=== PATIENT | male | born 1970 | race Caucasian/White ===

== ENCOUNTER 2016-08-07 17:00 | Inpatient (IN) | payer OTHER ==
[2016-08-07 20:03] VITALS: BMI 26.1
[2016-08-07] MEDS ORDERED: HEPARIN SODIUM,PORCINE 5,000 UNIT/ML 1 ML VIAL IV ONE (21:38)
[2016-08-07] MEDS: HYDROcodone/APAP 7.5-325MG 1 EACH TAB PO PRN (22:11)
[2016-08-07] MEDS: HEPARIN SODIUM,PORCINE/D5W PMX 25,000 UNIT in DEXTROSE/WATER 1 500ML.BAG IV SCH (22:33)
[2016-08-07 22:37] LABS: Basophils # (A) 0.1 k/uL (0-0.2); Basophils % (A) 1 %; CH 31.7; CHCM 34.1; Eosinophils # (A) 0.2 k/uL (0-0.7); Eosinophils % (A) 4 %; HCT 43.8 % (39.0-53.0); HDW 2.59; HGB 14.4 gm/dL (13.0-17.5); Luc % (Auto) 2; Lymphocytes # (A) 2.2 k/uL (1.0-4.8); Lymphocytes % (A) 35 %; MCH 30.8 pg (25.0-35.0); MCHC 32.9 g/dL (31.0-37.0); MCV 93.5 fL (80.0-100.0); Mean Platelet Volume 8.2; Monocytes # (A) 0.4 k/uL (0-1.0); Monocytes % (A) 7 %; Neutrophils # (A) 3.3 k/uL (1.3-7.7); Neutrophils % (A) 53 %; RBC 4.68 m/uL (4.30-5.90); RDW 12.4 % (11.5-15.5); WBC 6.2 k/uL (3.8-10.6); WBC (Perox) 6.35
[2016-08-07 22:47] LABS: Anion Gap 9 mmol/L; Blood Urea Nitrogen 14 mg/dL (9-20); Calcium 8.7 mg/dL (8.4-10.2); Carbon Dioxide 28 mmol/L (22-30); Chloride 103 mmol/L (98-107); Glucose 76 mg/dL (74-99); INR 1.1 (<1.1); Non-African American GFR(MDRD) >60 (>60 ml/min/1.73 sqM); Partial Thromboplastin Time 25.9 sec (22.0-30.0); Potassium 4.6 mmol/L (3.5-5.1); Prothrombin Time 11.4 sec (9.0-12.0); Sodium 140 mmol/L (137-145)
[2016-08-07] MEDS: MELATONIN 3 MG TABLET PO SCH (23:25)
[2016-08-08] MEDS: HYDROcodone/APAP 7.5-325MG 1 EACH TAB PO PRN ×6 (02:04→21:32)
[2016-08-08 06:59] LABS: Basophils # (A) 0.1 k/uL (0-0.2); Basophils % (A) 1 %; CH 31.5; CHCM 33.7; Eosinophils # (A) 0.2 k/uL (0-0.7); Eosinophils % (A) 5 %; HCT 42.9 % (39.0-53.0); HDW 2.57; Luc # (Auto) 0.15; Luc % (Auto) 3; Lymphocytes # (A) 2.2 k/uL (1.0-4.8); Lymphocytes % (A) 42 %; MCH 30.8 pg (25.0-35.0); MCHC 32.7 g/dL (31.0-37.0); MCV 94.1 fL (80.0-100.0); Mean Platelet Volume 7.3; Monocytes # (A) 0.3 k/uL (0-1.0); Monocytes % (A) 6 %; Neutrophils # (A) 2.3 k/uL (1.3-7.7); Neutrophils % (A) 44 %; RBC 4.55 m/uL (4.30-5.90); RDW 12.5 % (11.5-15.5); WBC 5.2 k/uL (3.8-10.6)
[2016-08-08] MEDS: HEPARIN SODIUM,PORCINE 5,000 UNIT/ML 1 ML VIAL IV PRN ×2 (08:02→16:50)
--- NOTE | 2016-08-08 08:43 | P.CRDCN ---
<Jessa Bowden E - Last Filed: 08/08/16 08:28> History of Present Illness Consult date: 08/08/16 Requesting physician: Anton Durand Reason for Consult (text): Abnormal troponins Chief complaint: Right flank pain History of present illness: This is a 46-year-old gentleman with history of mechanical mitral valve prosthesis, nicotine dependence, GERD, who underwent a cardiac catheterization in April of last year which revealed normal coronary arteries. He was transferred here from [facility]. Patient presented to the hospital there with complaints of right posterior flank pain. The area is tender on palpation, and worsens with deep breathing and cough. He denies any discomfort in his chest, no shortness of breath, no fevers, occasional chills. Patient denies any heavy lifting or muscle strain recently, no injury to that area recently. Troponin was drawn at [facility] which came back to be abnormal, and for this reason the patient was transferred here and a cardiology consultation was requested. Troponin at [place] 0.045. CBC normal. Potassium 4.6, BUN 14, creatinine 1.1. Troponin's of 0.092 , points 087. EKG shows a normal sinus rhythm with nonspecific ST-T wave changes. Patient was supposed to be taking Coumadin at home because of his history of a metallic mitral valve, he states that for the past few months he has not taken it because he no longer has insurance. An echocardiogram with Doppler study was performed here in April of last year which revealed an ejection fraction of 60-65% with a mechanical mitral valve that was well seated. Severely dilated left atrium. Blood pressure this morning 122/70 with a heart rate in the 70s. Past Medical History Past Medical History: Atrial Fibrillation, Cancer, Chest Pain / Angina, CVA/TIA , GERD/Reflux, Hypertension, Myocardial Infarction ([place]), Syncope Additional Past Medical History / Comment(s): has problem with aortic valve regurgitation, had mitral valve replaced, pt thinks a dr told him in 2005 he may have had a mild mi, cyst in colon removed was cancerous- no radiation or chemo, syncope times two 02/2015 Last Myocardial Infarction Date:: 2005 History of Any Multi-Drug Resistant Organisms: None Reported Past Surgical History: Adenoidectomy, Heart Catheterization, Tonsillectomy Additional Past Surgical History / Comment(s): mitral valve replaced, 4 bowels sx in total cysts removed from colon 2 were cancerous only sx was required Past Anesthesia/Blood Transfusion Reactions: No Reported Reaction Past Psychological History: No Psychological Hx Reported Additional Psychological History / Comment(s): pt lives at home with sig other and 2 children. 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 Smoking Status: Current every day smoker Past Alcohol Use History: Occasional Additional Past Alcohol Use History / Comment(s): pt started smoking at age 9 worked up to 1ppd, quit 2009 then started smoking again 2014 & smokes 1-2 cigs per day Past Drug Use History: None Reported - Past Family History Father History Unknown: Yes Family Medical History: Unable to Obtain Additional Family Medical History / Comment(s): pt was adopted. Mother History Unknown: Yes Family Medical History: Unable to Obtain Additional Family Medical History / Comment(s): pt was adopted Medications and Allergies Home Medications Medication Instructions Recorded Confirmed Type Warfarin Sodium 5 mg PO HS 12/12/15 08/07/16 History Allergies Allergy/AdvReac Type Severity Reaction Status Date / Time Penicillins Allergy Severe Anaphylaxis Verified 08/07/16 20:23 Physical Exam Vitals: Vital Signs Temp Pulse Resp BP BP Pulse Ox 08/08/16 08:00 96.3 F L 70 16 122/71 96 08/08/16 04:00 97.8 F 75 18 121/69 96 08/08/16 00:00 97.8 F 81 18 124/70 98 08/07/16 20:00 97 18 08/07/16 19:32 97.1 F L 97 18 156/85 99 Intake and Output 08/07/16 08/08/16 08/08/16 22:59 06:59 14:59 Intake Total 520 185.276 Output Total 200 Balance -200 520 185.276 Intake: IV 320 Heparin Sodium,Porcine/ 160 D5w Pmx 25,000 unit In Dextrose/Water 1 500ml. bag @ 12 UNITS/KG/HR 20. 36 mls/hr IV .Q24H [facility] Rx #:[id number] NS 160 Intake, IV Titration 185.276 Amount Heparin Sodium,Porcine/ 185.276 D5w Pmx 25,000 unit In Dextrose/Water 1 500ml. bag @ 12 UNITS/KG/HR 20. 36 mls/hr IV .Q24H [facility] Rx #:[id number] Oral 200 Output: Urine 200 Other: Voiding Method Urinal Urinal # Voids 1 Weight 84.839 kg 82.1 kg PHYSICAL EXAMINATION: HEENT: Head is atraumatic, normocephalic. Pupils equal, round. Neck is supple. There is no elevated jugular venous pressure. HEART EXAMINATION: Heart S1-S2 metallic mitral valve click is heard, systolic murmur is heard. CHEST EXAMINATION: Lungs are clear to auscultation and precussion. Positive right posterior flank tenderness on palpation and with deep breathing and cough. ABDOMEN: Soft, nontender. Bowel sounds are heard. No organomegaly noted. EXTREMITIES: 2+ peripheral pulses with no evidence of peripheral edema and no calf tenderness noted. NEUROLOGIC patient is awake, alert and oriented -3. . Results 08/08/16 06:20 08/07/16 22:05 Cardiac Enzymes 08/07/16 08/08/16 Range/Units 22:05 06:20 Troponin I 0.092 H* 0.087 H* (0.000-0.034) ng/mL Coagulation 08/07/16 08/08/16 Range/Units 22:05 06:20 PT 11.4 (9.0-12.0) sec APTT 25.9 35.1 H (22.0-30.0) sec CBC 08/07/16 08/08/16 Range/Units 22:05 06:20 WBC 6.2 5.2 (3.8-10.6) k/uL RBC 4.68 4.55 (4.30-5.90) m/uL Hgb 14.4 14.0 (13.0-17.5) gm/dL Hct 43.8 42.9 (39.0-53.0) % Plt Count 213 206 (150-450) k/uL Comprehensive Metabolic Panel 08/07/16 Range/Units 22:05 Sodium 140 (137-145) mmol/L Potassium 4.6 (3.5-5.1) mmol/L Chloride 103 (98-107) mmol/L Carbon Dioxide 28 (22-30) mmol/L BUN 14 (9-20) mg/dL Creatinine 1.10 (0.66-1.25) mg/dL Glucose 76 (74-99) mg/dL Calcium 8.7 (8.4-10.2) mg/dL Current Medications Generic Name Dose Route Start Last Admin Trade Name Freq PRN Reason Stop Dose Admin Acetaminophen/Hydrocodone Bitart 1 each 08/07/16 21:47 08/08/16 06:05 [place] 7.5-325 PO 1 each Q4HR PRN Administration Pain Heparin Sodium (Porcine) 0 unit 08/07/16 21:38 08/08/16 08:02 Heparin IV 4,000 unit PER PROTOCOL PRN Administration Low PTT Protocol Heparin Sodium/Dextrose 25,000 500 mls @ 20.36 mls/hr 08/07/16 21:45 07:39 unit/ IV Solution IV 15 units/kg/hr .Q24H [facility] 25.45 mls/hr Protocol Titration 12 UNITS/KG/HR Melatonin 3 mg 08/07/16 23:00 08/07/16 23:25 Melatonin PO 3 mg HS [facility] Administration Intake and Output 08/07/16 08/08/16 08/08/16 22:59 06:59 14:59 Intake Total 520 185.276 Output Total 200 Balance -200 520 185.276 Intake: IV 320 Heparin Sodium,Porcine/ 160 D5w Pmx 25,000 unit In Dextrose/Water 1 500ml. bag @ 12 UNITS/KG/HR 20. 36 mls/hr IV .Q24H [facility] Rx #:[id number] NS 160 Intake, IV Titration 185.276 Amount Heparin Sodium,Porcine/ 185.276 D5w Pmx 25,000 unit In Dextrose/Water 1 500ml. bag @ 12 UNITS/KG/HR 20. 36 mls/hr IV .Q24H [facility] Rx #:[id number] Oral 200 Output: Urine 200 Other: Voiding Method Urinal Urinal # Voids 1 Weight 84.839 kg 82.1 kg 08/08/16 06:20 08/07/16 22:05 EKG Interpretations (text) EKG shows normal sinus rhythm with nonspecific ST-T wave changes, evidence of LVH strain pattern Assessment and Plan Plan: Assessment and plan #1 right posterior flank pain, appears musculoskeletal in nature. Patient denies chest pain or difficulty in breathing. #2 abnormal troponins, not consistent with acute coronary syndrome. EKG shows normal sinus rhythm with lateral ST-T wave changes similar to prior EKGs. Upon review of prior records, patient appears to have persistent abnormality in his troponins. #3 history of mechanical mitral valve ceases, patient has not been taking Coumadin for the past few months. Patient has been advised in the past regarding compliance with Coumadin as well. #4 nicotine dependence #5 no documented coronary artery disease, cardiac catheterization was performed in April of last year which revealed normal coronary arteries. #6 GERD Plan We will continue the IV heparin, reinitiate Coumadin. Patient has been instructed strongly regarding the importance of Coumadin compliance. We'll repeat an echocardiogram with Doppler study. DNP note has been reviewed, I agree with a documented findings and plan of care. Patient was seen and examined. <Juan Carlos Nix - Last Filed: 08/08/16 13:57> Physical Exam Vitals: Vital Signs Temp Pulse Resp BP BP Pulse Ox 08/08/16 12:00 96.8 F L 76 16 116/71 96 08/08/16 08:00 96.3 F L 70 16 122/71 96 08/08/16 04:00 97.8 F 75 18 121/69 96 08/08/16 00:00 97.8 F 81 18 124/70 98 08/07/16 20:00 97 18 08/07/16 19:32 97.1 F L 97 18 156/85 99 Intake and Output 08/07/16 08/08/16 08/08/16 22:59 06:59 14:59 Intake Total 520 185.276 Output Total 200 Balance -200 520 185.276 Intake: IV 320 Heparin Sodium,Porcine/ 160 D5w Pmx 25,000 unit In Dextrose/Water 1 500ml. bag @ 12 UNITS/KG/HR 20. 36 mls/hr IV .Q24H [facility] Rx #:[id number] NS 160 Intake, IV Titration 185.276 Amount Heparin Sodium,Porcine/ 185.276 D5w Pmx 25,000 unit In Dextrose/Water 1 500ml. bag @ 12 UNITS/KG/HR 20. 36 mls/hr IV .Q24H [facility] Rx #:[id number] Oral 200 Output: Urine 200 Other: Voiding Method Urinal Urinal Toilet Urinal # Voids 1 Weight 84.839 kg 82.1 kg Results 08/08/16 06:20 08/07/16 22:05 Cardiac Enzymes 08/07/16 08/08/16 Range/Units 22:05 06:20 Troponin I 0.092 H* 0.087 H* (0.000-0.034) ng/mL Coagulation 08/07/16 08/08/16 Range/Units 22:05 06:20 PT 11.4 (9.0-12.0) sec APTT 25.9 35.1 H (22.0-30.0) sec CBC 08/07/16 08/08/16 Range/Units 22:05 06:20 WBC 6.2 5.2 (3.8-10.6) k/uL RBC 4.68 4.55 (4.30-5.90) m/uL Hgb 14.4 14.0 (13.0-17.5) gm/dL Hct 43.8 42.9 (39.0-53.0) % Plt Count 213 206 (150-450) k/uL Comprehensive Metabolic Panel 08/07/16 Range/Units 22:05 Sodium 140 (137-145) mmol/L Potassium 4.6 (3.5-5.1) mmol/L Chloride 103 (98-107) mmol/L Carbon Dioxide 28 (22-30) mmol/L BUN 14 (9-20) mg/dL Creatinine 1.10 (0.66-1.25) mg/dL Glucose 76 (74-99) mg/dL Calcium 8.7 (8.4-10.2) mg/dL Current Medications Generic Name Dose Route Start Last Admin Trade Name Freq PRN Reason Stop Dose Admin Acetaminophen/Hydrocodone Bitart 1 each 08/07/16 21:47 08/08/16 09:58 [place] 7.5-325 PO 1 each Q4HR PRN Administration Pain Heparin Sodium (Porcine) 0 unit 08/07/16 21:38 08/08/16 08:02 Heparin IV 4,000 unit PER PROTOCOL PRN Administration Low PTT Protocol Heparin Sodium/Dextrose 25,000 500 mls @ 20.36 mls/hr 08/07/16 21:45 07:39 unit/ IV Solution IV 15 units/kg/hr .Q24H [facility] 25.45 mls/hr Protocol Titration 12 UNITS/KG/HR Melatonin 3 mg 08/07/16 23:00 08/07/16 23:25 Melatonin PO 3 mg HS [facility] Administration Miscellaneous Information 1 each 08/08/16 11:53 Rx Info: Iv Contrast Was Given MISCELLANE 08/10/16 11:54 DAILY PRN Per Protocol Nicotine 1 patch 08/08/16 12:30 08/08/16 12:52 Habitrol 14mg/24hr Patch TRANSDERM Not Given DAILY [facility] Warfarin Sodium 5 mg 08/08/16 18:00 Coumadin PO DAILY@1800 [facility] Intake and Output 08/07/16 08/08/16 08/08/16 22:59 06:59 14:59 Intake Total 520 185.276 Output Total 200 Balance -200 520 185.276 Intake: IV 320 Heparin Sodium,Porcine/ 160 D5w Pmx 25,000 unit In Dextrose/Water 1 500ml. bag @ 12 UNITS/KG/HR 20. 36 mls/hr IV .Q24H [facility] Rx #:[id number] NS 160 Intake, IV Titration 185.276 Amount Heparin Sodium,Porcine/ 185.276 D5w Pmx 25,000 unit In Dextrose/Water 1 500ml. bag @ 12 UNITS/KG/HR 20. 36 mls/hr IV .Q24H [facility] Rx #:[id number] Oral 200 Output: Urine 200 Other: Voiding Method Urinal Urinal Toilet Urinal # Voids 1 Weight 84.839 kg 82.1 kg 08/08/16 06:20 08/07/16 22:05
--- NOTE | 2016-08-08 10:32 | ECHOF ---
Referral Reason:flank pain MEASUREMENTS -------- HEIGHT: 162.6 cm WEIGHT: 84.4 kg BP: IVSd: 1.6 cm (0.6 - 1.1) LVIDd: 4.2 cm (3.9 - 5.3) LVPWd: 1.7 cm (0.6 - 1.1) IVSs: 2.0 cm LVIDs: 3.3 cm LVPWs: 1.8 cm LA Diam: 5.1 cm (2.7 - 3.8) LAESV Index (A-L): 46.64 ml/m Ao Diam: 3.4 cm (2.0 - 3.7) AV Cusp: 2.1 cm (1.5 - 2.6) LA Diam: 5.7 cm (2.7 - 3.8) MV E Anand: 1.47 m/s MV DecT: 266 ms MV A Anand: 0.78 m/s MV E/A Ratio: 1.88 AR PHT: 332 ms RAP: 5.00 mmHg RVSP: 32.77 mmHg FINDINGS -------- Sinus rhythm. This was a technically adequate study. There is moderate concentric left ventricular hypertrophy. Overall left ventricular systolic function is low-normal with, an EF between 50 - 55 %. Inferior Hypokinesis The right ventricle is normal in size. LA is severely dilated >40 ml/m2 The right atrial size is normal. There is mild aortic valve sclerosis. There is moderate aortic regurgitation. The peak and mean MV gradients are 27.01mmHg 6.79mmHg as measured by doppler. Pt has a Mechanical Mitral Valve. Mild tricuspid regurgitation present. There is no evidence of pulmonary hypertension. The right ventricular systolic pressure, as measured by Doppler, is 32.77mmHg. There is no pulmonic regurgitation present. The aortic root size is normal. There is no pericardial effusion. CONCLUSIONS -------- 1. There is moderate concentric left ventricular hypertrophy. 2. There is no evidence of pulmonary hypertension. 3. The right ventricular systolic pressure, as measured by Doppler, is 32.77mmHg. 4. Overall left ventricular systolic function is low-normal with, an EF between 50 - 55 %. 5. Inferior Hypokinesis 6. LA is severely dilated >40 ml/m2 7. There is mild aortic valve sclerosis. 8. There is moderate aortic regurgitation. 9. The peak and mean MV gradients are 27.01mmHg 6.79mmHg as measured by doppler. 10. Pt has a Mechanical Mitral Valve. 11. Mild tricuspid regurgitation present. FIRE INSPECTOR: Alcira Baird RDCS
[2016-08-08] MEDS ORDERED: RX INFO: IV CONTRAST WAS GIVEN 1 EACH MISC MISCELLANE PRN (11:53)
--- NOTE | 2016-08-08 12:37 | CT ---
EXAMINATION TYPE: CT angio chest DATE OF EXAM: 08/08/2016 12:24 PM COMPARISON: NONE HISTORY: Right-sided chest pain with elevated d-dimer CT DLP: 246.8 mGycm. Automated Exposure Control for Dose Reduction was Utilized. CONTRAST: CTA scan of the thorax is performed with IV Contrast, patient injected with 100 mL of Omnipaque 350, pulmonary embolism protocol. MIP Images are created on CT scanner and reviewed. FINDINGS: LUNGS: The lungs are predominantly clear, there is no concerning parenchymal mass or nodule identifie d. Minimal dependent atelectasis in both lower lobes is present. There is no pleural effusion or pne umothorax seen. The tracheobronchial tree is patent. MEDIASTINUM: There is satisfactory enhancement of the pulmonary artery and its branches, there is no CT evidence for pulmonary embolism. There are no greater than 1 cm hilar or mediastinal lymph nodes. No pericardial effusion is seen. Heart size is upper limits of normal. There is moderate to severe left atrial dilatation with metallic mitral valvular ring identified. There is mild to moderate left ventricular dilatation and wall hypertrophy. Sternal wires are present. OTHER: There is mild compression type fracture at T9 level suspected chronic without linear lucency n oted IMPRESSION: No CT evidence for pulmonary embolism. Prior cardiac surgery at level of mitral valve not ed. No suspicious acute pulmonary process identified.
[2016-08-08] MEDS: NICOTINE 14MG/24HR PATCH TRANSDERM SCH ×2 (12:50→12:52)
--- NOTE | 2016-08-08 13:06 | HP ---
DATE OF ADMISSION: 08/07/2016 PRESENTING COMPLAINT: Right chest pain. HISTORY OF PRESENTING COMPLAINT: This is a 46-year-old patient who currently has no family doctor, transferred here from [place]. Patient has a known history of mechanical mitral valve in 2003. For the last 3 months not taking any Coumadin because of insurance reasons. Patient is a smoker. Patient has had a cardiac cath previously that was negative. Patient has had TIA. Patient used to smoke. The patient for 2 weeks been having right lateral chest wall pain, localized, worse with movement. Also when he takes a deep. Presented at [facility], found to have a troponin leak, hence, patient was transferred down here. Patient having left precordial pain, a slight cough, slightly congested; hence, he was transferred down here, put on IV heparin. REVIEW OF SYSTEMS: CONSTITUTIONAL: No fever. HEENT: None. RESPIRATORY: As above. CARDIOVASCULAR: No precordial pain, no exertional chest pain, left-sided. GASTROINTESTINAL: None. GENITOURINARY: None. MUSCULOSKELETAL: Some right-sided chest wall as above. GENITOURINARY: None. PSYCHIATRY: None. NEUROLOGICAL: None. PAST MEDICAL HISTORY: Atrial fibrillation, TIA, GERD, hypertension, questionable myocardial infarction, mitral valve replacement with mechanical technician valve. PAST SURGICAL HISTORY: Adenoidectomy, cardiac catheterization with mitral valve replacement, four bowel surgery, a cancerous cyst was removed. SOCIAL HISTORY: The patient lives at home with significant other. 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 Patient smoking about 1/2 pack a day. No alcohol. FAMILY HISTORY: Patient is adopted. HOME MEDICATIONS: Coumadin, but not taking for the last 3 months. Allergy to PENICILLIN. On examination, temperature 96.8, pulse 76, respirations 16, blood pressure 106/71, pulse ox 96% on room air. GENERAL APPEARANCE: Average build, sitting in bed, comfortable. EYES: Pupils equal, conjunctivae normal. HEENT: Oral cavity normal. NECK: JVD not raised. Mass not palpable. RESPIRATORY: Evident slightly decreased breath sounds. CARDIOVASCULAR: First and second sounds normal. No edema. ABDOMEN: Soft, nontender. Liver and spleen not palpable. LYMPHATIC: No lymph node palpable in neck or axillae. PSYCHIATRY: Alert and oriented x3. Mood and affect normal. NEUROLOGICAL: Pupils equal. Cranial nerves grossly intact. Power and sensation grossly intact. MUSCULOSKELETAL: Tenderness on the right lateral chest wall, localized, quite tender. INVESTIGATIONS: White count 5.2, hemoglobin 14, troponin 0.092, 0.087. A 2-D echocardiogram; EF 50% to 55%, moderate aortic regurgitation, mechanical technician mitral valve, inferior hypokinesis. ASSESSMENT: 1. Right chest wall pain with reproducible pain ( ) the same. Will rule out a pulmonary embolism that could be an element of viral pleurisy. 2. Mechanical mitral valve. Patient has not been taking his Coumadin. 3. Moderate aortic regurgitation, nonrheumatic. 4. Abnormal 2-D echo showing inferior hypokinesis. 5. Troponin leak with no cardiac symptoms. PLAN: Will order a chest CT to rule out a PE. Cardiology is consulted, IV heparin is in place. Advised against smoking, given a nicotine patch. Will await further input from Cardiology. Care was discussed with the patient.
--- NOTE | 2016-08-08 14:28 | XR ---
EXAMINATION TYPE: XR chest 2V DATE OF EXAM: 08/08/2016 2:21 PM COMPARISON: CTA chest from earlier today HISTORY: Right pleuritic chest pain TECHNIQUE: Frontal and lateral views of the chest are obtained. FINDINGS: Sternal wires and metallic orbital valvular ring are redemonstrated. There is no focal air space opacity, pleural effusion, or pneumothorax seen. The cardiac silhouette size is stable and upp er limits of normal. Old right-sided rib fractures are noted. IMPRESSION: No acute cardiopulmonary process.
[2016-08-08] MEDS: HEPARIN SODIUM,PORCINE/D5W PMX 25,000 UNIT in DEXTROSE/WATER 1 500ML.BAG IV SCH (16:48)
[2016-08-08] MEDS ORDERED: WARFARIN 5 MG TAB PO SCH (18:00)
[2016-08-08] MEDS: MELATONIN 3 MG TABLET PO SCH (21:32)
[2016-08-08 23:13] VITALS: RESP 18
[2016-08-09] MEDS: HYDROcodone/APAP 7.5-325MG 1 EACH TAB PO PRN ×4 (01:24→13:56)
[2016-08-09 06:59] LABS: Basophils # (A) 0.1 k/uL (0-0.2); Basophils % (A) 1 %; CH 31.5; Eosinophils # (A) 0.3 k/uL (0-0.7); Eosinophils % (A) 5 %; HCT 42.6 % (39.0-53.0); HDW 2.65; HGB 14.2 gm/dL (13.0-17.5); Luc # (Auto) 0.14; Luc % (Auto) 2; Lymphocytes # (A) 2.4 k/uL (1.0-4.8); Lymphocytes % (A) 38 %; MCH 31.1 pg (25.0-35.0); MCHC 33.4 g/dL (31.0-37.0); MCV 93.1 fL (80.0-100.0); Mean Platelet Volume 7.9; Monocytes # (A) 0.4 k/uL (0-1.0); Monocytes % (A) 6 %; Neutrophils % (A) 48 %; RBC 4.57 m/uL (4.30-5.90); RDW 12.5 % (11.5-15.5); WBC 6.3 k/uL (3.8-10.6); WBC (Perox) 6.23
[2016-08-09 07:18] LABS: INR 1.1 (<1.1); Partial Thromboplastin Time 64.4 sec (22.0-30.0); Prothrombin Time 11.2 sec (9.0-12.0)
[2016-08-09] MEDS: NICOTINE 14MG/24HR PATCH TRANSDERM SCH (08:41)
[2016-08-09 08:49] VITALS: TEMP 98
[2016-08-09] MEDS: HEPARIN SODIUM,PORCINE/D5W PMX 25,000 UNIT in DEXTROSE/WATER 1 500ML.BAG IV SCH (09:35)
[2016-08-09 14:47] VITALS: BP 138/76; PULSE 77
[2016-08-09] MEDS ORDERED: ENOXAPARIN 120 MG/0.8 ML SYRINGE SQ STA (15:24)
--- NOTE | 2016-08-15 11:47 | DS ---
DATE OF ADMISSION: 08/07/2016 DATE OF DISCHARGE: 08/09/2016 FINAL DIAGNOSES: 1. Right chest wall pain reproducible, probably musculoskeletal. 2. Mechanical mitral valve. 3. Moderate aortic regurgitation, nonrheumatic. CONSULTATION: Dr. Juan Carlos Nix from Cardiology. HOSPITAL COURSE: This patient presented with right chest wall pain, reproducible, significant local tenderness felt to be musculoskeletal. Patient has been taking his Coumadin, patient is put on IV heparin and given a dose of Lovenox 120 mg ( ) and also given Xarelto. A 2-D echocardiogram was done by Dr. Nix who cleared the patient to be discharged. PE was ruled out. Patient was counseled against smoking. On examination, lungs are clear. CARDIOVASCULAR: Mechanical heart sound. DISCHARGE MEDICATIONS: 1. Tylenol No. 3 one tablet q.6 p.r.n. 2. Melatonin 3 mg q.h.s. 3. Nicotine patch 14. 4. Xarelto 20 mg daily. Follow up with Dr. Max in 3 days; follow up with Dr. Nix in one week.
== END 2016-08-09 16:19 | disposition home or self-care (01) | DRG 313 ==
LOC: 6SEL 19:15
PROVIDERS: ADMIT Hospitalist; ATTEND Hospitalist
DX: R07.89 Other chest pain (principal); I25.2 Old myocardial infarction; I10 Essential (primary) hypertension; F17.210 Nicotine dependence, cigarettes, uncomplicated; I35.1 Nonrheumatic aortic (valve) insufficiency; I48.91 Unspecified atrial fibrillation; K21.9 Gastro-esophageal reflux disease without esophagitis; Z88.0 Allergy status to penicillin; Z95.2 Presence of prosthetic heart valve; Z85.038 Personal history of other malignant neoplasm of large intestine
CPT/HCPCS: 71020; 71275; 80048; 84484; 85025; 85610; 85730; 93306

== ENCOUNTER 2016-08-22 21:06 | Inpatient (IN) | payer OTHER ==
[2016-08-22] MEDS ORDERED: SODIUM CHLORIDE 0.9% 1,000 ML IV STA (21:43)
[2016-08-22] MEDS ORDERED: KETOROLAC 30 MG/ML 1 ML VIAL IVP STA ×2 (21:43→23:36)
--- NOTE | 2016-08-22 21:52 | ED ---
Back Pain HPI - General Chief Complaint: Back Pain/Injury Stated Complaint: Flank Pain Time Seen by Provider: 08/22/16 21:36 Source: patient, family, RN notes reviewed, old records reviewed Limitations: no limitations - History of Present Illness Initial Comments: This is a 46-year-old male with a history of multiple medical issues including mechanical mitral valve history of A. fib in the past CVA GERD hypertension syncope who was recently worked up this hospital for cardiac disease and apparently have no evidence of coronary artery problems he was supposed to be on blood thinners but is not who presents with complaints of right flank pain going from the right upper lateral chest down to the low back. He started developing a rash today which he had not had previously he states is very painful and tender. He also states he has a hematuria today. No chills or sweats positive fever. Also additionally states he quit smoking a couple days ago. He has a cough is nonproductive. He voices no other complaints he has had this chest pain previously. MD Complaint: back pain - Related Data Previous Rx's Medication Instructions Recorded Rivaroxaban [Xarelto] 20 mg PO DAILY #30 tab 08/09/16 Allergies Allergy/AdvReac Type Severity Reaction Status Date / Time Penicillins Allergy Severe Anaphylaxis Verified 08/22/16 22:22 Review of Systems ROS Statement: Those systems with pertinent positive or pertinent negative responses have been documented in the HPI. ROS Other: All systems not noted in ROS Statement are negative. Past Medical History Past Medical History: Atrial Fibrillation, Cancer, Chest Pain / Angina, CVA/TIA , GERD/Reflux, Hypertension, Myocardial Infarction ([place]), Syncope Additional Past Medical History / Comment(s): has problem with aortic valve regurgitation, had mitral valve replaced, pt thinks a told him in 2005 he may have had a mild mi, cyst in colon removed was cancerous- no radiation or chemo, syncope times two 02/2015 Last Myocardial Infarction Date:: 2005 History of Any Multi-Drug Resistant Organisms: None Reported Past Surgical History: Adenoidectomy, Heart Catheterization, Tonsillectomy Additional Past Surgical History / Comment(s): mitral valve replaced, 4 bowels sx in total cysts removed from colon 2 were cancerous only sx was required Past Anesthesia/Blood Transfusion Reactions: No Reported Reaction Past Psychological History: No Psychological Hx Reported Additional Psychological History / Comment(s): pt lives at home with sig other and 2 children. 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 Smoking Status: Current every day smoker Past Alcohol Use History: Occasional Additional Past Alcohol Use History / Comment(s): pt started smoking at age 9 worked up to 1ppd, quit 2009 then started smoking again 2014 & smokes 1-2 cigs per day Past Drug Use History: None Reported - Past Family History Father History Unknown: Yes Family Medical History: Unable to Obtain Additional Family Medical History / Comment(s): pt was adopted. Mother History Unknown: Yes Family Medical History: Unable to Obtain Additional Family Medical History / Comment(s): pt was adopted General Exam - General Exam Comments Initial Comments: This is a well-developed well-nourished awake alert oriented times 3 male Limitations: no limitations General appearance: alert, in no apparent distress Head exam: Present: atraumatic, normocephalic, normal inspection Eye exam: Present: normal appearance, PERRL, EOMI. Absent: scleral icterus, conjunctival injection, periorbital swelling ENT exam: Present: normal exam, mucous membranes moist Neck exam: Present: normal inspection. Absent: tenderness, meningismus, lymphadenopathy Respiratory exam: Present: normal lung sounds bilaterally. Absent: respiratory distress, wheezes, rales, rhonchi, stridor Cardiovascular Exam: Present: normal rhythm, tachycardia, systolic murmur. Absent: diastolic murmur, rubs, gallop, clicks GI/Abdominal exam: Present: soft, normal bowel sounds. Absent: distended, tenderness, guarding, rebound, rigid Extremities exam: Present: normal inspection, full ROM, normal capillary refill. Absent: tenderness, pedal edema, joint swelling, calf tenderness Back exam: Present: normal inspection (Right lower flank area extending from the midline back to the right flank increased erythema and increased temperature tenderness palpation appears be somewhat urticarial in nature note evidence at this time of any pustules.), tenderness Neurological exam: Present: alert, oriented X3, CN II-XII intact Psychiatric exam: Present: normal affect, normal mood Skin exam: Present: warm, dry, intact, normal color. Absent: rash Course Vital Signs 08/22/16 08/22/16 08/22/16 21:31 22:09 23:35 Temperature 99.1 F 98.2 F 97.0 F L Pulse Rate 104 H 100 93 Respiratory 20 22 20 Rate Blood Pressure 130/90 160/67 132/61 O2 Sat by Pulse 98 96 97 Oximetry 08/22/16 08/23/16 23:43 01:38 Temperature Pulse Rate 95 80 Respiratory 16 Rate Blood Pressure 127/77 120/78 O2 Sat by Pulse 98 96 Oximetry Medical Decision Making - Medical Decision Making Patient was reevaluated several occasions he still has significant pain he will be admitted for treatment of pain fevers or colitis him also concern for herpes zoster with the rash. - Lab Data Result diagrams: 08/22/16 21:49 08/22/16 21:49 Lab Results 08/22/16 08/22/16 08/22/16 Range/Units 21:49 21:49 21:49 WBC 4.9 (3.8-10.6) k/uL RBC 5.14 (4.30-5.90) m/uL Hgb 15.7 (13.0-17.5) gm/dL Hct 47.0 (39.0-53.0) % MCV 91.4 (80.0-100.0) fL MCH 30.6 (25.0-35.0) pg MCHC 33.5 (31.0-37.0) g/dL RDW 12.6 (11.5-15.5) % Plt Count 222 (150-450) k/uL Neutrophils % 70 % Lymphocytes % 19 % Monocytes % 7 % Eosinophils % 0 % Basophils % 1 % Neutrophils # 3.4 (1.3-7.7) k/uL Lymphocytes # 0.9 L (1.0-4.8) k/uL Monocytes # 0.3 (0-1.0) k/uL Eosinophils # 0.0 (0-0.7) k/uL Basophils # 0.0 (0-0.2) k/uL Sodium 135 L (137-145) mmol/L Potassium 4.4 (3.5-5.1) mmol/L Chloride 98 (98-107) mmol/L Carbon Dioxide 28 (22-30) mmol/L Anion Gap 9 mmol/L BUN 11 (9-20) mg/dL Creatinine 1.24 (0.66-1.25) mg/dL Est GFR (MDRD) Af Amer >60 (>60 ml/min/1.73 sqM) Est GFR (MDRD) Non-Af >60 (>60 ml/min/1.73 sqM) Glucose 130 H (74-99) mg/dL Calcium 8.7 (8.4-10.2) mg/dL Magnesium 1.9 (1.6-2.3) mg/dL Total Bilirubin 1.1 (0.2-1.3) mg/dL AST 44 (17-59) U/L ALT 26 (21-72) U/L Alkaline Phosphatase 51 (38-126) U/L Total Creatine Kinase 285 H (55-170) U/L CK-MB (CK-2) 0.7 (0.0-2.4) ng/mL CK-MB (CK-2) Rel Index 0.2 C-Reactive Protein 20.0 H (<10.0) mg/L Total Protein 7.7 (6.3-8.2) g/dL Albumin 4.3 (3.5-5.0) g/dL Amylase 48 (30-110) U/L Lipase 127 (23-300) U/L Urine Color Urine Appearance (Clear) Urine pH (5.0-8.0) Ur Specific [place] (1.001-1.035) Urine Protein (Negative) Urine Glucose (UA) (Negative) Urine Ketones (Negative) Urine Blood (Negative) Urine Nitrate (Negative) Urine Bilirubin (Negative) Urine Urobilinogen (<2.0) mg/dL Ur Leukocyte Esterase (Negative) Urine RBC (0-5) /hpf Urine WBC (0-5) /hpf Ur Squamous Epith Cells (0-4) /hpf Urine Mucus (None) /hpf 08/22/16 Range/Units 23:48 WBC (3.8-10.6) k/uL RBC (4.30-5.90) m/uL Hgb (13.0-17.5) gm/dL Hct (39.0-53.0) % MCV (80.0-100.0) fL MCH (25.0-35.0) pg MCHC (31.0-37.0) g/dL RDW (11.5-15.5) % Plt Count (150-450) k/uL Neutrophils % % Lymphocytes % % Monocytes % % Eosinophils % % Basophils % % Neutrophils # (1.3-7.7) k/uL Lymphocytes # (1.0-4.8) k/uL Monocytes # (0-1.0) k/uL Eosinophils # (0-0.7) k/uL Basophils # (0-0.2) k/uL Sodium (137-145) mmol/L Potassium (3.5-5.1) mmol/L Chloride (98-107) mmol/L Carbon Dioxide (22-30) mmol/L Anion Gap mmol/L BUN (9-20) mg/dL Creatinine (0.66-1.25) mg/dL Est GFR (MDRD) Af Amer (>60 ml/min/1.73 sqM) Est GFR (MDRD) Non-Af (>60 ml/min/1.73 sqM) Glucose (74-99) mg/dL Calcium (8.4-10.2) mg/dL Magnesium (1.6-2.3) mg/dL Total Bilirubin (0.2-1.3) mg/dL AST (17-59) U/L ALT (21-72) U/L Alkaline Phosphatase (38-126) U/L Total Creatine Kinase (55-170) U/L CK-MB (CK-2) (0.0-2.4) ng/mL CK-MB (CK-2) Rel Index C-Reactive Protein (<10.0) mg/L Total Protein (6.3-8.2) g/dL Albumin (3.5-5.0) g/dL Amylase (30-110) U/L Lipase (23-300) U/L Urine Color Yellow Urine Appearance Clear (Clear) Urine pH 6.0 (5.0-8.0) Ur Specific [place] 1.015 (1.001-1.035) Urine Protein Trace H (Negative) Urine Glucose (UA) Negative (Negative) Urine Ketones Negative (Negative) Urine Blood Small H (Negative) Urine Nitrate Negative (Negative) Urine Bilirubin Negative (Negative) Urine Urobilinogen <2.0 (<2.0) mg/dL Ur Leukocyte Esterase Negative (Negative) Urine RBC 4 (0-5) /hpf Urine WBC 1 (0-5) /hpf Ur Squamous Epith Cells <1 (0-4) /hpf Urine Mucus Occasional H (None) /hpf - EKG Data -: EKG Interpreted by Fl EKG shows normal: sinus rhythm (Sinus rhythm a rate of 103. Interval 164 QRS duration 102 QT/QTC of 344/450 left exodeviation LVH PVCs are present unifocal.) - Radiology Data Radiology results: report reviewed (Imaging studies were reviewed and report reviewed there is evidence of colitis.), image reviewed Disposition Clinical Impression: Colitis, Abdominal pain, Herpes zoster Disposition: ADMITTED IP TO THIS HOSP Condition: Stable
[2016-08-22 22:26] LABS: Amylase 48 U/L (30-110); Anion Gap 9 mmol/L; Calcium 8.7 mg/dL (8.4-10.2); Carbon Dioxide 28 mmol/L (22-30); Chloride 98 mmol/L (98-107); Glucose 130 mg/dL (74-99); Non-African American GFR(MDRD) >60 (>60 ml/min/1.73 sqM); Sodium 135 mmol/L (137-145); Total Bilirubin 1.1 mg/dL (0.2-1.3)
[2016-08-22 22:30] LABS: Basophils % (A) 1 %; CHCM 35.1; Eosinophils % (A) 0 %; HGB 15.7 gm/dL (13.0-17.5); Luc # (Auto) 0.14; Luc % (Auto) 3; Lymphocytes # (A) 0.9 k/uL (1.0-4.8); Lymphocytes % (A) 19 %; MCH 30.6 pg (25.0-35.0); MCHC 33.5 g/dL (31.0-37.0); MCV 91.4 fL (80.0-100.0); Mean Platelet Volume 7.7; Monocytes # (A) 0.3 k/uL (0-1.0); Monocytes % (A) 7 %; Neutrophils # (A) 3.4 k/uL (1.3-7.7); Neutrophils % (A) 70 %; RBC 5.14 m/uL (4.30-5.90); RDW 12.6 % (11.5-15.5); WBC 4.9 k/uL (3.8-10.6); WBC (Perox) 4.84
--- NOTE | 2016-08-22 22:37 | XR ---
EXAMINATION TYPE: XR chest 2V DATE OF EXAM: 08/22/2016 10:21 PM COMPARISON: 08/08/2016 HISTORY: Right-sided flank and rib pain x2 weeks history of cancer, [place] and atrial fibrillation heart surgery angina hypertension. TECHNIQUE: Frontal and lateral views of the chest are obtained. FINDINGS: There is no focal air space opacity, pleural effusion, or pneumothorax seen. The cardiac silhouette size is within normal limits. Sternotomy changes are present. Prosthetic cardiac valve is noted. Multiple old healed right posterior rib fractures are noted. [id number] gaseous distention of bowel loops in the abdomen are noted. IMPRESSION: 1. No active lung infiltrates. 2. Chronic lung changes. 3. No significant interval change.
[2016-08-22 22:39] LABS: Blood Urea Nitrogen 11 mg/dL (9-20); Potassium 4.4 mmol/L (3.5-5.1); Total Protein 7.7 g/dL (6.3-8.2)
[2016-08-22 22:40] LABS: ALT 26 U/L (21-72); AST 44 U/L (17-59); Alkaline Phosphatase 51 U/L (38-126); Creatine Kinase MB 0.7 ng/mL (0.0-2.4); Magnesium 1.9 mg/dL (1.6-2.3)
[2016-08-22] MEDS ORDERED: HYDROmorphone 1 MG/ML 1 ML SYRINGE IVP STA (23:36)
[2016-08-23 00:02] LABS: Appearance,Urine Clear (Clear); Bilirubin,Urine Negative (Negative); Glucose,Urine (UA) Negative (Negative); Ketones,Urine Negative (Negative); Leukocyte Esterase,Urine Negative (Negative); Mucus,Urine Occasional /hpf; Nitrite,Urine Negative (Negative); Particle Count 3585; Protein,Urine Trace (Negative); RBC,Urine 4 /hpf (0-5); Specific Gravity,Urine 1.015 (1.001-1.035); Squamous Epithelial Cell,Urine <1 /hpf (0-4); UA Billing (MACRO vs. MICRO) MICRO; Urobilinogen,Urine <2.0 mg/dL (<2.0); WBC,Urine 1 /hpf (0-5)
[2016-08-23] MEDS ORDERED: ORPHENADRINE 30 MG/ML 2 ML VIAL IVP STA (00:18)
[2016-08-23] MEDS ORDERED: HYDROmorphone 1 MG/ML 1 ML SYRINGE IVP STA (00:18)
[2016-08-23] MEDS ORDERED: methylPREDNISolone SOD SUCCI 125 MG/2 ML VIAL IV STA (00:19)
--- NOTE | 2016-08-23 01:33 | CT ---
EXAMINATION TYPE: CT abdomen pelvis wo con DATE OF EXAM: 08/23/2016 1:09 AM COMPARISON: NONE HISTORY: right flank pain and rash CT DLP: 355.80 mGycm Automated exposure control for dose reduction was used. TECHNIQUE: Helical acquisition of images was performed from the lung bases through the pelvis. FINDINGS: LUNG BASES: Mild atelectatic changes are noted in both lung bases. LIVER/GB: No significant abnormality is appreciated. PANCREAS: No significant abnormality is seen. SPLEEN: No significant abnormality is seen. ADRENALS: No significant abnormality is seen. KIDNEYS: No significant abnormality is seen. RETROPERITONEAL ADENOPATHY: None visualized REPRODUCTIVE ORGANS: No significant abnormality is seen URINARY BLADDER: No significant abnormality is seen. PELVIC ADENOPATHY: None visualized. OSSEOUS STRUCTURES: No significant abnormality is seen. BOWEL: Visualized appendix appears unremarkable. Moderate gas and fecal distention of colonic bowel loops is noted with possible mild ileus or colitis changes. No significant bowel obstruction is noted . Stomach and small bowel loops appear grossly unremarkable. OTHER: Small fat-containing inguinal hernias are noted bilaterally. IMPRESSION: 1. POSSIBLE COLITIS CHANGES. 2. NO SIGNIFICANT ABNORMAL FLUID COLLECTIONS ARE NOTED IN THE ABDOMEN AND PELVIS. 3. NO OBSTRUCTING OPAQUE STONES OR HYDRONEPHROSIS BILATERALLY.
[2016-08-23] MEDS ORDERED: NALOXONE 0.4 MG/ML 1 ML VIAL IV PRN (02:35)
[2016-08-23] MEDS ORDERED: DICYCLOMINE 20 MG TAB PO STA (02:39)
[2016-08-23] MEDS: HYDROmorphone 1 MG/ML 1 ML SYRINGE IV PRN ×7 (03:34→22:27)
[2016-08-23 04:26] VITALS: BMI 25.9
[2016-08-23] MEDS: valACYclovir 500 MG TAB PO SCH ×2 (08:02→20:41)
--- NOTE | 2016-08-23 11:42 | P.CONS ---
History of Present Illness - Reason for Consult Consult date: 08/23/16 colitis Requesting physician: Ceci Peoples - History of Present Illness 46-year-old gentleman with a history of mechanical mitral valve, nicotine dependence, GERD, CVA TIA, GERD, A. fib, hypertension, and syncope. Recently hospitalized and discharged on 08/14/2016 with right chest wall reproducible pain suspected musculoskeletal. PE ruled out. Presents with right flank pain that has been ongoing for the last 2 weeks. He noticed a red rash that developed yesterday without open wounds vesicles. No history of shingles. He doesn't think he's had chickenpox as a child. Denies fever, chills, diarrhea, consultation, hematemesis, hematochezia, or melena. Noncontrast CT abdomen and pelvis reported possible colitis changes. No obstructing kidney stones or hydronephrosis was seen. White count 4.9. Hemoglobin 15.7. C-reactive protein 20. He has a large 8-10 cm circumferential area of redness to the right flank that is tender to touch describes it sharp in nature without burning or numbness tingling. Review of Systems Constitutional: Denies fever, chills, sweats, weight gain, or loss. HEENT: Negative for migraines, blurred vision or loss, earaches, drainage, tinnitus, oral mucosal lesions, dysphagia, or odynophagia. Cardiac: Mechanical mitral valve, hypertension. Respiratory: 15 cigarette dependency. Negative for shortness of breath, hemoptysis, cough, or sputum production. Gastrointestinal: See HPI for pertinent findings. Genitourinary: Negative for hematuria, urgency, frequency, polyuria, dysuria, or penile discharge. Musculoskeletal: Negative for muscle aches, swelling, arthritis, and arthralgias. Neurologic: CVA/TIA. Endocrine: Negative for thyroid problems. Skin: Negative for rash or itching. Psychiatric: Negative history for depression and anxiety All systems: negative (See HPI) Past Medical History Past Medical History: Atrial Fibrillation, Cancer, Chest Pain / Angina, CVA/TIA , GERD/Reflux, Hypertension, Myocardial Infarction ([place]), Syncope Additional Past Medical History / Comment(s): has problem with aortic valve regurgitation, had mitral valve replaced, pt thinks a dr told him in 2005 he may have had a mild mi, cyst in colon removed was cancerous- no radiation or chemo, syncope times two 02/2015 Last Myocardial Infarction Date:: 2005 History of Any Multi-Drug Resistant Organisms: None Reported Past Surgical History: Adenoidectomy, Heart Catheterization, Tonsillectomy Additional Past Surgical History / Comment(s): mitral valve replaced, 4 bowels sx in total cysts removed from colon 2 were cancerous only sx was required Past Anesthesia/Blood Transfusion Reactions: No Reported Reaction Past Psychological History: No Psychological Hx Reported Additional Psychological History / Comment(s): pt lives at home with sig other and 2 children. 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 Smoking Status: Current every day smoker Past Alcohol Use History: Occasional Additional Past Alcohol Use History / Comment(s): pt started smoking at age 9 worked up to 1ppd, quit 2009 then started smoking again 2014 & smokes 1-2 cigs per day Past Drug Use History: None Reported - Past Family History Father History Unknown: Yes Family Medical History: Unable to Obtain Additional Family Medical History / Comment(s): pt was adopted. Mother History Unknown: Yes Family Medical History: Unable to Obtain Additional Family Medical History / Comment(s): pt was adopted Medications and Allergies Allergies Allergy/AdvReac Type Severity Reaction Status Date / Time Penicillins Allergy Severe Anaphylaxis Verified 08/22/16 22:22 Physical Exam Vitals: Vital Signs Temp Pulse Pulse Resp BP BP Pulse Ox 08/23/16 07:23 96.0 F L 82 17 131/74 96 08/23/16 04:11 97.1 F L 92 16 131/77 97 08/23/16 03:26 81 16 120/68 96 Intake and Output 08/22/16 08/23/16 08/23/16 22:59 06:59 14:59 Intake Total 150 800 Balance 150 800 Intake: IV 150 Sodium Chloride 0.9% 1, 150 000 ml @ 75 mls/hr IV . [id number] STA Rx#:[id number] Oral 800 Other: Voiding Method Toilet Weight 84.368 kg General appearance: The patient is alert, oriented, in no acute distress. HET: Head is normocephalic and atraumatic. Pupils are equal and reactive. Oropharynx is clear without lesions. Neck: Supple without lymphadenopathy. Trachea midline. Heart: S1 S2. Regular rate and rhythm. Lungs: No crackles or wheezes are heard. Abdomen: Soft, nontender, nondistended with bowel sounds. No peritoneal signs. No palpable organomegaly or masses. Extremities: Large right flank circumferential area of erythema without vesicles skin disruption induration or fluctuance. Tender to touch with warmth. Radial and pedal pulses are 2/4 bilaterally. Neurological: No focal deficits. Strength and sensation are grossly intact. Results CBC & Chem 7: 08/22/16 21:49 08/22/16 21:49 CT scan - abdomen: report reviewed (Reviewed by Dr. Carias) Assessment and Plan (1) Right flank pain Narrative/Plan: 46-year-old gentleman presents with 2 week history of right flank pain with development of large area of circumferential erythema cellulitis without skin disruption or vesicles possible herpes zoster. No evidence of colitis at this time. CT abdomen and pelvis nonspecific and does not correlate with patient's presenting symptomology. Status: Acute Plan: 1. Diet as tolerated. 2. We'll defer to medicine for herpes zoster work up/evaluation possible antiviral treatment. No further workup at this time. Thank you for this kind referral and the opportunity to participate in the care of your patient. This consultation was discussed with Dr. Carias. The impression and plan of care have been directed as dictated.
[2016-08-23 12:38] LABS: Appearance,Urine Clear (Clear); Bilirubin,Urine Negative (Negative); Glucose,Urine (UA) Trace (Negative); Ketones,Urine Negative (Negative); Leukocyte Esterase,Urine Negative (Negative); Nitrite,Urine Negative (Negative); PH, Urine 5.5 (5.0-8.0); Protein,Urine Negative (Negative); Specific Gravity,Urine 1.003 (1.001-1.035); UA Billing (MACRO vs. MICRO) CHEM; Urobilinogen,Urine <2.0 mg/dL (<2.0)
[2016-08-23] MEDS ORDERED: ALPRAZolam 0.25 MG TAB PO PRN (14:22)
--- NOTE | 2016-08-23 14:58 | HP ---
DATE OF ADMISSION: 08/23/2016 CHIEF COMPLAINT: Abdominal pain, diarrhea. HISTORY OF PRESENT ILLNESS: This 46-year-old gentleman with a past medical history of atrial fibrillation, history of cerebrovascular accident, transient ischemic attack, GERD, hypertension, history of myocardial infarction, history of mitral replacement, history of adenoidectomy also had recent cardiac catheterization apparently which showed no significant coronary artery disease. The patient is also extremely noncompliant with medications previously. Currently apparently the patient has taken Xarelto. The patient is not followed up by any primary care physician in the outpatient setting. Currently the patient is complaining of abdominal pain, which is radiating from the right groin to the front of the abdomen. The patient also had some diarrhea. The patient came to [facility] and admitted to the hospital for further evaluation and treatment and abdominal pelvis CT scan showed possible colitis changes. Otherwise, there is no history of any fever, rigors or chills. No history of headache, loss of consciousness or seizures. PAST MEDICAL HISTORY: History of atrial fibrillation. History of mitral valve replacement, history of gastroesophageal reflux disease, hypertension, history of myocardial infarction, history of adenoidectomy, cardiac catheterization. Medications prior to admission include home medications are: Xarelto 20 mg daily. ALLERGIES: PENICILLIN. FAMILY HISTORY: The patient is adopted and unable to obtain. SOCIAL HISTORY: History of smoking on a p.o. daily basis. History of occasional alcohol intake. REVIEW OF SYSTEMS: ENT: No diminished vision. No diminished hearing. CARDIOVASCULAR: No angina or palpitations. RESPIRATORY: As mentioned earlier. GI: No nausea. : No dysuria. Nervous system: No numbness, weakness. ALLERGY/IMMUNOLOGY: No asthma or hayfever. MUSCULOSKELETAL: As mentioned earlier. HEMATOLOGY/ONCOLOGY: No history of anemia. ENDOCRINE: No history of diabetes, hypothyroidism. CONSTITUTIONAL: As mentioned earlier. Dermatology: Negative. Rheumatology: Negative. PSYCHIATRY: As mentioned earlier. PHYSICAL EXAMINATION: Alert and oriented times three. Pulse 97, blood pressure 130/77. Respiratory rate 17, temperature 97.4, pulse ox 94% on room air. HEENT: Conjunctivae normal. Oral mucosa moist. NECK: No jugular venous distention. No carotid bruit. No lymph node enlargement. CARDIOVASCULAR: S1, S2 normal, S3 prosthetic. No murmurs. No thrills. Breath sounds diminished at the bases. A few scattered rhonchi. No crackles. ABDOMEN: Soft. Mild diffuse tenderness and some noted on the right side otherwise no guarding. Bowel sounds present. Flanks are ( ). Legs: No edema, no swelling. Nervous system. Higher functions as mentioned earlier. Moves all 4 limbs. No focal motor or sensory deficits. LYMPHATICS: No lymph nodes palpable in the neck, axillae or groin. SKIN: No ulcer, rash or bleeding. LABS: CBC within normal limits. Sodium 135, glucose 113, total creatinine kinase is 285. C-reactive protein is 20. UA noted. Drug screen is negative. ASSESSMENT: 1. Abdominal pain and diarrhea, possibly acute colitis for evaluation. 2. History of mitral valve replacement and aortic regurgitation. 3. History of atrial fibrillation. 4. On Xarelto. 5. History of noncompliance. 6. History of cerebrovascular accident, transient ischemic attack. 7. History of chest pain, angina. 8. History of gastroesophageal reflux disease. 9. Hypertension. 10. History of myocardial infarction. 11. History of syncope. 12. FULL CODE. RECOMMENDATIONS AND DISCUSSION: In this 46-year-old gentleman who presented multiple complex medical issues we will monitor the patient closely. Continue the current medications. Continue symptomatic treatment. We will resume the home medications. As far as colitis is concerned, I would empiric antibiotics. I would also recommend gastroenterology consultation. Guarded prognosis because of multiple complex medical issues. Further recommendations to follow. Also recommend the patient to follow up with primary physician in the outpatient setting as well as cardiology. The patient understands and agrees. REBECCA
[2016-08-23] MEDS: KETOROLAC 30 MG/ML 1 ML VIAL IVP PRN ×2 (15:25→22:27)
[2016-08-23] MEDS: PANTOPRAZOLE 40 MG TABLET PO SCH (15:25)
[2016-08-23] MEDS ORDERED: LEVOFLOXACIN 500MG-D5W PMX 500 MG in DEXTROSE/WATER 1 100ML.BAG IVPB SCH (16:00)
[2016-08-23] MEDS ORDERED: BUDESONIDE 1 MG/2 ML NEBU INHALATION SCH (20:00)
[2016-08-23] MEDS: HYDROcodone/APAP 5-325MG 1 EACH TAB PO PRN (20:41)
[2016-08-24] MEDS: HYDROmorphone 1 MG/ML 1 ML SYRINGE IV PRN ×3 (01:07→07:05)
[2016-08-24] MEDS: KETOROLAC 30 MG/ML 1 ML VIAL IVP PRN ×2 (04:11→11:00)
[2016-08-24] MEDS: HYDROcodone/APAP 5-325MG 1 EACH TAB PO PRN ×2 (06:01→10:58)
[2016-08-24 07:26] LABS: Basophils % (A) 0 %; CH 31.6; CHCM 34.4; Eosinophils # (A) 0.1 k/uL (0-0.7); Eosinophils % (A) 1 %; HGB 12.9 gm/dL (13.0-17.5); Luc # (Auto) 0.18; Luc % (Auto) 3; Lymphocytes # (A) 1.5 k/uL (1.0-4.8); Lymphocytes % (A) 26 %; MCH 30.6 pg (25.0-35.0); MCHC 33.1 g/dL (31.0-37.0); MCV 92.5 fL (80.0-100.0); Mean Platelet Volume 7.5; Monocytes # (A) 0.4 k/uL (0-1.0); Monocytes % (A) 7 %; Neutrophils # (A) 3.6 k/uL (1.3-7.7); Neutrophils % (A) 63 %; RBC 4.22 m/uL (4.30-5.90); RDW 12.7 % (11.5-15.5); WBC 5.8 k/uL (3.8-10.6); WBC (Perox) 5.97
[2016-08-24] MEDS: valACYclovir 500 MG TAB PO SCH (07:53)
[2016-08-24 07:54] LABS: Anion Gap 8 mmol/L; Blood Urea Nitrogen 17 mg/dL (9-20); Calcium 8.3 mg/dL (8.4-10.2); Carbon Dioxide 24 mmol/L (22-30); Chloride 105 mmol/L (98-107); Glucose 86 mg/dL (74-99); Non-African American GFR(MDRD) >60 (>60 ml/min/1.73 sqM); Potassium 4.7 mmol/L (3.5-5.1); Sodium 137 mmol/L (137-145)
[2016-08-24] MEDS: PANTOPRAZOLE 40 MG TABLET PO SCH (07:54)
[2016-08-24] MEDS ORDERED: RIVAROXABAN 10 MG TAB PO SCH (09:00)
[2016-08-24 10:45] VITALS: BP 141/86; PULSE 85; RESP 14; TEMP 96.9
--- NOTE | 2016-08-25 08:34 | DS ---
DATE OF ADMISSION: 08/23/2016 DATE OF DISCHARGE: 08/24/2016 FINAL DIAGNOSES: 1. Abdominal pain and diarrhea possible acute colitis improved. 2. History of mitral valve replacement and aortic regurgitation. 3. Bruise on the right lower back. 4. History of atrial fibrillation. 5. On Xarelto. 6. History of noncompliance. 7. History of cerebrovascular accident, transient ischemic attack. 8. History of chest pain, angina. 9. History of gastroesophageal reflux disease. 10. Hypertension. 11. History of myocardial infarction. 12. History of syncope. 13. FULL CODE. DISCHARGE DISPOSITION: The patient will be discharged in stable condition with guarded prognosis. HISTORY OF PRESENT ILLNESS: This 46-year-old gentleman with a past medical history of multiple medical problems was admitted with abdominal pain and diarrhea, improved significantly. Patient also had a bruise on the right lower part of the abdomen. The hemoglobin is 12.9 at this time. Gastroenterology saw the patient and was recommended outpatient follow-up. The patient being discharged in stable condition with guarded prognosis. On exam, vital signs stable. CARDIOVASCULAR: S1, S2 muffled. s2 is prosthetic. ABDOMEN: Soft, nontender. No mass palpable. No guarding or rigidity. CENTRAL NERVOUS SYSTEM: No focal deficits. Minimal bruits present. DISCHARGE ADVICE AND MEDICATIONS: 1. Diet is cardiac. 2. Activity limited until follow-up. 3. Follow-up with Dr. Clifford in 2 to 3 days. 4. Medications will be: Ciprofloxacin 500 mg p.o. b.i.d. for 5 days. 5. Xarelto 20 mg p.o. daily. Once again, the patient is being discharged in stable condition with guarded prognosis. [facility]
== END 2016-08-24 11:35 | disposition home or self-care (01) | DRG 392 ==
LOC: EC 21:06 → 3SUR 08-23 02:36
PROVIDERS: ADMIT Internal Medicine; ATTEND Internal Medicine
DX: K52.9 Noninfective gastroenteritis and colitis, unspecified (principal); I48.91 Unspecified atrial fibrillation; I10 Essential (primary) hypertension; F17.210 Nicotine dependence, cigarettes, uncomplicated; Z95.2 Presence of prosthetic heart valve; I25.2 Old myocardial infarction; K21.9 Gastro-esophageal reflux disease without esophagitis; R31.9 Hematuria, unspecified; Z86.73 Personal history of transient ischemic attack (TIA), and cerebral infarction without residual deficits; Z91.14 Patient's other noncompliance with medication regimen; Z79.01 Long term (current) use of anticoagulants
CPT/HCPCS: 36415; 71020; 74176; 80048; 80053; 80306; 81001; 81003; 82150; 82550; 82553; 83690; 83735; 85025; 86140; 87040; 93005; 96361; 96374; 96375; 96376; 99285

== ENCOUNTER 2016-08-27 22:16 | Inpatient (IN) | payer OTHER ==
[2016-08-27] MEDS ORDERED: MORPHINE SULFATE 4 MG/ML SYRINGE IV STA (22:21)
[2016-08-27] MEDS ORDERED: ASPIRIN 81 MG CHEW PO STA (22:21)
[2016-08-27] MEDS ORDERED: NITROGLYCERIN OINT 1 INCH/GM PACKET TOPICAL STA (22:21)
--- NOTE | 2016-08-27 22:25 | ED ---
General Adult HPI - General Chief complaint: Chest Pain Stated complaint: Chest pain Time Seen by Provider: 08/27/16 22:21 Source: patient, EMS, RN notes reviewed Mode of arrival: EMS Limitations: no limitations - History of Present Illness Initial comments: Patient is a pleasant 46-year-old male presenting to the emergency Department with chest discomfort. Onset was around 30 or 40 minutes ago while jogging. Patient has pressure in his chest with radiation to the left shoulder and arm. Patient was diaphoretic earlier. Patient was nauseated however this resolved with medication. Patient does have some associated dyspnea. No improvement with nitroglycerin by EMS. Patient did get some improvement with morphine however discomfort is somewhat still severe. No leg pain or swelling. Patient did have similar symptoms previously associated with heart attack. Patient also has history of repaired mitral valve. Patient also has known aortic valve problems however has refused to have that repaired. - Related Data Home Medications Medication Instructions Recorded Confirmed No Known Home Medications [No 08/27/16 08/27/16 Known Home Medications] Allergies Allergy/AdvReac Type Severity Reaction Status Date / Time Penicillins Allergy Severe Anaphylaxis Verified 08/27/16 22:33 Review of Systems ROS Statement: Those systems with pertinent positive or pertinent negative responses have been documented in the HPI. ROS Other: All systems not noted in ROS Statement are negative. Constitutional: Denies: fever Eyes: Denies: eye pain ENT: Denies: ear pain Respiratory: Reports: dyspnea Cardiovascular: Reports: chest pain Endocrine: Denies: fatigue Gastrointestinal: Reports: nausea Genitourinary: Denies: dysuria Musculoskeletal: Denies: back pain Skin: Denies: rash Neurological: Denies: weakness Past Medical History Past Medical History: Atrial Fibrillation, Cancer, Chest Pain / Angina, CVA/TIA , GERD/Reflux, Hypertension, Myocardial Infarction ([place]), Syncope Additional Past Medical History / Comment(s): has problem with aortic valve regurgitation, had mitral valve replaced, pt thinks a told him in 2005 he may have had a mild mi, cyst in colon removed was cancerous- no radiation or chemo, syncope times two 02/2015 Last Myocardial Infarction Date:: 2005 History of Any Multi-Drug Resistant Organisms: None Reported Past Surgical History: Adenoidectomy, Heart Catheterization, Tonsillectomy Additional Past Surgical History / Comment(s): mitral valve replaced, 4 bowels sx in total cysts removed from colon 2 were cancerous only sx was required Past Anesthesia/Blood Transfusion Reactions: No Reported Reaction Past Psychological History: No Psychological Hx Reported Additional Psychological History / Comment(s): pt lives at home with sig other and 2 children. 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 Smoking Status: Current every day smoker Past Alcohol Use History: Occasional Additional Past Alcohol Use History / Comment(s): pt started smoking at age 9 worked up to 1ppd, quit 2009 then started smoking again 2014 & smokes 1-2 cigs per day Past Drug Use History: None Reported - Past Family History Father History Unknown: Yes Family Medical History: Unable to Obtain Additional Family Medical History / Comment(s): pt was adopted. Mother History Unknown: Yes Family Medical History: Unable to Obtain Additional Family Medical History / Comment(s): pt was adopted General Exam Limitations: no limitations General appearance: alert, in distress (Appears uncomfortable) Head exam: Present: atraumatic Eye exam: Present: normal appearance, PERRL ENT exam: Present: normal oropharynx Neck exam: Present: normal inspection Respiratory exam: Present: normal lung sounds bilaterally. Absent: chest wall tenderness Cardiovascular Exam: Present: regular rate, normal rhythm Expanded Peripheral pulses: 2+: Radial (R), Radial (L), Posterior Tibialis (R), Posterior Tibialis (L) GI/Abdominal exam: Present: soft. Absent: tenderness Extremities exam: Present: normal inspection. Absent: pedal edema, calf tenderness Neurological exam: Present: alert Psychiatric exam: Present: normal affect, normal mood Skin exam: Absent: rash Course Vital Signs 08/27/16 08/27/16 08/27/16 22:20 22:39 23:10 Temperature 98.0 F Pulse Rate 105 H 109 H 114 H Respiratory 22 22 28 H Rate Blood Pressure 157/83 148/84 174/89 O2 Sat by Pulse 96 97 97 Oximetry 08/27/16 08/27/16 23:24 23:43 Temperature 97.2 F L Pulse Rate 116 H 95 Respiratory 28 H 24 Rate Blood Pressure 124/87 122/72 O2 Sat by Pulse 96 97 Oximetry EKG Findings - EKG Comments: EKG Findings:: Sinus tachycardia at 105. NV 166. QRS 98. QT 350. QTC 462. Left axis. LVH with repolarization changes. Septal Q waves. Previous EKG dated August 222016 with similar findings. Medical Decision Making - Medical Decision Making Patient reevaluated and improved. Patient updated on results and plan. Dr. howard has been paged for admission for hospital call. Patient states he stopped is also because he did not feel of was appropriate with mechanical valve. IV heparin will be started. Admission orders written. Cardiac consult placed. - Lab Data Result diagrams: 08/27/16 22:25 08/27/16 22:25 Lab Results 08/27/16 08/27/16 08/27/16 Range/Units 22:25 22:25 22:25 WBC 6.2 (3.8-10.6) k/uL RBC 4.79 (4.30-5.90) m/uL Hgb 15.0 (13.0-17.5) gm/dL Hct 42.6 (39.0-53.0) % MCV 88.8 (80.0-100.0) fL MCH 31.4 (25.0-35.0) pg MCHC 35.3 (31.0-37.0) g/dL RDW 12.3 (11.5-15.5) % Plt Count 285 (150-450) k/uL Neutrophils % 50 % Lymphocytes % 39 % Monocytes % 5 % Eosinophils % 3 % Basophils % 1 % Neutrophils # 3.1 (1.3-7.7) k/uL Lymphocytes # 2.4 (1.0-4.8) k/uL Monocytes # 0.3 (0-1.0) k/uL Eosinophils # 0.2 (0-0.7) k/uL Basophils # 0.0 (0-0.2) k/uL PT (9.0-12.0) sec INR (<1.1) APTT (22.0-30.0) sec D-Dimer (<0.60) mg/L FEU Sodium 139 (137-145) mmol/L Potassium 4.5 (3.5-5.1) mmol/L Chloride 104 (98-107) mmol/L Carbon Dioxide 20 L (22-30) mmol/L Anion Gap 15 mmol/L BUN 12 (9-20) mg/dL Creatinine 0.98 (0.66-1.25) mg/dL Est GFR (MDRD) Af Amer >60 (>60 ml/min/1.73 sqM) Est GFR (MDRD) Non-Af >60 (>60 ml/min/1.73 sqM) Glucose 93 (74-99) mg/dL Calcium 8.4 (8.4-10.2) mg/dL Magnesium 1.8 (1.6-2.3) mg/dL Total Bilirubin 0.7 (0.2-1.3) mg/dL AST 31 (17-59) U/L ALT 30 (21-72) U/L Alkaline Phosphatase 50 (38-126) U/L Total Creatine Kinase 257 H (55-170) U/L CK-MB (CK-2) 1.7 (0.0-2.4) ng/mL CK-MB (CK-2) Rel Index 0.7 Troponin I 0.048 H* (0.000-0.034) ng/mL Total Protein 7.1 (6.3-8.2) g/dL Albumin 4.0 (3.5-5.0) g/dL 08/27/16 Range/Units 22:25 WBC (3.8-10.6) k/uL RBC (4.30-5.90) m/uL Hgb (13.0-17.5) gm/dL Hct (39.0-53.0) % MCV (80.0-100.0) fL MCH (25.0-35.0) pg MCHC (31.0-37.0) g/dL RDW (11.5-15.5) % Plt Count (150-450) k/uL Neutrophils % % Lymphocytes % % Monocytes % % Eosinophils % % Basophils % % Neutrophils # (1.3-7.7) k/uL Lymphocytes # (1.0-4.8) k/uL Monocytes # (0-1.0) k/uL Eosinophils # (0-0.7) k/uL Basophils # (0-0.2) k/uL PT 10.8 (9.0-12.0) sec INR 1.1 (<1.1) APTT 24.1 (22.0-30.0) sec D-Dimer 0.76 H (<0.60) mg/L FEU Sodium (137-145) mmol/L Potassium (3.5-5.1) mmol/L Chloride (98-107) mmol/L Carbon Dioxide (22-30) mmol/L Anion Gap mmol/L BUN (9-20) mg/dL Creatinine (0.66-1.25) mg/dL Est GFR (MDRD) Af Amer (>60 ml/min/1.73 sqM) Est GFR (MDRD) Non-Af (>60 ml/min/1.73 sqM) Glucose (74-99) mg/dL Calcium (8.4-10.2) mg/dL Magnesium (1.6-2.3) mg/dL Total Bilirubin (0.2-1.3) mg/dL AST (17-59) U/L ALT (21-72) U/L Alkaline Phosphatase (38-126) U/L Total Creatine Kinase (55-170) U/L CK-MB (CK-2) (0.0-2.4) ng/mL CK-MB (CK-2) Rel Index Troponin I (0.000-0.034) ng/mL Total Protein (6.3-8.2) g/dL Albumin (3.5-5.0) g/dL - Radiology Data Radiology results: report reviewed (CT angios of the chest shows no evidence of pulmonary embolism. No aortic aneurysm. Possible right heart failure.), image reviewed (Chest x-ray shows no acute process.) Critical Care Time Critical Care Time: Yes Total Critical Care Time: 34 Disposition Clinical Impression: Acute coronary syndrome Disposition: ADMITTED IP TO THIS [facility] Condition: Serious
[2016-08-27 22:35] LABS: Basophils % (A) 1 %; CH 32.2; CHCM 36.4; Eosinophils # (A) 0.2 k/uL (0-0.7); Eosinophils % (A) 3 %; HCT 42.6 % (39.0-53.0); Luc # (Auto) 0.17; Luc % (Auto) 3; Lymphocytes # (A) 2.4 k/uL (1.0-4.8); Lymphocytes % (A) 39 %; MCH 31.4 pg (25.0-35.0); MCHC 35.3 g/dL (31.0-37.0); MCV 88.8 fL (80.0-100.0); Monocytes # (A) 0.3 k/uL (0-1.0); Monocytes % (A) 5 %; Neutrophils # (A) 3.1 k/uL (1.3-7.7); Neutrophils % (A) 50 %; RBC 4.79 m/uL (4.30-5.90); RDW 12.3 % (11.5-15.5); WBC 6.2 k/uL (3.8-10.6); WBC (Perox) 6.15
[2016-08-27] MEDS ORDERED: RX INFO: IV CONTRAST WAS GIVEN 1 EACH MISC MISCELLANE PRN (22:35)
[2016-08-27 22:46] LABS: ALT 30 U/L (21-72); AST 31 U/L (17-59); Alkaline Phosphatase 50 U/L (38-126); Anion Gap 15 mmol/L; Blood Urea Nitrogen 12 mg/dL (9-20); Calcium 8.4 mg/dL (8.4-10.2); Carbon Dioxide 20 mmol/L (22-30); Chloride 104 mmol/L (98-107); Glucose 93 mg/dL (74-99); Magnesium 1.8 mg/dL (1.6-2.3); Non-African American GFR(MDRD) >60 (>60 ml/min/1.73 sqM); Potassium 4.5 mmol/L (3.5-5.1); Sodium 139 mmol/L (137-145); Total Bilirubin 0.7 mg/dL (0.2-1.3); Total Protein 7.1 g/dL (6.3-8.2)
[2016-08-27 22:48] LABS: INR 1.1 (<1.1); Partial Thromboplastin Time 24.1 sec (22.0-30.0); Prothrombin Time 10.8 sec (9.0-12.0)
--- NOTE | 2016-08-27 22:52 | XR ---
EXAMINATION TYPE: XR chest 1V portable DATE OF EXAM: 08/27/2016 10:44 PM COMPARISON: 08/22/2016 HISTORY: Chest pain TECHNIQUE: Single frontal view of the chest is obtained. FINDINGS: There is no heart failure nor confluent pneumonic infiltrate. There are sternal wires. The re are old multiple right-sided rib fractures. There is no pleural effusion. There are chest leads. IMPRESSION: No active cardiopulmonary disease. No change.
[2016-08-27] MEDS ORDERED: NITROGLYCERIN SL TABS 0.4 MG TAB SUBLINGUAL STA (23:08)
[2016-08-27 23:10] LABS: Creatine Kinase MB 1.7 ng/mL (0.0-2.4)
[2016-08-27 23:15] LABS: Troponin I 0.048 ng/mL (0.000-0.034)
--- NOTE | 2016-08-27 23:24 | CT ---
EXAMINATION TYPE: CT angio chest DATE OF EXAM: 08/27/2016 11:08 PM COMPARISON: 08/08/2016 HISTORY: Left sided chest pain and arm numbness. CT DLP: 265.60 mGycm Automated exposure control for dose reduction was used. CONTRAST: CTA scan of the thorax is performed with IV Contrast, patient injected with 80 mL of Omnipaque 350, p ulmonary embolism protocol. . FINDINGS: The lungs are clear of consolidation. There is no evidence of a pulmonary mass. There is no pleural e ffusion. There is no pleural effusion. Heart size is fairly normal. There is no pericardial effusion. There is a mitral valve prosthesis. I see no filling defect in the pulmonary arteries. There are no hilar masses. There is no evidence of aortic aneurysm. There is no mediastinal adenopathy. I see no b laci destructive process. There is some contrast reflux into the inferior vena cava. IMPRESSION: NO EVIDENCE OF PULMONARY EMBOLISM. THERE IS REFLUX OF CONTRAST INTO THE INFERIOR VENA CAVA AND THE HE PATIC VEINS THAT COULD RELATE TO RIGHT HEART FAILURE. CLINICAL CORRELATION IS RECOMMENDED. THIS IS A CHANGE COMPARED TO THE LAST EXAM OF 08/08/2016. THE LEFT ATRIUM APPEARS SMALLER HOWEVER THAN ON THE LAS T CT SCAN OF 08/08/2016. THE RIGHT HEART IS NOT ENLARGED.
[2016-08-27] MEDS ORDERED: HYDROmorphone 1 MG/ML 1 ML SYRINGE IVP STA (23:26)
[2016-08-28] MEDS ORDERED: HEPARIN SODIUM,PORCINE 5,000 UNIT/ML 1 ML VIAL IV ONE (00:14)
[2016-08-28] MEDS ORDERED: HEPARIN SODIUM,PORCINE 5,000 UNIT/ML 1 ML VIAL IV PRN (00:14)
[2016-08-28] MEDS ORDERED: HEPARIN SODIUM,PORCINE/D5W PMX 25,000 UNIT in DEXTROSE/WATER 1 500ML.BAG IV SCH (00:15)
[2016-08-28 01:03] LABS: Glucose,Whole Blood 91 mg/dL (75-99)
[2016-08-28 01:25] VITALS: BMI 24.5
[2016-08-28] MEDS: NITROGLYCERIN SL TABS 0.4 MG TAB SUBLINGUAL PRN ×4 (01:27→04:23)
[2016-08-28] MEDS: HYDROmorphone 1 MG/ML 1 ML SYRINGE IVP PRN ×4 (01:51→11:09)
[2016-08-28 04:25] LABS: Mean Platelet Volume 7.3
[2016-08-28 05:01] LABS: Creatine Kinase MB 1.8 ng/mL (0.0-2.4)
[2016-08-28 05:02] LABS: Troponin I 0.051 ng/mL (0.000-0.034)
[2016-08-28] MEDS ORDERED: NITROGLYCERIN OINT 1 INCH/GM PACKET TOPICAL SCH (06:00)
[2016-08-28 06:50] LABS: CH 31.7; HCT 37.6 % (39.0-53.0); HDW 2.91; HGB 13.1 gm/dL (13.0-17.5); MCH 31.9 pg (25.0-35.0); MCV 91.2 fL (80.0-100.0); Mean Platelet Volume 7.7; RBC 4.12 m/uL (4.30-5.90); RDW 12.5 % (11.5-15.5); WBC 5.3 k/uL (3.8-10.6)
[2016-08-28 07:22] LABS: Anion Gap 7 mmol/L; Blood Urea Nitrogen 13 mg/dL (9-20); Carbon Dioxide 28 mmol/L (22-30); Chloride 103 mmol/L (98-107); Glucose 87 mg/dL (74-99); Non-African American GFR(MDRD) >60 (>60 ml/min/1.73 sqM); Potassium 4.4 mmol/L (3.5-5.1); Sodium 138 mmol/L (137-145)
[2016-08-28 11:50] LABS: Creatine Kinase MB 2.4 ng/mL (0.0-2.4)
[2016-08-28 11:55] LABS: Troponin I 0.047 ng/mL (0.000-0.034)
[2016-08-28 12:04] VITALS: RESP 17
--- NOTE | 2016-08-28 12:59 | CONS ---
DATE OF CONSULTATION: Mr. Cortez is a 46-year-old male, noncompliant, who presented with symptoms of chest discomfort. Patient has a history of mitral valve replacement with a prosthetic valve, history of cardiac catheterization done in April 2016 that showed no evidence of obstructive coronary artery disease. He is a chronic tobacco user, according to him stopped recently. Yesterday he was running when he started to have some dyspnea and chest discomfort, came into the emergency room and subsequently admitted. Patient has a chronic mild elevation of troponin throughout his prior admission. He has not been taking any anticoagulant, has been on Coumadin in the past and noncompliant, and I am not quite sure how he was started on Xarelto but even that he was not taking on presentation. He has some dyspnea on exertion. He denies any dizziness or palpitation. No syncope. No PND, orthopnea, or peripheral edema. An echocardiogram performed in April revealed preserved left ventricular size and systolic function with normal functioning of his mitral valve prosthesis with mild aortic and tricuspid regurgitation. His coronary risk factors are remarkable for the history of smoking. He has no prior history of documented diabetes or hyperlipidemia. SOCIAL HISTORY: Occasional alcohol intake. Smoked up to 10 days ago. REVIEW OF SYSTEMS: RESPIRATORY SYSTEM: He has dyspnea on exertion. He has no recent fever. GI SYSTEM: No recent GI bleeding. No peptic ulcer disease. SYSTEM: No dysuria or hematuria. NERVOUS SYSTEM: History of TIA according to him. PHYSICAL EXAMINATION: He is a 46-year-old male, alert, oriented, in no apparent distress. Blood pressure 147/70 with the heart rate in the 80s. HEAD: Normocephalic. EYES: Sclerae anicteric. NECK: Good upstroke. No bruit. LUNGS: Clear to auscultation. HEART: Regular rate and rhythm. S1, S2 with prosthetic mitral valve and a systolic murmur. No diastolic murmur. No rub. ABDOMEN: Soft, nontender, positive bowel sounds. No organomegaly. EXTREMITIES: No edema. Intact distal pulses. Lab data revealed a troponin of 0.048 and 0.051 which is the same range he had before. BUN and creatinine 13 and 1.02. INR 1.1. Hemoglobin is 13.1. EKG revealed a sinus mechanism, rate of 105, left axis deviation, left ventricular hypertrophy with nonspecific ST-T wave changes, that were noted in the past. Chest x-ray shows active infiltrate. Chest CT showed no evidence of pulmonary embolism. There was a reflux of contrast in the inferior vena cava and the hepatic vein. IMPRESSION: 1. Chest discomfort, atypical for ischemic heart disease noncardiac. 2. Chronic elevation of troponin. 3. Status post mitral valve replacement. 4. Noncompliance. 5. Chronic tobacco use. RECOMMENDATIONS: I discussed with the patient and his family the importance of taking the Coumadin and the risk of thrombosis of the valve. ( ) Will start him on Coumadin. I will stop the aspirin and nitrates. Increase his level of activity and will obtain echocardiogram. Depending on his progress, further recommendation will be made. Thank you for this consult. We will follow with you.
[2016-08-28] MEDS ORDERED: ENOXAPARIN 120 MG/0.8 ML SYRINGE SQ STA (15:34)
[2016-08-28 16:16] VITALS: BP 122/66; PULSE 90; TEMP 98.2
[2016-08-28] MEDS ORDERED: WARFARIN 5 MG TAB PO ONE (18:00)
--- NOTE | 2016-08-28 19:55 | HP ---
DATE OF ADMISSION: 08/28/2016 PRESENTING COMPLAINT: Chest pain. HISTORY OF PRESENTING COMPLAINT: This is 46-year-old patient with multiple admissions to the hospital, has not really established himself with a family doctor. The patient has history of mechanical mitral valve in 2003 and went off and on, but not taking Coumadin. Patient had a cardiac catheterization a few months ago that was negative. Patient also has history of TIA. He continues to smoke. The patient on one of the admissions was given Xarelto that he takes but he stopped taking because he had some bruising and then did not go back taking his Coumadin. Patient presents with presented with some chest pain. Some shortness of breath, some right-sided chest pain. Seems to be more when he moves his body and wanted Dilaudid for the same. Does not seem to be related to exertion. REVIEW OF SYSTEMS: CONSTITUTIONAL: None. HEENT: None. RESPIRATORY: As above. CARDIOVASCULAR: Noncardiac sounding pain. GASTROINTESTINAL: None. GENITOURINARY: None. MUSCULOSKELETAL: Right sided chest wall pain. GENITOURINARY: None. PSYCHIATRY: None. NEUROLOGICAL: None. Past medical history of atrial fibrillation TIA, GERD, hypertension, mitral valve replacement with mechanical valve. PAST SURGICAL HISTORY: 1. Adenoidectomy. 2. Cardiac catheterization with mitral replacement. 3. Bowel surgery. 4. Cancerous cyst was removed. SOCIAL HISTORY: The patient has a significant other. 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 Still smokes 1/2 pack. No alcohol. FAMILY HISTORY: Patient is adopted. HOME MEDICATIONS: Not taking anything right now. ALLERGIES: PENICILLIN. On examination, temperature 98, pulse 82, respirations 18, blood pressure 1477, pulse ox 97% on room air. GENERAL APPEARANCE: Sitting on edge of bed, comfortable. EYES: Pupils equal. Conjunctivae normal. HEENT: Oral cavity normal. NECK: JVD not raised. Mass not palpable. RESPIRATORY: Effort normal. LUNGS: Slightly decreased breath sounds. CARDIOVASCULAR: First and second sounds normal. No edema. ABDOMEN: Soft, nontender. Liver and spleen not palpable. LYMPHATIC: No lymph nodes palpable in the neck and axillae. PSYCHIATRY: Alert and oriented x3. Mood and affect normal. NEUROLOGICAL: Pupils equal. Cranial nerves grossly intact. Power and sensation grossly intact. MUSCULOSKELETAL: Some reproducible chest pain on the right side. INVESTIGATIONS: White count 6.2, hemoglobin 15, potassium 4.5. BUN and creatinine are normal. Troponin 0.048, 0.051. EKG shows rate of sinus rhythm. Some LVH changes. Chest CTA, does not show any pulmonary embolism. Patient's 2-D echo from 08/08/2016 shows a EF of 50% to 55%. No evidence of pulmonary hypertension. Moderate concentric left ventricular hypertrophy, mechanical mitral valve. ASSESSMENT: 1. Chest pain and some troponin leak in a patient with a cardiac catheterization recently negative, does have a mechanical mitral valve. Will get a cardiology opinion, does not sound to be cardiac. 2. Hypertensive heart disease with moderate concentric left ventricular hypertrophy. 3. Mechanical mitral valve. 4. Moderate aortic regurgitation 5. Chronic nicotine dependence. Patient is a smoker. PLAN: The patient put on IV heparin and cardiology was consulted. Coumadin will be started. Patient told to refrain from smoking.
[2016-08-29] MEDS ORDERED: ASPIRIN 325 MG TAB PO SCH (09:00)
--- NOTE | 2016-08-29 21:31 | DS ---
DATE OF ADMISSION: 08/28/2016 DATE OF DISCHARGE: 08/28/2016 FINAL DIAGNOSIS(ES): 1. Chest pain, probably musculoskeletal. 2. Hypertensive heart disease with moderate concentric left ventricular hypertrophy. 3. Mechanical mitral valve. 4. Moderate aortic regurgitation. 5. Chronic nicotine dependence. Patient is a smoker. HOSPITAL COURSE: The patient presented with chest pain. PE was ruled out. Patient has not been compliant with his medication for a long time. On examination some reproducible chest pain. Seen by Dr. Hernandez from cardiology. Okay to discharge the patient. ( ) and told to take his anticoagulations. Patient given loading dose of Lovenox, now covering for 24 hours and also will be sent home with Lovenox and Coumadin. DISCHARGE MEDICATIONS: 1. Lovenox 120 mg subcu daily for 5 days. 2. Coreg 5 mg p.o. at bedtime. The patient will be establishing his family doctor he said when he gets home today. Patient to follow with his seedling puller in one week. Labs INR on 09/03/2016.
== END 2016-08-28 16:48 | disposition home or self-care (01) | DRG 313 ==
LOC: EC 22:16 → 6ICU 08-28 00:13
PROVIDERS: ADMIT Hospitalist; ATTEND Hospitalist
DX: R07.89 Other chest pain (principal); I25.2 Old myocardial infarction; I08.2 Rheumatic disorders of both aortic and tricuspid valves; I11.9 Hypertensive heart disease without heart failure; F17.210 Nicotine dependence, cigarettes, uncomplicated; I48.91 Unspecified atrial fibrillation; K21.9 Gastro-esophageal reflux disease without esophagitis; Z95.2 Presence of prosthetic heart valve; Z91.14 Patient's other noncompliance with medication regimen; Z88.0 Allergy status to penicillin; Z85.038 Personal history of other malignant neoplasm of large intestine
CPT/HCPCS: 36415; 71010; 71275; 80048; 80053; 82550; 82553; 83735; 84484; 85025; 85027; 85049; 85379; 85610; 85730; 93005; 96365; 96375; 96376; 99291

== ENCOUNTER 2016-09-12 21:33 | Inpatient (IN) | payer OTHER ==
[2016-09-12] MEDS ORDERED: NITROGLYCERIN OINT 1 INCH/GM PACKET TOPICAL STA (21:39)
[2016-09-12 21:58] LABS: Basophils % (A) 0 %; CHCM 34.9; Eosinophils # (A) 0.2 k/uL (0-0.7); Eosinophils % (A) 3 %; HCT 39.9 % (39.0-53.0); HDW 2.76; HGB 13.8 gm/dL (13.0-17.5); Luc # (Auto) 0.18; Luc % (Auto) 4; Lymphocytes # (A) 2.2 k/uL (1.0-4.8); Lymphocytes % (A) 46 %; MCH 31.8 pg (25.0-35.0); MCHC 34.5 g/dL (31.0-37.0); MCV 92.1 fL (80.0-100.0); Mean Platelet Volume 7.5; Monocytes # (A) 0.2 k/uL (0-1.0); Monocytes % (A) 5 %; Neutrophils # (A) 2.1 k/uL (1.3-7.7); Neutrophils % (A) 42 %; RBC 4.33 m/uL (4.30-5.90); RDW 13.1 % (11.5-15.5); WBC 4.9 k/uL (3.8-10.6); WBC (Perox) 4.98
[2016-09-12 22:06] LABS: ALT 24 U/L (21-72); AST 29 U/L (17-59); Alkaline Phosphatase 44 U/L (38-126); Amylase 69 U/L (30-110); Anion Gap 11 mmol/L; Blood Urea Nitrogen 8 mg/dL (9-20); Calcium 7.8 mg/dL (8.4-10.2); Carbon Dioxide 22 mmol/L (22-30); Chloride 108 mmol/L (98-107); Glucose 127 mg/dL (74-99); Magnesium 1.8 mg/dL (1.6-2.3); Non-African American GFR(MDRD) >60 (>60 ml/min/1.73 sqM); Potassium 3.6 mmol/L (3.5-5.1); Sodium 141 mmol/L (137-145); Total Bilirubin 0.6 mg/dL (0.2-1.3); Total Protein 6.6 g/dL (6.3-8.2)
[2016-09-12 22:07] LABS: INR 1.1 (<1.1); Partial Thromboplastin Time 26.1 sec (22.0-30.0); Prothrombin Time 11.1 sec (9.0-12.0)
[2016-09-12] MEDS ORDERED: MORPHINE SULFATE 4 MG/ML SYRINGE IVP STA (22:14)
--- NOTE | 2016-09-12 22:19 | XR ---
EXAMINATION TYPE: XR chest 2V DATE OF EXAM: 09/12/2016 10:06 PM COMPARISON: 08/27/2016 HISTORY: Chest pain TECHNIQUE: Frontal and lateral views of the chest are obtained. FINDINGS: Heart and mediastinum are normal. Lungs are clear. Diaphragm is normal. Bony thorax is int act. There are sternal wires. There are chest leads. IMPRESSION: No active cardiopulmonary disease. No change.
--- NOTE | 2016-09-12 22:23 | ED ---
Chest Pain HPI - General Chief Complaint: Chest Pain Stated Complaint: CHEST PAIN Time Seen by Provider: 09/12/16 21:33 Source: patient, EMS, RN notes reviewed, old records reviewed Mode of arrival: EMS Limitations: no limitations - History of Present Illness Initial Comments: This is a 46-year-old male history of heart disease and valvular heart disease who just discharged last couple weeks. He presents with complaints of shortness of breath and chest pain started this evening. He states that sharp and burning in nature midsternal does attend go across his chest. Perhaps feel somewhat like what his previous cardiac event Jean-Baptiste. He is brought in by EMS. He was given appropriate medication with some minimal relief. He denies any cough or phlegm production. MD Complaint: chest pain, other - Related Data Previous Rx's Medication Instructions Recorded Warfarin [Coumadin] 5 mg PO HS #30 tab 08/28/16 Allergies Allergy/AdvReac Type Severity Reaction Status Date / Time Penicillins Allergy Severe Anaphylaxis Verified 09/12/16 22:15 Review of Systems ROS Statement: Those systems with pertinent positive or pertinent negative responses have been documented in the HPI. ROS Other: All systems not noted in ROS Statement are negative. EKG Findings - EKG Results: EKG: interpreted by ERMD (Sinus tachycardia rate 109 appear interval 170 QRS duration 100 QT/QTC of 358/482 left exodeviation LVH poor R-wave progression I see no acute changes when compared to the previous EKGs in the last admission.) Past Medical History Past Medical History: Atrial Fibrillation, Cancer, Chest Pain / Angina, CVA/TIA , GERD/Reflux, Hypertension, Myocardial Infarction ([place]), Syncope Additional Past Medical History / Comment(s): has problem with aortic valve regurgitation, had mitral valve replaced, pt thinks a dr told him in 2005 he may have had a mild mi, cyst in colon removed was cancerous- no radiation or chemo, syncope times two 02/2015 Last Myocardial Infarction Date:: 2005 History of Any Multi-Drug Resistant Organisms: None Reported Past Surgical History: Adenoidectomy, Heart Catheterization, Tonsillectomy Additional Past Surgical History / Comment(s): mitral valve replaced, 4 bowels sx in total cysts removed from colon 2 were cancerous only sx was required, heart cath 2015 Past Anesthesia/Blood Transfusion Reactions: No Reported Reaction Past Psychological History: No Psychological Hx Reported Additional Psychological History / Comment(s): pt lives at home with sig other and 2 children. 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 Smoking Status: Former smoker Past Alcohol Use History: Occasional Additional Past Alcohol Use History / Comment(s): pt started smoking at age 9 worked up to 1ppd, quit 2009 then started smoking again 2014 & smokes 1-2 cigs per day quit agian one and half weeks ago Past Drug Use History: None Reported - Past Family History Father History Unknown: Yes Family Medical History: Unable to Obtain Additional Family Medical History / Comment(s): pt was adopted. Mother History Unknown: Yes Family Medical History: Unable to Obtain Additional Family Medical History / Comment(s): pt was adopted General Exam - General Exam Comments Initial Comments: This is a well-developed well-nourished awake alert oriented x 3 male Limitations: no limitations General appearance: alert, in no apparent distress Head exam: Present: atraumatic, normocephalic, normal inspection Eye exam: Present: normal appearance, PERRL, EOMI. Absent: scleral icterus, conjunctival injection, periorbital swelling ENT exam: Present: normal exam, mucous membranes moist Neck exam: Present: normal inspection. Absent: tenderness, meningismus, lymphadenopathy Respiratory exam: Present: normal lung sounds bilaterally. Absent: respiratory distress, wheezes, rales, rhonchi, stridor Cardiovascular Exam: Present: regular rate, normal rhythm, normal heart sounds. Absent: systolic murmur, diastolic murmur, rubs, gallop, clicks GI/Abdominal exam: Present: soft, normal bowel sounds. Absent: distended, tenderness, guarding, rebound, rigid Extremities exam: Present: normal inspection, full ROM, normal capillary refill. Absent: tenderness, pedal edema, joint swelling, calf tenderness Back exam: Present: normal inspection Neurological exam: Present: alert, oriented X3, CN II-XII intact Psychiatric exam: Present: normal affect, normal mood Skin exam: Present: warm, dry, intact, normal color. Absent: rash Course Vital Signs 09/12/16 21:35 Temperature 98.3 F Pulse Rate 100 Respiratory 22 Rate Blood Pressure 154/80 O2 Sat by Pulse 97 Oximetry - Reevaluation(s) Reevaluation #1: 09/12/16 23:31 Patient still is having intermittent episodes of chest pain. He still relates as being somewhat sharp. Chest Pain MDM - MDM X-rays are nonspecific at did discuss findings with patient he will be admitted he does have elevation of troponin. I did discuss case with Dr. Peoples the patient will be admitted with cardiology consultation. The patient is subtherapeutic on his Coumadin he will be placed on heparin. Critical Care Time Critical Care Time: Yes Critical Care Time: 32 minutes of critical care time which includes initial monitoring of the EMS run as well as discussed with paramedics discussed with the patient with history physical lab and x-rays reevaluation the patient response to therapy review of old charting discuss with the admitting physician. Admission orders and documentation the above. Disposition Clinical Impression: Non-ST elevation myocardial infarction (NSTEMI), Unstable angina, Elevated troponin Disposition: ADMITTED IP TO THIS HOSP Condition: Stable
[2016-09-12 22:37] LABS: Creatine Kinase MB 4.2 ng/mL (0.0-2.4); Troponin I 0.723 ng/mL (0.000-0.034)
[2016-09-12] MEDS ORDERED: HEPARIN SODIUM,PORCINE 5,000 UNIT/ML 1 ML VIAL IV ONE (23:35)
[2016-09-12] MEDS ORDERED: HEPARIN SODIUM,PORCINE/D5W PMX 25,000 UNIT in DEXTROSE/WATER 1 500ML.BAG IV SCH (23:45)
[2016-09-12] MEDS: SODIUM CHLORIDE 0.9% 1,000 ML IV SCH (23:57)
[2016-09-12] MEDS: HYDROmorphone 1 MG/ML 1 ML SYRINGE IVP PRN (23:57)
[2016-09-13] MEDS: TEMAZEPAM 15 MG CAP PO SCH (02:05)
[2016-09-13] MEDS: HYDROmorphone 1 MG/ML 1 ML SYRINGE IVP PRN ×2 (03:44→09:30)
[2016-09-13 04:54] LABS: Troponin I 0.644 ng/mL (0.000-0.034)
[2016-09-13] MEDS: NITROGLYCERIN SL TABS 0.4 MG TAB SUBLINGUAL PRN ×3 (06:11→06:21)
[2016-09-13] MEDS: NITROGLYCERIN OINT 1 INCH/GM PACKET TOPICAL SCH ×2 (06:18→12:11)
[2016-09-13] MEDS ORDERED: HYDROmorphone 1 MG/ML 1 ML SYRINGE IVP STA (06:36)
[2016-09-13 06:47] LABS: Basophils % (A) 1 %; CH 31.6; CHCM 33.7; Eosinophils # (A) 0.2 k/uL (0-0.7); Eosinophils % (A) 4 %; HCT 40.5 % (39.0-53.0); HDW 2.74; HGB 13.4 gm/dL (13.0-17.5); Luc # (Auto) 0.17; Luc % (Auto) 3; Lymphocytes # (A) 2.5 k/uL (1.0-4.8); Lymphocytes % (A) 42 %; MCH 31.1 pg (25.0-35.0); MCHC 33.1 g/dL (31.0-37.0); MCV 94.1 fL (80.0-100.0); Mean Platelet Volume 7.1; Monocytes # (A) 0.3 k/uL (0-1.0); Monocytes % (A) 5 %; Neutrophils # (A) 2.7 k/uL (1.3-7.7); Neutrophils % (A) 45 %; RDW 13.3 % (11.5-15.5); WBC 5.9 k/uL (3.8-10.6); WBC (Perox) 6.25
[2016-09-13 06:48] LABS: Cholesterol 194 mg/dL (<200); HDL Cholesterol 67 mg/dL (40-60); Triglycerides 119 mg/dL (<150)
[2016-09-13 07:36] LABS: Anion Gap 8 mmol/L; Blood Urea Nitrogen 10 mg/dL (9-20); Carbon Dioxide 25 mmol/L (22-30); Chloride 110 mmol/L (98-107); Glucose 86 mg/dL (74-99); Magnesium 1.9 mg/dL (1.6-2.3); Non-African American GFR(MDRD) >60 (>60 ml/min/1.73 sqM); Phosphorous 4.3 mg/dL (2.5-4.5); Potassium 4.3 mmol/L (3.5-5.1); Sodium 143 mmol/L (137-145)
[2016-09-13] MEDS ORDERED: HEPARIN SODIUM,PORCINE 5,000 UNIT/ML 1 ML VIAL IV PRN (08:17)
--- NOTE | 2016-09-13 08:33 | P.CRDCN ---
History of Present Illness Consult date: 09/13/16 Requesting physician: Ceci Peoples Consult reason: chest pain Chief complaint: Chest pain History of present illness: This is a 46-year-old gentleman with history of mechanical mitral valve prosthesis, nicotine dependence, who was admitted multiple admissions to the hospital with symptoms of chest discomfort, most recently he was seen here at [facility] by Dr. Hernandez in August at which time he presented with symptoms of pleuritic type chest pain. Patient has chronic troponin elevation. He again presents to the hospital on this occasion with symptoms of chest discomfort. He describes the pain as sharp burning sensation in the center of his chest, associated with shortness of breath, pain worsens or with deep breathing to the point where he can't take a deep breath. EKG on admission showed a sinus tachycardia with occasional PVCs. ST-T wave changes noted in the lateral leads. Upon review of prior EKGs, patient has had similar lateral wall changes. Laboratory data, CBC normal, potassium 4.3, BUN 10, creatinine 0.9. Magnesium level I.8, troponins 0.72, 0.64. Patient's troponin in August on this admission here were 0.04 and 0.05. Chest x-ray does not reveal any active cardiopulmonary disease. Blood pressure on admission 154/80 with a heart rate in the 100, 97% on room air. Afebrile. At the time of my examination this morning, he continues to complain of sharp midsternal chest pain, significantly worse with deep breathing. On review of his telemetry strips, patient was noted to have a run of nonsustained ventricular tachycardia. Past Medical History Past Medical History: Atrial Fibrillation, Cancer, Chest Pain / Angina, CVA/TIA , GERD/Reflux, Hypertension, Myocardial Infarction ([place]), Syncope Additional Past Medical History / Comment(s): has problem with aortic valve regurgitation, had mitral valve replaced, pt thinks a dr told him in 2005 he may have had a mild mi, cyst in colon removed was cancerous- no radiation or chemo, syncope Last Myocardial Infarction Date:: 2016 History of Any Multi-Drug Resistant Organisms: None Reported Past Surgical History: Adenoidectomy, Heart Catheterization, Tonsillectomy Additional Past Surgical History / Comment(s): mitral valve replaced, 4 bowels sx in total cysts removed from colon 2 were cancerous only sx was required, heart cath 2015, no stents Past Anesthesia/Blood Transfusion Reactions: No Reported Reaction Past Psychological History: No Psychological Hx Reported Additional Psychological History / Comment(s): pt lives at home with sig other and 2 children. 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 Smoking Status: Current every day smoker Past Alcohol Use History: Occasional Additional Past Alcohol Use History / Comment(s): pt started smoking at age 9 worked up to 1ppd, quit 2009 then started smoking again 2014 & smokes 1-2 cigs per day Past Drug Use History: None Reported - Past Family History Father History Unknown: Yes Family Medical History: Unable to Obtain Additional Family Medical History / Comment(s): pt was adopted. Mother History Unknown: Yes Family Medical History: Unable to Obtain Additional Family Medical History / Comment(s): pt was adopted Medications and Allergies Allergies Allergy/AdvReac Type Severity Reaction Status Date / Time Penicillins Allergy Severe Anaphylaxis Verified 09/12/16 22:15 Physical Exam Vitals: Vital Signs Temp Pulse Pulse Resp BP BP Pulse Ox 09/13/16 06:21 82 16 124/77 96 09/13/16 06:16 85 16 120/67 96 09/13/16 06:10 86 16 121/76 96 09/13/16 03:23 97.9 F 91 16 114/69 96 09/13/16 00:33 97.9 F 111 H 18 126/76 94 L 09/13/16 00:08 92 16 138/64 98 09/12/16 23:41 97 16 107/56 96 Intake and Output 09/12/16 09/13/16 09/13/16 22:59 06:59 14:59 Intake Total 140 Balance 140 Intake: IV 140 Sodium Chloride 0.9% 1, 140 000 ml @ 20 mls/hr IV . Q24H [facility] Rx#:[id number] Other: Voiding Method Toilet # Voids 1 Weight 83 kg PHYSICAL EXAMINATION: HEENT: Head is atraumatic, normocephalic. Pupils equal, round. Neck is supple. There is no elevated jugular venous pressure. HEART EXAMINATION: Heart S1-S2 metallic valve click is heard. CHEST EXAMINATION: Lungs are clear with decreased air exchange , positive chest wall tenderness is noted on palpation and with deep breathing. ABDOMEN: Soft, nontender. Bowel sounds are heard. No organomegaly noted. EXTREMITIES: 2+ peripheral pulses with no evidence of peripheral edema and no calf tenderness noted. NEUROLOGIC patient is awake, alert and oriented -3. . Results 09/13/16 06:05 09/13/16 06:05 Cardiac Enzymes 09/13/16 Range/Units 03:49 CK-MB (CK-2) 4.0 H* (0.0-2.4) ng/mL Troponin I 0.644 H* (0.000-0.034) ng/mL Coagulation 09/13/16 Range/Units 06:05 APTT 37.2 H (22.0-30.0) sec Lipids 09/13/16 Range/Units 06:05 Triglycerides 119 (<150) mg/dL Cholesterol 194 (<200) mg/dL HDL Cholesterol 67 H (40-60) mg/dL CBC 09/13/16 Range/Units 06:05 WBC 5.9 (3.8-10.6) k/uL RBC 4.30 (4.30-5.90) m/uL Hgb 13.4 (13.0-17.5) gm/dL Hct 40.5 (39.0-53.0) % Plt Count 233 (150-450) k/uL Comprehensive Metabolic Panel 09/13/16 Range/Units 06:05 Sodium 143 (137-145) mmol/L Potassium 4.3 (3.5-5.1) mmol/L Chloride 110 H (98-107) mmol/L Carbon Dioxide 25 (22-30) mmol/L BUN 10 (9-20) mg/dL Creatinine 0.97 (0.66-1.25) mg/dL Glucose 86 (74-99) mg/dL Calcium 8.0 L (8.4-10.2) mg/dL Current Medications Generic Name Dose Route Start Last Admin Trade Name Freq PRN Reason Stop Dose Admin Aspirin 325 mg 09/13/16 09:00 Aspirin PO DAILY XAVIER Hydromorphone HCl 1 mg 09/12/16 23:37 09/13/16 03:44 Dilaudid IVP 1 mg Q3HR PRN Administration Pain Heparin Sodium/Dextrose 25,000 500 mls @ 20.24 mls/hr 09/12/16 23:45 23:57 unit/ IV Solution IV 12 units/kg/hr .Q24H XAVIER 20.24 mls/hr Protocol Administration 12 UNITS/KG/HR Sodium Chloride 1,000 mls @ 20 mls/hr 09/12/16 23:45 09/12/16 23:57 Saline 0.9% IV 20 mls/hr .Q24H XAVIER Administration Nitroglycerin 1 inch 09/13/16 06:00 09/13/16 06:18 Nitro-Bid Oint TOPICAL 1 inch Q6HR XAVIER Administration Nitroglycerin 0.4 mg 09/12/16 23:35 09/13/16 06:21 Nitrostat SUBLINGUAL 0.4 mg Q5M PRN Administration Chest Pain Temazepam 15 mg 09/13/16 02:00 09/13/16 02:05 Restoril PO 15 mg HS XAVIER Administration Warfarin Sodium 5 mg 09/13/16 18:00 Coumadin PO DAILY@1800 XAVIER Intake and Output 09/12/16 09/13/16 09/13/16 22:59 06:59 14:59 Intake Total 140 Balance 140 Intake: IV 140 Sodium Chloride 0.9% 1, 140 000 ml @ 20 mls/hr IV . Q24H [facility] Rx#:[id number] Other: Voiding Method Toilet # Voids 1 Weight 83 kg 09/13/16 06:05 09/13/16 06:05 EKG Interpretations (text) EKG shows a sinus tachycardia with occasional PVCs and lateral wall ST-T wave changes. Assessment and Plan Plan: Assessment and Plan #1 chest pain, atypical in nature, very pleuritic type pain. EKG shows sinus tachycardia with occasional PVCs and lateral ST-T wave changes, similar changes noted in prior EKGs. Troponins 0.72, 0.64. Run of nonsustained ventricular tachycardia noted on the monitor. #2 history of metallic mitral valve prosthesis, patient is supposed to be taking Coumadin at home, history of noncompliance with Coumadin several times in the past. His INR on this admission only 1.1. #3 nicotine dependence Plan We will continue the IV heparin and administer Coumadin to maintain a therapeutic INR because of the mitral valve prosthesis. Potassium on admission was 3.6, replaced, 4.3 this morning. Magnesium level I.9. We will also obtain copy of the patient's most recent cardiac catheterization. did have a CTA of the chest performed in August as well which was negative for pulmonary embolism. Further recommendations to follow. DNP note has been reviewed, I agree with a documented findings and plan of care. Patient was seen and examined.
[2016-09-13] MEDS: ASPIRIN 325 MG TAB PO SCH (08:49)
--- NOTE | 2016-09-13 10:33 | XR ---
EXAMINATION TYPE: XR ribs bilateral DATE OF EXAM: 09/13/2016 10:28 AM COMPARISON: NONE HISTORY: 09/24/2016 TECHNIQUE: 2 view bilateral RIBS FINDINGS: No acute fractures are evident. Multiple old right rib fractures are present. No pneumothor ax is evident. Visualized lung coronel are clear. IMPRESSION: 1. Old right rib fractures. No acute osseous abnormality or pneumothorax is evident.
[2016-09-13] MEDS: ENOXAPARIN 80 MG/0.8 ML SYRINGE SQ SCH ×2 (10:45→21:20)
[2016-09-13 11:36] LABS: Creatine Kinase MB 4.2 ng/mL (0.0-2.4); Troponin I 0.629 ng/mL (0.000-0.034)
[2016-09-13] MEDS: KETOROLAC 30 MG/ML 1 ML VIAL IVP SCH ×3 (12:10→23:03)
[2016-09-13] MEDS: HYDROcodone/APAP 7.5-325MG 1 EACH TAB PO PRN ×2 (15:13→21:21)
--- NOTE | 2016-09-13 16:13 | NM ---
EXAMINATION TYPE: NM bone/joint limited DATE OF EXAM: 09/13/2016 3:43 PM COMPARISON: 09/13/2016 rib study HISTORY: Chest pain TECHNIQUE: After the intravenous administration of 27 mCi Tc 99m MDP. Images acquired 3 hours post injection. Multiple views of the thorax are submitted. At what appears to be the posterior lateral right rib near the tip of the scapula level is a focal ar ea of increased radiotracer accumulation. Posttraumatic changes most likely within the differential. Additional insertion old fracture site uptake is present along the posterior right ribs. There may be a nonunion of the ninth posterior medial rib fracture. This potentially could correlate with the uptake findings. IMPRESSION: 1. 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
[2016-09-13] MEDS ORDERED: WARFARIN 5 MG TAB PO SCH (18:00)
[2016-09-13] MEDS ORDERED: WARFARIN 10 MG TAB PO ONE (18:00)
--- NOTE | 2016-09-13 21:13 | HP ---
DATE OF ADMISSION: 09/12/2016 CHIEF COMPLAINT: Chest pain. HISTORY OF PRESENT ILLNESS: This is another admission apparently for this 46-year-old white male. He has mechanical mitral valve. Takes Coumadin. He is on nothing else. Apparently he is in and out of the hospital quite frequently with chest pain. He came in with chest pain, which he describes it as pressure in the left chest radiating into the left arm and tingling in left hand, shortness of breath and diaphoresis. He was told in the emergency room that his troponins were elevated and he had a non-ST segment elevation [place]. He denies any nausea, vomiting, syncope, orthopnea, palpitations, etc. REVIEW OF SYSTEMS: He has had no neurologic problems, change in vision or hearing, hemoptysis, abdominal pain, vomiting, diarrhea, melena, renal disease, lipid disorders. Diabetes. Past medical history, family history, and personal and social histories reveal that HE IS ALLERGIC TO PENICILLIN. The only surgery that he has had is mitral valve. He takes Coumadin. He smokes 1 or 2 cigarettes a day. PHYSICAL EXAMINATION: Blood pressure is 146/92 with a pulse of 85 and regular, respirations 35. He is afebrile. GENERAL: Appeared to well-developed, well-nourished in no acute distress. SKIN: Skin color is normal. Skin is warm and dry. He had multiple tattoos covering his entire body. HEENT: Head, ears, eyes, mouth, and throat were normal. NECK: Neck veins not distended. Thyroid was not enlarged. CHEST: Clear. CARDIAC: Sinus rhythm with audible mechanical heart valve sounds. ABDOMEN: Soft, nontender and there is no visceromegaly or masses. EXTREMITIES: Normal. NEUROLOGICAL: Intact. IMPRESSION: 1. Chest pain. 2. Status post mitral valve replacement. PLAN: 1. Bed rest. 2. IV fluids. 3. Serial EKGs and enzymes. 4. Cardiology consult.
[2016-09-14] MEDS: TEMAZEPAM 15 MG CAP PO SCH (00:56)
[2016-09-14] MEDS: SODIUM CHLORIDE 0.9% 1,000 ML IV SCH (00:56)
[2016-09-14] MEDS: HYDROcodone/APAP 7.5-325MG 1 EACH TAB PO PRN ×6 (03:20→23:58)
[2016-09-14] MEDS: KETOROLAC 30 MG/ML 1 ML VIAL IVP SCH (05:27)
[2016-09-14] MEDS: ASPIRIN 325 MG TAB PO SCH (08:34)
[2016-09-14] MEDS: ENOXAPARIN 80 MG/0.8 ML SYRINGE SQ SCH ×2 (08:34→23:13)
[2016-09-14 09:20] LABS: INR 1.3 (<1.1); Prothrombin Time 12.4 sec (9.0-12.0)
[2016-09-14 11:04] LABS: Anion Gap 6 mmol/L; Blood Urea Nitrogen 8 mg/dL (9-20); Calcium 8.3 mg/dL (8.4-10.2); Carbon Dioxide 29 mmol/L (22-30); Chloride 103 mmol/L (98-107); Glucose 116 mg/dL (74-99); Magnesium 1.8 mg/dL (1.6-2.3); Non-African American GFR(MDRD) >60 (>60 ml/min/1.73 sqM); Potassium 4.9 mmol/L (3.5-5.1); Sodium 138 mmol/L (137-145)
[2016-09-14] MEDS: traMADol 50 MG TAB PO PRN ×3 (11:31→18:59)
--- NOTE | 2016-09-14 14:04 | PN ---
CHIEF COMPLAINT: Chest pain. HISTORY OF PRESENT ILLNESS: This gentleman is doing well and his studies have been unremarkable. Cardiology feels that he can go home. PHYSICAL EXAM: Chest is clear. Cardiac exam is normal. ABDOMEN: Soft, nontender. IMPRESSION: 1. Chest pain. 2. Coronary artery disease. PLAN: Possibly home today if cleared by Cardiology and this will be arranged by the nurse practitioner.
[2016-09-14 16:29] VITALS: RESP 18
[2016-09-14] MEDS ORDERED: WARFARIN 10 MG TAB PO ONE (18:00)
--- NOTE | 2016-09-14 19:06 | PN ---
This patient was admitted with chest pain. Clinically patient's chest pains are atypical and cardiac enzymes are normal. Patient is status post mitral valve replacement with mechanical mitral valve. His INR is 1.30. The patient had a few runs of nonsustained ventricular tachycardia. In view of that, the patient was transferred over here. Patient is asymptomatic. We will start the patient on a small dose of Lopressor. His left ventricular systolic function is overall normal.
[2016-09-14] MEDS: METOPROLOL TARTRATE 25 MG TAB PO SCH (20:11)
[2016-09-15] MEDS: SODIUM CHLORIDE 0.9% 1,000 ML IV SCH (04:21)
[2016-09-15] MEDS: TEMAZEPAM 15 MG CAP PO SCH (04:21)
[2016-09-15] MEDS: HYDROcodone/APAP 7.5-325MG 1 EACH TAB PO PRN ×3 (04:23→12:28)
[2016-09-15 07:26] LABS: INR 2.2 (<1.1); Prothrombin Time 21.4 sec (9.0-12.0)
[2016-09-15] MEDS: ENOXAPARIN 80 MG/0.8 ML SYRINGE SQ SCH (08:52)
[2016-09-15] MEDS: ASPIRIN 325 MG TAB PO SCH (08:53)
[2016-09-15] MEDS: METOPROLOL TARTRATE 25 MG TAB PO SCH (08:53)
[2016-09-15] MEDS: traMADol 50 MG TAB PO PRN (11:24)
[2016-09-15 15:23] VITALS: BP 132/77; PULSE 70; TEMP 98.2
--- NOTE | 2016-09-15 16:59 | DS ---
DATE OF ADMISSION: 09/12/2016 DATE OF DISCHARGE: 09/15/2016 CHIEF COMPLAINT: Chest pain. HISTORY OF PRESENT ILLNESS AND PHYSICAL EXAMINATION: Details of this man's history and physical can be found in the initial work-up. LABORATORY STUDIES: While he was in the hospital, he had laboratory studies, the details of which can be found in the laboratory section of his chart. COURSE IN THE HOSPITAL: After admission, he was placed on bed rest and started on IV fluids. His troponin was elevated. He also had a run of V. tach. Seen by cardiology and they followed him and felt that it was safe for him to go home on the . He will be discharged on his usual medication and diet and activity and he will follow up with us or with his own private physician. FINAL DIAGNOSES: 1. Non-ST segment elevation myocardial infarction. 2. Coronary artery disease. 3. Ventricular tachycardia. OPERATIONS: None. CONSULTATIONS: Cardiology. He is improved.
[2016-09-15] MEDS ORDERED: WARFARIN 7.5 MG TAB PO SCH (18:00)
== END 2016-09-15 16:18 | disposition home or self-care (01) | DRG 281 ==
LOC: EC 21:33 → 6SEL 23:35 → 4MS4W 09-13 23:51 → 6SEL 09-14 14:00
PROVIDERS: ADMIT Family Medicine; ATTEND Family Medicine
DX: I21.4 Non-ST elevation (NSTEMI) myocardial infarction (principal); I47.2 Ventricular tachycardia; Z95.2 Presence of prosthetic heart valve; I49.3 Ventricular premature depolarization; I10 Essential (primary) hypertension; I48.91 Unspecified atrial fibrillation; I25.2 Old myocardial infarction; I25.10 Atherosclerotic heart disease of native coronary artery without angina pectoris; I35.1 Nonrheumatic aortic (valve) insufficiency; K21.9 Gastro-esophageal reflux disease without esophagitis; F17.210 Nicotine dependence, cigarettes, uncomplicated; Z86.73 Personal history of transient ischemic attack (TIA), and cerebral infarction without residual deficits; Z79.01 Long term (current) use of anticoagulants; Z88.0 Allergy status to penicillin; Z87.19 Personal history of other diseases of the digestive system; Z85.038 Personal history of other malignant neoplasm of large intestine; Z91.14 Patient's other noncompliance with medication regimen
CPT/HCPCS: 36415; 71020; 71110; 78300; 80048; 80053; 80061; 82150; 82550; 82553; 83690; 83735; 83880; 84100; 84484; 85025; 85610; 85730; 93005; 96374; 96375; 99291

== ENCOUNTER 2016-09-24 12:25 | Emergency (ER) | payer OTHER ==
[2016-09-24 13:02] VITALS: BP 151/85; PULSE 99; RESP 18; TEMP 96.1
[2016-09-24] MEDS ORDERED: HYDROcodone/APAP 5-325MG 1 EACH TAB PO STA (13:49)
--- NOTE | 2016-09-24 13:53 | ED ---
Burn/Smoke HPI - General Chief complaint: Burn/Smoke Inhalation Stated complaint: burn Time Seen by Provider: 09/24/16 13:08 Source: patient, RN notes reviewed Mode of arrival: ambulatory Limitations: no limitations - History of Present Illness Initial comments: Patient is a 46-year-old male presents to the emergency room for evaluation of left hand burn. Patient states he was cleaning his grill and steam shot up and hit the back of his right hand. Patient states having 10 out of 10 pain. Patient states ice slightly relieves symptoms. Patient states he noticed blisters forming over two of his fingers. Patient denies history diabetes. Patient states he is up-to-date on his tetanus vaccine. Patient denies numbness or tingling in his fingers. Patient states his hand feels tight. - Related Data Home Medications Medication Instructions Recorded Confirmed Warfarin Sodium [Coumadin] 7.5 mg PO DAILY 09/15/16 09/15/16 Previous Rx's Medication Instructions Recorded Metoprolol Tartrate [Lopressor] 25 mg PO BID #1 tablet 09/15/16 HYDROcodone/APAP 5-325MG [[place] 1 tab PO Q6HR PRN #12 tab 09/24/16 5-325] Ibuprofen [Motrin] 800 mg PO Q6HR PRN #20 tab 09/24/16 Allergies Allergy/AdvReac Type Severity Reaction Status Date / Time Penicillins Allergy Severe Anaphylaxis Verified 09/12/16 22:15 Review of Systems ROS Statement: Those systems with pertinent positive or pertinent negative responses have been documented in the HPI. ROS Other: All systems not noted in ROS Statement are negative. Past Medical History Past Medical History: Atrial Fibrillation, Cancer, Chest Pain / Angina, CVA/TIA , GERD/Reflux, Hypertension, Myocardial Infarction ([place]), Syncope Additional Past Medical History / Comment(s): has problem with aortic valve regurgitation, had mitral valve replaced, pt thinks a dr told him in 2005 he may have had a mild mi, cyst in colon removed was cancerous- no radiation or chemo, syncope Last Myocardial Infarction Date:: 2016 History of Any Multi-Drug Resistant Organisms: None Reported Past Surgical History: Adenoidectomy, Heart Catheterization, Tonsillectomy Additional Past Surgical History / Comment(s): mitral valve replaced, 4 bowels sx in total cysts removed from colon 2 were cancerous only sx was required, heart cath 2015, no stents Past Anesthesia/Blood Transfusion Reactions: No Reported Reaction Past Psychological History: No Psychological Hx Reported Additional Psychological History / Comment(s): pt lives at home with sig other and 2 children. 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 Smoking Status: Current every day smoker Past Alcohol Use History: Occasional Additional Past Alcohol Use History / Comment(s): pt started smoking at age 9 worked up to 1ppd, quit 2009 then started smoking again 2014 & smokes 1-2 cigs per day Past Drug Use History: None Reported - Past Family History Father History Unknown: Yes Family Medical History: Unable to Obtain Additional Family Medical History / Comment(s): pt was adopted. Mother History Unknown: Yes Family Medical History: Unable to Obtain Additional Family Medical History / Comment(s): pt was adopted General Exam - General Exam Comments Initial Comments: Sitting on exam bed, no acute distress. Limitations: no limitations General appearance: alert, in no apparent distress Head exam: Present: atraumatic, normocephalic, normal inspection Eye exam: Present: normal appearance ENT exam: Present: normal exam Neck exam: Present: normal inspection Respiratory exam: Absent: respiratory distress Left Hand Wrist exam: Present: erythema (Erythema over the dorsal portion of hand and all fingers. Blistering of the proximal phalanx of the third and fourth digits. The levy are not circumferential.) Neuro motor exam: Present: wrist extension intact, thumb opposition intact, thumb IP flexion intact, thumb adduction intact, fingers 2-5 abduction intact Vascular: Present: normal capillary refill (Capillary refill less than 2 seconds ), radial pulse (2+), ulnar pulse (2+) Back exam: Present: normal inspection Neurological exam: Present: alert, oriented X3, CN II-XII intact, normal gait Psychiatric exam: Present: normal affect, normal mood Skin exam: Present: warm, dry Course Vital Signs 09/24/16 13:00 Temperature 96.1 F L Pulse Rate 99 Respiratory 18 Rate Blood Pressure 151/85 O2 Sat by Pulse 100 Oximetry Medical Decision Making - Medical Decision Making Patient is a 46-year-old male presents to the emergency room for evaluation of left hand burn. Patient has first-degree burn over most of the dorsal portion of his hand and partial thickness burn on his dorsal third and fourth digits of the proximal phalanx. Levy are not circumferential. Patient has full range of motion of his hand. Patient given pain medications and Silvadene cream. Advised patient to follow-up with his primary care provider in 24-48 hours for reevaluation. Advised patient to return for any worsening symptoms. Patient states he understands everything that was discussed with him. Case discussed with Dr. Perez. Disposition Clinical Impression: First degree burn of back of hand, Second degree burn of fingers Disposition: HOME SELF-CARE Condition: Good Instructions: Second Degree Burn (ED) Additional Instructions: Keep area clean and dry. Apply Silvadene cream twice a day. Please follow-up with primary care provider in 24-48 hours for reevaluation. Take ibuprofen as in for pain. Take [place] as needed for severe pain. If any new symptom arises or symptoms worsen, return to ER as soon as possible. Prescriptions: HYDROcodone/APAP 5-325MG [[place] 5-325] 1 tab PO Q6HR PRN #12 tab PRN Reason: Pain Ibuprofen [Motrin] 800 mg PO Q6HR PRN #20 tab PRN Reason: Pain Referrals: Devante Buck MD [Primary Care Provider] - 1-2 days Time of Disposition: 14:01
== END 2016-09-24 14:11 | disposition home or self-care (01) ==
LOC: EC 12:25
DX: T23.232A Burn of second degree of multiple left fingers (nail), not including thumb, initial encounter (principal); T23.162A Burn of first degree of back of left hand, initial encounter; T31.0 Burns involving less than 10% of body surface; I48.91 Unspecified atrial fibrillation; I25.2 Old myocardial infarction; I10 Essential (primary) hypertension; F17.200 Nicotine dependence, unspecified, uncomplicated; Z79.01 Long term (current) use of anticoagulants; Z88.0 Allergy status to penicillin; Z95.818 Presence of other cardiac implants and grafts; X13.1XXA Other contact with steam and other hot vapors, initial encounter
CPT/HCPCS: 99283

== ENCOUNTER 2016-11-20 22:05 | Observation (INO) | payer OTHER ==
[2016-11-20] MEDS ORDERED: ASPIRIN 81 MG CHEW PO STA (22:25)
[2016-11-20] MEDS ORDERED: NITROGLYCERIN SL TABS 0.4 MG TAB SUBLINGUAL STA (22:25)
[2016-11-20] MEDS ORDERED: HYDROmorphone 1 MG/ML 1 ML SYRINGE IVP STA ×2 (22:48→23:51)
--- NOTE | 2016-11-20 22:48 | ED ---
Chest Pain HPI - General Chief Complaint: Chest Pain Stated Complaint: CHest Pain Time Seen by Provider: 11/20/16 22:25 Source: patient Mode of arrival: ambulatory Limitations: no limitations - History of Present Illness Initial Comments: This patient is a 46-year-old man with history of previous mitral valve replacement who presents to be evaluated for chest pain. He states that it started tonight. The patient states she had been sitting at home and received phone call telling him that his mother had . He states that he got upset and went into his garage where he was punching a heavy bag. He states that after doing that for a period of time he developed a sharp pain all across his upper chest that he states brought him to his knees. He states that he felt like his heart was racing and counted it with a rate of approximately 128 bpm. He states that he was feeling short of breath and sweating. He decided he needed to be seen here. MD Complaint: chest pain -: hour(s) Onset: during exertion Pain Location: left chest, right chest Pain Radiation: none Severity: severe Quality: sharp Consistency: constant Improves With: nothing Worsens With: nothing Anginal Symptoms: diaphoresis, dyspnea Treatments Prior to Arrival: none - Related Data Home Medications Medication Instructions Recorded Confirmed Acetaminophen-Codeine 300-30mg 1 tab PO Q6H PRN 11/20/16 11/20/16 [Tylenol #3] HYDROcodone/APAP 7.5-325MG [[place] 1 tab PO Q6H PRN 11/20/16 11/20/16 7.5-325] Warfarin [Coumadin] 5 mg PO DAILY 11/20/16 11/20/16 Allergies Allergy/AdvReac Type Severity Reaction Status Date / Time Penicillins Allergy Severe Anaphylaxis Verified 11/20/16 22:25 Review of Systems ROS Statement: Those systems with pertinent positive or pertinent negative responses have been documented in the HPI. ROS Other: All systems not noted in ROS Statement are negative. Constitutional: Denies: fever, weakness Respiratory: Reports: as per HPI, dyspnea. Denies: cough, wheezes, hemoptysis Cardiovascular: Reports: as per HPI, chest pain, palpitations. Denies: orthopnea, edema, syncope Gastrointestinal: Denies: abdominal pain, nausea, vomiting, melena, hematochezia Genitourinary: Denies: dysuria, hematuria Musculoskeletal: Denies: back pain Skin: Denies: rash Neurological: Denies: headache, weakness, numbness EKG Findings - EKG Comments: EKG Findings:: Possible old septal infarct. The EKG is similar to the comparison from September 12, 2016 - EKG Results: EKG: interpreted by DOED, sinus rhythm EKG shows: tachycardia (Rate 102 BPM) - Blocks, [place], Hypertrophy, ST Abn: QRS axis and voltage: left axis deviation (-30 to -90) Chamber hypertrophy or enlargement: left ventricular hypertrophy or enlargement (LVE) Repolarization changes or abnormalities: early repolarization due to LVH Past Medical History Past Medical History: Atrial Fibrillation, Cancer, Chest Pain / Angina, CVA/TIA , GERD/Reflux, Hypertension, Myocardial Infarction ([place]), Syncope Additional Past Medical History / Comment(s): has problem with aortic valve regurgitation, had mitral valve replaced, pt thinks a dr told him in 2005 he may have had a mild mi, cyst in colon removed was cancerous- no radiation or chemo, syncope Last Myocardial Infarction Date:: 2016 History of Any Multi-Drug Resistant Organisms: None Reported Past Surgical History: Adenoidectomy, Heart Catheterization, Tonsillectomy Additional Past Surgical History / Comment(s): mitral valve replaced, 4 bowels sx in total cysts removed from colon 2 were cancerous only sx was required, heart cath 2015, no stents Past Anesthesia/Blood Transfusion Reactions: No Reported Reaction Past Psychological History: No Psychological Hx Reported Additional Psychological History / Comment(s): pt lives at home with sig other and 2 children. 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 Smoking Status: Current every day smoker Past Alcohol Use History: Occasional Additional Past Alcohol Use History / Comment(s): pt started smoking at age 9 worked up to 1ppd, quit 2009 then started smoking again 2014 & smokes 1-2 cigs per day Past Drug Use History: None Reported - Past Family History Father History Unknown: Yes Family Medical History: Unable to Obtain Additional Family Medical History / Comment(s): pt was adopted. Mother History Unknown: Yes Family Medical History: Unable to Obtain Additional Family Medical History / Comment(s): pt was adopted General Exam Limitations: no limitations General appearance: alert, in no apparent distress Head exam: Present: atraumatic, normocephalic Eye exam: Present: normal appearance. Absent: scleral icterus, conjunctival injection Neck exam: Present: normal inspection, full ROM Respiratory exam: Present: normal lung sounds bilaterally, chest wall tenderness. Absent: respiratory distress, wheezes, rales, rhonchi, stridor, accessory muscle use, decreased breath sounds Cardiovascular Exam: Present: regular rate, normal rhythm, systolic murmur ( Grade 1/6 systolic ejection murmur left sternal border.). Absent: diastolic murmur, rubs, gallop GI/Abdominal exam: Present: soft. Absent: distended, tenderness, guarding, rebound, mass Extremities exam: Present: normal inspection, normal capillary refill. Absent: pedal edema, calf tenderness Back exam: Absent: CVA tenderness (R), CVA tenderness (L) Neurological exam: Present: alert Skin exam: Present: warm, dry, intact, normal color. Absent: rash Course Vital Signs 11/20/16 11/20/16 11/20/16 22:10 23:10 23:14 Temperature 98 F Pulse Rate 108 H 118 H Respiratory 18 16 Rate Blood Pressure 102/74 145/85 136/79 O2 Sat by Pulse 97 95 Oximetry 11/20/16 11/21/16 23:18 00:09 Temperature Pulse Rate 124 H 100 Respiratory 16 18 Rate Blood Pressure 134/68 134/71 O2 Sat by Pulse 94 L 96 Oximetry Chest Pain [facility] Mr Cortez states that he is a new patient of Dr. Wright, therefore will be admitted under Dr. Durand. Disposition Clinical Impression: Chest pain Disposition: ADMITTED IP TO THIS [facility] Condition: Fair Referrals: None,Stated [Primary Care Provider] - 1-2 days
[2016-11-20 23:00] LABS: Basophils # (A) 0.1 k/uL (0-0.2); Basophils % (A) 1 %; CH 31.9; CHCM 34.6; Eosinophils # (A) 0.2 k/uL (0-0.7); Eosinophils % (A) 3 %; HCT 45.2 % (39.0-53.0); HDW 2.46; HGB 15.6 gm/dL (13.0-17.5); Luc # (Auto) 0.13; Luc % (Auto) 2; Lymphocytes # (A) 2.9 k/uL (1.0-4.8); Lymphocytes % (A) 43 %; MCH 32.1 pg (25.0-35.0); MCHC 34.6 g/dL (31.0-37.0); MCV 92.7 fL (80.0-100.0); Mean Platelet Volume 7.2; Monocytes # (A) 0.3 k/uL (0-1.0); Monocytes % (A) 5 %; Neutrophils # (A) 3.2 k/uL (1.3-7.7); Neutrophils % (A) 47 %; RBC 4.88 m/uL (4.30-5.90); RDW 12.8 % (11.5-15.5); WBC 6.8 k/uL (3.8-10.6); WBC (Perox) 6.34
[2016-11-20 23:09] LABS: ALT 26 U/L (21-72); AST 33 U/L (17-59); Alkaline Phosphatase 50 U/L (38-126); Amylase 74 U/L (30-110); Anion Gap 12 mmol/L; Blood Urea Nitrogen 11 mg/dL (9-20); Calcium 8.6 mg/dL (8.4-10.2); Carbon Dioxide 21 mmol/L (22-30); Chloride 106 mmol/L (98-107); Glucose 113 mg/dL (74-99); Non-African American GFR(MDRD) >60 (>60 ml/min/1.73 sqM); Potassium 4.1 mmol/L (3.5-5.1); Sodium 139 mmol/L (137-145); Total Bilirubin 0.5 mg/dL (0.2-1.3)
[2016-11-20 23:25] LABS: Prothrombin Time 10.5 sec (9.0-12.0)
--- NOTE | 2016-11-20 23:43 | XR ---
EXAM: XR Chest, 1 View CLINICAL HISTORY: Reason: chest pain TECHNIQUE: Frontal view of the chest. COMPARISON: No relevant prior studies available. FINDINGS: Lungs: Unremarkable. No consolidation. Pleural space: Unremarkable. No pneumothorax. Heart: Unremarkable. No cardiomegaly. Mediastinum: Stable postoperative mediastinum. Bones/joints: Posterior rib fractures. Tubes, lines and devices: Telemetry leads overlie the patient. IMPRESSION: No acute cardiopulmonary process.
[2016-11-20 23:49] LABS: Creatine Kinase MB 2.9 ng/mL (0.0-2.4)
[2016-11-20 23:50] LABS: Troponin I 0.06 ng/mL (0.000-0.034)
[2016-11-20] MEDS ORDERED: ENOXAPARIN 80 MG/0.8 ML SYRINGE SQ STA (23:52)
[2016-11-20] MEDS ORDERED: NITROGLYCERIN OINT 1 INCH/GM PACKET TOPICAL STA (23:59)
[2016-11-21] MEDS ORDERED: NITROGLYCERIN SL TABS 0.4 MG TAB SUBLINGUAL PRN (00:43)
[2016-11-21] MEDS ORDERED: SODIUM CHLORIDE 0.9% 1,000 ML IV SCH (00:45)
[2016-11-21] MEDS ORDERED: ENOXAPARIN 80 MG/0.8 ML SYRINGE SQ SCH ×2 (01:00→09:00)
[2016-11-21 02:55] VITALS: BMI 26.2
[2016-11-21] MEDS: HYDROmorphone 1 MG/ML 1 ML SYRINGE IVP PRN ×3 (02:55→11:01)
[2016-11-21] MEDS: HYDROcodone/APAP 7.5-325MG 1 EACH TAB PO PRN ×2 (03:34→09:42)
[2016-11-21 06:43] LABS: Creatine Kinase MB 3.4 ng/mL (0.0-2.4); Troponin I 0.067 ng/mL (0.000-0.034)
[2016-11-21 11:14] VITALS: RESP 16
[2016-11-21 12:33] LABS: Creatine Kinase MB 4.2 ng/mL (0.0-2.4)
[2016-11-21 12:34] LABS: Troponin I 0.052 ng/mL (0.000-0.034)
[2016-11-21 15:41] VITALS: BP 125/78; PULSE 84; TEMP 96.9
[2016-11-21] MEDS ORDERED: WARFARIN 5 MG TAB PO SCH (18:00)
--- NOTE | 2016-11-22 05:37 | DS ---
DATE OF ADMISSION: 11/21/2016 DATE OF DISCHARGE: 11/21/2016 HISTORY AND PHYSICAL AND DISCHARGE SUMMARY Date left AGAINST MEDICAL ADVICE: 11/21/2016 FINAL DIAGNOSIS: Chest pain; could be musculoskeletal. HOSPITAL COURSE: This patient was admitted and left AGAINST MEDICAL ADVICE before I could see the patient. For more history refer to the ER notes and examination. Patient apparently heard the news of his mother dying, became upset, went to the garage, starting punching a bag there for some time. Then developed some sharp chest pain and came in for the same. Patient has a small troponin leak, of 0.060. Cardiology was consulted, but patient decided to leave AGAINST MEDICAL ADVICE. For more details look in the ER notes. Again this patient not seen by me.
[2016-11-22] MEDS ORDERED: ASPIRIN 325 MG TAB PO SCH (09:00)
== END 2016-11-21 16:07 | disposition left against medical advice (07) ==
LOC: EC 22:05 → INTOOBSV 11-21 00:43 → 6SEL 11-21 00:43
PROVIDERS: ADMIT Hospitalist; ATTEND Hospitalist
DX: R07.89 Other chest pain (principal); R06.02 Shortness of breath; I25.2 Old myocardial infarction; I10 Essential (primary) hypertension; I48.91 Unspecified atrial fibrillation; K21.9 Gastro-esophageal reflux disease without esophagitis; I35.1 Nonrheumatic aortic (valve) insufficiency; F17.200 Nicotine dependence, unspecified, uncomplicated; Z95.2 Presence of prosthetic heart valve; Z86.73 Personal history of transient ischemic attack (TIA), and cerebral infarction without residual deficits; Z79.01 Long term (current) use of anticoagulants
CPT/HCPCS: 96374 ×2; 96372 ×2; 96376 ×2; 99285 ×2; 36415; 93005 ×2; 85379; 80053; 82150; 82550 ×2; 82553 ×2; 83690; 83735; 84484 ×2; 85025; 85610; 85730; 71010; G0378; J1650; J1170 ×2

== ENCOUNTER 2017-02-14 02:28 | Observation (INO) | payer OTHER ==
[2017-02-14] MEDS ORDERED: MORPHINE SULFATE 4 MG/ML SYRINGE IV STA (02:44)
[2017-02-14] MEDS ORDERED: SODIUM CHLORIDE 0.9% 500 ML IV STA (02:44)
[2017-02-14] MEDS ORDERED: LORazepam 2 MG/ML SYRINGE IV STA (02:44)
[2017-02-14] MEDS ORDERED: SODIUM CHLORIDE 0.9% 1,000 ML IV STA (02:44)
--- NOTE | 2017-02-14 02:45 | ED ---
General Adult HPI - General Chief complaint: Chest Pain Stated complaint: chest pain Time Seen by Provider: 02/14/17 02:35 Source: patient, RN notes reviewed, old records reviewed Mode of arrival: ambulatory Limitations: no limitations - History of Present Illness Initial comments: This is a 47-year-old male to the ER for evaluation of chest pain. Patient states his anterior chest pain shortness of breath. Patient's significant medical history for symptoms of her mitral valve prolapse, also discontinued smoking at this time. Patient does admit to having multiple cardiac evaluations. Patient states this chest pain is similar to that. He also shortness of breath. No fevers cough or congestion. No travel history. Patient is on blood thinners - Related Data Home Medications Medication Instructions Recorded Confirmed Acetaminophen-Codeine 300-30mg 1 tab PO Q6H PRN 11/20/16 02/14/17 [Tylenol #3] Warfarin [Coumadin] 5 mg PO DAILY 11/20/16 02/14/17 Allergies Allergy/AdvReac Type Severity Reaction Status Date / Time Penicillins Allergy Severe Anaphylaxis Verified 02/14/17 02:32 Review of Systems ROS Statement: Those systems with pertinent positive or pertinent negative responses have been documented in the HPI. ROS Other: All systems not noted in ROS Statement are negative. Past Medical History Past Medical History: Atrial Fibrillation, Cancer, Chest Pain / Angina, CVA/TIA , GERD/Reflux, Hypertension, Myocardial Infarction ([place]), Syncope Additional Past Medical History / Comment(s): has problem with aortic valve regurgitation, had mitral valve replaced, pt thinks a dr told him in 2005 he may have had a mild mi, cyst in colon removed was cancerous- no radiation or chemo, syncope Last Myocardial Infarction Date:: 2016 History of Any Multi-Drug Resistant Organisms: None Reported Past Surgical History: Adenoidectomy, Heart Catheterization, Tonsillectomy Additional Past Surgical History / Comment(s): mitral valve replaced, 4 bowels sx in total cysts removed from colon 2 were cancerous only sx was required, heart cath 2016, no stents Past Anesthesia/Blood Transfusion Reactions: No Reported Reaction Past Psychological History: No Psychological Hx Reported Smoking Status: Current every day smoker Past Alcohol Use History: Occasional Past Drug Use History: None Reported - Past Family History Father History Unknown: Yes Family Medical History: Unable to Obtain Additional Family Medical History / Comment(s): pt was adopted. Mother History Unknown: Yes Family Medical History: Unable to Obtain Additional Family Medical History / Comment(s): pt was adopted General Exam Limitations: no limitations General appearance: alert, in no apparent distress Head exam: Present: atraumatic, normocephalic, normal inspection Eye exam: Present: normal appearance, PERRL, EOMI. Absent: scleral icterus, conjunctival injection, periorbital swelling ENT exam: Present: normal exam, mucous membranes moist Neck exam: Present: normal inspection. Absent: tenderness, meningismus, lymphadenopathy Respiratory exam: Present: normal lung sounds bilaterally. Absent: respiratory distress, wheezes, rales, rhonchi, stridor Cardiovascular Exam: Present: regular rate, normal rhythm, normal heart sounds. Absent: systolic murmur, diastolic murmur, rubs, gallop, clicks GI/Abdominal exam: Present: soft, normal bowel sounds. Absent: distended, tenderness, guarding, rebound, rigid Extremities exam: Present: normal inspection, full ROM, normal capillary refill. Absent: tenderness, pedal edema, joint swelling, calf tenderness Back exam: Present: normal inspection Neurological exam: Present: alert, oriented X3, CN II-XII intact Psychiatric exam: Present: normal affect, normal mood Skin exam: Present: warm, dry, intact, normal color. Absent: rash Course Vital Signs 02/14/17 02:28 Temperature 98.4 F Pulse Rate 99 Respiratory 18 Rate Blood Pressure 168/74 O2 Sat by Pulse 99 Oximetry - Reevaluation(s) Reevaluation #1: 02/14/17 02:48 Medical records, heart catheterization obtained Reevaluation #2: 02/14/17 04:06 Patient is asking for pain medication EKG Findings - EKG Comments: EKG Findings:: EKG shows normal sinus rhythm with multiple PVCs radial 100, PA 174, QRS 112, QTC 42 Medical Decision Making - Medical Decision Making 47 multiyear for evaluation of chest pain. Patient is with recurrent chest pain at this time. History of heart surgery mitral valve replacement, patient will be admitted for cardiac observation - Lab Data Result diagrams: 02/14/17 03:00 02/14/17 03:00 Lab Results 02/14/17 02/14/17 02/14/17 Range/Units 03:00 03:00 03:00 WBC 7.2 (3.8-10.6) k/uL RBC 5.08 (4.30-5.90) m/uL Hgb 16.1 (13.0-17.5) gm/dL Hct 47.1 (39.0-53.0) % MCV 92.7 (80.0-100.0) fL MCH 31.7 (25.0-35.0) pg MCHC 34.2 (31.0-37.0) g/dL RDW 12.6 (11.5-15.5) % Plt Count 229 (150-450) k/uL Neutrophils % 43 % Lymphocytes % 45 % Monocytes % 5 % Eosinophils % 4 % Basophils % 1 % Neutrophils # 3.1 (1.3-7.7) k/uL Lymphocytes # 3.3 (1.0-4.8) k/uL Monocytes # 0.3 (0-1.0) k/uL Eosinophils # 0.3 (0-0.7) k/uL Basophils # 0.1 (0-0.2) k/uL PT (9.0-12.0) sec INR (<1.2) APTT (22.0-30.0) sec Sodium 139 (137-145) mmol/L Potassium 4.4 (3.5-5.1) mmol/L Chloride 106 (98-107) mmol/L Carbon Dioxide 21 L (22-30) mmol/L Anion Gap 12 mmol/L BUN 7 L (9-20) mg/dL Creatinine 0.80 (0.66-1.25) mg/dL Est GFR (MDRD) Af Amer >60 (>60 ml/min/1.73 sqM) Est GFR (MDRD) Non-Af >60 (>60 ml/min/1.73 sqM) Glucose 80 (74-99) mg/dL Calcium 9.0 (8.4-10.2) mg/dL Magnesium 1.9 (1.6-2.3) mg/dL Total Bilirubin 0.6 (0.2-1.3) mg/dL AST 66 H (17-59) U/L ALT 63 (21-72) U/L Alkaline Phosphatase 47 (38-126) U/L Total Creatine Kinase 273 H (55-170) U/L CK-MB (CK-2) 3.7 H* (0.0-2.4) ng/mL CK-MB (CK-2) Rel Index 1.4 Troponin I 0.055 H* (0.000-0.034) ng/mL NT-Pro-B Natriuret Pep pg/mL Total Protein 6.9 (6.3-8.2) g/dL Albumin 4.2 (3.5-5.0) g/dL Lipase 132 (23-300) U/L 02/14/17 02/14/17 Range/Units 03:00 03:00 WBC (3.8-10.6) k/uL RBC (4.30-5.90) m/uL Hgb (13.0-17.5) gm/dL Hct (39.0-53.0) % MCV (80.0-100.0) fL MCH (25.0-35.0) pg MCHC (31.0-37.0) g/dL RDW (11.5-15.5) % Plt Count (150-450) k/uL Neutrophils % % Lymphocytes % % Monocytes % % Eosinophils % % Basophils % % Neutrophils # (1.3-7.7) k/uL Lymphocytes # (1.0-4.8) k/uL Monocytes # (0-1.0) k/uL Eosinophils # (0-0.7) k/uL Basophils # (0-0.2) k/uL PT 10.6 (9.0-12.0) sec INR 1.1 (<1.2) APTT 24.8 (22.0-30.0) sec Sodium (137-145) mmol/L Potassium (3.5-5.1) mmol/L Chloride (98-107) mmol/L Carbon Dioxide (22-30) mmol/L Anion Gap mmol/L BUN (9-20) mg/dL Creatinine (0.66-1.25) mg/dL Est GFR (MDRD) Af Amer (>60 ml/min/1.73 sqM) Est GFR (MDRD) Non-Af (>60 ml/min/1.73 sqM) Glucose (74-99) mg/dL Calcium (8.4-10.2) mg/dL Magnesium (1.6-2.3) mg/dL Total Bilirubin (0.2-1.3) mg/dL AST (17-59) U/L ALT (21-72) U/L Alkaline Phosphatase (38-126) U/L Total Creatine Kinase (55-170) U/L CK-MB (CK-2) (0.0-2.4) ng/mL CK-MB (CK-2) Rel Index Troponin I (0.000-0.034) ng/mL NT-Pro-B Natriuret Pep 926 pg/mL Total Protein (6.3-8.2) g/dL Albumin (3.5-5.0) g/dL Lipase (23-300) U/L - Radiology Data Radiology results: report reviewed (Chest x-ray is negative for acute disease), image reviewed Critical Care Time Critical Care Time: Yes Total Critical Care Time: 31 Disposition Clinical Impression: Unstable angina, Non-ST elevation myocardial infarction (NSTEMI) Disposition: ADMITTED IP TO THIS [facility] Condition: Fair Referrals: None,Stated [Primary Care Provider] - 1-2 days
[2017-02-14] MEDS ORDERED: ONDANSETRON 4 MG/2 ML VIAL IVP STA (03:00)
[2017-02-14 03:12] LABS: Basophils # (A) 0.1 k/uL (0-0.2); Basophils % (A) 1 %; CH 32.4; CHCM 35.1; Eosinophils # (A) 0.3 k/uL (0-0.7); Eosinophils % (A) 4 %; HCT 47.1 % (39.0-53.0); HDW 2.47; HGB 16.1 gm/dL (13.0-17.5); Luc % (Auto) 3; Lymphocytes # (A) 3.3 k/uL (1.0-4.8); Lymphocytes % (A) 45 %; MCH 31.7 pg (25.0-35.0); MCHC 34.2 g/dL (31.0-37.0); MCV 92.7 fL (80.0-100.0); Mean Platelet Volume 7.3; Monocytes # (A) 0.3 k/uL (0-1.0); Monocytes % (A) 5 %; Neutrophils # (A) 3.1 k/uL (1.3-7.7); Neutrophils % (A) 43 %; RBC 5.08 m/uL (4.30-5.90); RDW 12.6 % (11.5-15.5); WBC 7.2 k/uL (3.8-10.6); WBC (Perox) 7.29
[2017-02-14 03:16] LABS: ALT 63 U/L (21-72); AST 66 U/L (17-59); Alkaline Phosphatase 47 U/L (38-126); Anion Gap 12 mmol/L; Blood Urea Nitrogen 7 mg/dL (9-20); Carbon Dioxide 21 mmol/L (22-30); Chloride 106 mmol/L (98-107); Glucose 80 mg/dL (74-99); Magnesium 1.9 mg/dL (1.6-2.3); Non-African American GFR(MDRD) >60 (>60 ml/min/1.73 sqM); Potassium 4.4 mmol/L (3.5-5.1); Sodium 139 mmol/L (137-145); Total Bilirubin 0.6 mg/dL (0.2-1.3); Total Protein 6.9 g/dL (6.3-8.2)
[2017-02-14 03:20] LABS: INR 1.1 (<1.2); Partial Thromboplastin Time 24.8 sec (22.0-30.0); Prothrombin Time 10.6 sec (9.0-12.0)
[2017-02-14 03:42] LABS: Creatine Kinase MB 3.7 ng/mL (0.0-2.4)
[2017-02-14 03:43] LABS: Troponin I 0.055 ng/mL (0.000-0.034)
--- NOTE | 2017-02-14 04:03 | XR ---
EXAM: XR Chest, 2 Views CLINICAL HISTORY: Reason: Chest Pain TECHNIQUE: Frontal and lateral views of the chest. COMPARISON: 09/12/16 and 11/20/16. FINDINGS: Lungs: Unremarkable. No consolidation. Pleural space: Unremarkable. No pneumothorax. Heart: Evidence of previous valve surgery. Mediastinum: Unremarkable. Bones/joints: Sternotomy wires. Old right rib fractures. Chronic wedging deformity seen in the mid thoracic spine. IMPRESSION: No acute findings.
[2017-02-14] MEDS ORDERED: ASPIRIN 81 MG CHEW PO STA (04:05)
[2017-02-14] MEDS ORDERED: NITROGLYCERIN SL TABS 0.4 MG TAB SUBLINGUAL PRN (04:05)
[2017-02-14] MEDS ORDERED: HYDROmorphone 1 MG/ML 1 ML SYRINGE IVP STA ×2 (05:02→08:00)
[2017-02-14 06:14] VITALS: BMI 26.4
[2017-02-14] MEDS ORDERED: HEPARIN SODIUM,PORCINE 5,000 UNIT/ML 1 ML VIAL IV ONE (08:17)
[2017-02-14] MEDS ORDERED: HEPARIN SODIUM,PORCINE 5,000 UNIT/ML 1 ML VIAL IV PRN (08:17)
--- NOTE | 2017-02-14 08:19 | P.CRDCN ---
History of Present Illness Consult date: 02/14/17 Requesting physician: Ceci Peoples Consult reason: chest pain Chief complaint: Chest pain and shortness of breath History of present illness: This is a 47-year-old gentleman with history of mitral valve replacement, nicotine dependence, paroxysmal atrial fibrillation, prior TIA, hypertension, prior colon cancer, who presents to the hospital with symptoms of chest pressure with associated shortness of breath. He states that for the past 3 or 4 days he's been increasingly more short of breath, he states he has to stop several times while cutting the grass because he developed chest pressure and become short of breath. Patient also states it's hard to take a deep breath, and when he does the pain worsened significantly. Patient does continue to smoke, he has not followed with a combatant swimmer in quite some time. Chest x-ray on admission did not reveal any acute findings. Initial EKG shows a normal sinus rhythm with PVCs and lateral ST-T wave changes. CBC normal. Sodium 139, potassium 4.4, BUN 7, creatinine 0.8. Troponin 0.055. BNP level 926. Upon review of patient's prior records, back to December 2014, his troponin is consistently in this abnormal range. Reviewing prior EKGs, patient does have intermittent T-wave inversion in the lateral leads, similar to his EKG now. At the time of my examination this morning, patient continues to complain of chest pressure, upon examining him he has significant pain in the chest with taking deep breathing. Past Medical History Past Medical History: Atrial Fibrillation, Cancer, Chest Pain / Angina, CVA/TIA , GERD/Reflux, Hypertension, Myocardial Infarction ([place]), Syncope Additional Past Medical History / Comment(s): has problem with aortic valve regurgitation, had mitral valve replaced, pt thinks a told him in 2005 he may have had a mild mi, cyst in colon removed was cancerous- no radiation or chemo, syncope Last Myocardial Infarction Date:: 2016 History of Any Multi-Drug Resistant Organisms: None Reported Past Surgical History: Adenoidectomy, Heart Catheterization, Tonsillectomy Additional Past Surgical History / Comment(s): mitral valve replaced, 4 bowels sx in total cysts removed from colon 2 were cancerous only sx was required, heart cath 2016, no stents Past Anesthesia/Blood Transfusion Reactions: No Reported Reaction Past Psychological History: No Psychological Hx Reported Additional Psychological History / Comment(s): pt lives at home with sig other and 2 children. 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 Smoking Status: Current every day smoker Past Alcohol Use History: Occasional Additional Past Alcohol Use History / Comment(s): pt started smoking at age 9 worked up to 1ppd, quit 2009 then started smoking again 2014 & smokes 1-2 cigs per day Past Drug Use History: None Reported - Past Family History Father History Unknown: Yes Family Medical History: Unable to Obtain Additional Family Medical History / Comment(s): pt was adopted. Mother History Unknown: Yes Family Medical History: Unable to Obtain Additional Family Medical History / Comment(s): pt was adopted Medications and Allergies Home Medications Medication Instructions Recorded Confirmed Type Acetaminophen-Codeine 300-30mg 1 tab PO Q6H PRN 11/20/16 02/14/17 History [Tylenol #3] Warfarin [Coumadin] 5 mg PO DAILY 11/20/16 02/14/17 History HYDROcodone/APAP 7.5-325MG [[place] 1 tab PO DAILY PRN 02/14/17 02/14/17 History 7.5-325] Allergies Allergy/AdvReac Type Severity Reaction Status Date / Time Penicillins Allergy Severe Anaphylaxis Verified 02/14/17 07:26 Physical Exam Vitals: Vital Signs Temp Pulse Pulse Resp BP BP Pulse Ox 02/14/17 07:48 97.8 F 81 18 128/79 97 02/14/17 07:45 92 16 02/14/17 04:33 97.9 F 68 16 119/70 99 02/14/17 04:31 97.8 F 92 18 141/84 98 02/14/17 04:19 70 16 118/70 99 02/14/17 02:28 98.4 F 99 18 168/74 99 Intake and Output 02/13/17 02/14/17 02/14/17 22:59 06:59 14:59 Output Total 300 Balance -300 Output: Urine 300 Other: Voiding Method Toilet # Voids 1 Weight 86.2 kg PHYSICAL EXAMINATION: HEENT: Head is atraumatic, normocephalic. Pupils equal, round. Neck is supple. There is no elevated jugular venous pressure. HEART EXAMINATION: R S1 and S2 metallic valve click is heard. CHEST EXAMINATION: Lungs reveal decreased air exchange throughout, positive chest wall tenderness with deep breathing. ABDOMEN: Soft, nontender. Bowel sounds are heard. No organomegaly noted. EXTREMITIES: 1+ peripheral pulses with trace evidence of peripheral edema and no calf tenderness noted. NEUROLOGIC patient is awake, alert and oriented -3. . Results 02/14/17 03:00 02/14/17 03:00 Cardiac Enzymes 02/14/17 02/14/17 Range/Units 03:00 03:00 AST 66 H (17-59) U/L CK-MB (CK-2) 3.7 H* (0.0-2.4) ng/mL Troponin I 0.055 H* (0.000-0.034) ng/mL Coagulation 02/14/17 Range/Units 03:00 PT 10.6 (9.0-12.0) sec APTT 24.8 (22.0-30.0) sec CBC 02/14/17 Range/Units 03:00 WBC 7.2 (3.8-10.6) k/uL RBC 5.08 (4.30-5.90) m/uL Hgb 16.1 (13.0-17.5) gm/dL Hct 47.1 (39.0-53.0) % Plt Count 229 (150-450) k/uL Comprehensive Metabolic Panel 02/14/17 Range/Units 03:00 Sodium 139 (137-145) mmol/L Potassium 4.4 (3.5-5.1) mmol/L Chloride 106 (98-107) mmol/L Carbon Dioxide 21 L (22-30) mmol/L BUN 7 L (9-20) mg/dL Creatinine 0.80 (0.66-1.25) mg/dL Glucose 80 (74-99) mg/dL Calcium 9.0 (8.4-10.2) mg/dL AST 66 H (17-59) U/L ALT 63 (21-72) U/L Alkaline Phosphatase 47 (38-126) U/L Total Protein 6.9 (6.3-8.2) g/dL Albumin 4.2 (3.5-5.0) g/dL Current Medications Generic Name Dose Route Start Last Admin Trade Name Freq PRN Reason Stop Dose Admin Aspirin 325 mg 02/15/17 09:00 Aspirin PO DAILY XAVIER Hydromorphone HCl 0.5 mg 02/14/17 08:00 Dilaudid IVP 02/14/17 08:01 ONCE STA Sodium Chloride 1,000 mls @ 100 mls/hr 02/14/17 02:44 02/14/17 03:05 Saline 0.9% IV 02/14/17 12:43 100 mls/hr .Q10H STA Administration Morphine Sulfate 4 mg 02/14/17 04:07 Morphine Sulfate (Inj) IVP Q4HR PRN Pain Nitroglycerin 0.4 mg 02/14/17 04:05 Nitrostat SUBLINGUAL Q5M PRN Chest Pain Intake and Output 02/13/17 02/14/17 02/14/17 22:59 06:59 14:59 Output Total 300 Balance -300 Output: Urine 300 Other: Voiding Method Toilet # Voids 1 Weight 86.2 kg 02/14/17 03:00 02/14/17 03:00 EKG Interpretations (text) EKG shows normal sinus rhythm with lateral T-wave inversion and occasional PVCs Assessment and Plan Plan: Assessment and plan #1 chest pain with atypical features for acute coronary syndrome. Very pleuritic in nature. Troponin 0.055. EKG shows normal sinus rhythm with lateral ST-T wave changes. Patient has been noted to have abnormal troponins consistently since admissions back to 2014. He has also been noted to have intermittent lateral wall changes on his EKG. #2 history of mitral valve replacement #3 hypertension #4 nicotine dependence #5 prior TIA #6 paroxysmal atrial fibrillation #7 history of colon cancer #8 subtherapeutic INR, 1.1. 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 Plan We will obtain an echocardiogram with Doppler study. We will also obtain to further troponins. We will start the patient on IV heparin. We will also start the patient on low-dose beta bea. Obtain fasting lipid profile. Further recommendations to follow. DNP note has been reviewed, I agree with a documented findings and plan of care. Patient was seen and examined.
[2017-02-14 09:50] LABS: Basophils # (A) 0.1 k/uL (0-0.2); Basophils % (A) 1 %; CH 32.6; CHCM 34.3; Eosinophils # (A) 0.2 k/uL (0-0.7); Eosinophils % (A) 4 %; HCT 46.5 % (39.0-53.0); HDW 2.48; HGB 15.3 gm/dL (13.0-17.5); Luc % (Auto) 2; Lymphocytes # (A) 2.2 k/uL (1.0-4.8); Lymphocytes % (A) 40 %; MCH 31.4 pg (25.0-35.0); MCHC 32.9 g/dL (31.0-37.0); MCV 95.4 fL (80.0-100.0); Mean Platelet Volume 7.9; Monocytes # (A) 0.3 k/uL (0-1.0); Monocytes % (A) 6 %; Neutrophils # (A) 2.7 k/uL (1.3-7.7); Neutrophils % (A) 47 %; RBC 4.87 m/uL (4.30-5.90); RDW 13.5 % (11.5-15.5); WBC 5.6 k/uL (3.8-10.6); WBC (Perox) 5.77
[2017-02-14] MEDS: HEPARIN SODIUM,PORCINE/D5W PMX 25,000 UNIT in DEXTROSE/WATER 1 500ML.BAG IV SCH (09:56)
[2017-02-14] MEDS: ASPIRIN 81 MG CHEW PO SCH (09:58)
[2017-02-14] MEDS: METOPROLOL TARTRATE 25 MG TAB PO SCH ×2 (09:58→18:43)
[2017-02-14 10:07] LABS: INR 1.1 (<1.2); Partial Thromboplastin Time 25.6 sec (22.0-30.0); Prothrombin Time 11.2 sec (9.0-12.0)
[2017-02-14 10:47] LABS: Creatine Kinase MB 3.5 ng/mL (0.0-2.4)
[2017-02-14 10:48] LABS: Troponin I 0.048 ng/mL (0.000-0.034)
--- NOTE | 2017-02-14 11:18 | ECHOF ---
Referral Reason:assess lvf MEASUREMENTS -------- HEIGHT: 157.5 cm WEIGHT: 86.2 kg BP: 130/40 IVSd: 1.9 cm (0.6 - 1.1) LVIDd: 4.1 cm (3.9 - 5.3) LVPWd: 1.5 cm (0.6 - 1.1) IVSs: 2.2 cm LVIDs: 3.3 cm LVPWs: 1.4 cm LAESV Index (A-L): 52.34 ml/m Ao Diam: 3.1 cm (2.0 - 3.7) AV Cusp: 2.0 cm (1.5 - 2.6) MV EXCURSION: 12.530 mm (> 18.000) MV EF SLOPE: 27 mm/s (70 - 150) EPSS: 0.6 cm MV E Anand: 1.68 m/s MV DecT: 229 ms MV A Anand: 0.78 m/s MV E/A Ratio: 2.17 AR PHT: 332 ms RAP: 5.00 mmHg RVSP: 35.40 mmHg FINDINGS -------- Sinus rhythm. This was a technically adequate study. There is severe concentric left ventricular hypertrophy. Overall left ventricular systolic function is low-normal with, an EF between 50 - 55 %. Septal wall motion is delayed and consistent with prior cardiac surgery. The right ventricle is normal in size. LA is severely dilated >40 ml/m2 The right atrial size is normal. There is moderate aortic regurgitation. The peak and mean MV gradients are 10.01mmHg 2.56mmHg as measured by doppler. Pt had Mechanical Prosthetic valve done 2003. Mild tricuspid regurgitation present. There is mild pulmonary hypertension. The right ventricular systolic pressure, as measured by Doppler, is 35.40mmHg. There is no pulmonic regurgitation present. The aortic root size is normal. There is no pericardial effusion. CONCLUSIONS -------- 1. There is severe concentric left ventricular hypertrophy. 2. The right ventricular systolic pressure, as measured by Doppler, is 35.40mmHg. 3. There is no pulmonic regurgitation present. 4. There is no pericardial effusion. 5. Overall left ventricular systolic function is low-normal with, an EF between 50 - 55 %. 6. Septal wall motion is delayed and consistent with prior cardiac surgery. 7. LA is severely dilated >40 ml/m2 8. There is moderate aortic regurgitation. 9. The peak and mean MV gradients are 10.01mmHg 2.56mmHg as measured by doppler. 10. Pt had Mechanical Prosthetic valve done 2003. 11. Mild tricuspid regurgitation present. 12. There is mild pulmonary hypertension. PROCUREMENT INSPECTOR: Alcira Baird RDCS
[2017-02-14] MEDS ORDERED: ONDANSETRON 4 MG/2 ML VIAL IVP PRN (11:57)
[2017-02-14] MEDS: MORPHINE SULFATE 4 MG/ML SYRINGE IVP PRN ×3 (12:06→20:42)
[2017-02-14] MEDS: KETOROLAC 30 MG/ML 1 ML VIAL IVP PRN ×2 (15:04→22:02)
[2017-02-14 16:47] LABS: Troponin I 0.045 ng/mL (0.000-0.034)
--- NOTE | 2017-02-14 16:59 | P.HPIM ---
History of Present Illness 47-year-old gentleman came in with complaints of chest pain he still says patient has 9.5 x 10 chest pain, although it appears quite comfortable at this point of time. Patient chest pain is pleuritic in nature nature increases with deep breathing. Patient denied any shortness of breath associated with that patient denied any diaphoresis nausea patient chest pain is constant has been going on since yesterday patient. Patient has mechanical mitral valve INR is 1.1 patient stopped taking his Coumadin about 4 days ago as he is on Ativan out of medication. Patient is on bridging IV heparin at this point of time and patient's d-dimer is negative patient troponins are not significantly elevated highest troponin is 0.055. Patient was evaluated by cardiology. On underwent echocardiogram which did not show any significant abnormality. Patient has some questionable T-wave inversions intermittent in nature. Patient chest pain is not associated with food denied any cough runny nose. Review of Systems REVIEW OF SYSTEMS: CONSTITUTIONAL: No fever, no malaise, no fatigue. HEENT: No recent visual problems or hearing problems. Denied any sore throat. CARDIOVASCULAR: No orthopnea, PND, no palpitations, no syncope. PULMONARY: No shortness of breath, no cough, no hemoptysis. GASTROINTESTINAL: No diarrhea, no nausea, no vomiting, no abdominal pain. Normoactive bowel sounds. NEUROLOGICAL: No headaches, no weakness, no numbness. HEMATOLOGICAL: Denies any bleeding or petechiae. GENITOURINARY: Denies any burning micturition, frequency, or urgency. MUSCULOSKELETAL/RHEUMATOLOGICAL: Denies any joint pain, swelling, or any muscle pain. ENDOCRINE: Denies any polyuria or polydipsia. The rest of the 14-point review of systems is negative. Past Medical History Past Medical History: Atrial Fibrillation, Cancer, Chest Pain / Angina, CVA/TIA , GERD/Reflux, Hypertension, Myocardial Infarction ([place]), Syncope Additional Past Medical History / Comment(s): has problem with aortic valve regurgitation, had mitral valve replaced, pt thinks a told him in 2005 he may have had a mild mi, cyst in colon removed was cancerous- no radiation or chemo, syncope Last Myocardial Infarction Date:: 2016 History of Any Multi-Drug Resistant Organisms: None Reported Past Surgical History: Adenoidectomy, Heart Catheterization, Tonsillectomy Additional Past Surgical History / Comment(s): mitral valve replaced, 4 bowels sx in total cysts removed from colon 2 were cancerous only sx was required, heart cath 2016, no stents Past Anesthesia/Blood Transfusion Reactions: No Reported Reaction Past Psychological History: No Psychological Hx Reported Additional Psychological History / Comment(s): pt lives at home with sig other and 2 children. 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 Smoking Status: Current every day smoker Past Alcohol Use History: Occasional Additional Past Alcohol Use History / Comment(s): pt started smoking at age 9 worked up to 1ppd, quit 2009 then started smoking again 2014 & smokes 1-2 cigs per day Past Drug Use History: None Reported - Past Family History Father History Unknown: Yes Family Medical History: Unable to Obtain Additional Family Medical History / Comment(s): pt was adopted. Mother History Unknown: Yes Family Medical History: Unable to Obtain Additional Family Medical History / Comment(s): pt was adopted Medications and Allergies Home Medications Medication Instructions Recorded Confirmed Type Acetaminophen-Codeine 300-30mg 1 tab PO Q6H PRN 11/20/16 02/14/17 History [Tylenol #3] Warfarin [Coumadin] 5 mg PO DAILY 11/20/16 02/14/17 History HYDROcodone/APAP 7.5-325MG [[place] 1 tab PO DAILY PRN 02/14/17 02/14/17 History 7.5-325] Allergies Allergy/AdvReac Type Severity Reaction Status Date / Time Penicillins Allergy Severe Anaphylaxis Verified 02/14/17 07:26 Physical Exam Vitals: Vital Signs Temp Pulse Pulse Resp BP BP Pulse Ox 02/14/17 15:39 97.0 F L 69 16 122/67 99 02/14/17 15:38 75 16 02/14/17 11:48 97.6 F 75 16 109/63 97 02/14/17 11:46 81 18 02/14/17 07:48 97.8 F 81 18 128/79 97 02/14/17 07:45 92 16 02/14/17 04:33 97.9 F 68 16 119/70 99 02/14/17 04:31 97.8 F 92 18 141/84 98 02/14/17 04:19 70 16 118/70 99 02/14/17 02:28 98.4 F 99 18 168/74 99 Intake and Output 02/14/17 02/14/17 02/14/17 06:59 14:59 22:59 Intake Total 360 132.267 Output Total 900 425 Balance -540 -292.733 Intake: Intake, IV Titration 132.267 Amount Heparin Sodium,Porcine/ 132.267 D5w Pmx 25,000 unit In Dextrose/Water 1 500ml. bag @ 11.6 UNITS/KG/HR 19 .99 mls/hr IV .Q24H [facility] Rx#:[id number] Oral 360 Output: Urine 900 425 Other: Voiding Method Toilet Toilet # Voids 2 1 Weight 86.2 kg 86.2 kg Patient Weight 02/15/17 06:59 Weight 86.2 kg PHYSICAL EXAMINATION: GENERAL: The patient is alert and oriented x3, not in any acute distress. Well developed, well nourished. HEENT: Pupils are round and equally reacting to light. EOMI. No scleral icterus. No conjunctival pallor. Normocephalic, atraumatic. No pharyngeal erythema. No thyromegaly. CARDIOVASCULAR: S1 and S2 present. No murmurs, rubs, or gallops. PULMONARY: Chest is clear to auscultation, no wheezing or crackles. ABDOMEN: Soft, nontender, nondistended, normoactive bowel sounds. No palpable organomegaly. MUSCULOSKELETAL: No joint swelling or deformity. EXTREMITIES: No cyanosis, clubbing, or pedal edema. NEUROLOGICAL: Gross neurological examination did not reveal any focal deficits. SKIN: No rashes. Results CBC & Chem 7: 02/14/17 09:36 02/14/17 03:00 Labs: Abnormal Lab Results - Last 24 Hours (Table) 02/14/17 02/14/17 02/14/17 Range/Units 03:00 03:00 09:36 APTT (22.0-30.0) sec Carbon Dioxide 21 L (22-30) mmol/L BUN 7 L (9-20) mg/dL AST 66 H (17-59) U/L Total Creatine Kinase 273 H 225 H (55-170) U/L CK-MB (CK-2) 3.7 H* 3.5 H* (0.0-2.4) ng/mL Troponin I 0.055 H* 0.048 H* (0.000-0.034) ng/mL 02/14/17 02/14/17 Range/Units 16:01 16:01 APTT 39.2 H (22.0-30.0) sec Carbon Dioxide (22-30) mmol/L BUN (9-20) mg/dL AST (17-59) U/L Total Creatine Kinase 178 H (55-170) U/L CK-MB (CK-2) 3.0 H* (0.0-2.4) ng/mL Troponin I 0.045 H* (0.000-0.034) ng/mL Thrombosis Risk Factor Assmnt - Choose All That Apply Any of the Below Risk Factors Present?: Yes Each Factor Represents 1 point: Acute [place], Age 41-60 years Other Risk Factors: Yes Each Risk Factor Represents 2 Points: Malignancy Other congenital or acquired thrombophilia - If yes, enter type in comment: No Thrombosis Risk Factor Assessment Total Risk Factor Score: 4 Thrombosis Risk Factor Assessment Level: Moderate Risk Assessment and Plan Plan: #1 chest pain: Pleuritic in nature: Rule out acute coronary syndromes. And unstable angina. Patient may have pleurisy. D-dimer is negative. Patient may have narcotic seeking behavior as well. #2 mechanical mitral valve: Subcu therapy cannot, patient is on bridging heparin patient probably can be discharged tomorrow with bridging Lovenox and Coumadin extensive counseling regarding compliance with his medications was provided. #3 hypertension #4 continued tobacco use: Counseling was provided. #5 proximal atrial fibrillation. Presently rate controlled.
[2017-02-15] MEDS: MORPHINE SULFATE 4 MG/ML SYRINGE IVP PRN ×3 (05:51→14:21)
[2017-02-15 05:53] LABS: Basophils % (A) 1 %; CH 32.5; CHCM 33.6; Eosinophils # (A) 0.2 k/uL (0-0.7); Eosinophils % (A) 4 %; HCT 43.4 % (39.0-53.0); HDW 2.51; HGB 14.4 gm/dL (13.0-17.5); Luc # (Auto) 0.09; Luc % (Auto) 2; Lymphocytes # (A) 2.2 k/uL (1.0-4.8); Lymphocytes % (A) 36 %; MCH 32.2 pg (25.0-35.0); MCHC 33.2 g/dL (31.0-37.0); MCV 97.1 fL (80.0-100.0); Mean Platelet Volume 8.4; Monocytes # (A) 0.3 k/uL (0-1.0); Monocytes % (A) 5 %; Neutrophils # (A) 3.2 k/uL (1.3-7.7); Neutrophils % (A) 53 %; RBC 4.47 m/uL (4.30-5.90); RDW 13.6 % (11.5-15.5); WBC (Perox) 6.24
[2017-02-15 06:18] LABS: Cholesterol 139 mg/dL (<200); HDL Cholesterol 57 mg/dL (40-60)
[2017-02-15] MEDS: KETOROLAC 30 MG/ML 1 ML VIAL IVP PRN (08:20)
[2017-02-15] MEDS: METOPROLOL TARTRATE 25 MG TAB PO SCH (08:21)
[2017-02-15] MEDS: ASPIRIN 81 MG CHEW PO SCH (08:21)
[2017-02-15] MEDS: HEPARIN SODIUM,PORCINE/D5W PMX 25,000 UNIT in DEXTROSE/WATER 1 500ML.BAG IV SCH (08:31)
[2017-02-15 08:41] LABS: Magnesium 1.8 mg/dL (1.6-2.3); Potassium 4.4 mmol/L (3.5-5.1)
[2017-02-15 08:50] VITALS: RESP 16
[2017-02-15] MEDS ORDERED: ASPIRIN 325 MG TAB PO SCH (09:00)
--- NOTE | 2017-02-15 10:45 | P.PN ---
Subjective Principal diagnosis: Shortness of breath This is a pleasant 47-year-old gentleman with a past medical history significant for mitral valve replacement with mechanical valve as well as paroxysmal H of fibrillation who presented to the hospital with shortness of breath. The cardiac enzymes came in to be slightly abnormal but the patient has always elevated troponin. He underwent an echocardiogram which showed normal LV function with normally functioning mechanical mitral valve prosthesis. I recommended proceeding with a stress test to rule out any severe underlying coronary artery disease but the patient would like to have it done as an outpatient Objective - Vital Signs Vital signs: Vital Signs Temp 97.3 F L 02/15/17 08:00 Pulse 85 02/15/17 08:00 Resp 16 02/15/17 08:00 BP 120/63 02/15/17 08:00 Pulse Ox 99 02/15/17 08:00 Intake & Output 02/14/17 02/15/17 02/15/17 18:59 06:59 18:59 Intake Total 972.267 429.546 740 Output Total 1325 450 Balance -352.733 429.546 290 Weight 86.2 kg 82.2 kg Intake: Intake, IV Titration 132.267 179.546 500 Amount Heparin Sodium,Porcine/ 132.267 179.546 D5w Pmx 25,000 unit In Dextrose/Water 1 500ml. bag @ 11.6 UNITS/KG/HR 19 .99 mls/hr IV .Q24H [facility] Rx#:[id number] Sodium Chloride 0.9% 1, 500 000 ml @ 100 mls/hr IV . Q10H [facility] Rx#:[id number] Oral 840 250 240 Output: Urine 1325 450 Other: Voiding Method Toilet Toilet Toilet # Voids 1 1 - Constitutional General appearance: Present: no acute distress - Respiratory Respiratory: bilateral: CTA - Cardiovascular Rhythm: regular - Labs CBC & Chem 7: 02/15/17 05:26 02/15/17 05:26 Labs: Abnormal Lab Results - Last 24 Hours (Table) 02/14/17 02/14/17 02/14/17 Range/Units 09:36 16:01 16:01 APTT 39.2 H (22.0-30.0) sec Total Creatine Kinase 225 H 178 H (55-170) U/L CK-MB (CK-2) 3.5 H* 3.0 H* (0.0-2.4) ng/mL Troponin I 0.048 H* 0.045 H* (0.000-0.034) ng/mL 02/14/17 02/15/17 Range/Units 22:47 05:26 APTT 45.3 H 63.3 H (22.0-30.0) sec Total Creatine Kinase (55-170) U/L CK-MB (CK-2) (0.0-2.4) ng/mL Troponin I (0.000-0.034) ng/mL Assessment and Plan Plan: This is a pleasant 47-year-old gentleman who presented with shortness of breath. He is to have a stress test to rule out any severe underlying CAD.
[2017-02-15 16:10] VITALS: BP 136/76; PULSE 81; TEMP 98
--- NOTE | 2017-02-15 17:20 | P.DS ---
Providers Date of admission: 02/14/17 04:05 Attending physician: Ceci Peoples Consults: 02/14/17 04:05 Consult Physician Urgent Consulting Provider: Laila Garcia Consult Reason/Comments: cp Do you want consulting provider notified?: Yes Primary care physician: Stated None Hospital Course: 47-year-old man admitted for chest pain pleuritic in nature. Patient pain improved patient will be discharged today. PHYSICAL EXAMINATION: GENERAL: The patient is alert and oriented x3, not in any acute distress. Well developed, well nourished. HEENT: Pupils are round and equally reacting to light. EOMI. No scleral icterus. No conjunctival pallor. Normocephalic, atraumatic. No pharyngeal erythema. No thyromegaly. CARDIOVASCULAR: S1 and S2 present. No murmurs, rubs, or gallops. PULMONARY: Chest is clear to auscultation, no wheezing or crackles. ABDOMEN: Soft, nontender, nondistended, normoactive bowel sounds. No palpable organomegaly. MUSCULOSKELETAL: No joint swelling or deformity. EXTREMITIES: No cyanosis, clubbing, or pedal edema. NEUROLOGICAL: Gross neurological examination did not reveal any focal deficits. SKIN: No rashes. #1 chest pain: Pleuritic in nature: Rule out acute coronary syndromes. And unstable angina. Patient may have pleurisy. D-dimer is negative. Patient may have narcotic seeking behavior as well. #2 mechanical mitral valve: Is supple therapy can INR patient will be discharged with Lovenox bridging and Coumadin 5 mg repeat INR in about 3 days. #3 hypertension #4 continued tobacco use: Counseling was provided. #5 proximal atrial fibrillation. Presently rate controlled. Patient Condition at Discharge: Fair Plan - Discharge Summary New Discharge Prescriptions: New Enoxaparin [Lovenox] 80 mg SQ Q12H #10 syringe Metoprolol Tartrate [Lopressor] 25 mg PO BID #60 tab Nitroglycerin Sl Tabs [Nitrostat] 0.4 mg SUBLINGUAL Q5M PRN #30 tab PRN Reason: Chest Pain Continue Acetaminophen-Codeine 300-30mg [Tylenol w/codeine #3] 1 tab PO Q6H PRN PRN Reason: Pain HYDROcodone/APAP 7.5-325MG [[place] 7.5-325] 1 tab PO DAILY PRN PRN Reason: Pain Warfarin [Coumadin] 5 mg PO DAILY #30 Discharge Medication List Acetaminophen-Codeine 300-30mg [Tylenol w/codeine #3] 1 tab PO Q6H PRN 11/20/16 [History] HYDROcodone/APAP 7.5-325MG [[place] 7.5-325] 1 tab PO DAILY PRN 02/14/17 [History] Enoxaparin [Lovenox] 80 mg SQ Q12H #10 syringe 02/15/17 [Rx] Metoprolol Tartrate [Lopressor] 25 mg PO BID #60 tab 02/15/17 [Rx] Nitroglycerin Sl Tabs [Nitrostat] 0.4 mg SUBLINGUAL Q5M PRN #30 tab 02/15/17 [Rx ] Warfarin [Coumadin] 5 mg PO DAILY #30 02/15/17 [Rx] Follow up Appointment(s)/Referral(s): Sandeep Conway MD [STAFF PHYSICIAN] - 1 Week None,Stated [Primary Care Provider] - 1-2 days Ambulatory/Diagnostic Orders: Prothrombin Time INR [LAB.AMB] Time Frame: 3 Days, Location: Determined By Patient Patient Instructions/Handouts: Chest Pain (DC), Cardiac Rehabilitation (DC), Cardiac Stress Test (DC) Activity/Diet/Wound Care/Special Instructions: PLEASE CALL DR. CARTER OFFICE TO OBTAIN AN APPOINTMENT FOR FOLLOW UP WELL A STRESS TEST. Discharge Disposition: HOME SELF-CARE
== END 2017-02-15 17:13 | disposition home or self-care (01) ==
LOC: EC 02:28 → INTOOBSV 04:05 → 6SEL 04:05
PROVIDERS: ADMIT Hospitalist; ATTEND Hospitalist
DX: R07.89 Other chest pain (principal); R07.81 Pleurodynia; R06.02 Shortness of breath; Z95.2 Presence of prosthetic heart valve; I10 Essential (primary) hypertension; F17.210 Nicotine dependence, cigarettes, uncomplicated; I48.0 Paroxysmal atrial fibrillation; I25.2 Old myocardial infarction; Z79.01 Long term (current) use of anticoagulants; Z88.0 Allergy status to penicillin; Z86.73 Personal history of transient ischemic attack (TIA), and cerebral infarction without residual deficits; Z85.038 Personal history of other malignant neoplasm of large intestine
CPT/HCPCS: 99291; 96375 ×5; 96361 ×3; 96376 ×2; 96365; 96366 ×2; 36415; 93005; 93306; 85379; 83880; 80051; 80061; 80053; 82550; 82553; 83690; 83735 ×2; 84484; 85025 ×2; 85610; 85730 ×2; 71020; G0378 ×2; J2060; J2270 ×2; J1644 ×2; J2405; J1885 ×2; J1170

== ENCOUNTER 2017-07-22 22:04 | Observation (INO) | payer OTHER ==
--- NOTE | 2017-07-22 22:09 | ED ---
General Adult HPI - General Stated complaint: CHEST PAIN Time Seen by Provider: 07/22/17 22:06 Source: RN notes reviewed, old records reviewed - History of Present Illness Initial comments: This is a 47-year-old male to the ER for evaluation of chest pain. Patient is accepted evaluation of chest pain transfer patient. Patient comes in here with history of heart disease severe chest pain. Patient improved and that his and nitro. No fevers no cough or congestion. Patient denies travel history. Patient does admit to recent hospital admission for chest pain states he took a stress test which was normal. - Related Data Previous Rx's Medication Instructions Recorded Aspirin 324 mg PO ONCE PRN #30 chew 07/23/17 Atorvastatin [Lipitor] 80 mg PO DAILY #30 tab 07/23/17 Metoprolol Tartrate [Lopressor] 25 mg PO BID #0 07/23/17 Metoprolol Tartrate [Lopressor] 25 mg PO BID #30 tab 07/23/17 Nitroglycerin Sl Tabs [Nitrostat] 0.4 mg SUBLINGUAL Q5M PRN #30 tab 07/23/17 Warfarin [Coumadin] 5 mg PO DAILY #30 tab 07/23/17 Allergies Allergy/AdvReac Type Severity Reaction Status Date / Time Penicillins Allergy Severe Anaphylaxis Verified 07/22/17 22:09 Review of Systems ROS Statement: Those systems with pertinent positive or pertinent negative responses have been documented in the HPI. ROS Other: All systems not noted in ROS Statement are negative. Past Medical History Past Medical History: Atrial Fibrillation, Cancer, Chest Pain / Angina, CVA/TIA , GERD/Reflux, Hypertension, Myocardial Infarction ([place]), Syncope Additional Past Medical History / Comment(s): has problem with aortic valve regurgitation, had mitral valve replaced, pt thinks a dr told him in 2005 he may have had a mild mi, cyst in colon removed was cancerous- no radiation or chemo, syncope Last Myocardial Infarction Date:: 2016 History of Any Multi-Drug Resistant Organisms: None Reported Past Surgical History: Adenoidectomy, Heart Catheterization, Tonsillectomy Additional Past Surgical History / Comment(s): mitral valve replaced, 4 bowels sx in total cysts removed from colon 2 were cancerous only sx was required, heart cath 2015, no stents Past Anesthesia/Blood Transfusion Reactions: No Reported Reaction Past Psychological History: No Psychological Hx Reported Additional Psychological History / Comment(s): pt lives at home with sig other and 2 children. 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 Smoking Status: Current every day smoker Past Alcohol Use History: Occasional Additional Past Alcohol Use History / Comment(s): pt started smoking at age 9 worked up to 1ppd, quit 2009 then started smoking again 2014 & smokes 1-2 cigs per day Past Drug Use History: None Reported - Past Family History Father History Unknown: Yes Family Medical History: Unable to Obtain Additional Family Medical History / Comment(s): pt was adopted. Mother History Unknown: Yes Family Medical History: Unable to Obtain Additional Family Medical History / Comment(s): pt was adopted General Exam General appearance: alert, in no apparent distress Head exam: Present: atraumatic, normocephalic, normal inspection Eye exam: Present: normal appearance, PERRL, EOMI. Absent: scleral icterus, conjunctival injection, periorbital swelling ENT exam: Present: normal exam, mucous membranes moist Neck exam: Present: normal inspection. Absent: tenderness, meningismus, lymphadenopathy Respiratory exam: Present: normal lung sounds bilaterally. Absent: respiratory distress, wheezes, rales, rhonchi, stridor Cardiovascular Exam: Present: regular rate, normal rhythm, normal heart sounds. Absent: systolic murmur, diastolic murmur, rubs, gallop, clicks GI/Abdominal exam: Present: soft, normal bowel sounds. Absent: distended, tenderness, guarding, rebound, rigid Extremities exam: Present: normal inspection, full ROM, normal capillary refill. Absent: tenderness, pedal edema, joint swelling, calf tenderness Back exam: Present: normal inspection Neurological exam: Present: alert, oriented X3, CN II-XII intact Psychiatric exam: Present: normal affect, normal mood Skin exam: Present: warm, dry, intact, normal color. Absent: rash Course Vital Signs 07/22/17 22:05 Temperature 96.8 F L Pulse Rate 105 H Respiratory 18 Rate Blood Pressure 141/89 O2 Sat by Pulse 98 Oximetry - Reevaluation(s) Reevaluation #1: 07/22/17 23:34 Transferring paperwork is reviewed EKG Findings - EKG Comments: EKG Findings:: EKG shows normal sinus rhythm rate of 78, 154, QRS 100, QTc 467 Medical Decision Making - Medical Decision Making 47 male the ER 7 transfer regarding the chest pain elevated troponin. Patient will be admitted for cardiology evaluation and observation - Lab Data Result diagrams: 07/23/17 03:30 Disposition Clinical Impression: Non-ST elevation myocardial infarction (NSTEMI), Chest pain Disposition: ADMITTED IP TO THIS HOSP Condition: Stable
[2017-07-22] MEDS ORDERED: HEPARIN SODIUM,PORCINE 5,000 UNIT/ML 1 ML VIAL IV ONE (22:14)
[2017-07-22] MEDS ORDERED: ASPIRIN 81 MG PO STA (22:14)
[2017-07-22] MEDS ORDERED: HEPARIN SODIUM,PORCINE 5,000 UNIT/ML 1 ML VIAL IV PRN (22:14)
[2017-07-22] MEDS ORDERED: HEPARIN SOD,PORK IN 0.45% NACL 25,000 UNIT in 0.45% NACL 1 500ML.BAG IV SCH (22:15)
[2017-07-22 22:30] VITALS: RESP 18
[2017-07-22 23:28] VITALS: BMI 25.5
[2017-07-22] MEDS: NITROGLYCERIN SL TABS 0.4 MG TAB SUBLINGUAL PRN ×3 (23:45→23:55)
[2017-07-23 00:50] LABS: Creatine Kinase MB 2.9 ng/mL (0.0-2.4); Troponin I 0.048 ng/mL (0.000-0.034)
[2017-07-23] MEDS: HYDROmorphone 0.5 MG/0.5 ML SYRINGE IVP PRN ×2 (01:40→08:41)
[2017-07-23 04:37] LABS: Mean Platelet Volume 8.1; Platelet Count 232 k/uL (150-450)
[2017-07-23 05:25] LABS: Cholesterol 188 mg/dL (<200); HDL Cholesterol 57 mg/dL (40-60); LDL Cholesterol,Calculated 98 mg/dL (0-99); Triglycerides 165 mg/dL (<150)
[2017-07-23 05:37] LABS: Creatine Kinase MB 2.8 ng/mL (0.0-2.4)
[2017-07-23 05:38] LABS: Troponin I 0.046 ng/mL (0.000-0.034)
[2017-07-23 08:14] LABS: Partial Thromboplastin Time 50.5 sec (22.0-30.0)
[2017-07-23 08:46] VITALS: TEMP 96.4
[2017-07-23] MEDS ORDERED: METOPROLOL TARTRATE 25 MG TAB PO SCH (09:00)
[2017-07-23] MEDS ORDERED: ATORVASTATIN 80 MG TAB PO SCH (09:00)
[2017-07-23] MEDS ORDERED: ASPIRIN 325 MG TAB PO SCH (09:00)
--- NOTE | 2017-07-23 10:10 | P.CRDCN ---
History of Present Illness Consult date: 07/23/17 Requesting physician: Ceci Peoples Consult reason: chest pain Chief complaint: Chest pain History of present illness: This is a 47-year-old gentleman who has had multiple admissions to the hospital with chest discomfort, most recently he was here in June underwent a Lexiscan stress test which was negative for any reversible ischemia. Patient did undergo a cardiac catheterization 2015 which did not reveal any significant obstructive coronary artery disease. He does have a history of a mitral valve replacement, nicotine dependence, paroxysmal atrial fibrillation, prior TIA, hypertension, prior colon cancer. He is currently incarcerated, presented to the hospital with symptoms of chest discomfort which she describes as moderate to severe in nature. He states that the pain worsens significantly when he takes a deep breath, and never dissipates completely. At the time of my examination this morning he continues to have pain,, sharp in nature, worsens with deep breathing. Patient was transferred here from [facility] for further evaluation. EKG on arrival here showed a normal sinus rhythm with T-wave inversion in leads 1 and aVL. Subsequent EKG shows a normal sinus rhythm with T-wave inversion in 1 and aVL as well as V4 5 and 6. These changes have been noted on prior EKGs as well. Laboratory data was reviewed, initial troponin [place] was 0.56 magnesium 2.1 sodium 135, potassium 4.2, BUN 14, creatinine 1.0. Platelet count 7.3, hemoglobin 15.1, platelet count 265. Troponins here 0.048, 0.046. INR 2.0. Blood pressure 126/ 70 with a heart rate in the 70s Past Medical History Past Medical History: Atrial Fibrillation, Cancer, Chest Pain / Angina, CVA/TIA , GERD/Reflux, Hypertension, Myocardial Infarction ([place]), Syncope Additional Past Medical History / Comment(s): has problem with aortic valve regurgitation, had mitral valve replaced, pt thinks a dr told him in 2005 he may have had a mild mi, cyst in colon removed was cancerous- no radiation or chemo, syncope Last Myocardial Infarction Date:: 2016 History of Any Multi-Drug Resistant Organisms: None Reported Past Surgical History: Adenoidectomy, Heart Catheterization, Tonsillectomy Additional Past Surgical History / Comment(s): mitral valve replaced, 4 bowels sx in total cysts removed from colon 2 were cancerous only sx was required, heart cath 2015, no stents Past Anesthesia/Blood Transfusion Reactions: No Reported Reaction Past Psychological History: No Psychological Hx Reported Additional Psychological History / Comment(s): pt lives at home with sig other and 2 children. 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 Smoking Status: Current every day smoker Past Alcohol Use History: Occasional Additional Past Alcohol Use History / Comment(s): pt started smoking at age 9 worked up to 1ppd, quit 2009 then started smoking again 2014 & smokes 1-2 cigs per day Past Drug Use History: None Reported - Past Family History Father History Unknown: Yes Family Medical History: Unable to Obtain Additional Family Medical History / Comment(s): pt was adopted. Mother History Unknown: Yes Family Medical History: Unable to Obtain Additional Family Medical History / Comment(s): pt was adopted Medications and Allergies Home Medications Medication Instructions Recorded Confirmed Type Warfarin [Coumadin] 5 mg PO DAILY #30 02/15/17 07/22/17 Rx Aspirin 324 mg PO ONCE PRN 07/22/17 07/22/17 History Metoprolol Tartrate [Lopressor] 25 mg PO DAILY 07/22/17 07/22/17 History Nitroglycerin Sl Tabs [Nitrostat] 0.4 mg SUBLINGUAL Q5M PRN 07/22/17 07/22/17 History Allergies Allergy/AdvReac Type Severity Reaction Status Date / Time Penicillins Allergy Severe Anaphylaxis Verified 07/22/17 22:09 Physical Exam Vitals: Vital Signs Temp Pulse Pulse Resp BP BP BP 07/23/17 08:00 96.4 F L 76 126/70 07/23/17 04:00 97.8 F 71 18 115/72 07/23/17 00:00 18 07/22/17 23:59 77 125/71 07/22/17 23:54 77 126/73 07/22/17 23:47 79 128/79 07/22/17 23:15 97.2 F L 76 18 136/87 07/22/17 22:05 96.8 F L 105 H 18 141/89 Pulse Ox 07/23/17 08:00 97 07/23/17 04:00 98 07/23/17 00:00 07/22/17 23:59 07/22/17 23:54 07/22/17 23:47 01/15/18 23:15 97 07/22/17 22:05 98 Intake and Output 07/22/17 07/23/17 07/23/17 22:59 06:59 14:59 Intake Total 61.088 Balance 61.088 Intake: Intake, IV Titration 61.088 Amount Heparin Sod,Pork in 0.45% 61.088 NaCl 25,000 unit In 0.45 % NaCl 1 500ml.bag @ 12 UNITS/KG/HR 19.92 mls/hr IV .Q24H [facility] Rx#: [id number] Other: # Voids 1 Weight 83.007 kg 82.1 kg PHYSICAL EXAMINATION: HEENT: Head is atraumatic, normocephalic. Pupils equal, round. Neck is supple. There is no elevated jugular venous pressure. HEART EXAMINATION: Heart S1-S2 mitral valve click is heard CHEST EXAMINATION: Lungs are clear to auscultation and precussion. No chest wall tenderness is noted on palpation or with deep breathing. ABDOMEN: Soft, nontender. Bowel sounds are heard. No organomegaly noted. EXTREMITIES: 2+ peripheral pulses with no evidence of peripheral edema and no calf tenderness noted. Patient does have tattoos covering most of his body. NEUROLOGIC patient is awake, alert and oriented -3. . Results 07/23/17 03:30 Cardiac Enzymes 07/22/17 07/23/17 Range/Units 23:59 03:30 CK-MB (CK-2) 2.9 H* 2.8 H* (0.0-2.4) ng/mL Troponin I 0.048 H* 0.046 H* (0.000-0.034) ng/mL Coagulation 07/22/17 07/23/17 Range/Units 23:59 07:45 PT 18.0 H (9.0-12.0) sec APTT 46.5 H 50.5 H (22.0-30.0) sec Lipids 07/23/17 Range/Units 03:30 Triglycerides 165 H (<150) mg/dL Cholesterol 188 (<200) mg/dL HDL Cholesterol 57 (40-60) mg/dL CBC 07/23/17 Range/Units 03:30 Plt Count 232 (150-450) k/uL Current Medications Generic Name Dose Route Start Last Admin Trade Name Freq PRN Reason Stop Dose Admin Aspirin 325 mg 07/23/17 09:00 07/23/17 08:41 Aspirin PO 325 mg DAILY [facility] Administration Atorvastatin Calcium 80 mg 07/23/17 09:00 07/23/17 08:41 Lipitor PO 80 mg DAILY XAV[facility] Administration Heparin Sodium (Porcine) 0 unit 07/22/17 22:14 Heparin IV Q6HR PRN Low PTT Protocol Hydromorphone HCl 0.5 mg 07/23/17 01:18 07/23/17 08:41 Dilaudid IVP 0.5 mg Q4HR PRN Administration Pain Heparin Sodium/Sodium Chloride 500 mls @ 19.92 mls/hr 07/22/17 22:15 01:43 25,000 unit/ Sodium Chloride IV 14 units/kg/hr .Q24H [facility] 23.24 mls/hr Protocol Titration 12 UNITS/KG/HR Metoprolol Tartrate 25 mg 07/23/17 09:00 07/23/17 08:41 Lopressor PO 25 mg BID XAVIER Administration Nitroglycerin 0.4 mg 07/22/17 22:14 07/22/17 23:55 Nitrostat SUBLINGUAL 0.4 mg Q5M PRN Administration Chest Pain Intake and Output 07/22/17 07/23/17 07/23/17 22:59 06:59 14:59 Intake Total 61.088 Balance 61.088 Intake: Intake, IV Titration 61.088 Amount Heparin Sod,Pork in 0.45% 61.088 NaCl 25,000 unit In 0.45 % NaCl 1 500ml.bag @ 12 UNITS/KG/HR 19.92 mls/hr IV .Q24H [facility] Rx#: [id number] Other: # Voids 1 Weight 83.007 kg 82.1 kg 07/23/17 03:30 EKG Interpretations (text) EKG shows a normal sinus rhythm T-wave inversion in the lateral leads Assessment and Plan Plan: Assessment and plan #1 chest pain, atypical in nature, pleuritic. Troponins 0.05, 0.04, 0.04. EKG shows normal sinus rhythm with lateral T-wave inversion. Most recent [place] scan performed in June was negative for any reversible ischemia. Patient did have a heart catheterization performed in 2015 which did not reveal any obstructive coronary artery disease. #2 history of mitral valve replacement. INR 2.0. #3 hypertension #4 nicotine dependence # 5 paroxysmal atrial fibrillation #6 prior TIA Plan Patient had an echocardiogram with Doppler study performed in June which revealed an ejection fraction of 50-55%. Mild mitral regurg was noted, moderate aortic regurg. Not repeat an echo on this admission. We will obtain a copy of the cardiac catheterization that the patient had been previously. Discontinue IV heparin. She states pain is very atypical in nature. From cardiology's perspective he may be able to be discharged back to the [facility] once cleared by primary. DNP note has been reviewed, I agree with a documented findings and plan of care. Patient was seen and examined.
--- NOTE | 2017-07-23 10:52 | P.HPIM ---
History of Present Illness This is a 47-year-old gentleman who has had multiple admissions to the hospital with chest discomfort, most recently he was here in June underwent a Lexiscan stress test which was negative for any reversible ischemia. Patient did undergo a cardiac catheterization 2015 which did not reveal any significant obstructive coronary artery disease. He does have a history of a mitral valve replacement, nicotine dependence, paroxysmal atrial fibrillation, prior TIA, hypertension, prior colon cancer. He is currently incarcerated, presented to the hospital with symptoms of chest discomfort which she describes as moderate to severe in nature. He states that the pain worsens significantly when he takes a deep breath, and never dissipates completely. At the time of my examination this morning he continues to have pain,, sharp in nature, worsens with deep breathing. Patient was transferred here from [facility] for further evaluation. EKG on arrival here showed a normal sinus rhythm with T-wave inversion in leads 1 and aVL. Subsequent EKG shows a normal sinus rhythm with T-wave inversion in 1 and aVL as well as V4 5 and 6. These changes have been noted on prior EKGs as well. Patient's pain is constant 5 x 10 in severity pleuritic in nature denied any cough will obtain a d -dimer if that's positive will obtain M CAT scan of the chest to rule out pulmonary embolism with that's negative patient will be discharged back to the present. My suspicion is extremely low that patient has PE as he is therapeutic on INR with Coumadin. Review of Systems REVIEW OF SYSTEMS: CONSTITUTIONAL: No fever, no malaise, no fatigue. HEENT: No recent visual problems or hearing problems. Denied any sore throat. CARDIOVASCULAR: No orthopnea, PND, no palpitations, no syncope. PULMONARY: No shortness of breath, no cough, no hemoptysis. GASTROINTESTINAL: No diarrhea, no nausea, no vomiting, no abdominal pain. Normoactive bowel sounds. NEUROLOGICAL: No headaches, no weakness, no numbness. HEMATOLOGICAL: Denies any bleeding or petechiae. GENITOURINARY: Denies any burning micturition, frequency, or urgency. MUSCULOSKELETAL/RHEUMATOLOGICAL: Denies any joint pain, swelling, or any muscle pain. ENDOCRINE: Denies any polyuria or polydipsia. The rest of the 14-point review of systems is negative. Past Medical History Past Medical History: Atrial Fibrillation, Cancer, Chest Pain / Angina, CVA/TIA , GERD/Reflux, Hypertension, Myocardial Infarction ([place]), Syncope Additional Past Medical History / Comment(s): has problem with aortic valve regurgitation, had mitral valve replaced, pt thinks a dr told him in 2005 he may have had a mild mi, cyst in colon removed was cancerous- no radiation or chemo, syncope Last Myocardial Infarction Date:: 2016 History of Any Multi-Drug Resistant Organisms: None Reported Past Surgical History: Adenoidectomy, Heart Catheterization, Tonsillectomy Additional Past Surgical History / Comment(s): mitral valve replaced, 4 bowels sx in total cysts removed from colon 2 were cancerous only sx was required, heart cath 2015, no stents Past Anesthesia/Blood Transfusion Reactions: No Reported Reaction Past Psychological History: No Psychological Hx Reported Additional Psychological History / Comment(s): pt lives at home with sig other and 2 children. 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 Smoking Status: Current every day smoker Past Alcohol Use History: Occasional Additional Past Alcohol Use History / Comment(s): pt started smoking at age 9 worked up to 1ppd, quit 2009 then started smoking again 2014 & smokes 1-2 cigs per day Past Drug Use History: None Reported - Past Family History Father History Unknown: Yes Family Medical History: Unable to Obtain Additional Family Medical History / Comment(s): pt was adopted. Mother History Unknown: Yes Family Medical History: Unable to Obtain Additional Family Medical History / Comment(s): pt was adopted Medications and Allergies Home Medications Medication Instructions Recorded Confirmed Type Aspirin 324 mg PO ONCE PRN #30 chew 07/23/17 Rx Atorvastatin [Lipitor] 80 mg PO DAILY #30 tab 07/23/17 Rx Metoprolol Tartrate [Lopressor] 25 mg PO BID #0 07/23/17 07/22/17 Rx Metoprolol Tartrate [Lopressor] 25 mg PO BID #30 tab 07/23/17 Rx Nitroglycerin Sl Tabs [Nitrostat] 0.4 mg SUBLINGUAL Q5M PRN #30 tab 07/23/17 Rx Warfarin [Coumadin] 5 mg PO DAILY #30 tab 07/23/17 Rx Allergies Allergy/AdvReac Type Severity Reaction Status Date / Time Penicillins Allergy Severe Anaphylaxis Verified 07/22/17 22:09 Physical Exam Vitals: Vital Signs Temp Pulse Pulse Resp BP BP BP 07/23/17 08:00 96.4 F L 76 126/70 07/23/17 04:00 97.8 F 71 18 115/72 07/23/17 00:00 18 07/22/17 23:59 77 125/71 07/22/17 23:54 77 126/73 07/22/17 23:47 79 128/79 07/22/17 23:15 97.2 F L 76 18 136/87 07/22/17 22:05 96.8 F L 105 H 18 141/89 Pulse Ox 07/23/17 08:00 97 07/23/17 04:00 98 07/23/17 00:00 07/22/17 23:59 07/22/17 23:54 07/22/17 23:47 07/22/17 23:15 97 07/22/17 22:05 98 Intake and Output 07/22/17 07/23/17 07/23/17 22:59 06:59 14:59 Intake Total 61.088 Balance 61.088 Intake: Intake, IV Titration 61.088 Amount Heparin Sod,Pork in 0.45% 61.088 NaCl 25,000 unit In 0.45 % NaCl 1 500ml.bag @ 12 UNITS/KG/HR 19.92 mls/hr IV .Q24H [facility] Rx#: [id number] Other: # Voids 1 Weight 83.007 kg 82.1 kg PHYSICAL EXAMINATION: GENERAL: The patient is alert and oriented x3, not in any acute distress. Well developed, well nourished. HEENT: Pupils are round and equally reacting to light. EOMI. No scleral icterus. No conjunctival pallor. Normocephalic, atraumatic. No pharyngeal erythema. No thyromegaly. CARDIOVASCULAR: S1 and S2 present. No murmurs, rubs, or gallops. PULMONARY: Chest is clear to auscultation, no wheezing or crackles. ABDOMEN: Soft, nontender, nondistended, normoactive bowel sounds. No palpable organomegaly. MUSCULOSKELETAL: No joint swelling or deformity. EXTREMITIES: No cyanosis, clubbing, or pedal edema. NEUROLOGICAL: Gross neurological examination did not reveal any focal deficits. SKIN: No rashes. Results CBC & Chem 7: 07/23/17 03:30 Labs: Abnormal Lab Results - Last 24 Hours (Table) 07/22/17 07/22/17 07/23/17 Range/Units 23:59 23:59 03:30 PT (9.0-12.0) sec INR (<1.2) APTT 46.5 H (22.0-30.0) sec Total Creatine Kinase 233 H 204 H (55-170) U/L CK-MB (CK-2) 2.9 H* 2.8 H* (0.0-2.4) ng/mL Troponin I 0.048 H* 0.046 H* (0.000-0.034) ng/mL Triglycerides (<150) mg/dL 07/23/17 07/23/17 Range/Units 03:30 07:45 PT 18.0 H (9.0-12.0) sec INR 2.0 H (<1.2) APTT 50.5 H (22.0-30.0) sec Total Creatine Kinase (55-170) U/L CK-MB (CK-2) (0.0-2.4) ng/mL Troponin I (0.000-0.034) ng/mL Triglycerides 165 H (<150) mg/dL Thrombosis Risk Factor Assmnt - Choose All That Apply Any of the Below Risk Factors Present?: Yes Each Factor Represents 1 point: Acute [place], Age 41-60 years, Obesity (BMI >25) Thrombosis Risk Factor Assessment Total Risk Factor Score: 3 Thrombosis Risk Factor Assessment Level: Moderate Risk Assessment and Plan Plan: Chest pain atypical in nature patient has a recent stress test that was negative patient was evaluated by cardiology cleared by cardiology patient is only minimal elevation of troponins are not high enough to say non-ST elevation microinfarction. -We'll rule out pulmonary embolism with a d-dimer if that's positive we'll obtain a CAT scan to rule out PE -History of atrial fibrillation, paroxysmal A. fib valvular A. fib patient has mitral valve that was replaced the patient is on Coumadin therapy, INR patient heart rate is bit elevated metoprolol was reduced switched to 25 twice a day -Mitral valve replacement -Nicotine dependence -Previous history of TIA
--- NOTE | 2017-07-23 10:53 | P.DS ---
Providers Date of admission: 07/22/17 22:15 Attending physician: Ceci Peoples Consults: 07/22/17 22:14 Consult Physician Urgent Consulting Provider: Sandeep Conway Consult Reason/Comments: cp Do you want consulting provider notified?: Yes Primary care physician: Stated None Hospital Course: Please refer to my HPI Patient Condition at Discharge: Serious Plan - Discharge Summary Discharge Rx Participant: No New Discharge Prescriptions: New Atorvastatin [Lipitor] 80 mg PO DAILY #30 tab Metoprolol Tartrate [Lopressor] 25 mg PO BID #30 tab Continue Aspirin 324 mg PO ONCE PRN #30 chew PRN Reason: Pain Nitroglycerin Sl Tabs [Nitrostat] 0.4 mg SUBLINGUAL Q5M PRN #30 tab PRN Reason: Chest Pain Warfarin [Coumadin] 5 mg PO DAILY #30 tab Changed Metoprolol Tartrate [Lopressor] 25 mg PO BID #0 Discharge Medication List Aspirin 324 mg PO ONCE PRN #30 chew 07/23/17 [Rx] Atorvastatin [Lipitor] 80 mg PO DAILY #30 tab 07/23/17 [Rx] Metoprolol Tartrate [Lopressor] 25 mg PO BID #0 07/23/17 [Rx] Metoprolol Tartrate [Lopressor] 25 mg PO BID #30 tab 07/23/17 [Rx] Nitroglycerin Sl Tabs [Nitrostat] 0.4 mg SUBLINGUAL Q5M PRN #30 tab 07/23/17 [Rx ] Warfarin [Coumadin] 5 mg PO DAILY #30 tab 07/23/17 [Rx] Follow up Appointment(s)/Referral(s): None,Stated [Primary Care Provider] - 3 Days Discharge Disposition: HOME SELF-CARE
[2017-07-23 13:05] VITALS: BP 109/68; PULSE 78
[2017-07-23] MEDS ORDERED: WARFARIN 5 MG TAB PO SCH (18:00)
== END 2017-07-23 14:26 ==
LOC: EC 22:04 → 6SEL 22:15
PROVIDERS: ADMIT Hospitalist; ATTEND Hospitalist
DX: R07.89 Other chest pain (principal); R07.81 Pleurodynia; R74.8 Abnormal levels of other serum enzymes; Z95.2 Presence of prosthetic heart valve; I10 Essential (primary) hypertension; F17.210 Nicotine dependence, cigarettes, uncomplicated; I48.0 Paroxysmal atrial fibrillation; Z86.73 Personal history of transient ischemic attack (TIA), and cerebral infarction without residual deficits; K21.9 Gastro-esophageal reflux disease without esophagitis; I35.1 Nonrheumatic aortic (valve) insufficiency; Z88.0 Allergy status to penicillin; I25.2 Old myocardial infarction; Z85.038 Personal history of other malignant neoplasm of large intestine; Z79.01 Long term (current) use of anticoagulants; Z79.82 Long term (current) use of aspirin; Z79.899 Other long term (current) drug therapy; E66.9 Obesity, unspecified; Z68.25 Body mass index [BMI] 25.0-25.9, adult
CPT/HCPCS: 99285; 96365 ×2; 96366 ×4; 96376; 96375; 85379; 80061; 82550 ×2; 82553 ×2; 84484 ×2; 85049; 85610; 85730 ×2; G0378 ×2; J1644; J1170; 93005

== ENCOUNTER 2018-01-30 21:52 | Emergency (ER) | payer OTHER ==
[2018-01-30 22:01] VITALS: RESP 18
[2018-01-30] MEDS ORDERED: HYDROcodone/APAP 5-325MG 1 EACH TAB PO STA (23:17)
--- NOTE | 2018-01-30 23:19 | ED ---
Lower Extremity Injury HPI - General Chief Complaint: Extremity Injury, Lower Stated Complaint: ANKLE INJURY Time Seen by Provider: 01/30/18 22:18 Source: patient Mode of arrival: EMS Limitations: physical limitation - History of Present Illness Initial Comments: 48-year-old male patient presents the emergency department today for evaluation of right ankle injury. Patient states earlier today he was walking in the yard when he twisted his ankle. Patient states that he was cleaning out his truck when he went to step down he caught his toes on the running board which again twisted the ankle. Patient states he did fall with the second injury. Denies hitting his head or losing consciousness. He did hear a "snap" in the foot. Patient states he is having pain radiating down from his ankle all the way to his toes. He denies any numbness or tingling to the foot. He denies any other injuries. Denies any previous injury to the ankle or foot. Patient did receive 6 g of morphine in the EMS and his pain is now under control. Patient denies any headache, neck pain, back pain, chest pain, shortness of breath, dizziness, weakness, abdominal pain, nausea, vomiting, or difficulties with bowel movements or urination. - Related Data Home Medications Medication Instructions Recorded Confirmed Warfarin [Coumadin] 5 mg PO DAILY@1800 01/30/18 01/30/18 Previous Rx's Medication Instructions Recorded Nitroglycerin Sl Tabs [Nitrostat] 0.4 mg SUBLINGUAL Q5M PRN #30 tab 07/23/17 Allergies Allergy/AdvReac Type Severity Reaction Status Date / Time Penicillins Allergy Severe Anaphylaxis Verified 01/30/18 22:01 Review of Systems ROS Statement: Those systems with pertinent positive or pertinent negative responses have been documented in the HPI. ROS Other: All systems not noted in ROS Statement are negative. Past Medical History Past Medical History: Atrial Fibrillation, Cancer, Chest Pain / Angina, CVA/TIA , GERD/Reflux, Hypertension, Myocardial Infarction ([place]), Syncope Additional Past Medical History / Comment(s): has problem with aortic valve regurgitation, had mitral valve replaced, pt thinks a dr told him in 2005 he may have had a mild mi, cyst in colon removed was cancerous- no radiation or chemo, syncope Last Myocardial Infarction Date:: 2016 History of Any Multi-Drug Resistant Organisms: None Reported Past Surgical History: Adenoidectomy, Heart Catheterization, Tonsillectomy Additional Past Surgical History / Comment(s): mitral valve replaced, 4 bowels sx in total cysts removed from colon 2 were cancerous only sx was required, heart cath 2016, no stents Past Anesthesia/Blood Transfusion Reactions: No Reported Reaction Past Psychological History: No Psychological Hx Reported Smoking Status: Current every day smoker Past Alcohol Use History: Occasional Past Drug Use History: None Reported - Past Family History Father History Unknown: Yes Family Medical History: Unable to Obtain Additional Family Medical History / Comment(s): pt was adopted. Mother History Unknown: Yes Family Medical History: Unable to Obtain Additional Family Medical History / Comment(s): pt was adopted General Exam Limitations: physical limitation General appearance: alert, in no apparent distress, other (Social well-developed , well-nourished adult male patient in no acute distress. Vital signs upon presentation are temperature 98.1F, pulse 89, respirations 18, blood pressure 131/70, pulse ox 96% on room air.) Head exam: Present: atraumatic, normocephalic, normal inspection Eye exam: Present: normal appearance, PERRL, EOMI. Absent: scleral icterus, conjunctival injection, periorbital swelling ENT exam: Present: normal exam, normal oropharynx, mucous membranes moist Respiratory exam: Present: normal lung sounds bilaterally. Absent: respiratory distress, wheezes, rales, rhonchi, stridor Cardiovascular Exam: Present: regular rate, normal rhythm, normal heart sounds. Absent: systolic murmur, diastolic murmur, rubs, gallop, clicks GI/Abdominal exam: Present: soft, normal bowel sounds. Absent: distended, tenderness, guarding, rebound, rigid Extremities exam: Present: full ROM, tenderness (Tenderness over the entirety of the right ankle and foot.), normal capillary refill, other (There is some mild soft tissue swelling noted around the right lateral malleolus. Skin is otherwise pink, warm, and dry. Cap refills less than 3 seconds. Pedal and posttibial pulses are 2+ and equal bilaterally. There is no tenderness at the proximal fibula or tibia.). Absent: normal inspection, pedal edema, joint swelling, calf tenderness Neurological exam: Present: alert, oriented X3, CN II-XII intact Psychiatric exam: Present: normal affect, normal mood Skin exam: Present: warm, dry, intact, normal color. Absent: rash Course Vital Signs 01/30/18 01/31/18 21:54 00:35 Temperature 98.1 F 98.0 F Pulse Rate 89 82 Respiratory 18 18 Rate Blood Pressure 131/70 109/59 O2 Sat by Pulse 96 98 Oximetry Medical Decision Making - Medical Decision Making 48-year-old male patient presents to emergency department today for evaluation of right ankle pain. Patient twisted it twice today. Physical examination does reveal some mild soft tissue swelling surrounding the right lateral malleolus. Neurovascular status is intact. X-ray of the foot and ankle are negative for any acute fractures or dislocations area I did discuss findings and results with the patient. Did discuss he is most likely suffering from a sprain of the ankle and foot. He will be placed in an Vlad wrap. He is instructed take home pain medications for pain control. He is instructed to rest, ice, and elevate the extremity. He is instructed to follow-up with orthopedics if his symptoms do not improve. He is instructed to have repeat x- rays performed in 7-10 days if he is still having pain. Return parameters discussed in detail. He verbalizes understanding and agrees with this plan. - Radiology Data Radiology results: report reviewed, image reviewed 3 views of the right foot are obtained. This no fracture nor dislocation. Metatarsals are intact. There are small Achilles calcaneal spur. Impression by Dr. Moralez shows mild calcaneal spurring. No fracture. 3 views of the right ankle are obtained. There is soft tissue swelling over the lateral malleolus. Ankle mortise is anatomic. There is mild Achilles calcaneal spur. Impression by Dr. Moralez shows soft tissue swelling. No fracture seen. Disposition Clinical Impression: Right ankle sprain, Foot sprain Disposition: HOME SELF-CARE Condition: Good Instructions: Ankle Sprain (ED), Foot Sprain (ED) Additional Instructions: Rest, ice, elevate the right foot. Take home medications for pain control. Follow-up with your primary care physician for recheck in 1-2 days. Have repeat x-rays performed in 7-10 days if your pain symptoms persist. Return here immediately for any new, worsening, or concerning symptoms. Is patient prescribed a controlled substance at d/c from ED?: No Referrals: None,Stated [Primary Care Provider] - 1-2 days Time of Disposition: 00:38
[2018-01-31] MEDS ORDERED: HYDROcodone/APAP 5-325MG 1 EACH TAB PO STA (00:29)
--- NOTE | 2018-01-31 00:31 | XR ---
EXAMINATION TYPE: XR ankle complete RT DATE OF EXAM: 01/31/2018 COMPARISON: NONE HISTORY: Ankle pain TECHNIQUE: 3 views FINDINGS: There is soft tissue swelling over the lateral malleolus. Ankle mortise is anatomic. There is mild Achilles calcaneal spur. IMPRESSION: There is soft tissue swelling. No fracture seen.
--- NOTE | 2018-01-31 00:31 | XR ---
EXAMINATION TYPE: XR foot complete RT DATE OF EXAM: 01/31/2018 COMPARISON: NONE HISTORY: Foot pain TECHNIQUE: 3 views FINDINGS: I see no fracture nor dislocation. Metatarsals are intact. There are small Achilles calcane al spur. IMPRESSION: Mild calcaneal spurring. No fracture.
[2018-01-31 00:36] VITALS: BP 109/59; PULSE 82; TEMP 98
== END 2018-01-31 00:47 | disposition home or self-care (01) ==
LOC: EC 21:52
DX: S93.401A Sprain of unspecified ligament of right ankle, initial encounter (principal); S93.601A Unspecified sprain of right foot, initial encounter; I48.91 Unspecified atrial fibrillation; I25.2 Old myocardial infarction; Z86.73 Personal history of transient ischemic attack (TIA), and cerebral infarction without residual deficits; F17.200 Nicotine dependence, unspecified, uncomplicated; Z88.0 Allergy status to penicillin; Z79.01 Long term (current) use of anticoagulants; Z95.818 Presence of other cardiac implants and grafts; X50.1XXA Overexertion from prolonged static or awkward postures, initial encounter
CPT/HCPCS: 99283

== ENCOUNTER 2019-03-16 03:22 | Observation (INO) | payer OTHER ==
[2019-03-16 03:45] LABS: Basophils # (A) 0.1 k/uL (0-0.2); Basophils % (A) 1 %; Eosinophils # (A) 0.2 k/uL (0-0.7); Eosinophils % (A) 3 %; HCT 41.9 % (39.0-53.0); HGB 13.8 gm/dL (13.0-17.5); Lymphocytes # (A) 2.3 k/uL (1.0-4.8); Lymphocytes % (A) 34 %; MCH 29.3 pg (25.0-35.0); MCV 88.8 fL (80.0-100.0); Mean Platelet Volume 7.2; Monocytes # (A) 0.3 k/uL (0-1.0); Monocytes % (A) 4 %; Neutrophils # (A) 3.8 k/uL (1.3-7.7); Neutrophils % (A) 56 %; Platelet Count 250 k/uL (150-450); RBC 4.71 m/uL (4.30-5.90); RDW 12.8 % (11.5-15.5); WBC 6.8 k/uL (3.8-10.6)
[2019-03-16] MEDS ORDERED: HYDROmorphone 1 MG/ML 1 ML SYRINGE IVP STA ×2 (03:47→05:34)
[2019-03-16] MEDS ORDERED: ONDANSETRON 4 MG/2 ML VIAL IVP STA (03:47)
[2019-03-16 04:01] LABS: Partial Thromboplastin Time 26.3 sec (22.0-30.0); Prothrombin Time 11.1 sec (9.0-12.0)
[2019-03-16 04:20] LABS: ALT 15 U/L (21-72); AST 36 U/L (17-59); African American GFR (CKD) >90 (>60 ml/min/1.73 sqM); Albumin 4.2 g/dL (3.5-5.0); Alkaline Phosphatase 45 U/L (38-126); Anion Gap 9 mmol/L; Blood Urea Nitrogen 12 mg/dL (9-20); Calcium 8.2 mg/dL (8.4-10.2); Carbon Dioxide 22 mmol/L (22-30); Chloride 108 mmol/L (98-107); Glucose 92 mg/dL (74-99); Magnesium 2.1 mg/dL (1.6-2.3); Potassium 4.4 mmol/L (3.5-5.1); Sodium 139 mmol/L (137-145); Total Bilirubin 0.4 mg/dL (0.2-1.3); Total Protein 7.1 g/dL (6.3-8.2)
--- NOTE | 2019-03-16 04:23 | XR ---
EXAM: XR Chest, 2 Views CLINICAL HISTORY: ITS.REASON XR Reason: Chest Pain TECHNIQUE: Frontal and lateral views of the chest. COMPARISON: 02/14/17 FINDINGS: Lungs: No consolidation or mass. Pleural space: No effusion. Heart: No cardiomegaly. Prior heart surgery. Mediastinum: Unremarkable. Bones/joints: No acute findings. Median sternotomy wires are intact. IMPRESSION: No acute cardiopulmonary process.
--- NOTE | 2019-03-16 04:59 | ED ---
Chest Pain HPI - General Chief Complaint: Chest Pain Stated Complaint: Chest Pain Time Seen by Provider: 03/16/19 03:26 Source: patient Mode of arrival: EMS Limitations: no limitations - History of Present Illness Initial Comments: Patient is a 49-year-old gentleman with an extensive past medical history most significant for coronary artery disease with multiple stents in the past, a mitral valve, chronic chest pain. Patient presents the emergency department today for evaluation of chest pain. Patient reports that his car broke down and he walked approximately 11 miles during the night. Patient states that while walking he developed chest pain which prompted them contact EMS for transport to the hospital. She reports pain is sudden, comes on as a stabbing through his chest, lasts for 30-60 seconds and then improves. Patient reports this pain feels like heart pain. He denies any associated diaphoresis or shortness of breath. He had no syncopal episode - Related Data Home Medications Medication Instructions Recorded Confirmed Warfarin [Coumadin] 5 mg PO DIRECTED 01/30/18 03/16/19 Previous Rx's Medication Instructions Recorded Nitroglycerin Sl Tabs [Nitrostat] 0.4 mg SUBLINGUAL Q5M PRN #30 tab 07/23/17 Allergies Allergy/AdvReac Type Severity Reaction Status Date / Time Penicillins Allergy Severe Anaphylaxis Verified 03/16/19 07:09 Review of Systems ROS Statement: Those systems with pertinent positive or pertinent negative responses have been documented in the HPI. ROS Other: All systems not noted in ROS Statement are negative. EKG Findings - EKG Comments: EKG Findings:: EKG was obtained due to complaint of chest pain, EKG was obtained at 3:29 AM, rate is 86 rhythm is sinus there is a leftward axis, normal intervals, W[place] 180, QTC 445. No acute ST elevations, there are T wave inversions laterally. No evidence of acute infarction. Past Medical History Past Medical History: Atrial Fibrillation, Cancer, Chest Pain / Angina, CVA/TIA, GERD/Reflux, Hypertension, Myocardial Infarction ([place]), Syncope Additional Past Medical History / Comment(s): has problem with aortic valve regurgitation, had mitral valve replaced, pt thinks a dr told him in 2005 he may have had a mild mi, cyst in colon removed was cancerous- no radiation or chemo, syncope Last Myocardial Infarction Date:: 2016 History of Any Multi-Drug Resistant Organisms: None Reported Past Surgical History: Adenoidectomy, Heart Catheterization, Tonsillectomy Additional Past Surgical History / Comment(s): mitral valve replaced, 4 bowels sx in total cysts removed from colon 2 were cancerous only sx was required, heart cath 2015, no stents Past Anesthesia/Blood Transfusion Reactions: No Reported Reaction Past Psychological History: No Psychological Hx Reported Smoking Status: Current every day smoker Past Alcohol Use History: Occasional Past Drug Use History: None Reported - Past Family History Father History Unknown: Yes Family Medical History: Unable to Obtain Additional Family Medical History / Comment(s): pt was adopted. Mother History Unknown: Yes Family Medical History: Unable to Obtain Additional Family Medical History / Comment(s): pt was adopted General Exam - General Exam Comments Initial Comments: Physical Exam GENERAL: Patient is well-developed and well-nourished. Patient is nontoxic and well- hydrated and is in no distress. HENT: Normocephalic, Atraumatic. EYES: PERRL, EOMI PULMONARY: Unlabored respirations. No audible rales rhonchi or wheezing was noted. CARDIOVASCULAR: There is a regular rate and rhythm click of the chemical mitral valve Warm and well perfused extremities, pulses are present and equal bilaterally ABDOMEN: Soft and nontender with normal bowel sounds. No pulsatile mass SKIN: Skin is clear with no lesions or rashes and otherwise unremarkable. : Deferred NEUROLOGIC: Patient is alert and oriented x3. Moving all extremities spontaneously MUSCULOSKELETAL: Normal extremities with adequate strength and full range of motion. No lower extremity swelling or edema. No calf tenderness. PSYCHIATRIC: Normal psychiatric evaluation. Limitations: no limitations Course Vital Signs 03/16/19 03/16/19 03/16/19 03:25 06:29 07:46 Temperature 98.3 F Pulse Rate 90 80 84 Respiratory 20 20 16 Rate Blood Pressure 131/79 108/69 108/69 O2 Sat by Pulse 94 L 98 95 Oximetry Chest Pain MDM - MDM Patient was seen and evaluated upon arrival to the emergency department Patient received nitroglycerin from EMS with some improvement in his chest pain Upon initial arrival patient is chest pain-free however during examination began complaining of worsening pain, patient states that morphine causes him to vomit even when he is given antibiotics and he would prefer Dilaudid for his pain. KG is nonischemic Chest x-ray is unremarkable Despite being on Coumadin patient's INR is subtherapeutic therefore heparin will be ordered Nitro paste ordered for chest pain or and Dilaudid ordered for chest pain Given the patient's extensive past medical history an apparent medication noncompliance he will be admitted to the hospital for high risk cardiac chest pain evaluation. Critical Care Time Critical Care Time: Yes Total Critical Care Time: 15 Disposition Clinical Impression: Chest pain Disposition: ADMITTED IP TO THIS [facility] Condition: Stable Is patient prescribed a controlled substance at d/c from ED?: No
[2019-03-16] MEDS ORDERED: NITROGLYCERIN OINT 1 INCH/GM PACKET TOPICAL SCH (06:00)
[2019-03-16] MEDS ORDERED: HEPARIN SODIUM,PORCINE 5,000 UNIT/ML 1 ML VIAL IV ONE (07:52)
[2019-03-16] MEDS ORDERED: HEPARIN SODIUM,PORCINE 5,000 UNIT/ML 1 ML VIAL IV PRN (07:52)
[2019-03-16] MEDS ORDERED: HEPARIN SOD,PORK IN 0.45% NACL 25,000 UNIT in 0.45% NACL 1 250ML.BAG IV SCH (08:00)
--- NOTE | 2019-03-16 08:55 | P.CRDCN ---
History of Present Illness Consult date: 03/16/19 Requesting physician: Ceci Peoples Consult reason: chest pain Chief complaint: Chest pain History of present illness: This is a 49-year-old gentleman with history of nicotine dependence, prior mitral valve replacement, paroxysmal atrial fibrillation, prior TIA, hypertension, history of colon cancer in the past, patient states that his vehicle broke down and he walked 11 miles, subsequently developed chest pain, which he described as a sharp chest pain with associated pressure and tightness. Pain worsens when he took a deep breath. He states that he stopped again a coffee, started walking again and the pain became so bad, patient decided to call EMS and come to the emergency room. 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 Patient also states that he's been having a black stool and bright red blood in his stool for about a year. His white blood cell count is normal, hemoglobin 13.8, platelet count 250. Sodium 139, potassium 4.4, BUN 12 and creatinine 0.8 magnesium 2.1. Tropo zohra 0.049, BNP level 1160. Chest x-ray did not reveal any acute cardiopulmonary process. EKG shows normal sinus rhythm with left axis deviation, ST-T wave changes noted in the lateral leads, similar to prior EKGs. At the time of my examination this morning, patient continues to complain of chest pain only when taking a deep breath. Past Medical History Past Medical History: Atrial Fibrillation, Cancer, Chest Pain / Angina, CVA/TIA, GERD/Reflux, Hypertension, Myocardial Infarction ([place]), Syncope Additional Past Medical History / Comment(s): has problem with aortic valve regurgitation, had mitral valve replaced, pt thinks a dr told him in 2005 he may have had a mild mi, cyst in colon removed was cancerous- no radiation or chemo, syncope Last Myocardial Infarction Date:: 2016 History of Any Multi-Drug Resistant Organisms: None Reported Past Surgical History: Adenoidectomy, Heart Catheterization, Tonsillectomy Additional Past Surgical History / Comment(s): mitral valve replaced, 4 bowels sx in total cysts removed from colon 2 were cancerous only sx was required, heart cath 2015, no stents Past Anesthesia/Blood Transfusion Reactions: No Reported Reaction Past Psychological History: No Psychological Hx Reported Smoking Status: Current every day smoker Past Alcohol Use History: Occasional Past Drug Use History: None Reported - Past Family History Father History Unknown: Yes Family Medical History: Unable to Obtain Additional Family Medical History / Comment(s): pt was adopted. Mother History Unknown: Yes Family Medical History: Unable to Obtain Additional Family Medical History / Comment(s): pt was adopted Medications and Allergies Home Medications Medication Instructions Recorded Confirmed Type Nitroglycerin Sl Tabs [Nitrostat] 0.4 mg SUBLINGUAL Q5M PRN #30 tab 07/23/17 03/16/19 Rx Warfarin [Coumadin] 5 mg PO DIRECTED 01/30/18 03/16/19 History Allergies Allergy/AdvReac Type Severity Reaction Status Date / Time Penicillins Allergy Severe Anaphylaxis Verified 03/16/19 07:09 Physical Exam Vitals: Vital Signs Temp Pulse Resp BP Pulse Ox 03/16/19 08:24 98 F 03/16/19 07:46 84 16 108/69 95 03/16/19 06:29 80 20 108/69 98 03/16/19 03:25 98.3 F 90 20 131/79 94 L Intake and Output 03/15/19 03/16/19 03/16/19 22:59 06:59 14:59 Other: Weight 83.915 kg PHYSICAL EXAMINATION: GENERAL: 49-year-old gentleman in no acute distress at the time of my examination HEENT: Head is atraumatic, normocephalic. Pupils equal, round. Sclera anicteric. Conjunctiva are clear. Mucous membranes of the mouth are moist. Neck is supple. There is no elevated jugular venous pressure. No carotid bruit is heard. HEART EXAMINATION: Heart S1 and S2 1 systolic murmur is heard CHEST EXAMINATION: Lungs fine scattered wheezing throughout . Positive chest wall tenderness is noted on palpation and with deep breathing. ABDOMEN: Soft, nontender. Bowel sounds are heard. No organomegaly noted. EXTREMITIES: 2+ peripheral pulses with trace evidence of peripheral edema and no calf tenderness noted. NEUROLOGIC patient is awake, alert and oriented X3. . Results 03/16/19 03:32 03/16/19 03:32 Cardiac Enzymes 03/16/19 03/16/19 Range/Units 03:32 03:32 AST 36 (17-59) U/L Troponin I 0.049 H* (0.000-0.034) ng/mL Coagulation 03/16/19 Range/Units 03:32 PT 11.1 (9.0-12.0) sec APTT 26.3 (22.0-30.0) sec CBC 03/16/19 Range/Units 03:32 WBC 6.8 (3.8-10.6) k/uL RBC 4.71 (4.30-5.90) m/uL Hgb 13.8 (13.0-17.5) gm/dL Hct 41.9 (39.0-53.0) % Plt Count 250 (150-450) k/uL Comprehensive Metabolic Panel 03/16/19 Range/Units 03:32 Sodium 139 (137-145) mmol/L Potassium 4.4 (3.5-5.1) mmol/L Chloride 108 H (98-107) mmol/L Carbon Dioxide 22 (22-30) mmol/L BUN 12 (9-20) mg/dL Creatinine 0.85 (0.66-1.25) mg/dL Glucose 92 (74-99) mg/dL Calcium 8.2 L (8.4-10.2) mg/dL AST 36 (17-59) U/L ALT 15 L (21-72) U/L Alkaline Phosphatase 45 (38-126) U/L Total Protein 7.1 (6.3-8.2) g/dL Albumin 4.2 (3.5-5.0) g/dL Current Medications Generic Name Dose Route Start Last Admin Trade Name Freq PRN Reason Stop Dose Admin Aspirin 325 mg 03/17/19 09:00 Aspirin PO DAILY [facility] Heparin Sodium (Porcine) 0 unit 03/16/19 07:52 Heparin IV PER PROTOCOL PRN Low PTT Protocol Heparin Sodium/Sodium Chloride 250 mls @ 10.003 mls/hr 03/16/19 08:00 03/16/19 08:04 25,000 unit/ Sodium Chloride IV 11.92 units/kg/hr .Q24H XAVIER 10.003 mls/hr Administration Protocol 11.92 UNITS/KG/HR Nitroglycerin 1 inch 03/16/19 06:00 03/16/19 05:45 Nitro-Bid Oint TOPICAL 1 inch Q6HR XAVIER Administration Intake and Output 03/15/19 03/16/1919 22:59 06:59 14:59 Other: Weight 83.915 kg 03/16/19 03:32 03/16/19 03:32 EKG Interpretations (text) EKG shows normal sinus rhythm with ST-T wave changes noted in the lateral leads, similar to prior EKGs. Assessment and Plan Plan: Assessment and plan #1 atypical chest discomfort, pleuritic in nature, EKG shows normal sinus rhythm with lateral ST-T wave changes similar to prior EKGs. Initial troponin 0.04. Cardiac catheterization in 2016 did not reveal any obstructive coronary artery disease, Marisol scan in 2017 negative for any reversible ischemia. #2 history of mitral valve replacement #3 nicotine dependence #4 COPD #5 history of colon cancer #6 history of prior TIA #7 paroxysmal atrial fibrillation #8 noncompliance #9 mild abnormality BNP which could suggest some mild congestive heart failure. Plan We will obtain an echocardiogram with Doppler study as well as subsequent troponin. Decrease aspirin 81 mg daily and discontinue Nitropaste. Patient will need to be resumed on Coumadin. Further recommendations to follow. DNP note has been reviewed, I agree with a documented findings and plan of care. Patient was seen and examined.
[2019-03-16 09:14] LABS: Basophils # (A) 0.1 k/uL (0-0.2); Basophils % (A) 1 %; Eosinophils # (A) 0.2 k/uL (0-0.7); Eosinophils % (A) 3 %; HGB 14.4 gm/dL (13.0-17.5); Lymphocytes # (A) 2.6 k/uL (1.0-4.8); Lymphocytes % (A) 38 %; MCH 30.4 pg (25.0-35.0); MCHC 33.5 g/dL (31.0-37.0); MCV 90.8 fL (80.0-100.0); Mean Platelet Volume 7.6; Monocytes # (A) 0.4 k/uL (0-1.0); Monocytes % (A) 5 %; Neutrophils # (A) 3.5 k/uL (1.3-7.7); Neutrophils % (A) 52 %; Platelet Count 251 k/uL (150-450); RBC 4.73 m/uL (4.30-5.90); RDW 14.4 % (11.5-15.5); WBC 6.9 k/uL (3.8-10.6)
[2019-03-16] MEDS: HYDROcodone/APAP 5-325MG 1 EACH TAB PO PRN ×2 (09:25→19:57)
[2019-03-16] MEDS ORDERED: DOBUTamine DRIP for NUC MED 500 MG in DEXTROSE/WATER 1 250ML.BAG IV ONE (09:33)
[2019-03-16 09:34] LABS: INR 1.1 (<1.2); Prothrombin Time 11.5 sec (9.0-12.0)
[2019-03-16 09:41] LABS: Partial Thromboplastin Time 143.7 sec (22.0-30.0)
--- NOTE | 2019-03-16 12:37 | ECHOS ---
STRESS ECHOCARDIOGRAM INDICATIONS: Chest pain. MEDICATIONS: Nitro,Coumadin. BASELINE HEART RATE: 73 BASELINE BLOOD PRESSURE: 129/75 MAXIMUM HEART RATE: 184 MAXIMUM BLOOD PRESSURE: 129/75 85% MPHR: 146 100% MPHR: 172 MAXIMUM STAGE REACHED: 4 TOTAL EXERCISE TIME: 11:00 CLINICAL INFORMATION: STRESS DATA: Heart rate is 73, pressure is 129/75 mmHg. Baseline EKG showed sinus mechanism. Dobutamine infusion at a dose of 10 mcg/kg per minute was initiated and increased to 40 mcg/kg per minute. Max heart rate was 184, which is about 86% of maximum predicted heart rate. Maximum blood pressure was 129/75 mmHg. Clinically, the patient had no symptoms of chest pain or chest discomfort. The EKG showed about 0.[address]-segment changes, did not meet the criteria for ischemia. ECHOCARDIOGRAM IMAGES: On echocardiogram images from parasternal long axis view, parasternal short axis view, apical 4 chamber and apical 2 chamber view were obtained at the baseline images, at low dose dobutamine infusion, at peak heart rate, as well as on recovery. The echocardiogram images showed good augmentation in the left ventricular systolic function. CONCLUSION: 1. Mild EKG changes in response to dobutamine. 2. Normal echocardiogram in response to dobutamine. MMODL / IJN: [id number] /
[2019-03-16 12:55] LABS: D-Dimer 0.31 mg/L FEU (<0.60); Partial Thromboplastin Time 26.6 sec (22.0-30.0)
--- NOTE | 2019-03-16 14:38 | P.HPIM ---
History of Present Illness 49-year-old the female with history of mitral valve replacement with a mechanical mitral valve proximal atrial fibrillation history on Coumadin stopped taking his Coumadin because he doesn't see physicians anymore doesn't have any physician anymore came in with complaints of chest pain retrosternal increases with deep breathing pressure-like sensation d-dimer was negative patient underwent stress test which was negative for any reversible ischemia. Patient also complains of bright red per rectum every single day for about any or although his hemoglobin is on 14-15 here. There is no other objective evidence of her GI bleed. Patient was started on Coumadin by cardiology patient. Patient troponins minimally elevated to 0.049. Patient is presently rate controlled and rhythm control sinus rhythm with some Left axis deviation. Patient also complaining of right lower quadrant abdominal pain has been going on for about a month moderate amount of severity sharp in nature and nonradiating. I'll obtain a CAT scan of the abdomen. Patient was monitored one more night here possibly of discharge tomorrow on Coumadin with b ridging ROXIMITY. Patient is presently on IV heparin and Coumadin. Review of Systems REVIEW OF SYSTEMS: CONSTITUTIONAL: No fever, no malaise, no fatigue. HEENT: No recent visual problems or hearing problems. Denied any sore throat. CARDIOVASCULAR: No orthopnea, PND, no palpitations, no syncope. PULMONARY: No shortness of breath, no cough, no hemoptysis. GASTROINTESTINAL: No diarrhea, no nausea, no vomiting, no abdominal pain. NEUROLOGICAL: No headaches, no weakness, no numbness. HEMATOLOGICAL: Denies any bleeding or petechiae. GENITOURINARY: Denies any burning micturition, frequency, or urgency. MUSCULOSKELETAL/RHEUMATOLOGICAL: Denies any joint pain, swelling, or any muscle pain. ENDOCRINE: Denies any polyuria or polydipsia. The rest of the 14-point review of systems is negative. 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 Last Myocardial Infarction Date:: 2016 History of Any Multi-Drug Resistant Organisms: None Reported Past Surgical History: Adenoidectomy, Heart Catheterization, Tonsillectomy Additional Past Surgical History / Comment(s): 2016 cardiac cath, mitral valve replaced, colonoscopies with cancerous polypectomies Past Anesthesia/Blood Transfusion Reactions: No Reported Reaction Smoking Status: Current every day smoker - Past Family History Father History Unknown: Yes Family Medical History: Unable to Obtain Additional Family Medical History / Comment(s): pt was adopted. Mother History Unknown: Yes Family Medical History: Unable to Obtain Additional Family Medical History / Comment(s): pt was adopted Medications and Allergies Home Medications Medication Instructions Recorded Confirmed Type Nitroglycerin Sl Tabs [Nitrostat] 0.4 mg SUBLINGUAL Q5M PRN #30 tab 07/23/17 03/16/19 Rx Warfarin [Coumadin] 5 mg PO DIRECTED 01/30/18 03/16/19 History Allergies Allergy/AdvReac Type Severity Reaction Status Date / Time Penicillins Allergy Severe Anaphylaxis Verified 03/16/19 07:09 Physical Exam Vitals: Vital Signs Temp Pulse Pulse Resp BP Pulse Ox 03/16/19 08:24 98 F 03/16/19 08:00 78 03/16/19 07:46 84 16 108/69 95 03/16/19 06:29 80 20 108/69 98 03/16/19 03:25 98.3 F 90 20 131/79 94 L Intake and Output 03/15/19 03/16/19 03/16/19 22:59 06:59 14:59 Intake Total 622 Balance 622 Intake: Oral 622 Other: Voiding Method Toilet Weight 83.915 kg PHYSICAL EXAMINATION: GENERAL: The patient is alert and oriented x3, not in any acute distress. Well developed, well nourished. HEENT: Pupils are round and equally reacting to light. EOMI. No scleral icterus. No conjunctival pallor. Normocephalic, atraumatic. No pharyngeal erythema. No thyromegaly. CARDIOVASCULAR: S1 and S2 present. No murmurs, rubs, or gallops. PULMONARY: Chest is clear to auscultation, no wheezing or crackles. ABDOMEN: Soft, nontender, nondistended, normoactive bowel sounds. No palpable organomegaly. MUSCULOSKELETAL: No joint swelling or deformity. EXTREMITIES: No cyanosis, clubbing, or pedal edema. NEUROLOGICAL: Gross neurological examination did not reveal any focal deficits. SKIN: No rashes. Results CBC & Chem 7: 03/16/19 08:36 03/16/19 03:32 Labs: Abnormal Lab Results - Last 24 Hours (Table) 03/16/19 03/16/19 03/16/19 Range/Units 03:32 03:32 08:36 APTT (22.0-30.0) sec Chloride 108 H (98-107) mmol/L Calcium 8.2 L (8.4-10.2) mg/dL ALT 15 L (21-72) U/L Troponin I 0.049 H* 0.046 H* (0.000-0.034) ng/mL 03/16/19 Range/Units 08:36 APTT 143.7 H* (22.0-30.0) sec Chloride (98-107) mmol/L Calcium (8.4-10.2) mg/dL ALT (21-72) U/L Troponin I (0.000-0.034) ng/mL Thrombosis Risk Factor Assmnt - Choose All That Apply Any of the Below Risk Factors Present?: Yes Each Factor Represents 1 point: Age 41-60 years, Obesity (BMI >25) Other Risk Factors: Yes Each Risk Factor Represents 2 Points: Malignancy Other congenital or acquired thrombophilia - If yes, enter type in comment: No Thrombosis Risk Factor Assessment Total Risk Factor Score: 4 Thrombosis Risk Factor Assessment Level: Moderate Risk Assessment and Plan Plan: -Chest pain rule out acute concurrent syndromes, rule out pulmonary embolism, leg stress test is negative. -History of mitral valve replacement supposed to be on Coumadin patient is presently on bridging heparin patient was started back on Coumadin. Extensive counseling regarding this was provided patient related to follow up with PCP as an outpatient -Proximal A. fib presently sinus rhythm -COPD without any acute exacerbation -Complaints of GI bleed which is not subjectively evident with stable hemoglobin. -Abdominal pain: Further management as mentioned above and uncontrolled history
[2019-03-16] MEDS: IOPAMIDOL-300 CONTRAST 30 ML VIAL (ORAL USE) PO PRN ×2 (15:03→16:06)
--- NOTE | 2019-03-16 23:13 | CT ---
EXAMINATION TYPE: CT abdomen pelvis w con DATE OF EXAM: 03/16/2019 COMPARISON: CT abdomen and pelvis August 23, 2016 HISTORY: Right lower quadrant pain. CT DLP: 866.2 mGycm, Automated Exposure Control for Dose Reduction was Utilized. CONTRAST: CT scan of the abdomen and pelvis is performed with oral and with IV Contrast, patient injected with 100 mL of Isovue 300. FINDINGS: LUNG BASES: No significant abnormality is appreciated. LIVER/GB: No significant abnormality is appreciated. PANCREAS: No significant abnormality is seen. SPLEEN: No significant abnormality is seen. ADRENALS: No significant abnormality is seen. KIDNEYS: No significant abnormality is seen. BOWEL: Oral contrast does not reach colonic level making evaluation distal bowel suboptimal. No suspi cious small or large bowel dilatation. Normal appearing appendix is seen ascending from base of cecum coronal image 60 for reference. No inflammatory change at base of cecum noted. PROSTATE/SEMINAL VESICLES: No gross abnormality seen. LYMPH NODES: No greater than 1cm abdominal or pelvic lymph nodes are appreciated. OSSEOUS STRUCTURES: Mild Facet arthropathy lower lumbar levels. OTHER: Small fat-containing right inguinal hernia redemonstrated. IMPRESSION: No CT evidence for acute appendicitis. No significant acute finding is seen to account fo r patient's clinical symptoms of right lower quadrant pain.
[2019-03-17] MEDS: HYDROcodone/APAP 5-325MG 1 EACH TAB PO PRN ×2 (02:37→08:11)
[2019-03-17 04:04] VITALS: RESP 16
[2019-03-17 06:18] LABS: Basophils # (A) 0.1 k/uL (0-0.2); Basophils % (A) 1 %; Eosinophils # (A) 0.2 k/uL (0-0.7); Eosinophils % (A) 3 %; HCT 44.6 % (39.0-53.0); HGB 14.2 gm/dL (13.0-17.5); Lymphocytes # (A) 2.3 k/uL (1.0-4.8); Lymphocytes % (A) 38 %; MCH 29.2 pg (25.0-35.0); MCHC 31.8 g/dL (31.0-37.0); Mean Platelet Volume 7.5; Monocytes # (A) 0.4 k/uL (0-1.0); Monocytes % (A) 6 %; Neutrophils % (A) 50 %; Platelet Count 203 k/uL (150-450); RBC 4.85 m/uL (4.30-5.90); RDW 13.1 % (11.5-15.5); WBC 6.1 k/uL (3.8-10.6)
[2019-03-17 06:43] LABS: Cholesterol 158 mg/dL (<200); HDL Cholesterol 48 mg/dL (40-60); LDL Cholesterol,Calculated 88 mg/dL (0-99); Triglycerides 111 mg/dL (<150)
[2019-03-17] MEDS ORDERED: ASPIRIN 325 MG TAB PO SCH (09:00)
[2019-03-17] MEDS ORDERED: ASPIRIN 81 MG PO SCH (09:00)
[2019-03-17] MEDS ORDERED: ENOXAPARIN 80 MG/0.8 ML SYRINGE SQ STA (11:48)
[2019-03-17 12:39] VITALS: BP 135/78; PULSE 81; TEMP 98.7
--- NOTE | 2019-03-17 16:06 | P.DS ---
Providers Date of admission: 03/16/19 05:32 Expected date of discharge: 03/17/19 Attending physician: Ceci Peoples Consults: 03/16/19 05:32 Consult Physician Urgent Consulting Provider: [facility] Consult Reason/Comments: chest pain, elevated trop Do you want consulting provider notified?: Yes, Notify in am Primary care physician: Stated None Hospital Course: Final diagnosis Chest pain rule out acute concurrent syndromes, rule out pulmonary embolism, stress test is negative History of mitral valve replacement mechanical valve Paroxysmal atrial fibrillation COPD without any acute exacerbation Complains of GI bleed which is not subjectively evident with stable hemoglobin Abdominal pain Discharge disposition Being discharged in a stable condition with guarded prognosis to home. Patient was given multiple resources to follow-up with primary care provider and encouraged to keep scheduled appointments and continue monitoring his Coumadin. Total time taken is 35 minutes. History of present illness This is a 49-year-old male with a history of mitral valve replacement with mechanical mitral valve and paroxysmal atrial fibrillation history that was recently admitted for chest pain of the retrosternal region that increases with deep breathing and was being closely monitored. Patient was on Coumadin and he had stopped taking it due to poor primary care provider follow-up in multiple missed appointments. Patient underwent a stress test during hospitalization which was negative. Cardiology is following. Patient also states that he has been having some bright red blood per rectum and patient is hemodynamically stable with no other objective evidence of the GI bleed. Patient is being restarted on Coumadin with a bridge using Lovenox 80 mg twice daily for a week. Patient is to have his PT/INR rechecked in 3 days, 5 days, and 7 days to monitor for Coumadin therapy with an INR of 2-3. Case management was following and given the patient resources for primary care providers. Discussed with the patient at length about keeping follow-up appointments in continuing this medication. Patient denies any chest pain, palpitations, or shortness of breath at this time. Patient states he is having some mild abdominal discomfort that he has been having for quite some time. Computed tomography scan of the abdomen was negative.Patient has been afebrile. Patient denies any nausea or vomiting and has been tolerating diet. Patient's condition is stable with much improvement and stable for discharge today. Guarded prognosis On exam vital signs are stable. Blood pressure is 135/78, pulse is 81, respirations are 16, temp is 98.7 oral, oxygen saturation is 96% on room air. Cardio S1 and S2 are present. Respiratory system shows clear upon auscultation with no wheezing or crackles noted. Abdomen is soft with mild tenderness of the lower right quadrant is chronic in nature. Nervous system shows no focal deficits and gait is steady. Please refer to medication reconciliation sheet for a list of medications. Patient Condition at Discharge: Stable Plan - Discharge Summary Discharge Rx Participant: No New Discharge Prescriptions: New Aspirin 81 mg PO DAILY 30 Days #30 chew Enoxaparin [Lovenox] 80 mg SQ Q12H 7 Days #14 syringe Continue Nitroglycerin Sl Tabs [Nitrostat] 0.4 mg SUBLINGUAL Q5M PRN #30 tab PRN Reason: Chest Pain Warfarin [Coumadin] 5 mg PO DIRECTED 30 Days #30 tab Discharge Medication List Nitroglycerin Sl Tabs [Nitrostat] 0.4 mg SUBLINGUAL Q5M PRN #30 tab 07/23/17 [Rx] Aspirin 81 mg PO DAILY 30 Days #30 chew 03/17/19 [Rx] Enoxaparin [Lovenox] 80 mg SQ Q12H 7 Days #14 syringe 03/17/19 [Rx] Warfarin [Coumadin] 5 mg PO DIRECTED 30 Days #30 tab 03/17/19 [Rx] Follow up Appointment(s)/Referral(s): None,Stated [Primary Care Provider] - 1-2 days (Please find and schedule an appointment with a primary care doctor) Yaya Carias MD [STAFF PHYSICIAN] - 03/31/19 3:30 pm (Saturday) Ambulatory/Diagnostic Orders: Prothrombin Time INR [LAB.AMB] Time Frame: 3 Days, Location: None Selected Prothrombin Time INR [LAB.AMB] Time Frame: 5 Days, Location: None Selected Prothrombin Time INR [LAB.AMB] Time Frame: 7 Days, Location: None Selected Patient Instructions/Handouts: Heart Healthy Diet (DC), Safe Use of Anticoagulants (DC) Activity/Diet/Wound Care/Special Instructions: Activity Limited until follow-up Continue current diet We repeat labs of PT/INR in 3 days, 5 days, and 7 days until therapeutic Continue with Lovenox twice daily for 7 days until Coumadin levels are therapeutic Follow-up with a new PCP this week Discharge Disposition: HOME SELF-CARE
[2019-03-17] MEDS ORDERED: WARFARIN 5 MG TAB PO SCH (18:00)
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
== END 2019-03-17 12:47 | disposition home or self-care (01) ==
LOC: EC 03:22 → 3SCARD 05:32
PROVIDERS: ADMIT Hospitalist; ATTEND Hospitalist
DX: R07.89 Other chest pain (principal); I25.10 Atherosclerotic heart disease of native coronary artery without angina pectoris; I48.0 Paroxysmal atrial fibrillation; I35.1 Nonrheumatic aortic (valve) insufficiency; I10 Essential (primary) hypertension; F17.200 Nicotine dependence, unspecified, uncomplicated; R10.31 Right lower quadrant pain; K21.9 Gastro-esophageal reflux disease without esophagitis; J44.9 Chronic obstructive pulmonary disease, unspecified; Z91.19 Patient's noncompliance with other medical treatment and regimen; R77.8 Other specified abnormalities of plasma proteins; R79.89 Other specified abnormal findings of blood chemistry; K62.5 Hemorrhage of anus and rectum; E66.9 Obesity, unspecified; Z68.24 Body mass index [BMI] 24.0-24.9, adult; Z95.5 Presence of coronary angioplasty implant and graft; Z79.01 Long term (current) use of anticoagulants; Z88.0 Allergy status to penicillin; Z86.73 Personal history of transient ischemic attack (TIA), and cerebral infarction without residual deficits; I25.2 Old myocardial infarction; Z95.2 Presence of prosthetic heart valve; Z85.038 Personal history of other malignant neoplasm of large intestine; Z86.010 Personal history of colon polyps; Z86.79 Personal history of other diseases of the circulatory system
CPT/HCPCS: 96366; 96372; 96376; 96365; 96375; 99285; 36415; 94760; 93306; 93351; 85379; 83880; 80061; 80053; 83735; 84484; 85025 ×2; 85610; 85730; 71046; 74177; G0378 ×2; J1250; J1644 ×2; J2405; J1650; J1170; Q9967

== ENCOUNTER 2020-11-27 02:40 | Observation (INO) | payer OTHER ==
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
[2020-11-27] MEDS ORDERED: NITROGLYCERIN SL TABS 0.4 MG TAB SUBLINGUAL PRN ×2 (03:29→13:38)
[2020-11-27] MEDS: MORPHINE SULFATE 4 MG/ML SYRINGE IV PRN ×5 (04:02→20:56)
[2020-11-27] MEDS: METOPROLOL TARTRATE 25 MG TAB PO SCH ×2 (13:19→20:56)
--- NOTE | 2020-11-27 14:19 | XR ---
Result: History: Pain pain and swelling status post fall. Comparison: None available. Technique: 4 views of the right wrist. Findings: No acute fracture or dislocation is seen. The visualized osseous structures are in anatomic alignmen t. The joint spaces are preserved. Impression: No acute fracture or dislocation.
[2020-11-27 15:11] LABS: Prothrombin Time 52.4 sec (9.0-12.0)
[2020-11-27 15:32] LABS: INR 5.4 (<1.2)
[2020-11-27 18:00] VITALS: TEMP 97.8
[2020-11-27] MEDS ORDERED: WARFARIN 0.5 MG TAB PO ONE (18:00)
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
[2020-11-27] MEDS: NICOTINE 7MG/24HR PATCH TRANSDERM SCH (20:35)
[2020-11-28] MEDS: MORPHINE SULFATE 4 MG/ML SYRINGE IV PRN ×2 (00:44→07:44)
[2020-11-28 03:26] LABS: African American GFR (CKD) >90 (>60 ml/min/1.73 sqM); Anion Gap 3 mmol/L; Blood Urea Nitrogen 16 mg/dL (9-20); Calcium 8.1 mg/dL (8.4-10.2); Carbon Dioxide 28 mmol/L (22-30); Chloride 105 mmol/L (98-107); Glucose 89 mg/dL (74-99); Magnesium 1.9 mg/dL (1.6-2.3); Non-African American GFR(CKD) >90 (>60 ml/min/1.73 sqM); Potassium 4.2 mmol/L (3.5-5.1); Sodium 136 mmol/L (137-145)
[2020-11-28 03:56] LABS: INR 4.8 (<1.2); Prothrombin Time 46.5 sec (9.0-12.0)
[2020-11-28] MEDS: NICOTINE 7MG/24HR PATCH TRANSDERM SCH (07:35)
[2020-11-28] MEDS: METOPROLOL TARTRATE 25 MG TAB PO SCH (07:44)
[2020-11-28] MEDS ORDERED: ASPIRIN 81 MG PO SCH (09:00)
[2020-11-28] MEDS ORDERED: WARFARIN 5 MG TAB PO SCH (09:00)
[2020-11-28] MEDS ORDERED: ASPIRIN 325 MG TAB PO SCH (09:00)
[2020-11-28 09:12] LABS: Chol/HDL Ratio 3.77; LDL Cholesterol,Calculated 107.2 mg/dL (0.0-131.0); VLDL Calculation 25.8 mg/dL (5.00-40.00)
[2020-11-28 11:28] VITALS: BP 116/65; PULSE 68; RESP 16
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
--- NOTE | 2020-11-28 16:46 | ECHOF ---
Referral Reason:positive troponin MEASUREMENTS -------- HEIGHT: 182.9 cm WEIGHT: 85.7 kg BP: 122/71 IVSd: 1.5 cm (0.6 - 1.1) LVIDd: 5.1 cm (3.9 - 5.3) LVPWd: 1.2 cm (0.6 - 1.1) EDV(Teich): 123 ml IVSs: 2.0 cm LVIDs: 3.5 cm LVPWs: 1.8 cm %IVS Thck: 28 % ESV(Teich): 50 ml EF(Teich): 59 % %FS: 32 % SV(Teich): 73 ml LALs A4C: 6.0 cm LAAs A4C: 27.5 cm LAESV A-L A4C: 107 ml LAESV MOD A4C: 103 ml LALs A2C: 7.6 cm LAAs A2C: 41.4 cm LAESV A-L A2C: 190 ml LAESV MOD A2C: 185 ml LAESV(A-L): 161 ml LAESV Index (A-L): 77.20 ml/m Ao Diam: 3.1 cm (2.0 - 3.7) AV Cusp: 2.1 cm (1.5 - 2.6) MV E Anand: 1.85 m/s MV DecT: 280 ms MV Dec Moore: 6.6 m/s MV A Anand: 0.35 m/s MV E/A Ratio: 5.28 MV PHT: 81 ms MV Vmax: 1.92 m/s MV Vmean: 1.15 m/s MV maxP.68 mmHg MV meanP.74 mmHg MV VTI: 55.6 cm AV Vmax: 1.81 m/s AV maxP.06 mmHg AV Vmax: 1.75 m/s AV Vmean: 1.13 m/s AV maxP.24 mmHg AV meanP.96 mmHg AV Env.Ti: 263 ms AV VTI: 29.7 cm AR Vmax: 4.14 m/s AR maxP.75 mmHg AR PHT: 353 ms AR Dec Time: 1218 ms AR Dec Moore: 3.5 m/s AR Vmax: 1.83 m/s AR maxP.34 mmHg TR Vmax: 3.23 m/s TR maxP.79 mmHg RAP: 5.00 mmHg RVSP: 46.79 mmHg FINDINGS -------- BBB This was a technically good study. Overall left ventricular systolic function is mildly impaired with, an EF between 45 - 50 %. Asymme tric hypertrophy 1.5cm. Anterseptal Hypokinesis Inferior Hypokinesis The right ventricle is normal in size. LA is severely dilated >40 ml/m2 The right atrial size is normal. There is moderate aortic regurgitation. Peak/mean gradient across the Aortic Valve is 12.24mmHg / 5 .96mmHg. Mechanical MVR is well seated. The peak and mean MV gradients are 14.68mmHg 5.74mmHg as measured by doppler. There is moderate pulmonary hypertension. The right ventricular systolic pressure, as measured by D oppler, is 46.79mmHg. Trace/mild (physiologic) pulmonic regurgitation. The aortic root size is normal. There is no pericardial effusion. CONCLUSIONS -------- 1. Overall left ventricular systolic function is mildly impaired with, an EF between 45 - 50 %. 2. Asymmetric hypertrophy 1.5cm. 3. Anterseptal Hypokinesis 4. Inferior Hypokinesis 5. The right ventricle is normal in size. 6. LA is severely dilated >40 ml/m2 7. The right atrial size is normal. 8. There is moderate aortic regurgitation. 9. Peak/mean gradient across the Aortic Valve is 12.24mmHg / 5.96mmHg. 10. The peak and mean MV gradients are 14.68mmHg 5.74mmHg as measured by doppler. 11. Mechanical MVR is well seated. 12. There is moderate pulmonary hypertension. 13. The right ventricular systolic pressure, as measured by Doppler, is 46.79mmHg. 14. Trace/mild (physiologic) pulmonic regurgitation. 15. The aortic root size is normal. 16. There is no pericardial effusion. SHIP WASHER: Alcira Baird RDCS
[2020-11-28] MEDS ORDERED: WARFARIN 0.5 MG TAB PO ONE (18:00)
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
== END 2020-11-28 14:55 | disposition left against medical advice (07) ==
LOC: EC 02:40 → 3SCARD 03:29
PROVIDERS: ADMIT Hospitalist; ATTEND Hospitalist
DX: R07.89 Other chest pain (principal); R79.89 Other specified abnormal findings of blood chemistry; I48.0 Paroxysmal atrial fibrillation; I10 Essential (primary) hypertension; I44.7 Left bundle-branch block, unspecified; I27.20 Pulmonary hypertension, unspecified; I08.0 Rheumatic disorders of both mitral and aortic valves; Z95.2 Presence of prosthetic heart valve; I25.2 Old myocardial infarction; K21.9 Gastro-esophageal reflux disease without esophagitis; F17.210 Nicotine dependence, cigarettes, uncomplicated; R79.1 Abnormal coagulation profile; T45.515A Adverse effect of anticoagulants, initial encounter; F10.10 Alcohol abuse, uncomplicated; Y90.8 Blood alcohol level of 240 mg/100 ml or more; R68.84 Jaw pain; Y04.8XXA Assault by other bodily force, initial encounter; Z53.29 Procedure and treatment not carried out because of patient's decision for other reasons; Z20.822 Contact with and (suspected) exposure to COVID-19; Z79.82 Long term (current) use of aspirin; Z79.01 Long term (current) use of anticoagulants; Z88.0 Allergy status to penicillin; Z86.73 Personal history of transient ischemic attack (TIA), and cerebral infarction without residual deficits; Z79.899 Other long term (current) drug therapy; Z86.010 Personal history of colon polyps; Z98.890 Other specified postprocedural states
CPT/HCPCS: 96376 ×3; 93005 ×2; 96374; 99285; 93306; 80061; 80048; 83735; 84484; 85610 ×2; 87635; 73110; G0378 ×2; J2270 ×2

== ENCOUNTER 2021-01-14 03:19 | Observation (INO) | payer OTHER ==
[2021-01-14] MEDS ORDERED: NITROGLYCERIN SL TABS 0.4 MG TAB SUBLINGUAL PRN (03:49)
[2021-01-14] MEDS ORDERED: MORPHINE SULFATE 4 MG/ML SYRINGE IVP STA (03:49)
--- NOTE | 2021-01-14 03:51 | ED ---
Recheck HPI - General Chief Complaint: Chest Pain Stated Complaint: Chest pain Time Seen by Provider: 01/14/21 03:20 Source: patient, EMS, RN notes reviewed, old records reviewed Mode of arrival: EMS Limitations: no limitations - History of Present Illness Initial Comments: This is a 50-year-old male well-known to this facility with history of CAD strok e patient accepted in transfer for chest pain chest pain with elevated troponin. Patient states on arrival to ER that he was in the ER and admitted as a patient recently but states that he had to leave secondary to family emergency. MD Complaint: abnormal lab -: hour(s) Returns Today for: persistent/worsening pain related to initial visit Symptoms Since Prior Visit: worsening pain Context: called for abnormal lab result Associated Symptoms: chest pain, shortness of breath Treatments Prior to Arrival: other medications - Related Data Home Medications Medication Instructions Recorded Confirmed Metoprolol Tartrate [Lopressor] 25 mg PO BID 11/27/20 01/14/21 Warfarin [Coumadin] 5 mg PO DAILY 11/27/20 01/14/21 Previous Rx's Medication Instructions Recorded Nitroglycerin Sl Tabs [Nitrostat] 0.4 mg SUBLINGUAL Q5M PRN #30 tab 07/23/17 Allergies Allergy/AdvReac Type Severity Reaction Status Date / Time Penicillins Allergy Severe Anaphylaxis Verified 01/14/21 12:07 Review of Systems ROS Statement: Those systems with pertinent positive or pertinent negative responses have been documented in the HPI. ROS Other: All systems not noted in ROS Statement are negative. 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 Last Myocardial Infarction Date:: 2016 History of Any Multi-Drug Resistant Organisms: None Reported Past Surgical History: Adenoidectomy, Heart Catheterization, Tonsillectomy Additional Past Surgical History / Comment(s): 2016 cardiac cath, mitral valve replaced, colonoscopies with cancerous polypectomies Past Anesthesia/Blood Transfusion Reactions: No Reported Reaction Past Psychological History: No Psychological Hx Reported Smoking Status: Current every day smoker Past Alcohol Use History: Occasional Past Drug Use History: None Reported - Past Family History Father History Unknown: Yes Family Medical History: Unable to Obtain Additional Family Medical History / Comment(s): pt was adopted. Mother History Unknown: Yes Family Medical History: Unable to Obtain Additional Family Medical History / Comment(s): pt was adopted General Exam Limitations: no limitations General appearance: alert, in no apparent distress Head exam: Present: atraumatic, normocephalic, normal inspection Eye exam: Present: normal appearance, PERRL, EOMI. Absent: scleral icterus, conjunctival injection, periorbital swelling ENT exam: Present: normal exam, mucous membranes moist Neck exam: Present: normal inspection. Absent: tenderness, meningismus, lymphadenopathy Respiratory exam: Present: normal lung sounds bilaterally. Absent: respiratory distress, wheezes, rales, rhonchi, stridor Cardiovascular Exam: Present: regular rate, normal rhythm, normal heart sounds. Absent: systolic murmur, diastolic murmur, rubs, gallop, clicks GI/Abdominal exam: Present: soft, normal bowel sounds. Absent: distended, tenderness, guarding, rebound, rigid Extremities exam: Present: normal inspection, full ROM, normal capillary refill. Absent: tenderness, pedal edema, joint swelling, calf tenderness Back exam: Present: normal inspection Neurological exam: Present: alert, oriented X3, CN II-XII intact Psychiatric exam: Present: normal affect, normal mood Skin exam: Present: warm, dry, intact, normal color. Absent: rash Course Vital Signs 01/14/21 01/14/21 03:23 04:49 Temperature 97.8 F Pulse Rate 78 74 Respiratory 17 16 Rate Blood Pressure 129/88 112/68 O2 Sat by Pulse 100 99 Oximetry - Reevaluation(s) Reevaluation #1: medical record is reviewed Patient symptoms are improved here in the ER Patient is in no acute distress In for results and questions have been answered Medical Decision Making - Medical Decision Making 50 male with history of elevated troponin be admitted for cardiac observation - Lab Data Result diagrams: 01/15/21 06:56 01/14/21 10:34 Disposition Clinical Impression: Chest pain, Elevated troponin Disposition: ADMITTED IP TO THIS HOSP Condition: Fair Is patient prescribed a controlled substance at d/c from ED?: No
[2021-01-14] MEDS: SODIUM CHLORIDE 0.9% 1,000 ML IV SCH ×2 (05:37→18:21)
[2021-01-14] MEDS: MORPHINE SULFATE 4 MG/ML SYRINGE IV PRN ×3 (08:16→19:51)
--- NOTE | 2021-01-14 09:20 | P.CRDCN ---
History of Present Illness Consult date: 01/14/21 History of present illness: HISTORY OF PRESENT ILLNESS: This is a 50-year-old male with a past medical history significant for valvular heart disease with history of mechanical mitral valve replacement, paroxysmal atrial fibrillation, hypertension, and hyperlipidemia. Patient follows with a steward/stewardess club car in [place]. We have been asked to see the patient in consultation for chest pain. Patient examined at the bedside. Patient was hospitalized in November 2020 for chest pain. Patient was found to have abnormal troponins at that time. Patient states the steward/stewardess club car who evaluated him at that time recommended a stress test. However his daughter was in a car accident and was killed and the patient left the hospital AMA. Patient states he was at work yesterday, working on a car, when he began to have heart palpitations. He states it lasted for a few seconds. He then began having chest pressure. He states the pain lasted for approximately 30 minutes. He had up going home and took sublingual nitro. He states the next thing he knows he woke up on the floor. Patient denies feeling dizzy or lightheaded prior to this. Patient states after he came to, he did not have any further chest pain or palpitations. The patient does report feeling short of breath this morning. He states he is beginning to have chest discomfort again this morning. He describes it as a heavy pressure in the middle of his chest. He states the pain radiates into his right shoulder and also his left arm. Patient denies pain with chest wall palpation. Patient does report increased pain with deep inspiration. EKG reveals sinus mechanism with left bundle branch, no signs of acute ischemia Laboratory data: Troponins completed at outside facility revealed 0.071. 0.072. Repeat troponin performed here 0.052. Current home cardiac medications include warfarin 5 mg daily and metoprolol tartrate 25 mg twice a day Most recent echocardiogram obtained in November 2020 revealed ejection fraction 45- 50%, anteroseptal hypokinesis, inferior hypokinesis, moderate aortic regurgitation, mechanical mitral valve noted, moderate pulmonary hypertension Cardiac catheterization history: April 2016 revealing normal coronary arteries Patient underwent dobutamine stress test in March 2019 which was negative for reversible ischemia REVIEW OF SYSTEMS: At the time of my exam: CONSTITUTIONAL: Denies fever or chills. HEENT: Denies blurred vision, vision changes, or eye pain. Denies hemoptysis CARDIOVASCULAR: Denies chest pain. Denies orthopnea. Denies PND. Denies palpitations RESPIRATORY: Denies shortness of breath. GASTROINTESTINAL: Denies abdominal pain. Denies nausea or vomiting. HEMATOLOGIC: Denies bleeding disorders. GENITOURINARY: Denies any blood in urine. SKIN: Denies pruitis. Denies rash. PHYSICAL EXAM: VITAL SIGNS: Reviewed. GENERAL: Well-developed in no acute distress. HEENT: Head is normocephalic. Pupils are equal, round. Sclerae anicteric. Mucous membranes of the mouth are moist. Neck supple. No JVD or thyromegaly LUNGS: Respirations even and unlabored. Lungs essentially clear to auscultation bilaterally. HEART: Regular rate and rhythm. S1 and S2 heard. ABDOMEN: Soft. Nondistended. Nontender. EXTREMITIES: Normal range of motion. No clubbing or cyanosis. Peripheral pulses intact. No lower extremity edema NEUROLOGIC: Awake and alert. Oriented x 3. ASSESSMENT: Chest pain Chronically abnormal troponins History of mechanical mitral valve replacement Paroxysmal atrial fibrillation on anticoagulation with Coumadin Nicotine dependence PLAN: Obtain limited echo to assess LV function and any wall motion abnormalities Resume home cardiac medications Continue anticoagulation with Coumadin Repeat EKG Patient believes he had a stress test performed 8 or 9 months ago in [place]. Will attempt to obtain records Further recommendations pending patient's course Nurse practitioner note has been reviewed by physician. Signing provider agrees with the documented findings, assessment, and plan of care. Past Medical History Past Medical History: Atrial Fibrillation, Cancer, Chest Pain / Angina, CVA/TIA, GERD/Reflux, Hypertension, Myocardial Infarction ([place]), Syncope Additional Past Medical History / Comment(s): Pt thinks he may have had a TN in 2006, paroxysmal Afib, moderate to severe tear in aortic valve, mitral valve replace, possible pleurisy in past, cancerous colon polyps removed, pt states he has had intermittent R side abdominal/flank pain over the past year. Last Myocardial Infarction Date:: 2016 History of Any Multi-Drug Resistant Organisms: None Reported Past Surgical History: Adenoidectomy, Heart Catheterization, Tonsillectomy Additional Past Surgical History / Comment(s): 2016 cardiac cath, mitral valve replaced, colonoscopies with cancerous polypectomies Past Anesthesia/Blood Transfusion Reactions: No Reported Reaction Past Psychological History: No Psychological Hx Reported Additional Psychological History / Comment(s): Pt lives at home with spouse. 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 He does not drive, spouse drives. Smoking Status: Current every day smoker Past Alcohol Use History: Occasional Additional Past Alcohol Use History / Comment(s): pt started smoking at age 9 worked up to 1ppd, quit 2009 then started smoking again 2014 & smokes 1-2 cigs per day Past Drug Use History: None Reported - Past Family History Father History Unknown: Yes Family Medical History: Unable to Obtain Additional Family Medical History / Comment(s): pt was adopted. Mother History Unknown: Yes Family Medical History: Unable to Obtain Additional Family Medical History / Comment(s): pt was adopted Medications and Allergies Home Medications Medication Instructions Recorded Confirmed Type Nitroglycerin Sl Tabs [Nitrostat] 0.4 mg SUBLINGUAL Q5M PRN #30 tab 07/23/17 11/27/20 Rx Metoprolol Tartrate [Lopressor] 25 mg PO BID 11/27/20 11/27/20 History Warfarin [Coumadin] 5 mg PO DAILY 11/27/20 11/27/20 History Allergies Allergy/AdvReac Type Severity Reaction Status Date / Time Penicillins Allergy Severe Anaphylaxis Verified 11/27/20 08:40 Physical Exam Vitals: Vital Signs Temp Pulse Pulse Resp BP BP Pulse Ox 01/14/21 05:10 97.7 F 83 19 154/90 98 01/14/21 04:49 74 16 112/68 99 01/14/21 03:23 97.8 F 78 17 129/88 100 Intake and Output 01/13/21 01/14/21 01/14/21 22:59 06:59 14:59 Intake Total 240 Balance 240 Intake: Oral 240 Other: # Voids 1 Weight 81.6 kg Results Cardiac Enzymes 01/14/21 Range/Units 05:02 Troponin I 0.052 H* (0.000-0.034) ng/mL Current Medications Generic Name Dose Route Start Last Admin Trade Name Freq PRN Reason Stop Dose Admin Aspirin 325 mg 01/15/21 09:00 Aspirin 325 Mg Tab PO DAILY XAVIER Sodium Chloride 1,000 mls @ 100 mls/hr 01/14/21 04:00 01/14/21 05:37 Saline 0.9% IV Not Given .Q10H XAVIER Morphine Sulfate 4 mg 01/14/21 03:49 01/14/21 08:16 Morphine Sulfate 4 Mg/Ml Syringe IV 4 mg Q4HR PRN Administration Chest Pain Nitroglycerin 0.4 mg 01/14/21 03:49 Nitroglycerin Sl Tabs 0.4 Mg Tab SUBLINGUAL Q5M PRN Chest Pain Intake and Output 01/13/21 01/14/21 01/14/21 22:59 06:59 14:59 Intake Total 240 Balance 240 Intake: Oral 240 Other: # Voids 1 Weight 81.6 kg
[2021-01-14 11:14] LABS: Basophils # (A) 0.1 k/uL (0-0.2); Basophils % (A) 1 %; Eosinophils # (A) 0.2 k/uL (0-0.7); Eosinophils % (A) 3 %; HCT 46.5 % (39.0-53.0); HGB 15.8 gm/dL (13.0-17.5); Lymphocytes % (A) 35 %; MCH 31.4 pg (25.0-35.0); MCV 92.4 fL (80.0-100.0); Mean Platelet Volume 7.5; Monocytes # (A) 0.4 k/uL (0-1.0); Monocytes % (A) 7 %; Neutrophils # (A) 2.9 k/uL (1.3-7.7); Neutrophils % (A) 52 %; Platelet Count 230 k/uL (150-450); RBC 5.03 m/uL (4.30-5.90); RDW 12.2 % (11.5-15.5); WBC 5.6 k/uL (3.8-10.6)
[2021-01-14 11:30] LABS: African American GFR (CKD) >90 (>60 ml/min/1.73 sqM); Anion Gap 1 mmol/L; Blood Urea Nitrogen 13 mg/dL (9-20); Calcium 8.5 mg/dL (8.4-10.2); Carbon Dioxide 28 mmol/L (22-30); Chloride 108 mmol/L (98-107); Glucose 78 mg/dL (74-99); Magnesium 2.2 mg/dL (1.6-2.3); Non-African American GFR(CKD) >90 (>60 ml/min/1.73 sqM); Potassium 4.2 mmol/L (3.5-5.1); Sodium 137 mmol/L (137-145)
[2021-01-14 11:35] LABS: INR 1.9 (<1.2); Prothrombin Time 18.8 sec (9.0-12.0)
--- NOTE | 2021-01-14 13:09 | ECHOF ---
Referral Reason:chest pain, assess for wall motion abnormalities MEASUREMENTS -------- HEIGHT: 177.8 cm WEIGHT: 81.2 kg BP: IVSd: 1.6 cm (0.6 - 1.1) LVIDd: 5.1 cm (3.9 - 5.3) LVPWd: 1.3 cm (0.6 - 1.1) IVSs: 1.8 cm LVIDs: 3.4 cm LVPWs: 1.6 cm RAP: 5.00 mmHg RVSP: 39.07 mmHg FINDINGS -------- Sinus rhythm. This was a technically adequate study. [facility] 11/28/20: Limited Study for LV Function. The left ventricular size is normal. There is severe concentric left ventricular hypertrophy. Ove rall left ventricular systolic function is low-normal with, an EF between 50 - 55 %. There is [id number] aortic regurgitation. The peak and mean MV gradients are 17.64mmHg 5.32mmHg as measured by doppler Mechanical mitral valve in place - normal function Mild tricuspid regurgitation present. There is mild pulmonary hypertension. The right ventricular systolic pressure, as measured by Doppler, is 39.07mmHg. There is no pulmonic regurgitation present. There is no pericardial effusion. CONCLUSIONS -------- 1. [facility] 11/28/20: Limited Study for LV Function. 2. The left ventricular size is normal. 3. There is severe concentric left ventricular hypertrophy. 4. Overall left ventricular systolic function is low-normal with, an EF between 50 - 55 %. 5. There is pwnnurqg-ti-btiyoz aortic regurgitation. 6. The peak and mean MV gradients are 17.64mmHg 5.32mmHg as measured by doppler. 7. Mild tricuspid regurgitation present. 8. There is mild pulmonary hypertension. 9. The right ventricular systolic pressure, as measured by Doppler, is 39.07mmHg. 10. There is no pulmonic regurgitation present. 11. There is no pericardial effusion. [employer] BODY REPAIRER: Alcira Baird RDCS
[2021-01-14] MEDS: METOPROLOL TARTRATE 25 MG TAB PO SCH ×2 (13:17→19:50)
[2021-01-14] MEDS ORDERED: ASPIRIN 81 MG PO STA (13:29)
--- NOTE | 2021-01-14 16:24 | XR ---
EXAMINATION TYPE: XR chest 2V DATE OF EXAM: 01/14/2021 COMPARISON: CT 11/26/2020. HISTORY: Shortness of breath. TECHNIQUE: Frontal and lateral views of the chest are obtained. FINDINGS: There is no focal air space opacity, pleural effusion, or pneumothorax seen. The cardiac silhouette size is mildly enlarged. Prior cardiothoracic postsurgical changes noted. The osseous st ructures are intact. IMPRESSION: No acute cardiopulmonary process.
[2021-01-14] MEDS ORDERED: HEPARIN SODIUM 1,000 UN/ML (10ML VL) IV PRN (17:16)
[2021-01-14] MEDS ORDERED: WARFARIN 5 MG TAB PO SCH (18:00)
[2021-01-14 18:17] LABS: Basophils # (A) 0.1 k/uL (0-0.2); Basophils % (A) 1 %; Eosinophils # (A) 0.2 k/uL (0-0.7); Eosinophils % (A) 2 %; HCT 49.8 % (39.0-53.0); HGB 15.8 gm/dL (13.0-17.5); Lymphocytes # (A) 1.9 k/uL (1.0-4.8); Lymphocytes % (A) 28 %; MCH 30.7 pg (25.0-35.0); MCHC 31.7 g/dL (31.0-37.0); MCV 96.7 fL (80.0-100.0); Mean Platelet Volume 7.9; Monocytes # (A) 0.4 k/uL (0-1.0); Monocytes % (A) 6 %; Neutrophils # (A) 4.2 k/uL (1.3-7.7); Neutrophils % (A) 61 %; Platelet Count 230 k/uL (150-450); RBC 5.15 m/uL (4.30-5.90); RDW 12.9 % (11.5-15.5); WBC 6.9 k/uL (3.8-10.6)
[2021-01-14] MEDS: HEPARIN SOD,PORK IN 0.45% NACL 25,000 UNIT in 0.45% NACL 1 250ML.BAG IV SCH (18:20)
[2021-01-14 18:22] LABS: INR 1.7 (<1.2); Partial Thromboplastin Time 31.8 sec (22.0-30.0); Prothrombin Time 16.9 sec (9.0-12.0)
[2021-01-14] MEDS ORDERED: MELATONIN 3 MG TABLET PO PRN (23:59)
[2021-01-15] MEDS: SODIUM CHLORIDE 0.9% 1,000 ML IV SCH ×3 (01:17→22:10)
[2021-01-15] MEDS: MORPHINE SULFATE 4 MG/ML SYRINGE IV PRN ×4 (03:37→20:35)
[2021-01-15 07:38] LABS: Basophils % (A) 1 %; Eosinophils # (A) 0.2 k/uL (0-0.7); Eosinophils % (A) 3 %; HCT 41.3 % (39.0-53.0); HGB 14.2 gm/dL (13.0-17.5); Lymphocytes # (A) 1.8 k/uL (1.0-4.8); Lymphocytes % (A) 35 %; MCH 32.2 pg (25.0-35.0); MCHC 34.3 g/dL (31.0-37.0); MCV 93.9 fL (80.0-100.0); Mean Platelet Volume 7.7; Monocytes # (A) 0.3 k/uL (0-1.0); Monocytes % (A) 6 %; Neutrophils # (A) 2.8 k/uL (1.3-7.7); Neutrophils % (A) 54 %; Platelet Count 178 k/uL (150-450); RDW 12.2 % (11.5-15.5); WBC 5.2 k/uL (3.8-10.6)
[2021-01-15 07:48] LABS: INR 1.9 (<1.2); Prothrombin Time 18.5 sec (9.0-12.0)
[2021-01-15] MEDS ORDERED: ASPIRIN 325 MG TAB PO SCH (09:00)
[2021-01-15] MEDS: METOPROLOL TARTRATE 25 MG TAB PO SCH ×2 (09:22→20:12)
[2021-01-15] MEDS: ASPIRIN 81 MG PO SCH (09:22)
[2021-01-15] MEDS ORDERED: FUROSEMIDE 10 MG/ML 2 ML VIAL IV STA (09:39)
--- NOTE | 2021-01-15 10:51 | P.PN ---
Subjective Progress Note Date: 01/15/21 HISTORY OF PRESENT ILLNESS: This is a 50-year-old male with a past medical history significant for valvular heart disease with history of mechanical mitral valve replacement, paroxysmal atrial fibrillation, hypertension, and hyperlipidemia. Patient follows with a athletics director in [place]. We have been asked to see the patient in consultation for chest pain. Patient examined at the bedside. Patient was hospitalized in November 2020 for chest pain. Patient was found to have abnormal troponins at that time. Patient states the athletics director who evaluated him at that time recommended a stress test. However his daughter was in a car accident and was killed and the patient left the hospital AMA. Patient states he was at work yesterday, working on a car, when he began to have heart palpitations. He states it lasted for a few seconds. He then began having chest pressure. He states the pain lasted for approximately 30 minutes. He had up going home and took sublingual nitro. He states the next thing he knows he woke up on the floor. Patient denies feeling dizzy or lightheaded prior to this. Patient states after he came to, he did not have any further chest pain or palpitations. The patient does report feeling short of breath this morning. He states he is beginning to have chest discomfort again this morning. He describes it as a heavy pressure in the middle of his chest. He states the pain radiates into his right shoulder and also his left arm. Patient denies pain with chest wall palpation. Patient does report increased pain with deep inspiration. EKG reveals sinus mechanism with left bundle branch, no signs of acute ischemia Laboratory data: Troponins completed at outside facility revealed 0.071. 0.072. Repeat troponin performed here 0.052. Current home cardiac medications include warfarin 5 mg daily and metoprolol tartrate 25 mg twice a day Most recent echocardiogram obtained in November 2020 revealed ejection fraction 45- 50%, anteroseptal hypokinesis, inferior hypokinesis, moderate aortic regurgitation, mechanical mitral valve noted, moderate pulmonary hypertension Cardiac catheterization history: April 2016 revealing normal coronary arteries Patient underwent dobutamine stress test in March 2019 which was negative for reversible ischemia 01/15/2021 Patient examined this morning at the bedside. Patient denies chest pain or pressure. Patient reports shortness of breath this morning. Outside records reviewed from [place] revealing patient underwent cardiac catheterization in February 2020 revealing normal coronary arteries and normally functioning mechanical prosthetic valve in the mitral position. Echocardiogram completed revealed ejection fraction 50-55%, moderate to severe aortic regurgitation, mild tricuspid regurgitation, mild pulmonary hypertension. PHYSICAL EXAM: VITAL SIGNS: Reviewed. GENERAL: Well-developed in no acute distress. HEENT: Head is normocephalic. Pupils are equal, round. Sclerae anicteric. Mucous membranes of the mouth are moist. Neck supple. No JVD or thyromegaly LUNGS: Respirations even and unlabored. Lungs with crackles to left lower lung HEART: Regular rate and rhythm. S1 and S2 heard. ABDOMEN: Soft. Nondistended. Nontender. EXTREMITIES: Normal range of motion. No clubbing or cyanosis. Peripheral pulses intact. Trace bilateral lower extremity edema NEUROLOGIC: Awake and alert. Oriented x 3. ASSESSMENT: Chest pain Chronically abnormal troponins History of mechanical mitral valve replacement, 2013 Paroxysmal atrial fibrillation on anticoagulation with Coumadin History of CVA History of SVT History of loop recorder placement, March 2020 secondary to syncope Nicotine dependence PLAN: Continue current cardiac medications Continue anticoagulation with Coumadin Lasix 20 mg IV 1 dose Patient to undergo dobutamine stress test tomorrow. Nothing by mouth at midnight Further recommendations pending patient's course Nurse practitioner note has been reviewed by physician. Signing provider agrees with the documented findings, assessment, and plan of care. Objective - Vital Signs Vital signs: Vital Signs Temp 97.6 F 01/15/21 03:35 Pulse 71 01/15/21 03:35 Resp 18 01/15/21 03:35 BP 126/81 01/15/21 03:35 Pulse Ox 98 01/15/21 03:35 Intake & Output 01/14/21 01/15/21 01/15/21 18:59 06:59 18:59 Intake Total 358 56.467 0 Balance 358 56.467 0 Weight 86.3 kg Intake: Intake, IV Titration 56.467 Amount Heparin Sod,Pork in 0.45% 56.467 NaCl 25,000 unit In 0.45 % NaCl 1 250ml.bag @ 12 UNITS/KG/HR 9.792 mls/hr IV .Q24H XAVIER Rx#: [id number] Oral 358 0 Other: Voiding Method Toilet # Voids 1 2 - Labs CBC & Chem 7: 01/15/21 06:56 01/14/21 10:34 Labs: Abnormal Lab Results - Last 24 Hours (Table) 01/14/21 01/14/21 01/14/21 Range/Units 10:34 10:34 10:34 PT 18.8 H (9.0-12.0) sec INR 1.9 H (<1.2) APTT (22.0-30.0) sec Chloride 108 H (98-107) mmol/L Troponin I 0.058 H* (0.000-0.034) ng/mL 01/14/21 01/14/21 01/15/21 Range/Units 17:36 23:21 06:56 PT 16.9 H 18.5 H (9.0-12.0) sec INR 1.7 H 1.9 H (<1.2) APTT 31.8 H 46.3 H (22.0-30.0) sec Chloride (98-107) mmol/L Troponin I (0.000-0.034) ng/mL
[2021-01-15 11:54] LABS: Chol/HDL Ratio 3.7; LDL Cholesterol,Calculated 105.8 mg/dL (0.0-131.0); VLDL Calculation 18.2 mg/dL (5.00-40.00)
[2021-01-15] MEDS: HEPARIN SOD,PORK IN 0.45% NACL 25,000 UNIT in 0.45% NACL 1 250ML.BAG IV SCH (17:20)
[2021-01-15] MEDS ORDERED: WARFARIN 7.5 MG TAB PO ONE (18:00)
--- NOTE | 2021-01-15 22:49 | P.HPIM ---
History of Present Illness H&P Date: 01/14/21 Chief Complaint: Chest pain History of presenting complaint: This is a pleasant 50-year-old patient who follows with Dr. Fulton.. His clinical practice consultant . mechanical aortic valve [2013] on Coumadin. Patient apparently has had 3 non-ST elevation MIs and a cardiac catheterization in the past has revealed normal coronaries. Also had a loop recorder for nonsustained V. tach. Patient was here in November of this year when he was jumped up on by people and it positive troponins. 2-D echocardiogram had shown wall motion abnormalities. H&H because of a family emergency and left AMA. Patient now presented to [facility] for [facility] was transferred here. Patient was sitting down when he notice pain across the chest rather significant in nature going to shoulder and the left arm. Patient took a nitroglycerin and he thinks he passed are not sure for how long. On his face bruising the right side of his face. Associated dizziness lightheadedness perspiration. Since presentation has had some chest pain on and off. Cardiology was consulted. Review of systems: GEN.: Tired EYES: None HEENT: Some tenderness in the right side of the face in the pentecostalism NECK: None RESPIRATORY: None CARDIOVASCULAR: As above GASTROINTESTINAL: None GENITOURINARY: None MUSCULOSKELETAL: None LYMPHATICS: None HEMATOLOGICAL: None PSYCHIATRY: None NEUROLOGICAL: None Past medical history to include: GERD, hypertension, paroxysmal atrial fibrillation, gastric- Polyps removed, mechanical aortic valve [2014], non-ST elevation WA with previous normal cardiac cath 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 Started smoking again in 2014, 3-4 cigarettes a day. Alcohol occasionally. Family history: Patient adopted Physical examination: VITAL SIGNS: 97.1, 78, 16, 129/77, 97% room air GENERAL: BMI 25.8, sitting on bed, slightly anxious, multiple tattoos EYES: Pupils equal. Conjunctiva normal. HEENT: External appearance of nose and ears normal, oral cavity grossly normal little tenderness around the right pentecostalism NECK: JVD not raised; masses not palpable. HEART: Mechanical heart sound; no edema. LUNGS: Respiratory rate normal; clear to auscultation. ABDOMEN: Soft, nontender, liver spleen not palpable, no masses palpable. PSYCH: Alert and oriented x3; mood and affect anxious. NEUROLOGICAL: Cranial nerves grossly intact; no facial asymmetry, power and sensation grossly intact. LYMPHATICS: No lymph nodes palpable in the axilla and neck INVESTIGATIONS, reviewed in the clinical context: 2-D echocardiogram: Severe concentric LVH. EF 50-55%. Moderate to severe aort ic regurgitation. WBC 5.6 hemoglobin 15.8 platelets 2:30 INR 1.9 potassium 4.2 creatinine 0.85 Troponin I 0.052, 0.058 Chest x-ray film personally reviewed by me-hyperinflation. No infiltrates Lab [facility]: EKG tracing personally reviewed by me-ST segment depression in inferolateral leads, sinus rhythm Assessment and plan: - acute non-Q-wave WA, patient known to have prior to 3 episodes of non-ST elevation WA. A cardiac catheterization in the past has been reported to be negative. Patient having intermittent chest pains. Cardiology is consulted. Lopressor. Aspirin -Mechanical mitral valve Patient is on Coumadin with INR 1.9. Start IV heparin -Paroxysmal atrial fibrillation, currently sinus rhythm on Lopressor -Chronic nicotine dependence, patient cigarette smoker Nicotine patch -Moderate to severe aortic regurgitation Follow clinically -Hypertensive heart disease Cardiology consulted. IV heparin. Cardiac catheterization versus stress test as per cardiology. Care was discussed with the patient. Questions answered. Smoke cessation counseling: This was done with the patient. Nicotine patch is being given. More than 3 minutes was spent for this Past Medical History Past Medical History: Atrial Fibrillation, Cancer, Chest Pain / Angina, CVA/TIA, GERD/Reflux, Hypertension, Myocardial Infarction ([place]), Syncope Additional Past Medical History / Comment(s): Pt thinks he may have had a [place] in 2006, paroxysmal Afib, moderate to severe tear in aortic valve, mitral valve replace, possible pleurisy in past, cancerous colon polyps removed, pt states he has had intermittent R side abdominal/flank pain over the past year. Last Myocardial Infarction Date:: 2016 History of Any Multi-Drug Resistant Organisms: None Reported Past Surgical History: Adenoidectomy, Heart Catheterization, Tonsillectomy Additional Past Surgical History / Comment(s): 2016 cardiac cath, mitral valve replaced, colonoscopies with cancerous polypectomies Past Anesthesia/Blood Transfusion Reactions: No Reported Reaction Past Psychological History: No Psychological Hx Reported Additional Psychological History / Comment(s): Pt lives at home with spouse. 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 He does not drive, spouse drives. Smoking Status: Current every day smoker Past Alcohol Use History: Occasional Additional Past Alcohol Use History / Comment(s): pt started smoking at age 9 worked up to 1ppd, quit 2009 then started smoking again 2014 & smokes 1-2 cigs per day Past Drug Use History: None Reported - Past Family History Father History Unknown: Yes Family Medical History: Unable to Obtain Additional Family Medical History / Comment(s): pt was adopted. Mother History Unknown: Yes Family Medical History: Unable to Obtain Additional Family Medical History / Comment(s): pt was adopted Medications and Allergies Home Medications Medication Instructions Recorded Confirmed Type Nitroglycerin Sl Tabs [Nitrostat] 0.4 mg SUBLINGUAL Q5M PRN #30 tab 07/23/17 01/14/21 Rx Metoprolol Tartrate [Lopressor] 25 mg PO BID 11/27/20 01/14/21 History Warfarin [Coumadin] 5 mg PO DAILY 11/27/20 01/14/21 History Allergies Allergy/AdvReac Type Severity Reaction Status Date / Time Penicillins Allergy Severe Anaphylaxis Verified 01/14/21 12:07 Physical Exam Vitals: Vital Signs Temp Pulse Pulse Resp BP BP Pulse Ox 01/14/21 11:25 97.1 F L 78 16 129/77 97 01/14/21 08:05 97.5 F L 86 16 121/72 94 L 01/14/21 05:10 97.7 F 83 19 154/90 98 01/14/21 04:49 74 16 112/68 99 01/14/21 03:23 97.8 F 78 17 129/88 100 Intake and Output 01/13/21 01/14/21 01/14/21 22:59 06:59 14:59 Intake Total 240 Balance 240 Intake: Oral 240 Other: # Voids 1 1 Weight 81.6 kg Results CBC & Chem 7: 01/15/21 06:56 01/14/21 10:34 Labs: Abnormal Lab Results - Last 24 Hours (Table) 01/14/21 01/14/21 01/14/21 Range/Units 05:02 10:34 10:34 PT (9.0-12.0) sec INR (<1.2) Chloride 108 H (98-107) mmol/L Troponin I 0.052 H* 0.058 H* (0.000-0.034) ng/mL 01/14/21 Range/Units 10:34 PT 18.8 H (9.0-12.0) sec INR 1.9 H (<1.2) Chloride (98-107) mmol/L Troponin I (0.000-0.034) ng/mL Thrombosis Risk Factor Assmnt - Choose All That Apply Any of the Below Risk Factors Present?: Yes Each Factor Represents 1 point: Age 41-60 years, Obesity (BMI >25) Other Risk Factors: No Other congenital or acquired thrombophilia - If yes, enter type in comment: No Thrombosis Risk Factor Assessment Total Risk Factor Score: 2 Thrombosis Risk Factor Assessment Level: Low Risk
--- NOTE | 2021-01-15 22:53 | P.PN ---
Progress Note - Text Progress Note Date: 01/15/21 Chief Complaint: Chest pain History of presenting complaint: This is a pleasant 50-year-old patient who follows with Dr. Fulton.. 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 mechanical aortic valve [2013] on Coumadin. Patient apparently has had 3 non-ST elevation MIs and a cardiac catheterization in the past has revealed normal coronaries. Also had a loop recorder for nonsustained V. tach. Patient was here in November of this year when he was jumped up on by people and it positive troponins. 2-D echocardiogram had shown wall motion abnormalities. H&H because of a family emergency and left AMA. Patient now presented to [facility] for Ramirez was transferred here. Patient was sitting down when he notice pain across the chest rather significant in nature going to shoulder and the left arm. Patient took a nitroglycerin and he thinks he passed are not sure for how long. On his face bruising the right side of his face. Associated dizziness lightheadedness perspiration. Since presentation has had some chest pain on and off. Cardiology was consulted. Today: On IV heparin. Has had intermittent chest pain. Seen by cardiology. A stress test tomorrow. Review of systems: Was done for constitutional, cardiovascular, GI, pulmonary. relevant finding as above Active Medications Aspirin (Aspirin 81 Mg) 81 mg PO DAILY [facility] Last Admin: 01/15/21 09:22 Dose: 81 mg Documented by: Heparin Sodium (Porcine) (Heparin Sodium 1,000 Un/Ml (10ml Vl)) 0 unit IV PER PROTOCOL PRN; Protocol PRN Reason: Low PTT Sodium Chloride (Saline 0.9%) 1,000 mls @ 100 mls/hr IV .Q10H [facility] Last Admin: 01/15/21 22:10 Dose: 100 mls/hr Documented by: Dobutamine HCl/Dextrose 500 mg (/ IV Solution) 250 mls @ 24.48 mls/hr IV .[id number] PRN; Protocol PRN Reason: Per Protocol Stop: 01/16/21 08:01 Heparin Sodium/Sodium Chloride (25,000 unit/ Sodium Chloride) 250 mls @ 9.792 mls/hr IV .Q24H [facility]; Protocol Last Admin: 01/15/21 17:20 Dose: 14 units/kg/hr, 11.424 mls/hr Documented by: Melatonin (Melatonin 3 Mg Tablet) 3 mg PO HS PRN PRN Reason: Insomnia Metoprolol Tartrate (Metoprolol Tartrate 25 Mg Tab) 25 mg PO BID [facility] Last Admin: 01/15/21 20:12 Dose: 25 mg Documented by: Miscellaneous Information (Warfarin Per Pharmacy) 0 each MISCELLANE DIRECTED PRN PRN Reason: PHARMACY DOSING PROTOCOL Morphine Sulfate (Morphine Sulfate 4 Mg/Ml Syringe) 4 mg IV Q4HR PRN PRN Reason: Chest Pain Last Admin: 01/15/21 20:35 Dose: 4 mg Documented by: Nitroglycerin (Nitroglycerin Sl Tabs 0.4 Mg Tab) 0.4 mg SUBLINGUAL Q5M PRN PRN Reason: Chest Pain Past medical history to include: GERD, hypertension, paroxysmal atrial fibrillation, gastric- Polyps removed, mechanical aortic valve [2013], non-ST elevation [place] with previous normal cardiac cath 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 Started smoking again in 2014, 3-4 cigarettes a day. Alcohol occasionally. Family history: Patient adopted Physical examination: VITAL SIGNS: 97.8, 72, 16, 129/76, 98% room air GENERAL: BMI 25.8, sitting on bed, slightly anxious, multiple tattoos EYES: Pupils equal. Conjunctiva normal. HEENT: External appearance of nose and ears normal, oral cavity grossly normal little tenderness around the right buddhism NECK: JVD not raised; masses not palpable. HEART: Mechanical heart sound; no edema. LUNGS: Respiratory rate normal; clear to auscultation. ABDOMEN: Soft, nontender, liver spleen not palpable, no masses palpable. PSYCH: Alert and oriented x3; mood and affect anxious. INVESTIGATIONS, reviewed in the clinical context: January 15: INR 1.9 LDL 105 2-D echocardiogram: Severe concentric LVH. EF 50-55%. Moderate to severe aortic regurgitation. WBC 5.6 hemoglobin 15.8 platelets 2:30 INR 1.9 potassium 4.2 creatinine 0.85 Troponin I 0.052, 0.058 Chest x-ray film personally reviewed by me-hyperinflation. No infiltrates Lab from [facility]: EKG tracing personally reviewed by me-ST segment depression in inferolateral leads, sinus rhythm Assessment and plan: - acute non-Q-wave [place], patient known to have prior to 3 episodes of non-ST elevation [place]. A cardiac catheterization in the past has been reported to be negative. Patient having intermittent chest pains. Cardiology is consulted. Lopressor. Aspirin. 4 nuclear stress test tomorrow -Mechanical mitral valve Patient is on Coumadin with INR 1.9. IV heparin -Paroxysmal atrial fibrillation, currently sinus rhythm on Lopressor -Chronic nicotine dependence, patient cigarette smoker Nicotine patch -Moderate to severe aortic regurgitation Follow clinically -Hypertensive heart disease -IV heparin monitoring Continue IV heparin. Other medications to continue. Patient for a nuclear stress test tomorrow.
[2021-01-16] MEDS: MORPHINE SULFATE 4 MG/ML SYRINGE IV PRN ×5 (00:26→22:32)
[2021-01-16 06:44] LABS: INR 2.1 (<1.2); Partial Thromboplastin Time 60.3 sec (22.0-30.0); Prothrombin Time 20.5 sec (9.0-12.0)
[2021-01-16] MEDS ORDERED: DOBUTamine DRIP for NUC MED 500 MG in DEXTROSE/WATER 1 250ML.BAG IV PRN (08:00)
[2021-01-16] MEDS: SODIUM CHLORIDE 0.9% 1,000 ML IV SCH ×2 (08:13→18:29)
[2021-01-16] MEDS: ASPIRIN 81 MG PO SCH (11:34)
[2021-01-16] MEDS: METOPROLOL TARTRATE 25 MG TAB PO SCH ×2 (11:35→19:49)
[2021-01-16] MEDS ORDERED: RX INFO: IV CONTRAST WAS GIVEN 1 EACH MISC MISCELLANE PRN (13:14)
[2021-01-16] MEDS: IPRATROPIUM-ALBUTEROL 3 ML NEB INHALATION SCH ×3 (14:52→20:03)
[2021-01-16] MEDS: BUDESONIDE 1 MG/2 ML NEBU INHALATION SCH ×2 (14:53→20:03)
--- NOTE | 2021-01-16 15:27 | P.CNPUL ---
History of Present Illness Consult date: 01/16/21 Requesting physician: Anton Durand Reason for consult: chest pain Chief complaint: Chest pain History of present illness: 50-year-old white male patient with past medical history of valvular heart disease status post mechanical mitral valve replacement in 2013, paroxysmal A. fib on Coumadin, 3 episodes of non-ST elevated myocardial infarction's. Has a chronic and ongoing history of smoking, currently trying to cut back, and patient is down to 4 cigarettes daily. Carries over [id number] smoking history. On 01/14/2021 patient was brought in by EMS as a transfer from another facility where he went for evaluation of chest pain, heart palpitations and was found to have elevated troponins. Patient also reported some shortness of breath. The chest discomfort was described as chest pressure and lasted approximately 30 minutes. Patient took some sublingual nitroglycerin, and had a fainting episode. Patient follows with a drivability technician in [place]. His last heart catheterization was in April 2016 revealing normal coronary arteries. Patient had a dobutamine stress test in March 2019 which was negative for reversible ischemia. His most recent echocardiogram in November 2020 revealed ejection fraction of 45-50%, anteroseptal hypokinesis, inferior hypokinesis, moderate aortic regurgitation, mechanical mitral valve, moderate pulmonary hypertension. Patient to sets of troponins at this hospital which were 0.052, and 0.058. CBC was within normal limits, his INR on admission was 1.9, electrolytes and renal profile were unremarkable. . he was placed on heparin infusion, he did have a stress test today and the results are unknown. His vital signs are stable, he is on room air with a pulse ox of 9200%, he is afebrile, hemodynamically she is stable, his breathing is nonlabored although he still complaining of intermittent episodes of shortness of breath and what he de scribes as chest discomfort, with radiation in the shoulders and bilateral arms. No coughing or wheezing, no phlegm production, lung sounds are clear to auscultation. Review of Systems All systems: negative Constitutional: Denies chills, Denies fever Eyes: denies blurred vision, denies pain Ears, nose, mouth and throat: Denies headache, Denies sore throat Cardiovascular: Reports chest pain, Denies shortness of breath Respiratory: Reports dyspnea, Denies cough Gastrointestinal: Denies abdominal pain, Denies diarrhea, Denies nausea, Denies vomiting Musculoskeletal: Denies myalgias Integumentary: Denies pruritus, Denies rash Neurological: Denies numbness, Denies weakness Psychiatric: Denies anxiety, Denies depression Endocrine: Denies fatigue, Denies weight change Past Medical History Past Medical History: Atrial Fibrillation, Cancer, Chest Pain / Angina, CVA/TIA, GERD/Reflux, Hypertension, Myocardial Infarction ([place]), Syncope Additional Past Medical History / Comment(s): Pt thinks he may have had a OH in 2006, paroxysmal Afib, moderate to severe tear in aortic valve, mitral valve replace, possible pleurisy in past, cancerous colon polyps removed, pt states he has had intermittent R side abdominal/flank pain over the past year. Last Myocardial Infarction Date:: 2016 History of Any Multi-Drug Resistant Organisms: None Reported Past Surgical History: Adenoidectomy, Heart Catheterization, Tonsillectomy Additional Past Surgical History / Comment(s): 2016 cardiac cath, mitral valve replaced, colonoscopies with cancerous polypectomies Past Anesthesia/Blood Transfusion Reactions: No Reported Reaction Past Psychological History: No Psychological Hx Reported Smoking Status: Current every day smoker Past Alcohol Use History: Occasional Past Drug Use History: None Reported - Past Family History Father History Unknown: Yes Family Medical History: Unable to Obtain Additional Family Medical History / Comment(s): pt was adopted. Mother History Unknown: Yes Family Medical History: Unable to Obtain Additional Family Medical History / Comment(s): pt was adopted Medications and Allergies Home Medications Medication Instructions Recorded Confirmed Type Nitroglycerin Sl Tabs [Nitrostat] 0.4 mg SUBLINGUAL Q5M PRN #30 tab 07/23/17 01/14/21 Rx Metoprolol Tartrate [Lopressor] 25 mg PO BID 11/27/20 01/14/21 History Warfarin [Coumadin] 5 mg PO DAILY 11/27/20 01/14/21 History Allergies Allergy/AdvReac Type Severity Reaction Status Date / Time Penicillins Allergy Severe Anaphylaxis Verified 01/14/21 12:07 Physical Exam Vitals: Vital Signs Temp Pulse Resp BP Pulse Ox 01/16/21 11:25 97.8 F 82 16 123/75 98 01/16/21 09:25 97.7 F 77 18 126/79 100 01/16/21 04:00 73 16 120/74 98 01/15/21 23:52 72 18 117/77 99 01/15/21 20:00 97.9 F 80 16 136/79 97 01/15/21 15:10 98.7 F 78 16 122/65 98 Intake and Output 01/15/21 01/16/21 01/16/21 22:59 06:59 14:59 Intake Total 409.837 240 Output Total 800 Balance -390.163 240 Intake: Intake, IV Titration 169.837 Amount Heparin Sod,Pork in 0.45% 169.837 NaCl 25,000 unit In 0.45 % NaCl 1 250ml.bag @ 12 UNITS/KG/HR 9.792 mls/hr IV .Q24H [facility] Rx#: [id number] Oral 240 240 Output: Urine 800 Other: Voiding Method Toilet # Voids 1 1 Weight 86.8 kg GENERAL EXAM: Alert, very pleasant, 50-year-old white male, on room air, with a pulse ox of 98-100% comfortable in no apparent distress. HEAD: Normocephalic/atraumatic. EYES: Normal reaction of pupils, equal size. Conjunctiva pink, sclera white. NOSE: Clear with pink turbinates. THROAT: No erythema or exudates. NECK: No masses, no JVD, no thyroid enlargement, no adenopathy. CHEST: No chest wall deformity. Symmetrical expansion. LUNGS: Equal air entry with no crackles, wheeze, rhonchi or dullness. CVS: Regular rate and rhythm, normal S1 and S2, no gallops, no murmurs, no rubs ABDOMEN: Soft, nontender. No hepatosplenomegaly, normal bowel sounds, no guarding or rigidity. EXTREMITIES: No clubbing, no edema, no cyanosis, 2+ pulses and upper and lower extremities. MUSCULOSKELETAL: Muscle strength and tone normal. SPINE: No scoliosis or deformity SKIN: No rashes CENTRAL NERVOUS SYSTEM: Alert and oriented -3. No focal deficits, tone is normal in all 4 extremities. PSYCHIATRIC: Alert and oriented -3. Appropriate affect. Intact judgment and insight. Results - Laboratory Findings CBC and BMP: 01/15/21 06:56 01/14/21 10:34 PT/INR, D-dimer PT 20.5 sec (9.0-12.0) H 01/16/21 06:06 INR 2.1 (<1.2) H 01/16/21 06:06 Abnormal lab findings: Abnormal Labs 01/14/21 01/14/21 01/14/21 05:02 10:34 10:34 PT INR APTT Chloride 108 H Troponin I 0.052 H* 0.058 H* 01/14/21 01/14/21 01/14/21 10:34 17:36 23:21 PT 18.8 H 16.9 H INR 1.9 H 1.7 H APTT 31.8 H 46.3 H Chloride Troponin I 01/15/21 01/15/21 01/15/21 06:56 15:19 22:51 PT 18.5 H INR 1.9 H APTT 41.8 H 55.5 H Chloride Troponin I 01/16/21 06:06 PT 20.5 H INR 2.1 H APTT 60.3 H Chloride Troponin I - Diagnostic Findings Chest x-ray: report reviewed, image reviewed Assessment and Plan Plan: Assessment: #1. Shortness of breath, intermittent in nature, seems to correlate with episodes of chest discomfort, also intermittent in nature, possibly related to heart disease, rule out obstructive coronary artery disease. Chest x-ray showed no active cardiopulmonary process #2. Extensive history of smoking, carries a 64-[id number]-hlxm history of smoking, currently cutting back and is down to 4 cigarettes on a daily basis #3. History of valvular heart disease, status post mechanical mitral valve replacement, on Coumadin, with INR of 1.9 on admission #4. Paroxysmal A. fib #5. History of CVA 3 #6. History of SVT, with history of loop recorder in March 2020 related to syncopal episode #7. Hypertension #8. Hyperlipidemia #9. Previous episodes of non-ST elevated [place] #10. Hypertensive heart disease Plan: Continue current medical management Cardiology is following, patient had a stress test, awaiting on the results If coronary artery disease have been ruled out we may consider doing a CT chest with IV contrast although the patient was already on chronic anticoagulation likelihood of pulmonary embolism is low No cough or congestion, no wheezing We'll continue to follow I performed a history & physical examination of the patient and discussed their management with my nurse practitioner, Carine Urias. I reviewed the nurse practitioner's note and agree with the documented findings and plan of care. Lung sounds are positive for clear lung sounds throughout the lung coronel. The findings and the impression was discussed with the patient. I attest to the documentation by the nurse practitioner. Time with Patient: Greater than 30
[2021-01-16] MEDS: HEPARIN SOD,PORK IN 0.45% NACL 25,000 UNIT in 0.45% NACL 1 250ML.BAG IV SCH (15:34)
--- NOTE | 2021-01-16 15:58 | CT ---
EXAMINATION TYPE: CT angio chest DATE OF EXAM: 01/16/2021 COMPARISON: None HISTORY: Chest pain and difficulty breathing. CT DLP: 384.7 mGycm CONTRAST: CT chest with contrast and 3D reconstruction with MIP imaging is performed with IV Contrast, patient injected with 100 mL of Isovue 370. Contrast-enhanced CT of the chest was performed through the course of the pulmonary arteries with rashmi g and mediastinal window settings submitted. 3D reconstruction with MIP imaging was also performed. PULMONARY ARTERIES: The pulmonary arteries and their major tributaries are patent. I do not see tiana dence for sizable filling defect to suggest pulmonary embolic process. LUNGS: The lungs are clear and free of infiltrate. No evidence for atelectasis. No pulmonary nodule or mass is detected. No pleural effusion. MEDIASTINUM: Thoracic aorta is of normal caliber,however, evaluation is limited given timing of the contrast bolus. If there is concern for thoracic aortic pathology consider SHARAD. Correlate clinicall y . The heart is not enlarged. No evidence for mediastinal mass. No mediastinal lymph nodes greater than 1cm. HILAR STRUCTURES: No evidence for mass. No hilar lymph nodes greater than 1 cm. UPPER ABDOMEN: No significant abnormality is seen. IMPRESSION: 1. No evidence for Pulmonary embolism at this time.
[2021-01-16] MEDS ORDERED: WARFARIN 7.5 MG TAB PO ONE (18:00)
--- NOTE | 2021-01-16 19:10 | P.STRESS ---
- Stress Test Note Stress Test Results/Findings: Exam Performed: dobutamine stress echo Exam Date: 01/16/21 Reason for Exam: Chest pain Height: 5 ft 10 in Weight: 86.8 kg Protocol: Dobutamine stress echo Stage: III Duration of Exercise: 8:36 Resting Heart Rate: 77 Resting Blood Pressure: 128/73 Maximum Achieved Heart Rate: 147 Maximum Achieved Blood Pressure: 154/81 85% PMHR: 145 100% PMHR: 171 METS: Technologist Comment: Stress Test Results/Findings: Patient exercised on a Shen protocol for 8-1/2 minutes Normal heart rate and blood pressure response to exercise line PVCs noted intermittently No ECG evidence for ischemia Baseline 2-D echo images were normal With exercise is excellent augmentation of overall LV contractility, no wall motion normalities At recovery normal LV systolic function, no wall motion normalities Impression average exercise capacity No ECG or echocardiographic evidence for ischemia Please note patient has an IVCD
--- NOTE | 2021-01-16 22:56 | P.PN ---
Progress Note - Text Progress Note Date: 01/16/21 Chief Complaint: Chest pain History of presenting complaint: This is a pleasant 50-year-old patient who follows with Dr. Fulton.. 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 mechanical aortic valve [2013] on Coumadin. Patient apparently has had 3 non-ST elevation MIs and a cardiac catheterization in the past has revealed normal coronaries. Also had a loop recorder for nonsustained V. tach. Patient was here in November of this year when he was jumped up on by people and it positive troponins. 2-D echocardiogram had shown wall motion abnormalities. H&H because of a family emergency and left AMA. Patient now presented to [facility] for Ramirez was transferred here. Patient was sitting down when he notice pain across the chest rather significant in nature going to shoulder and the left arm. Patient took a nitroglycerin and he thinks he passed are not sure for how long. On his face bruising the right side of his face. Associated dizziness lightheadedness perspiration. Since presentation has had some chest pain on and off. Cardiology was consulted. January 15: On IV heparin. Has had intermittent chest pain. Seen by cardiology. A stress test tomorrow. January 16: Patient had a stress test this morning. Complains of episodes of shortness of breath. Quite concerned about the same. No edema. No cough. No fever no chills. Review of systems: Was done for constitutional, cardiovascular, GI, pulmonary. relevant finding as above Active Medications Albuterol/Ipratropium (Ipratropium-Albuterol 3 Ml Neb) 3 ml INHALATION RT-QID [facility] Last Admin: 01/16/21 20:03 Dose: 3 ml Documented by: Aspirin (Aspirin 81 Mg) 81 mg PO DAILY [facility] Last Admin: 01/16/21 11:34 Dose: 81 mg Documented by: Budesonide (Budesonide 1 Mg/2 Ml Nebu) 1 mg INHALATION RT-BID [facility] Last Admin: 01/16/21 20:03 Dose: 1 mg Documented by: Heparin Sodium (Porcine) (Heparin Sodium 1,000 Un/Ml (10ml Vl)) 0 unit IV PER PROTOCOL PRN; Protocol PRN Reason: Low PTT Sodium Chloride (Saline 0.9%) 1,000 mls @ 100 mls/hr IV .Q10H [facility] Last Admin: 01/16/21 18:29 Dose: 100 mls/hr Documented by: Dobutamine HCl/Dextrose 500 mg (/ IV Solution) 250 mls @ 24.48 mls/hr IV .[id number] PRN; Protocol PRN Reason: Per Protocol Stop: 01/16/21 23:00 Heparin Sodium/Sodium Chloride (25,000 unit/ Sodium Chloride) 250 mls @ 9.792 mls/hr IV .Q24H [facility]; Protocol Last Admin: 01/16/21 15:34 Dose: 14 units/kg/hr, 11.424 mls/hr Documented by: Melatonin (Melatonin 3 Mg Tablet) 3 mg PO HS PRN PRN Reason: Insomnia Last Admin: 01/16/21 22:32 Dose: 3 mg Documented by: Metoprolol Tartrate (Metoprolol Tartrate 25 Mg Tab) 25 mg PO BID [facility] Last Admin: 01/16/21 19:49 Dose: 25 mg Documented by: Miscellaneous Information (Warfarin Per Pharmacy) 0 each MISCELLANE DIRECTED PRN PRN Reason: PHARMACY DOSING PROTOCOL Miscellaneous Information (Rx Info: Iv Contrast Was Given 1 Each Misc) 1 each MISCELLANE DAILY PRN PRN Reason: Per Protocol Stop: 01/18/21 13:15 Morphine Sulfate (Morphine Sulfate 4 Mg/Ml Syringe) 4 mg IV Q4HR PRN PRN Reason: Chest Pain Last Admin: 01/16/21 22:32 Dose: 4 mg Documented by: Nitroglycerin (Nitroglycerin Sl Tabs 0.4 Mg Tab) 0.4 mg SUBLINGUAL Q5M PRN PRN Reason: Chest Pain Past medical history to include: GERD, hypertension, paroxysmal atrial fibrillation, gastric- Polyps removed, mechanical aortic valve [2014], non-ST elevation [place] with previous normal cardiac cath 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 Started smoking again in 2014, 3-4 cigarettes a day. Alcohol occasionally. Family history: Patient adopted Physical examination: VITAL SIGNS: 97.8, 82, 16, 123/75, 98% room air GENERAL: BMI 25.8, sitting on bed, slightly anxious, multiple tattoos EYES: Pupils equal. Conjunctiva normal. HEENT: External appearance of nose and ears normal, oral cavity grossly normal little tenderness around the right mu-ism NECK: JVD not raised; masses not palpable. HEART: Mechanical heart sound; no edema. LUNGS: Respiratory rate normal; decreased breath sounds. ABDOMEN: Soft, nontender, liver spleen not palpable, no masses palpable. PSYCH: Alert and oriented x3; mood and affect anxious. INVESTIGATIONS, reviewed in the clinical context: Dobutamine stress echocardiogram: Negative January 16: INR 2.1 January 15: INR 1.9 LDL 105 2-D echocardiogram: Severe concentric LVH. EF 50-55%. Moderate to severe aortic regurgitation. WBC 5.6 hemoglobin 15.8 platelets 2:30 INR 1.9 potassium 4.2 creatinine 0.85 Troponin I 0.052, 0.058 Chest x-ray film personally reviewed by me-hyperinflation. No infiltrates Lab from [facility]: EKG tracing personally reviewed by me-ST segment depression in inferolateral leads, sinus rhythm Assessment and plan: - acute non-Q-wave [place], patient known to have prior to 3 episodes of non-ST elevation [place]. A cardiac catheterization in the past has been reported to be negative. Patient having intermittent chest pains. Lopressor. Aspirin. Negative Deejay remains stress echocardiogram -Coumadin monitoring -Episodes of shortness of breath. Patient's finding it difficult to catch his breath. Chest CT with PE protocol was ordered. Came back to be negative. -Possible COPD exacerbation DuoNeb. Inhaled steroids. -Paroxysmal atrial fibrillation, currently sinus rhythm on Lopressor -Chronic nicotine dependence, patient cigarette smoker Nicotine patch -Moderate to severe aortic regurgitation Follow clinically -Hypertensive heart disease -IV heparin monitoring On review CT chest was ordered the did come back negative for PE. Bronchodilators and inhaled steroids was added. Pulmonary consulted. Discussed with the patient. Negative dobutamine stress echocardiogram.
[2021-01-17] MEDS: MORPHINE SULFATE 4 MG/ML SYRINGE IV PRN ×2 (04:55→09:27)
[2021-01-17] MEDS: SODIUM CHLORIDE 0.9% 1,000 ML IV SCH (05:02)
[2021-01-17 05:12] VITALS: RESP 16
--- NOTE | 2021-01-17 07:30 | P.PN ---
Progress Note - Text Progress Note Date: 01/17/21 Patients dobutamine stress test is negative for ischemia We will sign off. Please reconsult if needed.
[2021-01-17] MEDS: IPRATROPIUM-ALBUTEROL 3 ML NEB INHALATION SCH ×2 (08:00→11:50)
[2021-01-17] MEDS: BUDESONIDE 1 MG/2 ML NEBU INHALATION SCH (08:00)
[2021-01-17 08:03] LABS: Partial Thromboplastin Time 75.3 sec (22.0-30.0); Prothrombin Time 28.8 sec (9.0-12.0)
[2021-01-17] MEDS: METOPROLOL TARTRATE 25 MG TAB PO SCH (09:24)
[2021-01-17] MEDS: ASPIRIN 81 MG PO SCH (09:24)
[2021-01-17 11:21] VITALS: TEMP 97.8
[2021-01-17 12:34] VITALS: BP 120/78; PULSE 78
--- NOTE | 2021-01-17 12:36 | P.PN ---
Subjective Progress Note Date: 01/17/21 Principal diagnosis: Chest pain, shortness of breath 50-year-old white male patient with past medical history of valvular heart disease status post mechanical mitral valve replacement in 2013, paroxysmal A. fib on Coumadin, 3 episodes of non-ST elevated myocardial infarction's. Has a chronic and ongoing history of smoking, currently trying to cut back, and patient is down to 4 cigarettes daily. Carries over [id number] smoking history. On 01/14/2021 patient was brought in by EMS as a transfer from another facility where he went for evaluation of chest pain, heart palpitations and was found to have elevated troponins. Patient also reported some shortness of breath. The chest discomfort was described as chest pressure and lasted approximately 30 minutes. Patient took some sublingual nitroglycerin, and had a fainting episode. Patient follows with a saddle mechanic in [place]. His last heart catheterization was in April 2016 revealing normal coronary arteries. Patient had a dobutamine stress test in March 2019 which was negative for reversible ischemia. His most recent echocardiogram in November 2020 revealed ejection fraction of 45-50%, anteroseptal hypokinesis, inferior hypokinesis, moderate aortic regurgitation, mechanical mitral valve, moderate pulmonary hypertension. Patient to sets of troponins at this hospital which were 0.052, and 0.058. CBC was within normal limits, his INR on admission was 1.9, electrolytes and renal profile were unremarkable. . he was placed on heparin infusion, he did have a stress test today and the results are unknown. His vital signs are stable, he is on room air with a pulse ox of 9200%, he is afebrile, hemodynamically she is stable, his breathing is nonlabored although he still complaining of intermittent episodes of shortness of breath and what he describes as chest discomfort, with radiation in the shoulders and bilateral arms. No coughing or wheezing, no phlegm production, lung sounds are clear to auscultation. On 01/18/2000 the patient seen in follow-up on selective care unit. Patient had a negative dobutamine stress test for ischemia. His been cleared by cardiology. CTA chest has been completed showing no evidence of pulmonary embolism, and patient's lungs were clear. Patient is awake and alert, in no distress, room air pulse ox is 96%, patient is afebrile, hemodynamically stable, lung sounds are clear to auscultation, no cough or congestion. No cough, no wheezing, no fever or chills, from pulmonary perspective patient's intermittent episodes of shortness of breath are probably not related to pulmonary etiology. Pulmonary service will sign off and patient is cleared for discharge from pulmonary perspective as long as he has been cleared by cardiology. Objective - Vital Signs Vital signs: Vital Signs Temp 97.8 F 01/17/21 08:00 Pulse 84 01/17/21 12:03 Resp 16 01/17/21 08:00 BP 121/72 01/17/21 08:00 Pulse Ox 96 01/17/21 08:00 Intake & Output 01/16/21 01/17/21 01/17/21 18:59 06:59 18:59 Intake Total 730 240 Balance 730 240 Weight 87.9 kg Intake: Intake, IV Titration 250 Amount Heparin Sod,Pork in 0.45% 250 NaCl 25,000 unit In 0.45 % NaCl 1 250ml.bag @ 12 UNITS/KG/HR 9.792 mls/hr IV .Q24H [facility] Rx#: [id number] Oral 480 240 Other: Voiding Method Toilet Toilet # Voids 3 1 1 # Emeses 1 - Exam GENERAL EXAM: Alert, very pleasant, 50-year-old white male, on room air, with a pulse ox of 98-100% comfortable in no apparent distress. HEAD: Normocephalic/atraumatic. EYES: Normal reaction of pupils, equal size. Conjunctiva pink, sclera white. NOSE: Clear with pink turbinates. THROAT: No erythema or exudates. NECK: No masses, no JVD, no thyroid enlargement, no adenopathy. CHEST: No chest wall deformity. Symmetrical expansion. LUNGS: Equal air entry with no crackles, wheeze, rhonchi or dullness. CVS: Regular rate and rhythm, normal S1 and S2, no gallops, no murmurs, no rubs ABDOMEN: Soft, nontender. No hepatosplenomegaly, normal bowel sounds, no guarding or rigidity. EXTREMITIES: No clubbing, no edema, no cyanosis, 2+ pulses and upper and lower extremities. MUSCULOSKELETAL: Muscle strength and tone normal. SPINE: No scoliosis or deformity SKIN: No rashes CENTRAL NERVOUS SYSTEM: Alert and oriented -3. No focal deficits, tone is normal in all 4 extremities. PSYCHIATRIC: Alert and oriented -3. Appropriate affect. Intact judgment and insight. - Labs CBC & Chem 7: 01/15/21 06:56 01/14/21 10:34 Labs: Abnormal Lab Results - Last 24 Hours (Table) 01/17/21 Range/Units 07:22 PT 28.8 H (9.0-12.0) sec INR 3.0 H (<1.2) APTT 75.3 H (22.0-30.0) sec Assessment and Plan Plan: Assessment: #1. Shortness of breath, intermittent in nature, seems to correlate with episodes of chest discomfort, also intermittent in nature, possibly related to heart disease, rule out obstructive coronary artery disease. Chest x-ray showed no active cardiopulmonary process. CTA chest was negative for PE, and negative for infiltrates, atelectasis, pulmonary nodules or pulmonary masses. #2. Extensive history of smoking, carries a [id number] history of smoking, currently cutting back and is down to 4 cigarettes on a daily basis #3. History of valvular heart disease, status post mechanical mitral valve replacement, on Coumadin, with INR of 1.9 on admission #4. Paroxysmal A. fib #5. History of CVA 3 #6. History of SVT, with history of loop recorder in March 2020 related to syncopal episode #7. Hypertension #8. Hyperlipidemia #9. Previous episodes of non-ST elevated ID #10. Hypertensive heart disease Plan: Vital signs are stable Lungs are clear CTA chest negative for PE, no pneumonia, no pulmonary masses, no pleural effusions Patient's intermittent shortness of breath is likely not related to pulmonary etiology Stable for discharge from pulmonary perspective as long as he has been cleared by cardiology I performed a history & physical examination of the patient and discussed their management with my nurse practitioner, Carine Urias. I reviewed the nurse practitioner's note and agree with the documented findings and plan of care. Lung sounds are positive for clear lung sounds throughout the lung coronel. The findings and the impression was discussed with the patient. I attest to the documentation by the nurse practitioner. Time with Patient: Less than 30
[2021-01-17] MEDS ORDERED: WARFARIN 5 MG TAB PO ONE (18:00)
--- NOTE | 2021-01-17 18:44 | P.DS ---
Providers Date of admission: 01/14/21 03:49 Expected date of discharge: 01/17/21 Attending physician: Anton Durand Consults: 01/16/21 13:17 Consult Physician Routine Consulting Provider: Chris Culp Consult Reason/Comments: episodic SOB Do you want consulting provider notified?: Yes Primary care physician: [facility] Course: Chief Complaint: Chest pain History of presenting complaint: This is a pleasant 50-year-old patient who follows with Dr. Fulton.. 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 mechanical aortic valve [2014] on Coumadin. Pat ient apparently has had 3 non-ST elevation MIs and a cardiac catheterization in the past has revealed normal coronaries. Also had a loop recorder for nonsustained V. tach. Patient was here in November of this year when he was jumped up on by people and it positive troponins. 2-D echocardiogram had shown wall motion abnormalities. H&H because of a family emergency and left AMA. Patient now presented to [facility] for [facility] was transferred here. Patient was sitting down when he notice pain across the chest rather significant in nature going to shoulder and the left arm. Patient took a nitroglycerin and he thinks he passed are not sure for how long. On his face bruising the right side of his face. Associated dizziness lightheadedness perspiration. Since presentation has had some chest pain on and off. Cardiology was consulted. Dobutamine stress echocardiogram negative. Treated for COPD exacerbation. PE ruled out. January 15: On IV heparin. Has had intermittent chest pain. Seen by cardiology. A stress test tomorrow. January 16: Patient had a stress test this morning. Complains of episodes of shortness of breath. Quite concerned about the same. No edema. No cough. No fever no chills. CT chest: Negative for PE January 17 also treated for COPD exacerbation and bronchodilators and inhaled steroids. Breathing much better. Patient feeling much better keen to go home. Discussed with the patient. He will follow-up with his imaging science professor for possible cardiac catheterization and also with mandolin repairer. Discussion and discharge planning more than 35 minutes Consultation: Dr. Lopez from pulmonary Dr. Juan Carlos Nix from cardiology Past medical history to include: GERD, hypertension, paroxysmal atrial fibrillation, gastric- Polyps removed, mechanical aortic valve [2014], non-ST elevation TN with previous normal cardiac cath 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 Started smoking again in 2014, 3-4 cigarettes a day. Alcohol occasionally. Family history: Patient adopted Physical examination: VITAL SIGNS: 97.8, 76, 16, 120/72, 96% room air GENERAL: BMI 25.8, sitting on bed, comfortable multiple tattoos EYES: Pupils equal. Conjunctiva normal. HEENT: External appearance of nose and ears normal, oral cavity grossly normal little tenderness around the right latter day NECK: JVD not raised; masses not palpable. HEART: Mechanical heart sound; no edema. LUNGS: Respiratory rate normal; decreased breath sounds. ABDOMEN: Soft, nontender, liver spleen not palpable, no masses palpable. PSYCH: Alert and oriented x3; mood and affect anxious. INVESTIGATIONS, reviewed in the clinical context: January 17: INR 3 Computed tomography scan of the chest: Negative for PE Dobutamine stress echocardiogram: Negative January 16: INR 2.1 January 15: INR 1.9 LDL 105 2-D echocardiogram: Severe concentric LVH. EF 50-55%. Moderate to severe aortic regurgitation. WBC 5.6 hemoglobin 15.8 platelets 2:30 INR 1.9 potassium 4.2 creatinine 0.85 Troponin I 0.052, 0.058 Chest x-ray film personally reviewed by me-hyperinflation. No infiltrates Lab from [facility]: EKG tracing personally reviewed by me-ST segment depression in inferolateral leads, sinus rhythm Assessment and plan: - acute non-Q-wave TN, patient known to have prior to 3 episodes of non-ST elevation TN. A cardiac catheterization in the past has been reported to be negative. Lopressor. Aspirin. Negative dobutamine stress echocardiogram -Coumadin monitoring -Acute COPD exacerbation better. In a current smoker DuoNeb. Inhaled steroids. -Paroxysmal atrial fibrillation, currently sinus rhythm on Lopressor -Chronic nicotine dependence, patient cigarette smoker Nicotine patch. Patient counseled -Moderate to severe aortic regurgitation Follow clinically -Hypertensive heart disease -IV heparin monitoring Disposition: Home Patient Condition at Discharge: Fair Plan - Discharge Summary Discharge Rx Participant: No New Discharge Prescriptions: New Fluticasone/Salmeterol [Advair 250-50 Diskus] 1 inhalation PO BID #1 inhaler Melatonin 3 mg PO HS PRN tablet PRN Reason: Insomnia Aspirin 81 mg PO DAILY chew Albuterol Inhaler [Ventolin Hfa Inhaler] 1 puff INHALATION RT-QID PRN #1 puff PRN Reason: Wheezing Continue Nitroglycerin Sl Tabs [Nitrostat] 0.4 mg SUBLINGUAL Q5M PRN #30 tab PRN Reason: Chest Pain Metoprolol Tartrate [Lopressor] 25 mg PO BID Warfarin [Coumadin] 5 mg PO DAILY Discharge Medication List Nitroglycerin Sl Tabs [Nitrostat] 0.4 mg SUBLINGUAL Q5M PRN #30 tab 07/23/17 [Rx] Metoprolol Tartrate [Lopressor] 25 mg PO BID 11/27/20 [History] Warfarin [Coumadin] 5 mg PO DAILY 11/27/20 [History] Albuterol Inhaler [Ventolin Hfa Inhaler] 1 puff INHALATION RT-QID PRN #1 puff 01/17/21 [Rx] Aspirin 81 mg PO DAILY chew 01/17/21 [Rx] Fluticasone/Salmeterol [Advair 250-50 Diskus] 1 inhalation PO BID #1 inhaler 01/17/21 [Rx] Melatonin 3 mg PO HS PRN tablet 01/17/21 [Rx] Follow up Appointment(s)/Referral(s): dr martha [Other] - 1 Week Vipul Lopez MD [STAFF PHYSICIAN] - 01/27/21 9:00 am Yoshi Fulton MD [Primary Care Provider] - 01/25/21 2:30 pm (appt with Gigi Bellamy) Activity/Diet/Wound Care/Special Instructions: inr - 3 days Discharge Disposition: HOME SELF-CARE
== END 2021-01-17 13:15 | disposition home or self-care (01) ==
LOC: EC 03:19 → 6NMEDSUR 03:49 → 3SCARD 04:48
PROVIDERS: ADMIT Hospitalist; ATTEND Hospitalist
DX: I21.4 Non-ST elevation (NSTEMI) myocardial infarction (principal); I25.2 Old myocardial infarction; J44.1 Chronic obstructive pulmonary disease with (acute) exacerbation; I48.0 Paroxysmal atrial fibrillation; F17.210 Nicotine dependence, cigarettes, uncomplicated; I35.1 Nonrheumatic aortic (valve) insufficiency; I11.9 Hypertensive heart disease without heart failure; K21.9 Gastro-esophageal reflux disease without esophagitis; S00.83XA Contusion of other part of head, initial encounter; I47.1 Supraventricular tachycardia; I27.20 Pulmonary hypertension, unspecified; E78.5 Hyperlipidemia, unspecified; I25.10 Atherosclerotic heart disease of native coronary artery without angina pectoris; E66.9 Obesity, unspecified; Z68.27 Body mass index [BMI] 27.0-27.9, adult; Z85.038 Personal history of other malignant neoplasm of large intestine; Z86.010 Personal history of colon polyps; Z86.73 Personal history of transient ischemic attack (TIA), and cerebral infarction without residual deficits; Z95.2 Presence of prosthetic heart valve; Z79.01 Long term (current) use of anticoagulants; Z79.899 Other long term (current) drug therapy; Z88.0 Allergy status to penicillin
CPT/HCPCS: 96376 ×4; 96365; 96366 ×4; 96375 ×2; 93005 ×2; 99285; 94640 ×4; 94760; 93308; 93351; 80061; 80048; 83735; 84484; 85025 ×2; 85610 ×4; 85730 ×4; 71046; 71275; G0378 ×5; J1250; J2270 ×4; J1940; Q9967; J1644 ×3

== ENCOUNTER 2022-06-19 09:56 | Inpatient (IN) | payer OTHER ==
[2022-06-19] MEDS ORDERED: METOPROLOL TARTRATE 5 MG/5 ML VIAL IVP STA (10:13)
[2022-06-19] MEDS ORDERED: MORPHINE SULFATE 4 MG/ML SYRINGE IVP STA (10:39)
--- NOTE | 2022-06-19 11:09 | ED ---
Chest Pain HPI - General Chief Complaint: Chest Pain Stated Complaint: palpitations Time Seen by Provider: 06/19/22 09:56 Source: patient, RN/MD, EMS, RN notes reviewed, old records reviewed Mode of arrival: EMS Limitations: no limitations - History of Present Illness Initial Comments: 52-year-old male with a history of cardiac bypass surgery as well as having a loop recorder at this time also has a history of smoking and drinking alcohol who was transferred here from [facility] in [facility] with complaints of chest pain and elevated heart rate. He was treated and evaluated there and found have elevated troponin he also had a tachycardia cardiac arrhythmia which is believed to be atrial flutter. He was transferred here for further evaluation treatment. When in the [facility] emergency department patient was giving medication to slow the heart rate he did drop his blood pressure was subsequently given 2 L of fluid for IV hydration. He was found be subtherapeutic with his Coumadin level he was given Coumadin as well as Lovenox. MD Complaint: chest pain, other - Related Data Home Medications Medication Instructions Recorded Confirmed Metoprolol Tartrate [Lopressor] 25 mg PO BID 11/27/20 02/25/22 Warfarin [Coumadin] 5 mg PO DIRECTED 11/27/20 02/25/22 Enoxaparin [Lovenox] 80 mg SQ DIRECTED 02/25/22 02/25/22 Previous Rx's Medication Instructions Recorded Aspirin 81 mg PO DAILY chew 01/17/21 Allergies Allergy/AdvReac Type Severity Reaction Status Date / Time Penicillins Allergy Severe Anaphylaxis Verified 06/19/22 10:02 Review of Systems ROS Statement: Those systems with pertinent positive or pertinent negative responses have been documented in the HPI. ROS Other: All systems not noted in ROS Statement are negative. EKG Findings - EKG Results: EKG: interpreted by ERMD (EKG interpreted by me showed atrial flutter with a rapid ventricular response rate of 134 QRS duration 152 DT says QTC 374/453 episodes of left bundle-branch block pattern.) Past Medical History Past Medical History: Atrial Fibrillation, Cancer, Chest Pain / Angina, CVA/TIA, GERD/Reflux, Hypertension, Myocardial Infarction (AR), Syncope Additional Past Medical History / Comment(s): Pt thinks he may have had a AR in 2005, paroxysmal Afib, moderate to severe tear in aortic valve, mitral valve replace, possible pleurisy in past, cancerous colon polyps removed, pt states he has had intermittent R side abdominal/flank pain over the past year. Last Myocardial Infarction Date:: 2016 History of Any Multi-Drug Resistant Organisms: None Reported Past Surgical History: Adenoidectomy, Heart Catheterization, Tonsillectomy Additional Past Surgical History / Comment(s): 2016 cardiac cath, mitral valve replaced, colonoscopies with cancerous polypectomies Past Anesthesia/Blood Transfusion Reactions: No Reported Reaction Past Psychological History: No Psychological Hx Reported Smoking Status: Current every day smoker Past Alcohol Use History: Occasional Past Drug Use History: None Reported - Past Family History Father History Unknown: Yes Family Medical History: Unable to Obtain Additional Family Medical History / Comment(s): pt was adopted. Mother History Unknown: Yes Family Medical History: Unable to Obtain Additional Family Medical History / Comment(s): pt was adopted General Exam - General Exam Comments Initial Comments: Is a well-developed well-nourished awake alert oriented 4 male Limitations: no limitations General appearance: alert, in no apparent distress Head exam: Present: atraumatic, normocephalic, normal inspection Eye exam: Present: normal appearance, PERRL, EOMI. Absent: scleral icterus, conjunctival injection, periorbital swelling ENT exam: Present: normal exam, mucous membranes moist Neck exam: Present: normal inspection, full ROM, other (No stridor JVD or bruits). Absent: tenderness, meningismus, lymphadenopathy Respiratory exam: Present: normal lung sounds bilaterally, chest wall tenderness. Absent: respiratory distress, wheezes, rales, rhonchi, stridor Cardiovascular Exam: Present: tachycardia. Absent: systolic murmur, diastolic murmur, rubs, gallop, clicks GI/Abdominal exam: Present: soft, normal bowel sounds. Absent: distended, tenderness, guarding, rebound, rigid Extremities exam: Present: normal inspection, full ROM, normal capillary refill. Absent: tenderness, pedal edema, joint swelling, calf tenderness Back exam: Present: normal inspection Neurological exam: Present: alert, oriented X3, CN II-XII intact Psychiatric exam: Present: normal affect, normal mood Skin exam: Present: warm, dry, intact, normal color. Absent: rash Course Vital Signs 06/19/22 06/19/22 09:57 10:23 Temperature 97.8 F Pulse Rate 135 H 134 H Respiratory 16 18 Rate Blood Pressure 160/46 112/86 O2 Sat by Pulse 95 96 Oximetry - Reevaluation(s) Reevaluation #1: 06/19/22 11:10 I did discuss the case with Dr. Peoples who did come the emergency department to see the patient. Critical Care Time Critical Care Time: Yes Total Critical Care Time: 31 Critical Care Time: Critical care time including initial presentation with history physical labs x- rays discussed with the sending emergency department doctor. Review charting was sent with the patient discussion with the admitting physician admission orders neck mentation the above Disposition Clinical Impression: Unstable angina, Atypical chest pain, Atrial flutter, Tachycardia Disposition: ADMITTED IP TO THIS HOSP Condition: Fair Referrals: Yoshi Fulton MD [Primary Care Provider] - 1-2 days Decision Date: 06/19/22 Decision Time: 11:09
[2022-06-19] MEDS ORDERED: NITROGLYCERIN SL TABS 0.4 MG TAB SUBLINGUAL PRN (11:12)
--- NOTE | 2022-06-19 11:14 | ED ---
Disposition Clinical Impression: Unstable angina, Atypical chest pain, Atrial flutter, Tachycardia, Elevated troponin Disposition: ADMITTED IP TO THIS HOSP Condition: Fair Referrals: Yoshi Fulton MD [Primary Care Provider] - 1-2 days
[2022-06-19 11:49] LABS: INR 2.1 (<1.2); Prothrombin Time 20.5 sec (9.0-12.0)
[2022-06-19] MEDS ORDERED: HYDROcodone/APAP 5-325MG 1 EACH TAB PO PRN (11:58)
[2022-06-19 12:16] LABS: ALT 34 U/L (4-49); AST 39 U/L (17-59); African American GFR (CKD) >90 (>60 ml/min/1.73 sqM); Alkaline Phosphatase 37 U/L (38-126); Anion Gap 4 mmol/L; Blood Urea Nitrogen 11 mg/dL (9-20); Calcium 7.8 mg/dL (8.4-10.2); Carbon Dioxide 23 mmol/L (22-30); Chloride 111 mmol/L (98-107); Glucose 101 mg/dL (74-99); Non-African American GFR(CKD) 87 (>60 ml/min/1.73 sqM); Potassium 4.8 mmol/L (3.5-5.1); Sodium 138 mmol/L (137-145); Total Bilirubin 0.8 mg/dL (0.2-1.3); Total Protein 5.1 g/dL (6.3-8.2)
[2022-06-19] MEDS ORDERED: HEPARIN SODIUM 1,000 UN/ML (10ML VL) IV PRN ×2 (12:28→12:39)
[2022-06-19] MEDS ORDERED: HEPARIN SODIUM 1,000 UN/ML (10ML VL) IV ONE ×2 (12:28→12:45)
[2022-06-19] MEDS ORDERED: HEPARIN SOD,PORK IN 0.45% NACL 25,000 UNIT in 0.45% NACL 1 250ML.BAG IV SCH (12:30)
--- NOTE | 2022-06-19 12:40 | P.CRDCN ---
History of Present Illness Consult date: 06/19/22 History of present illness: History of Present Illness: The patient is a 52-year-old male was transferred from [place] for evaluation of dyspnea, arrhythmia and chest pain. He has a known history of mechanical mitral valve replacement in 2003, detail of that are not available. He is to follow with a lieutenant ballistics in [place] but has not seen him for over a year accor ding to him. He has been complaining of progressive dyspnea over the last few weeks and when he presented to [place] he was in atrial flutter with 2 to one conduction. Patient has been having progressive dyspnea, occasional peripheral edema. He feels dizzy but no syncope. He has a prior loop recorder has not been interrogated for over 2 years according to him. He denies any PND or orthopnea. He underwent cardiac catheterization in 2015 that showed no evidence of obstructive CAD. His dobutamine stress echocardiogram in January 2021 showed no evidence of inducible ischemia. He had an echocardiogram in February 2022 that showed an ejection fraction of 30-35% with moderate pulmonary hypertension. An [place] he was noted to have an INR of 1.2, alcohol level of 104 and troponin of 0.062. Patient continues to be in atrial flutter with 2 to one conduction at a rate of 130. This past summer he had a CVA with speech disturbance and right upper extremity weakness that improved. Medications: Coumadin, Lipitor 40 mg daily, metoprolol tartrate 25 mg twice a day, aspirin, albuterol Review of Systems: Respiratory: He has a history of chronic tobacco use and chronic dyspnea on exertion was cough and occasional hemoptysis GI: No nausea or vomiting . No history of peptic ulcer disease. No recent GI bleed. : No hematuria or dysuria. Nervous System: He has a prior history of right-sided weakness Physical Examination: 52-year-old male, alert oriented no apparent distress ,Blood pressure 114/80, Heart rate 1:30 Head: Normocephalic. Eyes: Sclerae nonicteric. Neck: Good carotid upstroke, no bruit, no jugular venous distention. Lungs: Decreased air exchange bilaterally Heart: Tachycardic, S2, mechanical mitral sound no S3, no rub. Systolic murmur murmur. Abdomen: Soft nontender, positive bowel sounds no organomegaly. Extremities: No edema, intact distal pulses. Labs: INR 2.1, BUN 11, creatinine 1.0, potassium 4.8 EKG: Atrial flutter with 2 to one conduction and nonspecific ST-T wave changes Impression: 1. Atrial flutter with rapid ventricular response 2. History of mitral valve replacement with metallic valve, circumstances of the procedure unclear 3. History of chronic tobacco use 4. Chronic alcohol intake 5. History of stroke 6. History of a loop recorder placement 2 years ago 7. Cardiomyopathy on most recent echocardiogram Plan: 1. Start IV heparin until INR above 2.5 2. Increased beta bea 3. Add amiodarone 4. Obtain an echocardiogram with Doppler 5. Try to obtain prior workup from [facility] at the time of the stroke 6. Alcohol and tobacco cessation 7. Blood pressure stable add KATELYNN inhibitor 8. Depending on his progress further recommendations will be made. 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 Last Myocardial Infarction Date:: 2016 History of Any Multi-Drug Resistant Organisms: None Reported Past Surgical History: Adenoidectomy, Heart Catheterization, Tonsillectomy Additional Past Surgical History / Comment(s): 2016 cardiac cath, mitral valve replaced, colonoscopies with cancerous polypectomies Past Anesthesia/Blood Transfusion Reactions: No Reported Reaction Past Psychological History: No Psychological Hx Reported Smoking Status: Current every day smoker Past Alcohol Use History: Occasional Past Drug Use History: None Reported - Past Family History Father History Unknown: Yes Family Medical History: Unable to Obtain Additional Family Medical History / Comment(s): pt was adopted. Mother History Unknown: Yes Family Medical History: Unable to Obtain Additional Family Medical History / Comment(s): pt was adopted Medications and Allergies Home Medications Medication Instructions Recorded Confirmed Type Metoprolol Tartrate [Lopressor] 25 mg PO BID 11/27/20 06/19/22 History Warfarin [Coumadin] 5 mg PO DAILY 11/27/20 06/19/22 History Aspirin 81 mg PO DAILY chew 01/17/21 06/19/22 Rx Albuterol Sulfate [Proair Hfa] 1 puff INHALATION RT-Q4H PRN 06/19/22 06/19/22 History Atorvastatin [Lipitor] 40 mg PO DAILY 06/19/22 06/19/22 History Fluticasone Propion/Salmeterol 1 puff INHALATION RT-BID 06/19/22 06/19/22 History [Advair 250-50 Diskus] Nitroglycerin Sl Tabs [Nitrostat] 0.4 mg SUBLINGUAL Q5M PRN 06/19/22 06/19/22 History Allergies Allergy/AdvReac Type Severity Reaction Status Date / Time Penicillins Allergy Severe Anaphylaxis Verified 06/19/22 11:06 Physical Exam Vitals: Vital Signs Temp Pulse Resp BP Pulse Ox 06/19/22 11:30 131 H 18 114/86 06/19/22 11:00 133 H 19 112/86 96 06/19/22 10:30 134 H 22 127/87 06/19/22 10:23 134 H 18 112/86 96 06/19/22 10:11 134 H 20 160/46 06/19/22 09:57 97.8 F 135 H 16 160/46 95 Intake and Output 06/18/22 06/19/22 06/19/22 22:59 06:59 14:59 Other: Weight 81.647 kg Results 06/19/22 11:37 Cardiac Enzymes 06/19/22 Range/Units 11:37 AST 39 (17-59) U/L Coagulation 06/19/22 Range/Units 11:26 PT 20.5 H (9.0-12.0) sec Comprehensive Metabolic Panel 06/19/22 Range/Units 11:37 Sodium 138 (137-145) mmol/L Potassium 4.8 (3.5-5.1) mmol/L Chloride 111 H (98-107) mmol/L Carbon Dioxide 23 (22-30) mmol/L BUN 11 (9-20) mg/dL Creatinine 1.00 (0.66-1.25) mg/dL Glucose 101 H (74-99) mg/dL Calcium 7.8 L (8.4-10.2) mg/dL AST 39 (17-59) U/L ALT 34 (4-49) U/L Alkaline Phosphatase 37 L (38-126) U/L Total Protein 5.1 L (6.3-8.2) g/dL Albumin 3.0 L (3.5-5.0) g/dL Current Medications Generic Name Dose Route Start Last Admin Trade Name Freq PRN Reason Stop Dose Admin Hydrocodone Bitart/Acetaminophen 1 each 06/19/22 11:58 Hydrocodone/Apap 5-325mg 1 Each Tab PO Q6HR PRN Pain Albuterol Sulfate 2.5 mg 06/19/22 11:56 Albuterol Nebulized 2.5 Mg/3 Ml INHALATION RT-Q4H PRN Shortness Of Breath Alprazolam 0.25 mg 06/19/22 11:58 Alprazolam 0.25 Mg Tab PO TID PRN Anxiety Aspirin 81 mg 06/20/22 09:00 Aspirin 81 Mg PO DAILY [facility] Atorvastatin Calcium 40 mg 06/20/22 09:00 Atorvastatin 40 Mg Tab PO DAILY [facility] Budesonide/Formoterol Fumarate 2 puff 06/19/22 20:00 Symbicort 80-4.5 Mcg Inhaler INHALATION RT-BID [facility] Sodium Chloride 1,000 mls @ 20 mls/hr 06/19/22 11:15 Saline 0.9% IV .Q24H [facility] Metoprolol Tartrate 50 mg 06/19/22 21:00 Metoprolol Tartrate 50 Mg Tab PO BID [facility] Miscellaneous Information 0 each 06/19/22 11:18 Warfarin Per Pharmacy MISCELLANE DIRECTED PRN ANTICOAG Nicotine 1 patch 06/20/22 09:00 Nicotine 14mg/24hr Patch TRANSDERM DAILY [facility] Nitroglycerin 0.4 mg 06/19/22 11:10 Nitroglycerin Sl Tabs 0.4 Mg Tab SUBLINGUAL Q5M PRN Chest Pain Warfarin Sodium 5 mg 06/20/22 09:00 Warfarin 5 Mg Tab PO DAILY [facility] Protocol Intake and Output 06/18/22 06/19/22 06/19/22 22:59 06:59 14:59 Other: Weight 81.647 kg Patient Weight 06/20/22 06:59 Weight 81.647 kg 06/19/22 11:37
[2022-06-19] MEDS: SODIUM CHLORIDE 0.9% 1,000 ML IV SCH (13:03)
[2022-06-19] MEDS: AMIODARONE 200 MG TAB PO SCH ×2 (13:05→20:26)
[2022-06-19] MEDS: SPIRONOLACTONE 25 MG TAB PO SCH (13:05)
[2022-06-19] MEDS: HEPARIN SOD,PORK IN 0.45% NACL 25,000 UNIT in 0.45% NACL 1 250ML.BAG IV SCH (13:07)
[2022-06-19 13:13] LABS: Basophils % (A) 1 %; Eosinophils # (A) 0.1 k/uL (0-0.7); Eosinophils % (A) 2 %; HCT 42.5 % (39.0-53.0); Lymphocytes # (A) 1.5 k/uL (1.0-4.8); Lymphocytes % (A) 34 %; MCH 31.8 pg (25.0-35.0); MCV 96.4 fL (80.0-100.0); Mean Platelet Volume 8.6; Monocytes # (A) 0.3 k/uL (0-1.0); Monocytes % (A) 7 %; Neutrophils # (A) 2.4 k/uL (1.3-7.7); Neutrophils % (A) 54 %; Platelet Count 177 k/uL (150-450); RBC 4.41 m/uL (4.30-5.90); RDW 13.4 % (11.5-15.5); WBC 4.4 k/uL (3.8-10.6)
[2022-06-19] MEDS: ALBUTEROL NEBULIZED 2.5 MG/3 ML INHALATION PRN ×2 (15:17→19:42)
[2022-06-19] MEDS ORDERED: WARFARIN 3 MG TAB PO ONE (18:00)
[2022-06-19] MEDS: SYMBICORT 80-4.5 MCG INHALER INHALATION SCH (19:42)
[2022-06-19] MEDS: METOPROLOL TARTRATE 50 MG TAB PO SCH (20:26)
[2022-06-19] MEDS ORDERED: MORPHINE SULFATE 2 MG/ML SYRINGE IVP STA (20:39)
[2022-06-19] MEDS ORDERED: METOPROLOL TARTRATE 25 MG TAB PO SCH (21:00)
[2022-06-20] MEDS: HYDROcodone/APAP 5-325MG 1 EACH TAB PO PRN ×5 (00:06→20:49)
--- NOTE | 2022-06-20 00:12 | HP ---
HISTORY AND PHYSICAL CHIEF COMPLAINT: Atrial flutter and chest pain. HISTORY OF PRESENT ILLNESS: This is a 52-year-old gentleman with a past medical history of stroke, hypertension, multiple medical problems, apparently had chest pain and pain all over and palpitations. The patient was found to have atrial flutter with fast ventricular rate and the patient and the patient is admitted for further evaluation and treatment. The patient was being hydrated. There is no history of any fever, rigors, chills at this time. INR is 2.1. PAST MEDICAL HISTORY: Reviewed include atrial fibrillation, CVA, TIA. The rest of the history and the chart is also reviewed. HOME MEDICATIONS: Reviewed include aspirin. Dose and rest of medications reviewed. ALLERGIES: Reviewed include penicillin. FAMILY HISTORY: Reviewed. The patient is adopted, unable to obtain. SOCIAL HISTORY: History of smoking. REVIEW OF SYSTEMS: A 14-point review of systems negative except as mentioned earlier. PHYSICAL EXAMINATION: VITAL SIGNS: Pulse is 133, regular. Blood pressure 112/80, respirations 19. HEENT: Conjunctivae normal. CARDIOVASCULAR: S1, S2, tachycardic. RESPIRATIONS: Diminished at the bases. A few scattered rhonchi. ABDOMEN: Soft. LEGS: No edema. NERVOUS SYSTEM: Diffusely weak. LABS: Reviewed. ASSESSMENT: 1. Atrial fibrillation flutter with fast ventricular rate. 2. Chest pain. 3. History of cerebrovascular accident, transient ischemic attack with right- sided weakness. 4. History of atrial fibrillation. 5. Hypertension. 6. History of multiple medical issues. RECOMMENDATION: This is a 52-year-old gentleman who presented with multiple complex medical issues. We will monitor the patient closely. Continue the current medications, symptomatic treatment. The patient is already on Coumadin which is therapeutic. We will continue with Coumadin at this time. We will initiate beta blockers. Cardiology consultation, troponins. Resume the home medications once I confirmed. Prognosis guarded because of multiple complex medical issues. Further symptomatic treatment also will be provided. Further recommendations to follow. See orders for further details. MMODL / IJN: [id number] / MTDD
[2022-06-20 01:51] LABS: INR 2.1 (<1.2); Prothrombin Time 20.4 sec (9.0-12.0)
[2022-06-20 02:06] LABS: Basophils # (A) 0.1 k/uL (0-0.2); Basophils % (A) 1 %; Eosinophils # (A) 0.1 k/uL (0-0.7); Eosinophils % (A) 3 %; HCT 39.8 % (39.0-53.0); HGB 13.1 gm/dL (13.0-17.5); Lymphocytes # (A) 1.4 k/uL (1.0-4.8); Lymphocytes % (A) 28 %; MCH 31.9 pg (25.0-35.0); MCV 96.8 fL (80.0-100.0); Mean Platelet Volume 8.4; Monocytes # (A) 0.3 k/uL (0-1.0); Monocytes % (A) 7 %; Neutrophils # (A) 2.9 k/uL (1.3-7.7); Neutrophils % (A) 59 %; Platelet Count 170 k/uL (150-450); RBC 4.11 m/uL (4.30-5.90); RDW 12.7 % (11.5-15.5); WBC 4.9 k/uL (3.8-10.6)
[2022-06-20 08:22] LABS: Basophils % (A) 1 %; Eosinophils # (A) 0.1 k/uL (0-0.7); Eosinophils % (A) 2 %; HGB 13.7 gm/dL (13.0-17.5); Lymphocytes # (A) 1.6 k/uL (1.0-4.8); Lymphocytes % (A) 35 %; MCH 32.3 pg (25.0-35.0); MCHC 33.3 g/dL (31.0-37.0); MCV 96.9 fL (80.0-100.0); Mean Platelet Volume 8.4; Monocytes # (A) 0.3 k/uL (0-1.0); Monocytes % (A) 6 %; Neutrophils # (A) 2.5 k/uL (1.3-7.7); Neutrophils % (A) 55 %; Platelet Count 179 k/uL (150-450); RBC 4.23 m/uL (4.30-5.90); RDW 12.8 % (11.5-15.5); WBC 4.5 k/uL (3.8-10.6)
[2022-06-20] MEDS: ALBUTEROL NEBULIZED 2.5 MG/3 ML INHALATION PRN (08:29)
[2022-06-20] MEDS: SYMBICORT 80-4.5 MCG INHALER INHALATION SCH ×2 (08:31→19:03)
[2022-06-20 08:51] LABS: ALT 32 U/L (4-49); AST 37 U/L (17-59); African American GFR (CKD) >90 (>60 ml/min/1.73 sqM); Albumin 2.7 g/dL (3.5-5.0); Alkaline Phosphatase 39 U/L (38-126); Anion Gap 2 mmol/L; Blood Urea Nitrogen 14 mg/dL (9-20); Calcium 7.5 mg/dL (8.4-10.2); Carbon Dioxide 24 mmol/L (22-30); Chloride 107 mmol/L (98-107); Glucose 105 mg/dL (74-99); Non-African American GFR(CKD) 87 (>60 ml/min/1.73 sqM); Potassium 4.4 mmol/L (3.5-5.1); Sodium 133 mmol/L (137-145); Total Bilirubin 0.9 mg/dL (0.2-1.3); Total Protein 4.9 g/dL (6.3-8.2)
[2022-06-20] MEDS ORDERED: ASPIRIN 325 MG TAB PO SCH (09:00)
[2022-06-20] MEDS ORDERED: WARFARIN 5 MG TAB PO SCH (09:00)
[2022-06-20] MEDS ORDERED: ASPIRIN 81 MG PO SCH (09:00)
[2022-06-20] MEDS: ATORVASTATIN 40 MG TAB PO SCH (11:12)
[2022-06-20] MEDS: METOPROLOL TARTRATE 50 MG TAB PO SCH ×3 (11:12→20:50)
[2022-06-20] MEDS: ASPIRIN 81 MG PO SCH (11:12)
[2022-06-20] MEDS: SPIRONOLACTONE 25 MG TAB PO SCH (11:13)
[2022-06-20] MEDS: NICOTINE 14MG/24HR PATCH TRANSDERM SCH (11:13)
[2022-06-20] MEDS: AMIODARONE 200 MG TAB PO SCH ×2 (11:13→20:50)
[2022-06-20] MEDS: HEPARIN SOD,PORK IN 0.45% NACL 25,000 UNIT in 0.45% NACL 1 250ML.BAG IV SCH (11:15)
--- NOTE | 2022-06-20 14:29 | P.PN ---
Subjective Progress Note Date: 06/20/22 PROGRESS NOTE The patient is a 52-year-old male was transferred from [place] for evaluation of dyspnea, arrhythmia and chest pain. He has a known history of mechanical mitral valve replacement in 2003, detail of that are not available. He is to follow with a supervisor modern languages in [place] but has not seen him for over a year according to him. He has been complaining of progressive dyspnea over the last few weeks and when he presented to [place] he was in atrial flutter with 2 to one conduction. Patient has been having progressive dyspnea, occasional peripheral edema. He feels dizzy but no syncope. He has a prior loop recorder has not been interrogated for over 2 years according to him. He denies any PND or orthopnea. He underwent cardiac catheterization in 2015 that showed no evidence of obstructive CAD. His dobutamine stress echocardiogram in January 2021 showed no evidence of inducible ischemia. He had an echocardiogram in February 2022 that showed an ejection fraction of 30-35% with moderate pulmonary hypertension. An [place] he was noted to have an INR of 1.2, alcohol level of 104 and troponin of 0.062. Patient continues to be in atrial flutter with 2 to one conduction at a rate of 130. This past summer he had a CVA with speech disturbance and right upper extremity weakness that improved. June 20: The patient continues to be dyspneic. He continues to be in atrial flutter with rapid ventricular response with 2 to one conduction. He has chest tightness. He feels the palpitations. He feels fatigued. He denies any nausea or vomiting. His echocardiogram is pending Medications: Amiodarone 400 mg twice a day, Coumadin, IV heparin, aspirin, Lipitor 40 mg daily, metoprolol tartrate 50 mg twice a day, nicotine patch, Aldactone 25 mg daily PHYSICAL EXAMINATION: Blood pressure 110/80 heart rate 0.20 LUNGS: Decreased air exchange HEART: Regular rate, tachycardic and rhythm, metallic mitral sound, S2. No S3. systolic ejection murmur ABDOMEN: Soft, nontender, no organomegaly EXTREMETIES: No edema LAB: Hemoglobin 13.7, potassium 4.4, BUN 14, creatinine 1.0, INR 2.1. IMPRESSION: 1. Atrial flutter with 2 to one conduction 2. History of mitral valve replacement 3. History of stroke 4. Progressive dyspnea probably exacerbation of COPD in addition to the atrial flutter 5. Chronic tobacco use 6. Symptoms of chest discomfort with no evidence of obstructive CAD in the past. 7. History of cardiomyopathy PLAN: 1. Obtain an echocardiogram with Doppler 2. Increase beta bea 3. If he remains in atrial flutter proceed with SHARAD cardioversion tomorrow, the risks and the complications was discussed with the patient 4. Depending on his progress further recommendations will be made Objective - Vital Signs Vital signs: Vital Signs Temp 97.6 F 06/20/22 12:00 Pulse 125 H 06/20/22 12:00 Resp 15 06/20/22 12:00 BP 110/81 06/20/22 12:00 Pulse Ox 100 06/20/22 12:00 FiO2 Intake & Output 06/19/22 06/20/22 06/20/22 18:59 06:59 18:59 Intake Total 126.884 254.982 Balance 126.884 254.982 Weight 81.647 kg Intake: Intake, IV Titration 126.884 74.982 Amount Heparin Sod,Pork in 0.45% 126.884 74.982 NaCl 25,000 unit In 0.45 % NaCl 1 250ml.bag @ 12 UNITS/KG/HR 9.798 mls/hr IV .Q24H [facility] Rx#: [id number] Oral 180 Other: Voiding Method Toilet Toilet # Voids 1 2 - Labs CBC & Chem 7: 06/20/22 07:57 06/20/22 07:57 Labs: Abnormal Lab Results - Last 24 Hours (Table) 06/19/22 06/19/22 06/20/22 Range/Units 14:34 19:06 01:25 RBC 4.11 L (4.30-5.90) m/uL PT (9.0-12.0) sec INR (<1.2) APTT 65.2 H (22.0-30.0) sec Sodium (137-145) mmol/L Glucose (74-99) mg/dL Calcium (8.4-10.2) mg/dL Troponin I 0.066 H* (0.000-0.034) ng/mL Total Protein (6.3-8.2) g/dL Albumin (3.5-5.0) g/dL 06/20/22 06/20/22 06/20/22 Range/Units 01:25 01:25 07:57 RBC (4.30-5.90) m/uL PT 20.4 H (9.0-12.0) sec INR 2.1 H (<1.2) APTT 78.8 H (22.0-30.0) sec Sodium 133 L (137-145) mmol/L Glucose 105 H (74-99) mg/dL Calcium 7.5 L (8.4-10.2) mg/dL Troponin I (0.000-0.034) ng/mL Total Protein 4.9 L (6.3-8.2) g/dL Albumin 2.7 L (3.5-5.0) g/dL 06/20/22 06/20/22 Range/Units 07:57 07:57 RBC 4.23 L (4.30-5.90) m/uL PT (9.0-12.0) sec INR (<1.2) APTT 56.1 H (22.0-30.0) sec Sodium (137-145) mmol/L Glucose (74-99) mg/dL Calcium (8.4-10.2) mg/dL Troponin I (0.000-0.034) ng/mL Total Protein (6.3-8.2) g/dL Albumin (3.5-5.0) g/dL
[2022-06-20 14:58] LABS: Chol/HDL Ratio 2.44 Ratio; LDL Cholesterol,Calculated 52.6 mg/dL (0.0-131.0); VLDL Calculation 15.28 mg/dL (5.00-40.00)
[2022-06-20] MEDS: SODIUM CHLORIDE 0.9% 1,000 ML IV SCH (17:11)
[2022-06-20] MEDS ORDERED: WARFARIN 3 MG TAB PO ONE (18:00)
--- NOTE | 2022-06-20 19:35 | P.PN ---
Progress Note - Text Progress Note Date: 06/20/22 Presenting complaint: Chest pain Hospital course: 52-year-old patient, follows with Dr. Fulton. Chronic stable medical conditions include atrial fibrillation, GERD, hypertension, mitral valve replacement, smoker. Admitted with chest pain shortness of breath.. Patient was transferred from [place]. Has been on mechanical mitral valve replacement. Patient stopped following with his ldr nurse. As [place] was in atrial flutter with 2 stent 1 conduction. Echocardiogram in February 2022 showed EF of 30-35%. Moderate pulmonary hypertension. Alcohol level of 104. Patient on by mouth amiodarone, IV heparin 06/20/2022: Patient does feel a bit short of breath. Being followed by cardiology. Remains in atrial flutter. On amiodarone. Increased Lopressor 50 mg 3 times a day. Tired. Active Medications Hydrocodone Bitart/Acetaminophen (Hydrocodone/Apap 5-325mg 1 Each Tab) 1 each PO Q4HR PRN PRN Reason: Pain Last Admin: 06/20/22 17:10 Dose: 1 each Albuterol Sulfate (Albuterol Nebulized 2.5 Mg/3 Ml) 2.5 mg INHALATION RT-Q4H PRN PRN Reason: Shortness Of Breath Last Admin: 06/20/22 08:29 Dose: 2.5 mg Alprazolam (Alprazolam 0.25 Mg Tab) 0.25 mg PO TID PRN PRN Reason: Anxiety Amiodarone HCl (Amiodarone 200 Mg Tab) 400 mg PO BID [facility] Last Admin: 06/20/22 11:13 Dose: 400 mg Aspirin (Aspirin 81 Mg) 81 mg PO DAILY [facility] Last Admin: 06/20/22 11:12 Dose: 81 mg Atorvastatin Calcium (Atorvastatin 40 Mg Tab) 40 mg PO DAILY [facility] Last Admin: 06/20/22 11:12 Dose: 40 mg Budesonide/Formoterol Fumarate (Symbicort 80-4.5 Mcg Inhaler) 2 puff INHALATION RT-BID [facility] Last Admin: 06/20/22 19:03 Dose: Not Given Heparin Sodium (Porcine) (Heparin Sodium 1,000 Un/Ml (10ml Vl)) 0 unit IV PER PROTOCOL PRN; Protocol PRN Reason: Low PTT Sodium Chloride (Saline 0.9%) 1,000 mls @ 20 mls/hr IV .Q24H [facility] Last Admin: 06/20/22 17:11 Dose: 20 mls/hr Heparin Sodium/Sodium Chloride (25,000 unit/ Sodium Chloride) 250 mls @ 9.798 mls/hr IV .Q24H [facility]; Protocol Last Admin: 06/20/22 11:15 Dose: 10 units/kg/hr, 8.165 mls/hr Metoprolol Tartrate (Metoprolol Tartrate 50 Mg Tab) 50 mg PO TID [facility] Last Admin: 06/20/22 17:10 Dose: 50 mg Miscellaneous Information (Warfarin Per Pharmacy) 0 each MISCELLANE DIRECTED PRN PRN Reason: ANTICOAG Nicotine (Nicotine 14mg/24hr Patch) 1 patch TRANSDERM DAILY [facility] Last Admin: 06/20/22 11:13 Dose: Not Given Nitroglycerin (Nitroglycerin Sl Tabs 0.4 Mg Tab) 0.4 mg SUBLINGUAL Q5M PRN PRN Reason: Chest Pain Spironolactone (Spironolactone 25 Mg Tab) 25 mg PO DAILY [facility] Last Admin: 06/20/22 11:13 Dose: 25 mg On examination: VITAL SIGNS: 97.6, 125, 110/ 81, 100% room air GENERAL APPEARANCE: Reclining in bed, awake not in distress HEENT: Normal external appearance of nose and ear. Oral cavity normal EYES: Pupils equal. Conjunctiva normal. NECK: JVD not raised. Mass not palpable. RESPIRATORY: Respiratory effort normal. Lungs agrees breath sounds CARDIOVASCULAR: Heart sounds irregular. No edema. ABDOMEN: Soft. Liver and spleen not palpable. No tenderness. No mass palpable. PSYCHIATRY: Alert and oriented x3. Mood and affect anxious. INVESTIGATIONS, reviewed in the clinical context: White count 4.5 hemoglobin 13.7 platelets 179 potassium 4.4 creatinine 1.0 Troponin I 0.069, 0.066 TSH 3.9 LDL 52 EKG tracing personally reviewed by me-atrial flutter with a rate of 134 Assessment and plan: -Atrial flutter with 2 stent 1 conduction: Uncontrolled Amiodarone. IV heparin. -COPD in a current smoker Symbicort, Ventolin when necessary -IV heparin monitoring Follow PTT -Chronic nicotine dependence, cigarette smoker Nicotine patch -Coumadin monitoring -Chronic cardiomyopathy EF 30-35%/systolic dysfunction Aldactone By mouth Cordarone. IV heparin. Bronchodilators. Aldactone. If after 2 visits uncontrolled possible cardioversion per cardiology tomorrow.
[2022-06-20] MEDS: ALPRAZolam 0.25 MG TAB PO PRN (20:49)
[2022-06-21] MEDS: HYDROcodone/APAP 5-325MG 1 EACH TAB PO PRN ×3 (01:40→21:12)
[2022-06-21] MEDS: SYMBICORT 80-4.5 MCG INHALER INHALATION SCH (08:17)
[2022-06-21 08:39] LABS: African American GFR (CKD) >90 (>60 ml/min/1.73 sqM); Anion Gap 2 mmol/L; Blood Urea Nitrogen 13 mg/dL (9-20); Calcium 7.7 mg/dL (8.4-10.2); Carbon Dioxide 26 mmol/L (22-30); Chloride 107 mmol/L (98-107); Glucose 81 mg/dL (74-99); Non-African American GFR(CKD) 82 (>60 ml/min/1.73 sqM); Potassium 4.4 mmol/L (3.5-5.1); Sodium 135 mmol/L (137-145)
[2022-06-21 08:49] LABS: INR 2.9 (<1.2); Partial Thromboplastin Time 48.5 sec (22.0-30.0); Prothrombin Time 28.3 sec (9.0-12.0)
[2022-06-21] MEDS: ATORVASTATIN 40 MG TAB PO SCH (09:05)
[2022-06-21] MEDS: NICOTINE 14MG/24HR PATCH TRANSDERM SCH (09:05)
[2022-06-21] MEDS: ASPIRIN 81 MG PO SCH (09:05)
[2022-06-21] MEDS: AMIODARONE 200 MG TAB PO SCH ×2 (09:05→21:12)
[2022-06-21] MEDS: SPIRONOLACTONE 25 MG TAB PO SCH (09:05)
[2022-06-21] MEDS: METOPROLOL TARTRATE 50 MG TAB PO SCH ×2 (09:05→21:12)
[2022-06-21] MEDS: ALPRAZolam 0.25 MG TAB PO PRN ×2 (09:10→21:15)
[2022-06-21] MEDS ORDERED: LACTATED RINGERS 1,000 ML IV ONE ×2 (09:32)
[2022-06-21] MEDS ORDERED: fentaNYL (PF) 50 MCG/ML 2 ML AMP ONE (10:18)
[2022-06-21] MEDS ORDERED: PROPOFOL 10 MG/ML 20 ML VIAL IV ONE (10:18)
[2022-06-21] MEDS ORDERED: LIDOCAINE 2% INJ 20 MG/ML (2 ML VIAL) ONE (10:18)
--- NOTE | 2022-06-21 10:57 | P.PN ---
Subjective Progress Note Date: 06/21/22 PROGRESS NOTE The patient is a 52-year-old male was transferred from [place] for evaluation of dyspnea, arrhythmia and chest pain. He has a known history of mechanical mitral valve replacement in 2003, detail of that are not available. He is to follow with a president & founder in [place] but has not seen him for over a year according to him. He has been complaining of progressive dyspnea over the last few weeks and when he presented to [place] he was in atrial flutter with 2 to one conduction. Patient has been having progressive dyspnea, occasional peripheral edema. He feels dizzy but no syncope. He has a prior loop recorder has not been interrogated for over 2 years according to him. He denies any PND or orthopnea. He underwent cardiac catheterization in 2015 that showed no evidence of obstructive CAD. His dobutamine stress echocardiogram in January 2021 showed no evidence of inducible ischemia. He had an echocardiogram in February 2022 that showed an ejection fraction of 30-35% with moderate pulmonary hypertension. An [place] he was noted to have an INR of 1.2, alcohol level of 104 and troponin of 0.062. Patient continues to be in atrial flutter with 2 to one conduction at a rate of 130. This past summer he had a CVA with speech disturbance and right upper extremity weakness that improved. June 20: The patient continues to be dyspneic. He continues to be in atrial flutter with rapid ventricular response with 2 to one conduction. He has chest tightness. He feels the palpitations. He feels fatigued. He denies any nausea or vomiting. His echocardiogram is pending June 21: The patient continues to be in atrial flutter with 2 to one conduction and rapid ventricular rate. He continues to be dyspneic, fatigued and dizzy. He has some fullness in the chest. He denies any nausea or vomiting. His blood pressure is stable. Medications: Amiodarone 400 mg twice a day, Coumadin, IV heparin, aspirin, Lipitor 40 mg daily, metoprolol tartrate 50 mg 3 times a day, nicotine patch, Aldactone 25 mg daily PHYSICAL EXAMINATION: Blood pressure 122/80 heart rate 120 LUNGS: Decreased air exchange HEART: Regular rate, tachycardic and rhythm, metallic mitral sound, S2. No S3. systolic ejection murmur ABDOMEN: Soft, nontender, no organomegaly EXTREMETIES: No edema LAB: potassium 4.4, BUN 13, creatinine 1.06, INR 2.9. IMPRESSION: 1. Atrial flutter with 2 to one conduction 2. History of mitral valve replacement 3. History of stroke 4. Progressive dyspnea probably exacerbation of COPD in addition to the atrial flutter 5. Chronic tobacco use 6. Symptoms of chest discomfort with no evidence of obstructive CAD in the past. 7. History of cardiomyopathy PLAN: 1. Obtain an echocardiogram with Doppler 2. Proceed with SHARAD guided cardioversion 3. Stop heparin 4. Add KATELYNN inhibitor 5. Depending on his progress further recommendations will be made Objective - Vital Signs Vital signs: Vital Signs Temp 98 F 06/21/22 10:23 Pulse 120 H 06/21/22 09:32 Resp 24 06/21/22 09:32 BP 122/82 06/21/22 09:32 Pulse Ox 100 06/21/22 09:32 FiO2 Intake & Output 06/20/22 06/21/22 06/21/22 18:59 06:59 18:59 Intake Total 254.982 337.98 677.861 Balance 254.982 337.98 677.861 Intake: IV 97.98 500 Heparin Sod,Pork in 0.45% 97.98 NaCl 25,000 unit In 0.45 % NaCl 1 250ml.bag @ 12 UNITS/KG/HR 9.798 mls/hr IV .Q24H [facility] Rx#: [id number] Intake, IV Titration 74.982 240 177.861 Amount Heparin Sod,Pork in 0.45% 74.982 177.861 NaCl 25,000 unit In 0.45 % NaCl 1 250ml.bag @ 12 UNITS/KG/HR 9.798 mls/hr IV .Q24H [facility] Rx#: [id number] Sodium Chloride 0.9% 1, 240 000 ml @ 20 mls/hr IV . Q24H [facility] Rx#:[id number] Oral 180 Other: Voiding Method Toilet Toilet # Voids 2 1 - Labs CBC & Chem 7: 06/20/22 07:57 06/21/22 08:03 Labs: Abnormal Lab Results - Last 24 Hours (Table) 06/21/22 06/21/22 Range/Units 08:03 08:03 PT 28.3 H (9.0-12.0) sec INR 2.9 H (<1.2) APTT 48.5 H (22.0-30.0) sec Sodium 135 L (137-145) mmol/L Calcium 7.7 L (8.4-10.2) mg/dL
--- NOTE | 2022-06-21 11:01 | P.PCN ---
Date of Procedure: 06/21/22 Description of Procedure: Indication: Atrial flutter Procedure Description: After explaining the procedure to the patient, it's risk and complications, blood pressure, heart rate and O2 saturation were monitored. The throat was sprayed with Cetacaine. Patient received sedation per anesthesia department. The probe was introduced into the esophagus without difficulty. Images were obtained. Following that, the probe was removed. There was no immediate complication. Findings: Left atrial size is dilated, left atrial appendage is occluded. The ventricle size is normal severe global hypokinesis, ejection fraction 30-35%. The aortic valve appears to be normal. 2 tilting-disc mitral valve was noted with normal movement of the disc. Tricuspid valve is normal. No pericardial effusion was noted. Descending thoracic aorta appears to be normal. Contrast bubble study revealed no shunting across the intra-atrial septum. Doppler: Pulse wave and color Doppler were obtained, it revealed mild mitral and tricuspid regurgitation. Mild mitral regurgitation was noted. No shunting across the intra-atrial septum was noted. Conclusion: 1. Dilated left atrium with occluded left atrial appendage 2. Severely impaired left ventricle systolic function with global hypokinesis 3. Normal functioning of the mitral valve replacement with mild mitral regurgitation 4. And mild tricuspid and aortic regurgitation 5. No shunting across intra-atrial septum Cardioversion: After performing SHARAD and obtaining sedated state synchronize biphasic cardioversion using 150 J was performed with lutheran of sinus mechanism, there is no immediate complications.
[2022-06-21] MEDS ORDERED: ALBUTEROL NEBULIZED 1.25 MG/3 ML INHALATION ONE (11:30)
--- NOTE | 2022-06-21 11:41 | CA ---
Transthoracic Echo Report Name: Yoshi Cortez Age: 52 Gender: M : 1970 Exam Date: 06/21/2022 10:52 Exam Location: [facility] Ht (in): 70 Wt (lb): 180 Ordering Physician: Joe Hernandez MD ([id number]) Attending/Referring Phys: Legal Project Manager Jimena Carrillo RDCS Procedure CPT: Indications: MVR Cardiac Hx: Technical Quality: Fair Contrast 1: Total Dose (mL): Contrast 2: Total Dose (mL): MEASUREMENTS (Male / Female) Normal Values 2D ECHO LV Diastolic Diameter PLAX 5.0 cm 4.2 - 5.9 / 3.9 - 5.3 cm LV Systolic Diameter PLAX 4.5 cm IVS Diastolic Thickness 1.7 cm 0.6 - 1.0 / 0.6 - 0.9 cm LVPW Diastolic Thickness 1.5 cm 0.6 - 1.0 / 0.6 - 0.9 cm LV Relative Wall Thickness 0.7 RV Internal Dim ED PLAX 2.5 cm LV Diastolic Volume MOD BP 149.5 cm??? 67 - 155 / 56 - 104 cm??? LV Systolic Volume MOD BP 108.4 cm??? 22 - 58 / 19 - 49 cm??? LV Ejection Fraction MOD BP 27.5 % >= 55 % LV Cardiac Index MOD BP 1283.3 cm???/min???m??? LV Diastolic Volume MOD 4C 152.6 cm??? LV Systolic Volume MOD 4C 107.7 cm??? LV Ejection Fraction MOD 4C 29.4 % LV Cardiac Index MOD 4C 1401.1 cm???/min???m??? LV Diastolic Length 4C 8.0 cm LV Systolic Length 4C 8.5 cm LV Diastolic Volume MOD 2C 131.0 cm??? LV Systolic Volume MOD 2C 106.2 cm??? LV Ejection Fraction MOD 2C 18.9 % LV Cardiac Index MOD 2C 773.5 cm???/min???m??? LV Diastolic Length 2C 9.0 cm LV Systolic Length 2C 8.8 cm LA Volume 91.1 cm??? 18 - 58 / 22 - 52 cm??? M-MODE Aortic Root Diameter MM 3.1 cm LA Systolic Diameter MM 6.0 cm LA Ao Ratio MM 2.0 AV Cusp Separation MM 2.1 cm DOPPLER AV Peak Velocity 124.7 cm/s AV Peak Gradient 6.2 mmHg AV Mean Velocity 95.1 cm/s AV Mean Gradient 4.0 mmHg AV Velocity Time Integral 19.2 cm AI Peak Velocity 319.4 cm/s AI Peak Gradient 40.8 mmHg AI Pressure Half Time 725.7 ms LVOT Peak Velocity 60.2 cm/s LVOT Peak Gradient 1.4 mmHg LVOT Velocity Time Integral 10.4 cm MV Peak Velocity 130.6 cm/s MV Peak Gradient 6.8 mmHg MV Mean Velocity 61.7 cm/s MV Mean Gradient 1.9 mmHg MV Velocity Time Integral 30.0 cm MV Area PHT 4.1 cm??? TR Peak Velocity 236.8 cm/s TR Peak Gradient 22.4 mmHg Right Ventricular Systolic Press 26.7 mmHg FINDINGS Left Ventricle Severely increased septal wall thickness. moderate to Severely increased left ventricular systolic volume.moderate to Severely decreased left ventricular ejection fraction. Left ventricular ejection fraction is estimated at 30-35% %. Right Ventricle Normal right ventricular size and function. Right ventricular systolic pressure within normal limits. Right Atrium Severe right atrial dilatation. Left Atrium Severely increased left atrial volume.moderate left atrial dilatation. . Mitral Valve Prosthetic mitral valve regurgitation. Normally functioning prosthetic mitral valve. Aortic Valve Trileaflet aortic valve. [id number] aortic regurgitation. Aortic valve sclerosis. Thickened aortic valve without stenosis. Tricuspid Valve Structurally normal tricuspid valve. Moderate tricuspid regurgitation. Pulmonic Valve Trace pulmonic regurgitation. Pericardium No pericardial effusion. Aorta Normal size aortic root and proximal ascending aorta. CONCLUSIONS There is a mechanical mitral valve that seems to be functioning normally Moderate to severe LV systolic dysfunction with an ejection fraction of 30-35% Moderate tricuspid regurgitation Previewed by: Dr. Yaya Carias MD (Electronically Signed) Final Date: 21 June 2022 11:40
[2022-06-21] MEDS: SODIUM CHLORIDE 0.9% 1,000 ML IV SCH ×2 (12:12)
--- NOTE | 2022-06-21 15:44 | P.PN ---
Progress Note - Text Progress Note Date: 06/21/22 Presenting complaint: Chest pain Hospital course: 52-year-old patient, follows with Dr. Fulton. Chronic stable medical conditions include atrial fibrillation, GERD, hypertension, mitral valve replacement, smoker. Admitted with chest pain shortness of breath.. Patient was transferred from [place]. Has been on mechanical mitral valve replacement. 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 As [place] was in atrial flutter with 2 stent 1 conduction. Echocardiogram in February 2022 showed EF of 30-35%. Moderate pulmonary hypertension. Alcohol level of 104. Patient on by mouth amiodarone, IV heparin 06/20/2022: Patient does feel a bit short of breath. Being followed by cardiology. Remains in atrial flutter. On amiodarone. Increased Lopressor 50 mg 3 times a day. Tired. 06/21/2022: Early today patient remained in atrial flutter to 2: 1. Underwent SHARAD followed by cardioversion by Dr. Hernandez. Postprocedure remained short of breath. Consult Dr. Culp. Add DuoNeb. Pulmicort. Entresto being started by cardiology. Active Medications Hydrocodone Bitart/Acetaminophen (Hydrocodone/Apap 5-325mg 1 Each Tab) 1 each PO Q4HR PRN PRN Reason: Pain Last Admin: 06/21/22 06:46 Dose: 1 each Albuterol Sulfate (Albuterol Nebulized 2.5 Mg/3 Ml) 2.5 mg INHALATION RT-Q4H PRN PRN Reason: Shortness Of Breath Last Admin: 06/20/22 08:29 Dose: 2.5 mg Albuterol/Ipratropium (Ipratropium-Albuterol 3 Ml Neb) 3 ml INHALATION RT-QID [facility] Alprazolam (Alprazolam 0.25 Mg Tab) 0.25 mg PO TID PRN PRN Reason: Anxiety Last Admin: 06/21/22 09:10 Dose: 0.25 mg Amiodarone HCl (Amiodarone 200 Mg Tab) 400 mg PO BID [facility] Last Admin: 06/21/22 09:05 Dose: 400 mg Aspirin (Aspirin 81 Mg) 81 mg PO DAILY [facility] Last Admin: 06/21/22 09:05 Dose: 81 mg Atorvastatin Calcium (Atorvastatin 40 Mg Tab) 40 mg PO DAILY [facility] Last Admin: 06/21/22 09:05 Dose: 40 mg Budesonide (Budesonide 1 Mg/2 Ml Nebu) 1 mg INHALATION RT-BID [facility] Budesonide/Formoterol Fumarate (Symbicort 80-4.5 Mcg Inhaler) 2 puff INHALATION RT-BID [facility] Last Admin: 06/21/22 08:17 Dose: Not Given Sodium Chloride (Saline 0.9%) 1,000 mls @ 20 mls/hr IV .Q24H [facility] Last Admin: 06/21/22 12:12 Dose: Not Given Metoprolol Tartrate (Metoprolol Tartrate 50 Mg Tab) 50 mg PO BID [facility] Miscellaneous Information (Warfarin Per Pharmacy) 0 each MISCELLANE DIRECTED PRN PRN Reason: ANTICOAG Nicotine (Nicotine 14mg/24hr Patch) 1 patch TRANSDERM DAILY [facility] Last Admin: 06/21/22 09:05 Dose: Not Given Nitroglycerin (Nitroglycerin Sl Tabs 0.4 Mg Tab) 0.4 mg SUBLINGUAL Q5M PRN PRN Reason: Chest Pain Sacubitril/Valsartan (Sacubitril/Valsartan 24 Mg-26 Mg Tablet) 1 each PO BID [facility] Spironolactone (Spironolactone 25 Mg Tab) 25 mg PO DAILY [facility] Last Admin: 06/21/22 09:05 Dose: 25 mg Warfarin Sodium (Warfarin 5 Mg Tab) 5 mg PO ONCE@1800 ONE Stop: 06/21/22 18:01 On examination: VITAL SIGNS: 97.5, 73, 17, 94/61, 100% on 2 L GENERAL APPEARANCE: Reclining in bed, awake , complaining of shortness of breath HEENT: Normal external appearance of nose and ear. Oral cavity normal EYES: Pupils equal. Conjunctiva normal. NECK: JVD not raised. Mass not palpable. RESPIRATORY: Respiratory effort normal. Lungs decreased breath sounds CARDIOVASCULAR: First seconds are normal. No edema. ABDOMEN: Soft. Liver and spleen not palpable. No tenderness. No mass palpable. PSYCHIATRY: Alert and oriented x3. Mood and affect anxious. INVESTIGATIONS, reviewed in clinical context: 06/21/2022: INR 2.9 potassium 4.4 creatinine 1.06 White count 4.5 hemoglobin 13.7 platelets 179 potassium 4.4 creatinine 1.0 Troponin I 0.069, 0.066 TSH 3.9 LDL 52 EKG tracing personally reviewed by me-atrial flutter with a rate of 134 Assessment and plan: -Atrial flutter with 2 stent 1 conduction: Cardioverted to sinus rhythm Amiodarone. IV heparin. SHARAD followed by successful cardioversion on June [address] Hernandez. -Acute COPD exacerbation in a current smoker: Uncontrolled Symbicort, Ventolin when necessary. Add DuoNeb 4 times a day, Pulmicort 1 mg twice a day. -IV heparin monitoring: Discontinued Follow PTT -Chronic nicotine dependence, cigarette smoker Nicotine patch -Coumadin monitoring Follow INR -Chronic cardiomyopathy EF 30-35%/systolic dysfunction Aldactone. Entresto at it today Cordarone. IV heparin discontinued. Aldactone. Start DuoNeb 4 times a day and Pulmicort nebulizers twice a day. Consult pulmonary. Chest x-ray 2 view.
--- NOTE | 2022-06-21 16:14 | XR ---
EXAMINATION TYPE: XR chest 2V DATE OF EXAM: 06/21/2022 4:10 PM COMPARISON: Chest radiographs from 02/24/2021 TECHNIQUE: XR chest 2V Frontal and lateral views of the chest. CLINICAL INDICATION:Male, 52 years old with history of Short of breath; FINDINGS: Lungs/Pleura: There is no evidence of pleural effusion, focal consolidation, or pneumothorax. Pulmonary vascularity: Unremarkable. Heart/mediastinum: Cardiomediastinal silhouette is unremarkable. Post mitral valve repair changes. A loop recorder projects over the left thorax over the heart. Musculoskeletal: No acute osseous pathology. Midline sternotomy wires are noted. Multiple remote post erior right rib fractures. IMPRESSION: Increased interstitial prominence projecting over the heart correlate with serum BNP.
[2022-06-21] MEDS: SACUBITRIL/VALSARTAN 24 MG-26 MG TABLET PO SCH ×2 (16:36→21:12)
--- NOTE | 2022-06-21 16:37 | P.CNPUL ---
History of Present Illness Consult date: 06/21/22 Reason for consult: dyspnea History of present illness: 52-year-old male patient, presented to the hospital because of shortness of breath. Extensive cardiac history including a mitral valve replacement with a mechanical valve that was done 2003 in [place]. Patient has none obstructive CAD based on a cardiac catheterization from 2015. The patient developed progressive heart failure and based on the most recent echocardiogram from February 2022. Systolic heart failure with an EF around 30-35% and moderate degree of pulmonary hypertension. He has had also previous history of CVA and paroxysmal atrial fibrillation. He wasn't hostile back in February 2022 for right-sided CVA and he was evaluated and seen by neurology and treated medically with accommodation of aspirin and Plavix. CAT scan of the head showed subacute CVA involving the temporal lobe. The patient comes in to the hospital with worsening shortness of breath. He was in a flutter rhythm with a rapid ventricular response and the patient underwent cardioversion post-SHARAD and this was successful and currently is in a normal sinus mechanism. History having exertional dyspnea and hypoxemia. There is a chronic smoker and has been smoking since the age of 9. No cough. No sputum production. No pleurisy. No hemoptysis. No DVT. No pulmonary embolism. INR therapeutic at 2.9. Blood work is essentially within normal limits. Hemoglobin was at 13.7. TSH is at 3.9. Chest x-ray is consistent with CHF with increased interstitial markings. Note that the patient has had a previous CTA antigram of the chest that was done back in 01/16/2021 in the lung windows are essentially within normal limits. Review of Systems All systems: negative (Shortness of breath and fatigue and tiredness) Past Medical History Past Medical History: Atrial Fibrillation, Cancer, Chest Pain / Angina, CVA/TIA, GERD/Reflux, Hypertension, Myocardial Infarction (OR), Syncope Additional Past Medical History / Comment(s): Pt thinks he may have had a OR in 2005, paroxysmal Afib, moderate to severe tear in aortic valve, mitral valve replace, possible pleurisy in past, cancerous colon polyps removed, pt states he has had intermittent R side abdominal/flank pain over the past year. Last Myocardial Infarction Date:: 2016 History of Any Multi-Drug Resistant Organisms: None Reported Past Surgical History: Adenoidectomy, Heart Catheterization, Tonsillectomy Additional Past Surgical History / Comment(s): 2016 cardiac cath, mitral valve replaced, colonoscopies with cancerous polypectomies Past Anesthesia/Blood Transfusion Reactions: No Reported Reaction Past Psychological History: No Psychological Hx Reported Additional Psychological History / Comment(s): Pt lives at home with spouse. 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 He does not drive, spouse drives. Smoking Status: Current every day smoker Past Alcohol Use History: Occasional Additional Past Alcohol Use History / Comment(s): pt started smoking at age 9 w orked up to 1ppd, quit 2009 then started smoking again 2014 & smokes 1-2 cigs per day Past Drug Use History: None Reported - Past Family History Father History Unknown: Yes Family Medical History: Unable to Obtain Additional Family Medical History / Comment(s): pt was adopted. Mother History Unknown: Yes Family Medical History: Unable to Obtain Additional Family Medical History / Comment(s): pt was adopted Medications and Allergies Home Medications Medication Instructions Recorded Confirmed Type Metoprolol Tartrate [Lopressor] 25 mg PO BID 11/27/20 06/19/22 History Warfarin [Coumadin] 5 mg PO DAILY 11/27/20 06/19/22 History Aspirin 81 mg PO DAILY chew 01/17/21 06/19/22 Rx Albuterol Sulfate [Proair Hfa] 1 puff INHALATION RT-Q4H PRN 06/19/22 06/19/22 History Atorvastatin [Lipitor] 40 mg PO DAILY 06/19/22 06/19/22 History Fluticasone Propion/Salmeterol 1 puff INHALATION RT-BID 06/19/22 06/19/22 History [Advair 250-50 Diskus] Nitroglycerin Sl Tabs [Nitrostat] 0.4 mg SUBLINGUAL Q5M PRN 06/19/22 06/19/22 History Allergies Allergy/AdvReac Type Severity Reaction Status Date / Time Penicillins Allergy Severe Anaphylaxis Verified 06/19/22 11:06 Physical Exam Vitals: Vital Signs Temp Pulse Resp BP Pulse Ox 06/21/22 12:01 97.5 F L 73 17 94/61 100 06/21/22 11:38 70 24 94/63 100 06/21/22 11:23 66 20 92/60 98 06/21/22 11:08 64 24 92/62 95 06/21/22 10:53 62 12 88/53 95 06/21/22 10:23 98 F 06/21/22 09:32 120 H 24 122/82 100 06/21/22 08:19 94 L 06/21/22 08:00 62 16 06/21/22 04:00 97.6 F 120 H 15 107/74 97 06/21/22 02:28 119 H 06/21/22 00:15 97.1 F L 118 H 15 115/82 99 06/20/22 20:30 97.5 F L 119 H 15 115/73 98 Intake and Output 06/21/22 06/21/22 06/21/22 06:59 14:59 22:59 Intake Total 795.861 Balance 795.861 Intake: IV 500 Intake, IV Titration 177.861 Amount Heparin Sod,Pork in 0.45% 177.861 NaCl 25,000 unit In 0.45 % NaCl 1 250ml.bag @ 12 UNITS/KG/HR 9.798 mls/hr IV .Q24H [facility] Rx#: [id number] Oral 118 Other: Voiding Method Toilet Toilet # Voids 1 2 Gen. appearance, comfortable in acute distress and on 2 L of oxygen by nasal cannula Head exam was generally normal. There was no scleral icterus or corneal arcus. Mucous membranes were moist. Neck was supple and with jugular venous distension, thyromegaly, or carotid bruits. Carotids were easily palpable bilaterally. There was no adenopathy. The patient has significant jugular venous distention Lungs are diminished patient in the lung bases bilaterally there are also some few bibasilar crackles Heart sounds are regular, positive S3 gallop, no significant murmurs appreciated. Abdominal exam revealed normal bowel sounds. The abdomen was soft, non-tender, and without masses, organomegaly, or appreciable enlargement of the abdominal aorta. Examination of the extremities revealed easily palpable radial, femoral and pedal pulses. There was no cyanosis, clubbing or edema. Examination of the skin revealed no evidence of significant rashes, suspicious appearing nevi or other concerning lesions. Neurologically, the patient is awake and alert and the patient does not have any focal neurological deficit. Cranial nerves are essentially intact. Results - Laboratory Findings CBC and BMP: 06/20/22 07:57 06/21/22 08:03 ABG WBC 4.5 k/uL (3.8-10.6) 06/20/22 07:57 RBC 4.23 m/uL (4.30-5.90) L 06/20/22 07:57 Hgb 13.7 gm/dL (13.0-17.5) 06/20/22 07:57 Hct 41.0 % (39.0-53.0) 06/20/22 07:57 MCV 96.9 fL (80.0-100.0) 06/20/22 07:57 MCH 32.3 pg (25.0-35.0) 06/20/22 07:57 MCHC 33.3 g/dL (31.0-37.0) 06/20/22 07:57 RDW 12.8 % (11.5-15.5) 06/20/22 07:57 Plt Count 179 k/uL (150-450) 06/20/22 07:57 MPV 8.4 06/20/22 07:57 Neutrophils % 55 % 06/20/22 07:57 Lymphocytes % 35 % 06/20/22 07:57 Monocytes % 6 % 06/20/22 07:57 Eosinophils % 2 % 06/20/22 07:57 Basophils % 1 % 06/20/22 07:57 Neutrophils # 2.5 k/uL (1.3-7.7) 06/20/22 07:57 Lymphocytes # 1.6 k/uL (1.0-4.8) 06/20/22 07:57 Monocytes # 0.3 k/uL (0-1.0) 06/20/22 07:57 Eosinophils # 0.1 k/uL (0-0.7) 06/20/22 07:57 Basophils # 0.0 k/uL (0-0.2) 06/20/22 07:57 PT 28.3 sec (9.0-12.0) H 06/21/22 08:03 INR 2.9 (<1.2) H 06/21/22 08:03 APTT 48.5 sec (22.0-30.0) H 06/21/22 08:03 Sodium 135 mmol/L (137-145) L 06/21/22 08:03 Potassium 4.4 mmol/L (3.5-5.1) 06/21/22 08:03 Chloride 107 mmol/L (98-107) 06/21/22 08:03 Carbon Dioxide 26 mmol/L (22-30) 06/21/22 08:03 Anion Gap 2 mmol/L 06/21/22 08:03 BUN 13 mg/dL (9-20) 06/21/22 08:03 Creatinine 1.06 mg/dL (0.66-1.25) 06/21/22 08:03 Est GFR (CKD-EPI)AfAm >90 (>60 ml/min/1.73 sqM) 06/21/22 08:03 Est GFR (CKD-EPI)NonAf 82 (>60 ml/min/1.73 sqM) 06/21/22 08:03 Glucose 81 mg/dL (74-99) 06/21/22 08:03 Calcium 7.7 mg/dL (8.4-10.2) L 06/21/22 08:03 Total Bilirubin 0.9 mg/dL (0.2-1.3) 06/20/22 07:57 AST 37 U/L (17-59) 06/20/22 07:57 ALT 32 U/L (4-49) 06/20/22 07:57 Alkaline Phosphatase 39 U/L (38-126) 06/20/22 07:57 Troponin I 0.066 ng/mL (0.000-0.034) H* 06/19/22 14:34 Total Protein 4.9 g/dL (6.3-8.2) L 06/20/22 07:57 Albumin 2.7 g/dL (3.5-5.0) L 06/20/22 07:57 Triglycerides 76.40 mg/dL (0.00-149.00) 06/20/22 07:57 Cholesterol 115.00 mg/dL (0.00-200.00) 06/20/22 07:57 LDL Cholesterol, Calc 52.6 mg/dL (0.0-131.0) 06/20/22 07:57 VLDL Cholesterol, Calc 15.28 mg/dL (5.00-40.00) 06/20/22 07:57 HDL Cholesterol 47.10 mg/dL (40.00-60.00) 06/20/22 07:57 Cholesterol/HDL Ratio 2.44 Ratio 06/20/22 07:57 TSH 3.930 mIU/L (0.465-4.680) 06/19/22 14:34 PT/INR, D-dimer PT 28.3 sec (9.0-12.0) H 06/21/22 08:03 INR 2.9 (<1.2) H 06/21/22 08:03 Abnormal lab findings: Abnormal Labs 06/19/22 06/19/22 06/19/22 11:26 11:26 11:37 RBC PT 20.5 H INR 2.1 H APTT 34.1 H Sodium Chloride Glucose Calcium Alkaline Phosphatase Troponin I 0.069 H* Total Protein Albumin 06/19/22 06/19/22 06/19/22 11:37 14:34 19:06 RBC PT INR APTT 65.2 H Sodium Chloride 111 H Glucose 101 H Calcium 7.8 L Alkaline Phosphatase 37 L Troponin I 0.066 H* Total Protein 5.1 L Albumin 3.0 L 06/20/22 06/20/22 06/20/22 01:25 01:25 01:25 RBC 4.11 L PT 20.4 H INR 2.1 H APTT 78.8 H Sodium Chloride Glucose Calcium Alkaline Phosphatase Troponin I Total Protein Albumin 06/20/22 06/20/22 06/20/22 07:57 07:57 07:57 RBC 4.23 L PT INR APTT 56.1 H Sodium 133 L Chloride Glucose 105 H Calcium 7.5 L Alkaline Phosphatase Troponin I Total Protein 4.9 L Albumin 2.7 L 06/21/22 06/21/22 08:03 08:03 RBC PT 28.3 H INR 2.9 H APTT 48.5 H Sodium 135 L Chloride Glucose Calcium 7.7 L Alkaline Phosphatase Troponin I Total Protein Albumin - Diagnostic Findings Chest x-ray: image reviewed Assessment and Plan Plan: Dyspnea, essentially due to cardiogenic causes with significant cardiomyopathy/heart disease/a flutter. Chest x-ray showing interstitial edema . Underlying chronic COPD is also possible although does not seem to be the major contributing factor. Acute on chronic hypoxic respiratory failure secondary to above Atrial flutter with rapid ventricular response post-cardioversion, successful for now. History of mechanical mitral valve replacement, 2003 Chronic smoker Chronic alcohol user. Hyperlipidemia Approximately fibrillation CVA with some residual right-sided weakness Plan Optimize CHF. The patient has already been started on a combination of metoprolol, Entresto, and addition of a diuretic may also be helpful We'll need home O2 Continue anticoagulation with warfarin and INR therapeutic Continue amiodarone Will set up this patient to start chewing Trelegy Ellipta on outpatient basis to further optimize his COPD. Smoking cessation counseling was done. All patien t. She'll be needed We'll continue to follow
[2022-06-21] MEDS: IPRATROPIUM-ALBUTEROL 3 ML NEB INHALATION SCH ×2 (16:39→20:42)
[2022-06-21] MEDS: BUDESONIDE 1 MG/2 ML NEBU INHALATION SCH ×2 (16:45→20:42)
[2022-06-21] MEDS ORDERED: WARFARIN 5 MG TAB PO ONE (18:00)
[2022-06-22 09:04] LABS: INR 4.5 (<1.2)
[2022-06-22] MEDS: BUDESONIDE 1 MG/2 ML NEBU INHALATION SCH ×2 (09:14→19:23)
[2022-06-22] MEDS: IPRATROPIUM-ALBUTEROL 3 ML NEB INHALATION SCH ×4 (09:14→19:23)
[2022-06-22 09:17] LABS: Calcium 8.7 mg/dL (8.4-10.2); Potassium 5.6 mmol/L (3.5-5.1)
[2022-06-22] MEDS: METOPROLOL TARTRATE 50 MG TAB PO SCH ×2 (09:23→20:39)
[2022-06-22] MEDS: AMIODARONE 200 MG TAB PO SCH ×2 (09:23→20:38)
[2022-06-22] MEDS: HYDROcodone/APAP 5-325MG 1 EACH TAB PO PRN ×2 (09:23→20:38)
[2022-06-22] MEDS: ATORVASTATIN 40 MG TAB PO SCH (09:23)
[2022-06-22] MEDS: SACUBITRIL/VALSARTAN 24 MG-26 MG TABLET PO SCH ×2 (09:23→20:39)
[2022-06-22] MEDS: NICOTINE 14MG/24HR PATCH TRANSDERM SCH (09:24)
[2022-06-22] MEDS: ASPIRIN 81 MG PO SCH (09:24)
[2022-06-22] MEDS: SODIUM CHLORIDE 0.9% 1,000 ML IV SCH (09:24)
[2022-06-22] MEDS: SPIRONOLACTONE 25 MG TAB PO SCH (09:24)
[2022-06-22 11:51] LABS: Calcium 7.7 mg/dL (8.4-10.2); Potassium 4.8 mmol/L (3.5-5.1)
[2022-06-22] MEDS: ALPRAZolam 0.25 MG TAB PO PRN (12:15)
--- NOTE | 2022-06-22 13:21 | P.PN ---
Subjective Progress Note Date: 06/22/22 52-year-old male patient, presented to the hospital because of shortness of breath. Extensive cardiac history including a mitral valve replacement with a mechanical valve that was done 2003 in [place]. Patient has none obstructive CAD based on a cardiac catheterization from 2016. The patient dev eloped progressive heart failure and based on the most recent echocardiogram from February 2022. Systolic heart failure with an EF around 30-35% and moderate degree of pulmonary hypertension. He has had also previous history of CVA and paroxysmal atrial fibrillation. He wasn't hostile back in February 2022 for right-sided CVA and he was evaluated and seen by neurology and treated medically with accommodation of aspirin and Plavix. CAT scan of the head showed subacute CVA involving the temporal lobe. The patient comes in to the hospital with worsening shortness of breath. He was in a flutter rhythm with a rapid ventricular response and the patient underwent cardioversion post-SHARAD and this w as successful and currently is in a normal sinus mechanism. History having exertional dyspnea and hypoxemia. There is a chronic smoker and has been smoking since the age of 9. No cough. No sputum production. No pleurisy. No hemoptysis. No DVT. No pulmonary embolism. INR therapeutic at 2.9. Blood work is essentially within normal limits. Hemoglobin was at 13.7. TSH is at 3.9. Chest x-ray is consistent with CHF with increased interstitial markings. Note that the patient has had a previous CTA antigram of the chest that was done back in 01/16/2021 in the lung windows are essentially within normal limits. On 06/22/2022, patient is being seen for a follow-up. Condition is stable. No new complaints. Shortness of breath remains unchanged patient remains on 3 L O2 nasal cannula with pulse ox of 96%. Medication adjustments done by cardiology and the patient is being optimized regarding CHF. Labs from today showed a creatinine of 1.0 with a BUN of 12 and a sodium level is at 135. No other new symptoms since yesterday. No tinnitus, sputum production chest episode wheezing. Objective - Vital Signs Vital signs: Vital Signs Temp 97.3 F L 06/22/22 04:00 Pulse 68 06/22/22 12:15 Resp 16 06/22/22 12:15 BP 102/65 06/22/22 12:15 Pulse Ox 96 06/22/22 12:15 FiO2 Intake & Output 06/21/22 06/22/22 06/22/22 18:59 06:59 18:59 Intake Total 795.861 900 0 Output Total 300 Balance 795.861 600 0 Weight 83.5 kg Intake: IV 500 Intake, IV Titration 177.861 Amount Heparin Sod,Pork in 0.45% 177.861 NaCl 25,000 unit In 0.45 % NaCl 1 250ml.bag @ 12 UNITS/KG/HR 9.798 mls/hr IV .Q24H [facility] Rx#: [id number] Oral 118 900 0 Output: Urine 300 Other: Voiding Method Toilet Toilet Toilet # Voids 2 2 - Exam Gen. appearance, comfortable in acute distress and on 2 L of oxygen by nasal cannula Head exam was generally normal. There was no scleral icterus or corneal arcus. Mucous membranes were moist. Neck was supple and with jugular venous distension, thyromegaly, or carotid bruits. Carotids were easily palpable bilaterally. There was no adenopathy. The patient has significant jugular venous distention Lungs are diminished patient in the lung bases bilaterally there are also some few bibasilar crackles Heart sounds are regular, positive S3 gallop, no significant murmurs appreciated. Abdominal exam revealed normal bowel sounds. The abdomen was soft, non-tender, and without masses, organomegaly, or appreciable enlargement of the abdominal aorta. Examination of the extremities revealed easily palpable radial, femoral and pedal pulses. There was no cyanosis, clubbing or edema. Examination of the skin revealed no evidence of significant rashes, suspicious appearing nevi or other concerning lesions. Neurologically, the patient is awake and alert and the patient does not have any focal neurological deficit. Cranial nerves are essentially intact. - Labs CBC & Chem 7: 06/20/22 07:57 06/22/22 10:59 Labs: Abnormal Lab Results - Last 24 Hours (Table) 06/22/22 06/22/22 06/22/22 Range/Units 07:08 07:08 10:59 PT 44.0 H (9.0-12.0) sec INR 4.5 H (<1.2) Sodium 133 L 135 L (137-145) mmol/L Potassium 5.6 H (3.5-5.1) mmol/L Chloride 97 L (98-107) mmol/L BUN 72 H (9-20) mg/dL Creatinine 4.67 H (0.66-1.25) mg/dL Glucose 232 H (74-99) mg/dL Calcium 7.7 L (8.4-10.2) mg/dL Assessment and Plan Plan: Dyspnea, essentially due to cardiogenic causes with significant cardiomyopathy/heart disease/a flutter. Chest x-ray showing interstitial edema . Underlying chronic COPD is also possible although does not seem to be the m ajor contributing factor. Acute on chronic hypoxic respiratory failure secondary to above Atrial flutter with rapid ventricular response post-cardioversion, successful for now. History of mechanical mitral valve replacement, 2003 Chronic smoker Chronic alcohol user. Hyperlipidemia Approximately fibrillation CVA with some residual right-sided weakness Plan Overall condition is stable compared to yesterday My overall impression remains the same I reviewed the labs Optimize CHF. The patient has already been started on a combination of metoprolol, Entresto, and addition of a diuretic may also be helpful We'll need home O2 Continue anticoagulation with warfarin and INR therapeutic Continue amiodarone Will set up this patient to start chewing Trelegy Ellipta on outpatient basis to further optimize his COPD. Smoking cessation counseling was done. All patient. She'll be needed We'll continue to follow
--- NOTE | 2022-06-22 16:39 | P.PN ---
Progress Note - Text Progress Note Date: 06/22/22 Presenting complaint: Chest pain Hospital course: 52-year-old patient, follows with Dr. Fulton. Chronic stable medical conditions include atrial fibrillation, GERD, hypertension, mitral valve replacement, smoker. Admitted with chest pain shortness of breath.. Patient was transferred from [place]. Has been on mechanical mitral valve replacement. 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 As [place] was in atrial flutter with 2 stent 1 conduction. Echocardiogram in February 2022 showed EF of 30-35%. Moderate pulmonary hypertension. Alcohol level of 104. Patient on by mouth amiodarone, IV heparin 06/20/2022: Patient does feel a bit short of breath. Being followed by cardiology. Remains in atrial flutter. On amiodarone. Increased Lopressor 50 mg 3 times a day. Tired. 06/21/2022: Early today patient remained in atrial flutter to 2: 1. Underwent SHARAD followed by cardioversion by Dr. Hernandez. Postprocedure remained short of breath. Consult Dr. Culp. Add DuoNeb. Pulmicort. Entresto being started by cardiology. 06/22/2022: Patient remains in sinus rhythm. Intraventricular block. Some improvement in breathing. Patient told to ambulate. Smoking cessation again discussed in detail with the patient. Continue on DuoNeb, Pulmicort. Increase activity Patient developed from 7:00 this morning does not belong to him. Repeat labs were reviewed Active Medications Hydrocodone Bitart/Acetaminophen (Hydrocodone/Apap 5-325mg 1 Each Tab) 1 each PO Q4HR PRN PRN Reason: Pain Last Admin: 06/22/22 09:23 Dose: 1 each Albuterol Sulfate (Albuterol Nebulized 2.5 Mg/3 Ml) 2.5 mg INHALATION RT-Q4H PRN PRN Reason: Shortness Of Breath Last Admin: 06/20/22 08:29 Dose: 2.5 mg Albuterol/Ipratropium (Ipratropium-Albuterol 3 Ml Neb) 3 ml INHALATION RT-QID [facility] Last Admin: 06/22/22 15:56 Dose: 3 ml Alprazolam (Alprazolam 0.25 Mg Tab) 0.25 mg PO TID PRN PRN Reason: Anxiety Last Admin: 06/22/22 12:15 Dose: 0.25 mg Amiodarone HCl (Amiodarone 200 Mg Tab) 400 mg PO BID [facility] Last Admin: 06/22/22 09:23 Dose: 400 mg Aspirin (Aspirin 81 Mg) 81 mg PO DAILY [facility] Last Admin: 06/22/22 09:24 Dose: 81 mg Atorvastatin Calcium (Atorvastatin 40 Mg Tab) 40 mg PO DAILY [facility] Last Admin: 06/22/22 09:23 Dose: 40 mg Budesonide (Budesonide 1 Mg/2 Ml Nebu) 1 mg INHALATION RT-BID [facility] Last Admin: 06/22/22 09:14 Dose: Not Given Sodium Chloride (Saline 0.9%) 1,000 mls @ 20 mls/hr IV .Q24H [facility] Last Admin: 06/22/22 09:24 Dose: 20 mls/hr Metoprolol Tartrate (Metoprolol Tartrate 50 Mg Tab) 50 mg PO BID [facility] Last Admin: 06/22/22 09:23 Dose: 50 mg Miscellaneous Information (Warfarin Per Pharmacy) 0 each MISCELLANE DIRECTED PRN PRN Reason: ANTICOAG Nicotine (Nicotine 14mg/24hr Patch) 1 patch TRANSDERM DAILY [facility] Last Admin: 06/22/22 09:24 Dose: Not Given Nitroglycerin (Nitroglycerin Sl Tabs 0.4 Mg Tab) 0.4 mg SUBLINGUAL Q5M PRN PRN Reason: Chest Pain Sacubitril/Valsartan (Sacubitril/Valsartan 24 Mg-26 Mg Tablet) 1 each PO BID [facility] Last Admin: 06/22/22 09:23 Dose: 1 each Spironolactone (Spironolactone 25 Mg Tab) 25 mg PO DAILY [facility] Last Admin: 06/22/22 09:24 Dose: 25 mg Warfarin Sodium (Warfarin 0.5 Mg Tab) 0 mg PO ONCE@1800 ONE Stop: 06/22/22 18:01 On examination: VITAL SIGNS: 97.3, 68, 16, 102/65, 96% on 3 L GENERAL APPEARANCE: Reclining in bed, awake , HEENT: Normal external appearance of nose and ear. Oral cavity normal EYES: Pupils equal. Conjunctiva normal. NECK: JVD not raised. Mass not palpable. RESPIRATORY: Respiratory effort normal. Lungs decreased breath sounds CARDIOVASCULAR: First seconds are normal. No edema. ABDOMEN: Soft. Liver and spleen not palpable. No tenderness. No mass palpable. PSYCHIATRY: Alert and oriented x3. Mood and affect anxious. INVESTIGATIONS, reviewed in clinical context: 2-D echocardiogram: EF 30-35%. Moderate TR. Mild to moderate AR. Mechanical mitral valve. 06/22/2022: Potassium 4.8 INR 4.5 crit and 1.1 06/21/2022: INR 2.9 potassium 4.4 creatinine 1.06 White count 4.5 hemoglobin 13.7 platelets 179 potassium 4.4 creatinine 1.0 Troponin I 0.069, 0.066 TSH 3.9 LDL 52 EKG tracing personally reviewed by me-atrial flutter with a rate of 134 Assessment and plan: -Atrial flutter with 2 stent 1 conduction: Cardioverted to sinus rhythm Amiodarone. SHARAD followed by successful cardioversion on June [address] Hernandez. -Acute COPD exacerbation in a current smoker: Symbicort, Ventolin when necessary. DuoNeb 4 times a day, Pulmicort 1 mg twice a day. -Mechanical atrial valve On Coumadin -IV heparin monitoring: Discontinued Follow PTT -Chronic nicotine dependence, cigarette smoker Nicotine patch -Coumadin monitoring Follow INR -Chronic cardiomyopathy EF 30-35%/systolic dysfunction Aldactone. Entresto at it today Cordarone. Aldactone. DuoNeb 4 times a day and Pulmicort nebulizers twice a day. Increase activity. Discussed with patient.
[2022-06-22] MEDS ORDERED: WARFARIN 0.5 MG TAB PO ONE (18:00)
--- NOTE | 2022-06-22 18:56 | P.PN ---
Subjective Progress Note Date: 06/22/22 PROGRESS NOTE The patient is a 52-year-old male was transferred from [place] for evaluation of dyspnea, arrhythmia and chest pain. He has a known history of mechanical mitral valve replacement in 2003, detail of that are not available. He is to follow with a early childhood services coordinator in [place] but has not seen him for over a year according to him. He has been complaining of progressive dyspnea over the last few weeks and when he presented to [place] he was in atrial flutter with 2 to one conduction. Patient has been having progressive dyspnea, occasional peripheral edema. He feels dizzy but no syncope. He has a prior loop recorder has not been interrogated for over 2 years according to him. He denies any PND or orthopnea. He underwent cardiac catheterization in 2015 that showed no evidence of obstructive CAD. His dobutamine stress echocardiogram in January 2021 showed no evidence of inducible ischemia. He had an echocardiogram in February 2022 that showed an ejection fraction of 30-35% with moderate pulmonary hypertension. An [place] he was noted to have an INR of 1.2, alcohol level of 104 and troponin of 0.062. Patient continues to be in atrial flutter with 2 to one conduction at a rate of 130. This past summer he had a CVA with speech disturbance and right upper extremity weakness that improved. June 20: The patient continues to be dyspneic. He continues to be in atrial flutter with rapid ventricular response with 2 to one conduction. He has chest tightness. He feels the palpitations. He feels fatigued. He denies any nausea or vomiting. His echocardiogram is pending June 21: The patient continues to be in atrial flutter with 2 to one conduction and rapid ventricular rate. He continues to be dyspneic, fatigued and dizzy. He has some fullness in the chest. He denies any nausea or vomiting. His blood pressure is stable. June 22: He underwent cardioversion yesterday and continues to be in sinus mechanism. He is feeling better overall continues to be dyspneic on exertion with limited exercise tolerance. He has no clear evidence of angina pectoris. He has no dizziness or palpitations. He was found to have significant cardiomyopathy with normal functioning of his mitral valve replacement. Medications: Amiodarone 400 mg twice a day, Coumadin, aspirin, Lipitor 40 mg daily, metoprolol tartrate 50 mg twice a day, nicotine patch, Aldactone 25 mg daily, Entresto 2426 twice a day PHYSICAL EXAMINATION: Blood pressure 111/70 heart rate 60 LUNGS: Decreased air exchange HEART: Regular rate, tachycardic and rhythm, metallic mitral sound, S2. No S3. systolic ejection murmur ABDOMEN: Soft, nontender, no organomegaly EXTREMETIES: No edema LAB: potassium 4.8, BUN 12, creatinine 1.1, INR 4.5. IMPRESSION: 1. Atrial flutter with 2 to one conduction, post cardioversion, in sinus mechanism 2. History of mitral valve replacement 3. History of stroke 4. Progressive dyspnea probably exacerbation of COPD in addition to the atrial flutter, improving 5. Chronic tobacco use 6. Symptoms of chest discomfort with no evidence of obstructive CAD in the past. 7. History of cardiomyopathy PLAN: 1. Continue present therapy 2. Increase physical activity 3. Add Farxiga 10 mg daily 4. Follow renal functions 5. Depending on his progress further recommendations will be made Objective - Vital Signs Vital signs: Vital Signs Temp 97.3 F L 06/22/22 04:00 Pulse 66 06/22/22 16:05 Resp 18 06/22/22 16:05 BP 111/70 06/22/22 15:24 Pulse Ox 99 06/22/22 15:57 FiO2 Intake & Output 06/21/22 06/22/22 06/22/22 18:59 06:59 18:59 Intake Total 795.861 900 0 Output Total 300 Balance 795.861 600 0 Weight 83.5 kg Intake: IV 500 Intake, IV Titration 177.861 Amount Heparin Sod,Pork in 0.45% 177.861 NaCl 25,000 unit In 0.45 % NaCl 1 250ml.bag @ 12 UNITS/KG/HR 9.798 mls/hr IV .Q24H [facility] Rx#: [id number] Oral 118 900 0 Output: Urine 300 Other: Voiding Method Toilet Toilet Toilet # Voids 2 2 - Labs CBC & Chem 7: 06/20/22 07:57 06/22/22 10:59 Labs: Abnormal Lab Results - Last 24 Hours (Table) 06/22/22 06/22/22 06/22/22 Range/Units 07:08 07:08 10:59 PT 44.0 H (9.0-12.0) sec INR 4.5 H (<1.2) Sodium 133 L 135 L (137-145) mmol/L Potassium 5.6 H (3.5-5.1) mmol/L Chloride 97 L (98-107) mmol/L BUN 72 H (9-20) mg/dL Creatinine 4.67 H (0.66-1.25) mg/dL Glucose 232 H (74-99) mg/dL Calcium 7.7 L (8.4-10.2) mg/dL
[2022-06-23] MEDS: HYDROcodone/APAP 5-325MG 1 EACH TAB PO PRN ×3 (01:25→21:30)
[2022-06-23] MEDS: BUDESONIDE 1 MG/2 ML NEBU INHALATION SCH ×2 (07:46→21:29)
[2022-06-23] MEDS: IPRATROPIUM-ALBUTEROL 3 ML NEB INHALATION SCH ×4 (07:46→21:29)
[2022-06-23] MEDS: ATORVASTATIN 40 MG TAB PO SCH (08:56)
[2022-06-23] MEDS: AMIODARONE 200 MG TAB PO SCH ×2 (08:57→21:30)
[2022-06-23] MEDS: DAPAGLIFLOZIN PROPANEDIOL 10 MG TABLET PO SCH (08:57)
[2022-06-23] MEDS: METOPROLOL TARTRATE 50 MG TAB PO SCH ×2 (08:57→21:31)
[2022-06-23] MEDS: SPIRONOLACTONE 25 MG TAB PO SCH (08:57)
[2022-06-23] MEDS: ASPIRIN 81 MG PO SCH (08:57)
[2022-06-23] MEDS: SACUBITRIL/VALSARTAN 24 MG-26 MG TABLET PO SCH ×2 (08:57→21:30)
[2022-06-23] MEDS: NICOTINE 14MG/24HR PATCH TRANSDERM SCH (08:59)
[2022-06-23] MEDS: SODIUM CHLORIDE 0.9% 1,000 ML IV SCH (08:59)
[2022-06-23 10:15] LABS: Calcium 7.7 mg/dL (8.4-10.2); Potassium 4.4 mmol/L (3.5-5.1)
[2022-06-23 10:49] LABS: INR 5.1 (<1.2)
[2022-06-23] MEDS: ALBUTEROL NEBULIZED 2.5 MG/3 ML INHALATION PRN (11:51)
[2022-06-23] MEDS ORDERED: PHYTONADIONE 5 MG in SODIUM CHLORIDE 0.9% 50 ML IVPB ONE (12:00)
--- NOTE | 2022-06-23 13:42 | P.PN ---
Subjective Progress Note Date: 06/23/22 PROGRESS NOTE The patient is a 52-year-old male was transferred from [place] for evaluation of dyspnea, arrhythmia and chest pain. He has a known history of mechanical mitral valve replacement in 2003, detail of that are not available. He is to follow with a associate software development engineer in [place] but has not seen him for over a year according to him. He has been complaining of progressive dyspnea over the last few weeks and when he presented to [place] he was in atrial flutter with 2 to one conduction. Patient has been having progressive dyspnea, occasional peripheral edema. He feels dizzy but no syncope. He has a prior loop recorder has not been interrogated for over 2 years according to him. He denies any PND or orthopnea. He underwent cardiac catheterization in 2015 that showed no evidence of obstructive CAD. His dobutamine stress echocardiogram in January 2021 showed no evidence of inducible ischemia. He had an echocardiogram in February 2022 that showed an ejection fraction of 30-35% with moderate pulmonary hypertension. An [place] he was noted to have an INR of 1.2, alcohol level of 104 and troponin of 0.062. Patient continues to be in atrial flutter with 2 to one conduction at a rate of 130. This past summer he had a CVA with speech disturbance and right upper extremity weakness that improved. June 20: The patient continues to be dyspneic. He continues to be in atrial flutter with rapid ventricular response with 2 to one conduction. He has chest tightness. He feels the palpitations. He feels fatigued. He denies any nausea or vomiting. His echocardiogram is pending June 21: The patient continues to be in atrial flutter with 2 to one conduction and rapid ventricular rate. He continues to be dyspneic, fatigued and dizzy. He has some fullness in the chest. He denies any nausea or vomiting. His blood pressure is stable. June 22: He underwent cardioversion yesterday and continues to be in sinus mechanism. He is feeling better overall continues to be dyspneic on exertion with limited exercise tolerance. He has no clear evidence of angina pectoris. He has no dizziness or palpitations. He was found to have significant cardiomyopathy with normal functioning of his mitral valve replacement. June 23: The patient continues to have dyspnea, mildly better but continues to be limited. His telemetry continues to show sinus mechanism. He has no evidence of malignant arrhythmia. He has no wheezing. He has occasional chest discomfort, at times respirophasic. His INR is elevated Medications: Amiodarone 400 mg twice a day, Coumadin on hold, aspirin, Lipitor 40 mg daily, metoprolol tartrate 50 mg twice a day, nicotine patch, Aldactone 25 mg daily, Entresto 2426 twice a day PHYSICAL EXAMINATION: Blood pressure 98/60 heart rate 75 LUNGS: Decreased air exchange HEART: Regular rate, tachycardic and rhythm, metallic mitral sound, S2. No S3. systolic ejection murmur ABDOMEN: Soft, nontender, no organomegaly EXTREMETIES: No edema LAB: potassium 4.4, BUN 13, creatinine 1.15, INR 5.1. NT proBNP 4670 IMPRESSION: 1. Atrial flutter with 2 to one conduction, post cardioversion, in sinus mechanism 2. History of mitral valve replacement 3. History of stroke 4. Progressive dyspnea probably exacerbation of COPD in addition to the atrial flutter, improving 5. Chronic tobacco use 6. Symptoms of chest discomfort with no evidence of obstructive CAD in the past. 7. History of cardiomyopathy PLAN: 1. Continue present therapy 2. Increase physical activity 3. Stop aspirin 4. Start low-dose diuretics 5. Hold Coumadin for now Objective - Vital Signs Vital signs: Vital Signs Temp 97.4 F L 06/23/22 08:55 Pulse 75 06/23/22 12:25 Resp 16 06/23/22 12:04 BP 98/59 06/23/22 12:25 Pulse Ox 96 06/23/22 12:25 FiO2 Intake & Output 06/22/22 06/23/22 06/23/22 18:59 06:59 18:59 Intake Total 0 Balance 0 Weight 82.8 kg Intake: Oral 0 Other: Voiding Method Toilet Toilet Toilet # Voids 2 1 1 - Labs CBC & Chem 7: 06/20/22 07:57 06/23/22 09:47 Labs: Abnormal Lab Results - Last 24 Hours (Table) 06/23/22 06/23/22 Range/Units 09:47 09:47 PT 50.0 H (9.0-12.0) sec INR 5.1 H* (<1.2) Chloride 108 H (98-107) mmol/L Glucose 100 H (74-99) mg/dL Calcium 7.7 L (8.4-10.2) mg/dL
[2022-06-23] MEDS: FUROSEMIDE 20 MG TAB PO SCH ×2 (13:49→21:32)
[2022-06-23] MEDS: NITROGLYCERIN SL TABS 0.4 MG TAB SUBLINGUAL PRN ×2 (14:57→15:04)
--- NOTE | 2022-06-23 16:28 | P.PN ---
Subjective Progress Note Date: 06/23/22 This is a 52 year old male who has been transferred down from [place] found to be in atrial flutter with 2:1 conduction. He does have history of atrial fibrillation and also mitral valve replacement. Patient had SHARDA with cardioversion yesterday and has been maintaining normal sinus rhythm with an intraventricular block with some improvement in breathing as of yesterday. He does report continued shortness of breath worse with ambulation. No complaints of chest pain currently. Has longstanding history of tobacco use since the age of 9 he reports. He continues on DuoNeb and Pulmicort. He was seen in consultation by pulmonary services yesterday. Labs from yesterday show sodium of 135, potassium is 4.8. He has albumin of 12 and a creatinine of 1.10. Did have elevation of his proBNP at 4670. Currently, on amiodarone 400 mg twice a day, Lopressor 50 mg twice a day, and entresto has been started. INR today 5.4 which vitamin K given and will hold warfarin for now and repeat INR tomorrow. Cardiology has started patient on low dose diuretics as well. Review of Systems Constitutional: Denied any fatigue denied any fever. Cardio vascular: denied any chest pain, palpitations Gastrointestinal: denied any nausea, vomiting, diarrhea Pulmonary: Reports shortness of breath, denies cough Neurologic denied any new focal deficits All inpatient medications were reviewed and appropriate changes in these medications as dictated in the interval history and assessment and plan. PHYSICAL EXAMINATION: GENERAL: The patient is alert and oriented x3, not in any acute distress. Well developed, well nourished. HEENT: Pupils are round and equally reacting to light. EOMI. No scleral icterus. No conjunctival pallor. Normocephalic, atraumatic. No pharyngeal erythema. No thyromegaly. CARDIOVASCULAR: S1 and S2 present. No murmurs, rubs, or gallops. PULMONARY: Chest is clear to auscultation, no wheezing or crackles. ABDOMEN: Soft, nontender, nondistended, normoactive bowel sounds. No palpable organomegaly. MUSCULOSKELETAL: No joint swelling or deformity. EXTREMITIES: No cyanosis, clubbing, or pedal edema. Mild lower extremity edema non pitting NEUROLOGICAL: Gross neurological examination did not reveal any focal deficits. SKIN: No rashes. Assessment and Plan -Atrial flutter with 2 to 1 conduction: Cardioverted to sinus rhythm Amiodarone. SHARAD followed by successful cardioversion on June [address] Hernandez. Anticoagulated with warfarin -Acute COPD exacerbation in a current smoker: Ventolin when necessary. DuoNeb 4 times a day, Pulmicort 1 mg twice a day. -Mechanical mitral valve On Coumadin -Chronic nicotine dependence, cigarette smoker Nicotine patch -Coumadin monitoring, supratherepeutic INR Follow INR, vitamin K x 1 repeat INR tomorrow -Chronic cardiomyopathy EF 30-35%/systolic dysfunction Aldactone. Entresto added this admission Started on oral diurectics Plan Continue current cardiac medications started on oral diuretics today. Continues in normal sinus rhythm. Further recommendations pending from cardiology. Continues on budesonide, ventolin and duoneb as needed. No wheezing noted on exam. Maintaining saturation on room air. Pulmonary and cardiology following closely. The impression and plan of care has been dictated by Brittany Nagel, Nurse Practitioner as directed. Dr. Efra MD I have performed a history and physical examination and medical decision making of this patient, discussed the same with the dictator, and agree with the dictators assessment and plan as written, documented as a scribe. Based on total visit time, I have performed more than 50% of this visit. Objective - Vital Signs Vital signs: Vital Signs Temp 97.4 F L 06/23/22 08:55 Pulse 64 06/23/22 08:55 Resp 16 06/23/22 08:55 BP 101/65 06/23/22 08:55 Pulse Ox 96 06/23/22 08:55 FiO2 Intake & Output 06/22/22 06/23/22 06/23/22 18:59 06:59 18:59 Intake Total 0 Balance 0 Weight 82.8 kg Intake: Oral 0 Other: Voiding Method Toilet Toilet Toilet # Voids 2 1 - Labs CBC & Chem 7: 06/20/22 07:57 06/23/22 09:47 Labs: Abnormal Lab Results - Last 24 Hours (Table) 06/22/22 Range/Units 10:59 Sodium 135 L (137-145) mmol/L Calcium 7.7 L (8.4-10.2) mg/dL Assessment and Plan Time with Patient: Less than 30
--- NOTE | 2022-06-23 17:17 | P.PN ---
Subjective Progress Note Date: 06/23/22 52-year-old male patient, presented to the hospital because of shortness of breath. Extensive cardiac history including a mitral valve replacement with a mechanical valve that was done 2003 in [place]. Patient has none obstructive CAD based on a cardiac catheterization from 2016. The patient dev eloped progressive heart failure and based on the most recent echocardiogram from February 2022. Systolic heart failure with an EF around 30-35% and moderate degree of pulmonary hypertension. He has had also previous history of CVA and paroxysmal atrial fibrillation. He wasn't hostile back in February 2022 for right-sided CVA and he was evaluated and seen by neurology and treated medically with accommodation of aspirin and Plavix. CAT scan of the head showed subacute CVA involving the temporal lobe. The patient comes in to the hospital with worsening shortness of breath. He was in a flutter rhythm with a rapid ventricular response and the patient underwent cardioversion post-SHARAD and this w as successful and currently is in a normal sinus mechanism. History having exertional dyspnea and hypoxemia. There is a chronic smoker and has been smoking since the age of 9. No cough. No sputum production. No pleurisy. No hemoptysis. No DVT. No pulmonary embolism. INR therapeutic at 2.9. Blood work is essentially within normal limits. Hemoglobin was at 13.7. TSH is at 3.9. Chest x-ray is consistent with CHF with increased interstitial markings. Note that the patient has had a previous CTA antigram of the chest that was done back in 01/16/2021 in the lung windows are essentially within normal limits. On 06/22/2022, patient is being seen for a follow-up. Condition is stable. No new complaints. Shortness of breath remains unchanged patient remains on 3 L O2 nasal cannula with pulse ox of 96%. Medication adjustments done by cardiology and the patient is being optimized regarding CHF. Labs from today showed a creatinine of 1.0 with a BUN of 12 and a sodium level is at 135. No other new symptoms since yesterday. No tinnitus, sputum production chest episode wheezing. 06/23/2022, patient is being seen for a follow-up. Condition remains unchanged. Continues to have difficulty breathing. The patient underwent a SHARAD cardioversion by cardiology. He has underlying COPD. He also has underlying CHF. His CHF is being further optimized. Cardiac medications or been noted.the patient is currently on a combination of Amiodarone 400 mg twice a day, Coumadin on hold, aspirin, Lipitor 40 mg daily, metoprolol tartrate 50 mg twice a day, nicotine patch, Aldactone 25 mg daily, Entresto 2426 twice a day, Diagnostic today's at 5.1 with a PT of 50. BUN is at 30 with a creatinine of 1.1 and his sodium is at 137. Objective - Vital Signs Vital signs: Vital Signs Temp 97.4 F L 06/23/22 08:55 Pulse 70 06/23/22 15:06 Resp 16 06/23/22 12:04 BP 108/62 06/23/22 15:06 Pulse Ox 95 06/23/22 15:06 FiO2 Intake & Output 06/22/22 06/23/22 06/23/22 18:59 06:59 18:59 Intake Total 0 Balance 0 Weight 82.8 kg Intake: Oral 0 Other: Voiding Method Toilet Toilet Toilet # Voids 2 1 1 - Exam Gen. appearance, comfortable in acute distress and on 2 L of oxygen by nasal cannula Head exam was generally normal. There was no scleral icterus or corneal arcus. Mucous membranes were moist. Neck was supple and with jugular venous distension, thyromegaly, or carotid bruits. Carotids were easily palpable bilaterally. There was no adenopathy. The patient has significant jugular venous distention Lungs are diminished patient in the lung bases bilaterally there are also some few bibasilar crackles Heart sounds are regular, positive S3 gallop, no significant murmurs appreciated. Abdominal exam revealed normal bowel sounds. The abdomen was soft, non-tender, and without masses, organomegaly, or appreciable enlargement of the abdominal aorta. Examination of the extremities revealed easily palpable radial, femoral and pedal pulses. There was no cyanosis, clubbing or edema. Examination of the skin revealed no evidence of significant rashes, suspicious appearing nevi or other concerning lesions. Neurologically, the patient is awake and alert and the patient does not have any focal neurological deficit. Cranial nerves are essentially intact. - Labs CBC & Chem 7: 06/20/22 07:57 06/23/22 09:47 Labs: Abnormal Lab Results - Last 24 Hours (Table) 06/23/22 06/23/22 Range/Units 09:47 09:47 PT 50.0 H (9.0-12.0) sec INR 5.1 H* (<1.2) Chloride 108 H (98-107) mmol/L Glucose 100 H (74-99) mg/dL Calcium 7.7 L (8.4-10.2) mg/dL Assessment and Plan Plan: Dyspnea, essentially due to cardiogenic causes with significant cardi omyopathy/heart disease/a flutter. Chest x-ray showing interstitial edema . Underlying chronic COPD is also possible although does not seem to be the major contributing factor.clinically unchanged compared to yesterday Acute on chronic hypoxic respiratory failure secondary to above, currently on room air oxygen Atrial flutter with rapid ventricular response post-cardioversion, successful for now. History of mechanical mitral valve replacement, 2003 Chronic smoker Chronic alcohol user. Hyperlipidemia Approximately fibrillation CVA with some residual right-sided weakness Plan Overall condition is stable compared to yesterday My overall impression remains the same continue optimizing CHF monitor and adjust dose of Coumadin regarding the INR We'll need home O2 Continue anticoagulation with warfarin and INR therapeutic Continue amiodarone Will set up this patient to start chewing Trelegy Ellipta on outpatient basis to further optimize his COPD. Smoking cessation counseling was done. All patient. She'll be needed We'll continue to follow
[2022-06-23] MEDS ORDERED: WARFARIN 0.5 MG TAB PO ONE (18:00)
[2022-06-23] MEDS: ALPRAZolam 0.25 MG TAB PO PRN (18:22)
[2022-06-24] MEDS: HYDROcodone/APAP 5-325MG 1 EACH TAB PO PRN ×3 (04:47→21:03)
[2022-06-24] MEDS: BUDESONIDE 1 MG/2 ML NEBU INHALATION SCH ×2 (07:54→21:13)
[2022-06-24] MEDS: IPRATROPIUM-ALBUTEROL 3 ML NEB INHALATION SCH ×4 (07:54→21:13)
[2022-06-24] MEDS: SPIRONOLACTONE 25 MG TAB PO SCH (09:06)
[2022-06-24] MEDS: ATORVASTATIN 40 MG TAB PO SCH (09:06)
[2022-06-24] MEDS: FUROSEMIDE 20 MG TAB PO SCH ×2 (09:06→21:02)
[2022-06-24] MEDS: ASPIRIN 81 MG PO SCH (09:06)
[2022-06-24] MEDS: METOPROLOL TARTRATE 50 MG TAB PO SCH ×2 (09:07→21:03)
[2022-06-24] MEDS: DAPAGLIFLOZIN PROPANEDIOL 10 MG TABLET PO SCH (09:07)
[2022-06-24] MEDS: AMIODARONE 200 MG TAB PO SCH ×2 (09:07→21:03)
[2022-06-24] MEDS: SACUBITRIL/VALSARTAN 24 MG-26 MG TABLET PO SCH ×2 (09:09→21:03)
[2022-06-24] MEDS: NICOTINE 14MG/24HR PATCH TRANSDERM SCH (09:11)
[2022-06-24 10:48] LABS: Calcium 7.9 mg/dL (8.4-10.2); INR 1.4 (<1.2); Potassium 4.3 mmol/L (3.5-5.1); Prothrombin Time 14.1 sec (9.0-12.0)
[2022-06-24] MEDS: SODIUM CHLORIDE 0.9% 1,000 ML IV SCH (12:27)
--- NOTE | 2022-06-24 14:06 | P.PN ---
Subjective Progress Note Date: 06/24/22 This is a 52 year old male who has been transferred down from [place] found to be in atrial flutter with 2:1 conduction. He does have history of atrial fibrillation and also mitral valve replacement. Patient had SHARAD with cardioversion yesterday and has been maintaining normal sinus rhythm with an intraventricular block with some improvement in breathing as of yesterday. He does report continued shortness of breath worse with ambulation. No complaints of chest pain currently. Has longstanding history of tobacco use since the age of 9 he reports. He continues on DuoNeb and Pulmicort. He was seen in consultation by pulmonary services yesterday. Labs from yesterday show sodium of 135, potassium is 4.8. He has albumin of 12 and a creatinine of 1.10. Did have elevation of his proBNP at 4670. Currently, on amiodarone 400 mg twice a day, Lopressor 50 mg twice a day, and entresto has been started. INR today 5.4 which vitamin K given and will hold warfarin for now and repeat INR tomorrow. Cardiology has started patient on low dose diuretics as well. 06/24/2022 Patient is evaluated today resting in bed. He continues to report some shortness of breath mostly with ambulation. He is currently maintaining sinus mechanism he is post-cardioversion. He continues on room air resting oxygen saturation of 98%, he does wear nasal cannula 2 L of oxygen after ambulation secondary to shortness of breath. His lower extremity edema has improved he does still have some mild edema in his right lower extremity. He continues on inhalers in the form of Pulmicort and Ventolin as needed. He is given a dose of vitamin K and his INR today is 1.4 will be resumed on warfarin. Sodium today is 136, BUN 12, creatinine 1.21. He was started on oral diuretics yesterday his proBNP was found to be 1960. Review of Systems Constitutional: Denied any fatigue denied any fever. Cardio vascular: denied any chest pain, palpitations Gastrointestinal: denied any nausea, vomiting, diarrhea Pulmonary: Reports shortness of breath, denies cough Neurologic denied any new focal deficits All inpatient medications were reviewed and appropriate changes in these medications as dictated in the interval history and assessment and plan. PHYSICAL EXAMINATION: GENERAL: The patient is alert and oriented x3, not in any acute distress. Well developed, well nourished. HEENT: Pupils are round and equally reacting to light. EOMI. No scleral icterus. No conjunctival pallor. Normocephalic, atraumatic. No pharyngeal erythema. No thyromegaly. CARDIOVASCULAR: S1 and S2 present. No murmurs, rubs, or gallops. PULMONARY: Chest is clear to auscultation, no wheezing or crackles. ABDOMEN: Soft, nontender, nondistended, normoactive bowel sounds. No palpable organomegaly. MUSCULOSKELETAL: No joint swelling or deformity. EXTREMITIES: No cyanosis, clubbing, or pedal edema. Mild lower extremity edema non pitting NEUROLOGICAL: Gross neurological examination did not reveal any focal deficits. SKIN: No rashes. Assessment and Plan -Atrial flutter with 2 to 1 conduction: Cardioverted to sinus rhythm Amiodarone. SHARAD followed by successful cardioversion on June [address] Hernandez. Anticoagulated with warfarin -Acute COPD exacerbation in a current smoker: Ventolin when necessary. DuoNeb 4 times a day, Pulmicort 1 mg twice a day. -Mechanical mitral valve On Coumadin -Chronic nicotine dependence, cigarette smoker Nicotine patch -Coumadin monitoring, supratherepeutic INR Follow INR, improved to 1.4 warfarin is resumed. -Chronic cardiomyopathy EF 30-35%/systolic dysfunction Aldactone. Entresto added this admission Started on oral diurectics Plan Continue current cardiac medications, continue on diuretics. Continues in normal sinus rhythm. Further recommendations pending from cardiology. Continues on budesonide, ventolin and duoneb as needed. No wheezing noted on exam. Maintaining saturation on room air. Pulmonary and cardiology following closely. INR has normalized warfarin is being resumed. Possible DC home in the next 24- 48 hours. The impression and plan of care has been dictated by Brittany Nagel, Nurse Practitioner as directed. Dr. Efra MD I have performed a history and physical examination and medical decision making of this patient, discussed the same with the dictator, and agree with the dictators assessment and plan as written, documented as a scribe. Based on total visit time, I have performed more than 50% of this visit. Objective - Vital Signs Vital signs: Vital Signs Temp 98.0 F 06/24/22 04:42 Pulse 72 06/24/22 12:03 Resp 17 06/24/22 09:05 BP 95/66 12/18/22 11:38 Pulse Ox 98 06/24/22 11:38 FiO2 Intake & Output 06/23/22 06/24/22 06/24/22 18:59 06:59 18:59 Other: Voiding Method Toilet Toilet Toilet # Voids 2 1 2 - Labs CBC & Chem 7: 06/20/22 07:57 06/24/22 10:12 Labs: Abnormal Lab Results - Last 24 Hours (Table) 06/24/22 06/24/22 Range/Units 10:12 10:12 PT 14.1 H (9.0-12.0) sec INR 1.4 H (<1.2) Sodium 136 L (137-145) mmol/L Glucose 102 H (74-99) mg/dL Calcium 7.9 L (8.4-10.2) mg/dL Assessment and Plan Time with Patient: Less than 30
--- NOTE | 2022-06-24 16:14 | P.PN ---
Subjective Progress Note Date: 06/24/22 PROGRESS NOTE The patient is a 52-year-old male was transferred from [place] for evaluation of dyspnea, arrhythmia and chest pain. He has a known history of mechanical mitral valve replacement in 2003, detail of that are not available. He is to follow with a liberal arts dean in [place] but has not seen him for over a year according to him. He has been complaining of progressive dyspnea over the last few weeks and when he presented to [place] he was in atrial flutter with 2 to one conduction. Patient has been having progressive dyspnea, occasional peripheral edema. He feels dizzy but no syncope. He has a prior loop recorder has not been interrogated for over 2 years according to him. He denies any PND or orthopnea. He underwent cardiac catheterization in 2015 that showed no evidence of obstructive CAD. His dobutamine stress echocardiogram in January 2021 showed no evidence of inducible ischemia. He had an echocardiogram in February 2022 that showed an ejection fraction of 30-35% with moderate pulmonary hypertension. An [place] he was noted to have an INR of 1.2, alcohol level of 104 and troponin of 0.062. Patient continues to be in atrial flutter with 2 to one conduction at a rate of 130. This past summer he had a CVA with speech disturbance and right upper extremity weakness that improved. June 20: The patient continues to be dyspneic. He continues to be in atrial flutter with rapid ventricular response with 2 to one conduction. He has chest tightness. He feels the palpitations. He feels fatigued. He denies any nausea or vomiting. His echocardiogram is pending June 21: The patient continues to be in atrial flutter with 2 to one conduction and rapid ventricular rate. He continues to be dyspneic, fatigued and dizzy. He has some fullness in the chest. He denies any nausea or vomiting. His blood pressure is stable. June 22: He underwent cardioversion yesterday and continues to be in sinus mechanism. He is feeling better overall continues to be dyspneic on exertion with limited exercise tolerance. He has no clear evidence of angina pectoris. He has no dizziness or palpitations. He was found to have significant cardiomyopathy with normal functioning of his mitral valve replacement. June 23: The patient continues to have dyspnea, mildly better but continues to be limited. His telemetry continues to show sinus mechanism. He has no evidence of malignant arrhythmia. He has no wheezing. He has occasional chest discomfort, at times respirophasic. His INR is elevated June 24: He is feeling better today, has no chest discomfort. Able to ambulate more. Continues to be in sinus mechanism. He denies any dizziness or palpitations. He has no nausea. His cough has improved. Medications: Amiodarone 400 mg twice a day, Coumadin on hold, aspirin, Lipitor 40 mg daily, metoprolol tartrate 50 mg twice a day, nicotine patch, Aldactone 25 mg daily, Entresto 2426 twice a day, Farxiga 10 mg daily, Lasix 20 mg twice a day PHYSICAL EXAMINATION: Blood pressure 98/60 heart rate 72 LUNGS: Decreased air exchange HEART: Regular rate, and rhythm, metallic mitral sound, S2. No S3. systolic ejection murmur ABDOMEN: Soft, nontender, no organomegaly EXTREMETIES: No edema LAB: potassium 4.3, BUN 12, creatinine 1.21, INR 1.4. NT proBNP 1959 IMPRESSION: 1. Atrial flutter with 2 to one conduction, post cardioversion, in sinus mec hanism 2. History of mitral valve replacement 3. History of stroke 4. Progressive dyspnea probably exacerbation of COPD in addition to the atrial flutter, improving 5. Chronic tobacco use 6. Symptoms of chest discomfort with no evidence of obstructive CAD in the past. 7. History of cardiomyopathy PLAN: 1. Continue present therapy 2. Increase physical activity 3. Resume Coumadin 4. Continue present therapy 5. If stable probable discharged home in the next 24-48 hours. Objective - Vital Signs Vital signs: Vital Signs Temp 98.0 F 06/24/22 04:42 Pulse 70 06/24/22 15:54 Resp 15 06/24/22 15:15 BP 90/56 06/24/22 15:15 Pulse Ox 97 06/24/22 15:15 FiO2 Intake & Output 06/23/22 06/24/22 06/24/22 18:59 06:59 18:59 Other: Voiding Method Toilet Toilet Toilet # Voids 2 1 2 - Labs CBC & Chem 7: 06/20/22 07:57 06/24/22 10:12 Labs: Abnormal Lab Results - Last 24 Hours (Table) 12/18/22 12/18/22 Range/Units 10:12 10:12 PT 14.1 H (9.0-12.0) sec INR 1.4 H (<1.2) Sodium 136 L (137-145) mmol/L Glucose 102 H (74-99) mg/dL Calcium 7.9 L (8.4-10.2) mg/dL
[2022-06-24] MEDS ORDERED: HEPARIN SODIUM 1,000 UN/ML (10ML VL) IV PRN (16:15)
[2022-06-24] MEDS: HEPARIN SOD,PORK IN 0.45% NACL 25,000 UNIT in 0.45% NACL 1 250ML.BAG IV SCH (16:34)
[2022-06-24 16:43] LABS: Basophils # (A) 0.1 k/uL (0-0.2); Basophils % (A) 1 %; Eosinophils # (A) 0.1 k/uL (0-0.7); Eosinophils % (A) 1 %; HCT 45.7 % (39.0-53.0); HGB 15.1 gm/dL (13.0-17.5); Hypochromasia Slight; Lymphocytes # (A) 1.2 k/uL (1.0-4.8); Lymphocytes % (A) 18 %; MCH 31.8 pg (25.0-35.0); MCHC 33.1 g/dL (31.0-37.0); Mean Platelet Volume 8.5; Monocytes # (A) 0.4 k/uL (0-1.0); Monocytes % (A) 6 %; Neutrophils % (A) 73 %; Platelet Count 226 k/uL (150-450); RBC 4.76 m/uL (4.30-5.90); RDW 12.7 % (11.5-15.5); WBC 6.8 k/uL (3.8-10.6)
[2022-06-24 16:55] LABS: INR 1.3 (<1.2); Partial Thromboplastin Time 26.6 sec (22.0-30.0); Prothrombin Time 13.5 sec (9.0-12.0)
[2022-06-24] MEDS ORDERED: WARFARIN 5 MG TAB PO ONE (18:00)
[2022-06-24] MEDS: ALPRAZolam 0.25 MG TAB PO PRN (23:49)
[2022-06-25 07:49] LABS: Basophils # (A) 0.1 k/uL (0-0.2); Basophils % (A) 1 %; Eosinophils # (A) 0.2 k/uL (0-0.7); Eosinophils % (A) 3 %; HGB 15.3 gm/dL (13.0-17.5); Hypochromasia Slight; Lymphocytes # (A) 1.9 k/uL (1.0-4.8); Lymphocytes % (A) 32 %; MCH 31.3 pg (25.0-35.0); MCHC 32.5 g/dL (31.0-37.0); MCV 96.4 fL (80.0-100.0); Mean Platelet Volume 8.9; Monocytes # (A) 0.3 k/uL (0-1.0); Monocytes % (A) 6 %; Neutrophils # (A) 3.4 k/uL (1.3-7.7); Neutrophils % (A) 57 %; Platelet Count 226 k/uL (150-450); RBC 4.88 m/uL (4.30-5.90); RDW 12.7 % (11.5-15.5); WBC 5.8 k/uL (3.8-10.6)
[2022-06-25 07:59] LABS: INR 1.4 (<1.2); Partial Thromboplastin Time 50.5 sec (22.0-30.0); Prothrombin Time 13.7 sec (9.0-12.0)
[2022-06-25 08:02] LABS: Calcium 7.9 mg/dL (8.4-10.2); Potassium 4.1 mmol/L (3.5-5.1)
[2022-06-25] MEDS: HYDROcodone/APAP 5-325MG 1 EACH TAB PO PRN (08:32)
[2022-06-25] MEDS: METOPROLOL TARTRATE 50 MG TAB PO SCH (08:32)
[2022-06-25] MEDS: FUROSEMIDE 20 MG TAB PO SCH (08:32)
[2022-06-25] MEDS: ASPIRIN 81 MG PO SCH (08:32)
[2022-06-25] MEDS: SPIRONOLACTONE 25 MG TAB PO SCH (08:32)
[2022-06-25] MEDS: AMIODARONE 200 MG TAB PO SCH (08:32)
[2022-06-25] MEDS: SACUBITRIL/VALSARTAN 24 MG-26 MG TABLET PO SCH (08:33)
[2022-06-25] MEDS: ATORVASTATIN 40 MG TAB PO SCH (08:33)
[2022-06-25] MEDS: DAPAGLIFLOZIN PROPANEDIOL 10 MG TABLET PO SCH ×2 (08:33→08:38)
[2022-06-25] MEDS: NICOTINE 14MG/24HR PATCH TRANSDERM SCH (08:33)
[2022-06-25 08:52] VITALS: RESP 18
[2022-06-25] MEDS: IPRATROPIUM-ALBUTEROL 3 ML NEB INHALATION SCH ×2 (09:12→11:38)
[2022-06-25] MEDS: BUDESONIDE 1 MG/2 ML NEBU INHALATION SCH (09:12)
--- NOTE | 2022-06-25 10:36 | P.PN ---
Subjective PROGRESS NOTE The patient is a 52-year-old male was transferred from [place] for evaluation of dyspnea, arrhythmia and chest pain. He has a known history of mechanical mitral valve replacement in 2003, detail of that are not available. He is to follow with a endoscopy registered nurse in [place] but has not seen him for over a year according to him. He has been complaining of progressive dyspnea over the last few weeks and when he presented to [place] he was in atrial flutter with 2 to one conduction. Patient has been having progressive dyspnea, occasional peripheral edema. He feels dizzy but no syncope. He has a prior loop recorder has not been interrogated for over 2 years according to him. He denies any PND or orthopnea. He underwent cardiac catheterization in 2015 that showed no evidence of obstructive CAD. His dobutamine stress echocardiogram in January 2021 showed no evidence of inducible ischemia. He had an echocardiogram in February 2022 that showed an ejection fraction of 30-35% with moderate pulmonary hypertension. An [place] he was noted to have an INR of 1.2, alcohol level of 104 and troponin of 0.062. Patient continues to be in atrial flutter with 2 to one conduction at a rate of 130. This past summer he had a CVA with speech disturbance and right upper extremity weakness that improved. June 20: The patient continues to be dyspneic. He continues to be in atrial flutter with rapid ventricular response with 2 to one conduction. He has chest tightness. He feels the palpitations. He feels fatigued. He denies any nausea or vomiting. His echocardiogram is pending June 21: The patient continues to be in atrial flutter with 2 to one conduction and rapid ventricular rate. He continues to be dyspneic, fatigued and dizzy. He has some fullness in the chest. He denies any nausea or vomiting. His blood pressure is stable. June 22: He underwent cardioversion yesterday and continues to be in sinus mechanism. He is feeling better overall continues to be dyspneic on exertion with limited exercise tolerance. He has no clear evidence of angina pectoris. He has no dizziness or palpitations. He was found to have significant cardiomyopathy with normal functioning of his mitral valve replacement. June 23: The patient continues to have dyspnea, mildly better but continues to be limited. His telemetry continues to show sinus mechanism. He has no evidence of malignant arrhythmia. He has no wheezing. He has occasional chest discomfort, at times respirophasic. His INR is elevated June 24: He is feeling better today, has no chest discomfort. Able to ambulate more. Continues to be in sinus mechanism. He denies any dizziness or palpitations. He has no nausea. His cough has improved. 06/25 Patient seen and examined. Patient states he feels back to normal. He is status post cardioversion and had supratherapeutic INR and therefore vitamin K was given and now is subtherapeutic. INR remains low at 1.4 today. He admits he does have Lovenox at home and has done home bridging before. The amiodarone was added and likely cause for his fluctuations in INR. PHYSICAL EXAMINATION: Vitals reviewed LUNGS: Decreased air exchange HEART: Regular rate, and rhythm, metallic mitral sound, S2. No S3. systolic ejection murmur ABDOMEN: Soft, nontender, no organomegaly EXTREMETIES: No edema IMPRESSION: 1. Atrial flutter with 2 to one conduction, post cardioversion, in sinus m echanism 2. History of mitral valve replacement 3. History of stroke 4. Progressive dyspnea probably exacerbation of COPD in addition to the atrial flutter, improving 5. Chronic tobacco use 6. Symptoms of chest discomfort with no evidence of obstructive CAD in the past. 7. History of cardiomyopathy PLAN: Patient clinically appears back to his baseline status post cardioversion. Patient needs anticoagulation and likely fluctuations in INR related to addition of Coumadin. Continue with heparin drip however patient has been taking Lovenox injections previously and therefore would be reasonable to discharge patient home on Lovenox with recheck of INR in 2-3 days. Patient stable for discharge home if anticoagulation able to be facilitated. Objective - Vital Signs Vital signs: Vital Signs Temp 97.7 F 06/25/22 08:30 Pulse 58 L 06/25/22 08:30 Resp 18 06/25/22 08:30 BP 100/64 06/25/22 08:30 Pulse Ox 99 06/25/22 08:30 FiO2 Intake & Output 06/24/22 06/25/22 06/25/22 18:59 06:59 18:59 Intake Total 72.202 220.782 Balance 72.202 220.782 Intake: Intake, IV Titration .202 102.782 Amount Heparin Sod,Pork in 0.45% 72.202 102.782 NaCl 25,000 unit In 0.45 % NaCl 1 250ml.bag @ 12 UNITS/KG/HR 9.936 mls/hr IV .Q24H FOR[facility], 1928–1983 Rx#: [id number] Oral 118 Other: Voiding Method Toilet Toilet # Voids 2 3 - Labs CBC & Chem 7: 06/25/22 05:17 06/25/22 05:17 Labs: Abnormal Lab Results - Last 24 Hours (Table) 06/24/22 06/24/22 06/24/22 Range/Units 10:12 10:12 16:20 PT 14.1 H 13.5 H (9.0-12.0) sec INR 1.4 H 1.3 H (<1.2) APTT (22.0-30.0) sec Sodium 136 L (137-145) mmol/L Creatinine (0.66-1.25) mg/dL Glucose 102 H (74-99) mg/dL Calcium 7.9 L (8.4-10.2) mg/dL 06/24/22 06/25/22 06/25/22 Range/Units 22:24 05:17 05:17 PT 13.7 H (9.0-12.0) sec INR 1.4 H (<1.2) APTT 40.0 H 50.5 H (22.0-30.0) sec Sodium 136 L (137-145) mmol/L Creatinine 1.29 H (0.66-1.25) mg/dL Glucose (74-99) mg/dL Calcium 7.9 L (8.4-10.2) mg/dL
[2022-06-25] MEDS: HEPARIN SOD,PORK IN 0.45% NACL 25,000 UNIT in 0.45% NACL 1 250ML.BAG IV SCH (12:18)
[2022-06-25 12:59] VITALS: BP 103/66; PULSE 59; TEMP 97.5
[2022-06-25] MEDS ORDERED: WARFARIN 5 MG TAB PO ONE (18:00)
--- NOTE | 2022-06-27 19:08 | P.DS ---
Providers Date of admission: 06/22/22 09:59 Attending physician: Anton Durand Consults: 06/19/22 11:10 Consult Physician Urgent Consulting Provider: Joe Hernandez Consult Reason/Comments: Elevated troponin, atrial flutter with a rapid ventricular response, chest Do you want consulting provider notified?: Yes 06/21/22 13:22 Consult Physician Routine Consulting Provider: Chris Culp Consult Reason/Comments: SOB Do you want consulting provider notified?: Yes Primary care physician: Yoshi Fulton Hospital Course: Final Diagnosis Atrial Flutter with 2:1 Conduction s/p cardioversion and maintaining sinus mechanism Dyspnea secondary to above Acute copd exacerbation in a current smoker Mechanical mitral valve anticoagulated with coumadin Chronic nicotine dependence counseled on smoking cessation. Coumadin monitoring Chronic cardiomyopathy with EF 30 to 35%/systolic dysfunction Recent stroke in february of 2022 Full Code Plan Patient is stable for discharge has been cleared by cardiology. He is status post cardioversion and has been discharged on oral amiodaroe 200 mg twice a day. He is being discharged on 4 mg of coumadin daily. He will need to complete a lovenox bridge and recommend 120 mg subcutaneous injection daily. Recommend to repeat INR on Saturday and Saturday. He can stop the lovenox injection when his INR reaches 2.5. Patient was also started on entresto this admission, and lasix 20 mg twice a day. Aldactone is increased. Recommend to also repeat labs in 2 to 3 days. Follow up with cardiology and primary care on discharge. Pulmonary will follow patient and recommend to see in the office for further work up regarding his COPD. Hospital Course This is a 52 year old male who follows with Dr. Fulton, chronic stable medical conditions include atrial fibrillation, GERD, hypertension, mitral valve replacement, stroke, smoker. Admitted with chest pain and shortness of breath, patient was transferred down from [place] found to be in atrial flutter with 2:1 conduction. He had cardiac catheterization completed in 2015 which shows non obstructive coronary artery disease. Echocardiogram in February 2022 showed EF of 30-35%. Moderate pulmonary hypertension. Alcohol level of 104. Did have elevation of his proBNP at 4670. He was started on IV heparin. Patient continued in atrial fibrillation and continued with shortness of breath at rest. Cardiology evaluated and recommended patient to undergo SHARAD with cardioversion. He underwent SHARAD/cardioversion on 06/23/22 and is now maintaining normal sinus rhythm with an intraventricular block with some improvement in breathing. He does report continued shortness of breath worse with ambulation. No complaints of chest pain currently. Has long standing history of tobacco use since the age of 9 he reports. He continues on DuoNeb and Pulmicort. He was seen in consultation by pulmonary services this admission also who is recommending to see him in the office for further evaluation of his COPD. 06/25/2022 Patient is evaluated today sitting up in bed. He reports decreased shortness of breath and his oxygenation has improved. He is currently 97% on room air. He continues to maintain sinus mechanism. He continues on warfarin current INR is 1.4 he will complete lovenox bridge and repeat labs on Saturday. Creatinine is up to 1.29 and he is given scrips to repeat labs in 2 to 3 days. He would like to discharge home today. He is currently denying chest pain or palpitations. Shortness of breath seems to be his main complaint. He denies any nausea, vomiting, or diarrhea. He reports no dizziness or lightheadedness. His lungs are clear diminished bases. No crackles noted on exam. S1 S2 auscultated regular rate and rhythm. Abdomen is soft and nontender. Focal neurological exam is negative and he is alert x 3. He is afebrile, heart rate 59, blood pressure 103/66 and 97% on room air. He will be discharged home today. Please see medication reconciliation for a list of current medication. Thank you for allowing us to participate in the care of this patient. The impression and plan of care has been dictated by Brittany Nagel, Nurse Practitioner as directed. Dr. Efra MD I have performed a history and physical examination and medical decision making of this patient, discussed the same with the dictator, and agree with the dictators assessment and plan as written, documented as a scribe. Based on total visit time, I have performed more than 50% of this visit. Patient Condition at Discharge: Fair Plan - Discharge Summary Discharge Rx Participant: No New Discharge Prescriptions: New Amiodarone [Cordarone] 200 mg PO BID #60 tab Dapagliflozin Propanediol [Farxiga] 10 mg PO DAILY #30 tab Metoprolol Tartrate [Lopressor] 50 mg PO BID #60 tab Warfarin [Coumadin] 4 mg PO ONCE@1800 #30 tab Enoxaparin [Lovenox] 120 mg SQ DAILY #10 each Spironolactone [Aldactone] 25 mg PO DAILY #30 tab Sacubitril/Valsartan [Entresto 24 mg-26 mg Tablet] 1 each PO BID #60 tab Nicotine 14Mg/24Hr Patch [Habitrol] 1 patch TRANSDERM DAILY #7 patch Furosemide [Lasix] 20 mg PO BID #60 tab Continue Atorvastatin [Lipitor] 40 mg PO DAILY Albuterol Sulfate [Proair Hfa] 1 puff INHALATION RT-Q4H PRN PRN Reason: Shortness Of Breath Fluticasone Propion/Salmeterol [Advair 250-50 Diskus] 1 puff INHALATION RT- BID Aspirin 81 mg PO DAILY chew Nitroglycerin Sl Tabs [Nitrostat] 0.4 mg SUBLINGUAL Q5M PRN PRN Reason: Chest Pain Discontinued Metoprolol Tartrate [Lopressor] 25 mg PO BID Warfarin [Coumadin] 5 mg PO DAILY Discharge Medication List Aspirin 81 mg PO DAILY chew 01/17/21 [Rx] Albuterol Sulfate [Proair Hfa] 1 puff INHALATION RT-Q4H PRN 06/19/22 [History] Atorvastatin [Lipitor] 40 mg PO DAILY 06/19/22 [History] Fluticasone Propion/Salmeterol [Advair 250-50 Diskus] 1 puff INHALATION RT-BID 06/19/22 [History] Nitroglycerin Sl Tabs [Nitrostat] 0.4 mg SUBLINGUAL Q5M PRN 06/19/22 [History] Amiodarone [Cordarone] 200 mg PO BID #60 tab 06/25/22 [Rx] Dapagliflozin Propanediol [Farxiga] 10 mg PO DAILY #30 tab 06/25/22 [Rx] Enoxaparin [Lovenox] 120 mg SQ DAILY #10 each 06/25/22 [Rx] Furosemide [Lasix] 20 mg PO BID #60 tab 06/25/22 [Rx] Metoprolol Tartrate [Lopressor] 50 mg PO BID #60 tab 06/25/22 [Rx] Nicotine 14Mg/24Hr Patch [Habitrol] 1 patch TRANSDERM DAILY #7 patch 06/25/22 [Rx] Sacubitril/Valsartan [Entresto 24 mg-26 mg Tablet] 1 each PO BID #60 tab 06/25/22 [Rx] Spironolactone [Aldactone] 25 mg PO DAILY #30 tab 06/25/22 [Rx] Warfarin [Coumadin] 4 mg PO ONCE@1800 #30 tab 06/25/22 [Rx] Follow up Appointment(s)/Referral(s): Joe Hernandez MD [STAFF PHYSICIAN] - 1 Week (Office to call with appointment date and time.) Yoshi Fulton MD [Primary Care Provider] - 06/27/22 8:00 am ([address] [place] [address] With Gigi Bellamy NP) Chris Culp MD [STAFF PHYSICIAN] - 07/26/22 1:00 pm () Ambulatory/Diagnostic Orders: Basic Metabolic Panel [LAB.AMB] Time Frame: 3 Days, Location: None Selected Prothrombin Time INR [LAB.AMB] Time Frame: 2 Days, Location: None Selected Patient Instructions/Handouts: Angina (DC) Activity/Diet/Wound Care/Special Instructions: Continue lovenox 120 mg subcutaneous injection daily Check INR on Saturday / Saturday If INR is above 2.5 can stop lovenox injections Follow up with your primary care provider in 1 to 2 days Follow up with cardiology and pulmonary on discharge Discharge Disposition: HOME SELF-CARE
== END 2022-06-25 13:47 | disposition home or self-care (01) | DRG 308 ==
LOC: EC 09:56 → 3SCARD 11:10 → OBSVTOIN 06-22 09:59
PROVIDERS: ADMIT Hospitalist; ATTEND Hospitalist
PROC: B246ZZ4 Ultrasonography of Right and Left Heart, Transesophageal (ICD-10-PCS; 2022-06-21)
PROC: 5A2204Z Restoration of Cardiac Rhythm, Single (ICD-10-PCS; principal; 2022-06-21 10:00)
DX: I48.92 Unspecified atrial flutter (principal); J96.01 Acute respiratory failure with hypoxia; J44.1 Chronic obstructive pulmonary disease with (acute) exacerbation; I25.110 Atherosclerotic heart disease of native coronary artery with unstable angina pectoris; I50.22 Chronic systolic (congestive) heart failure; I69.351 Hemiplegia and hemiparesis following cerebral infarction affecting right dominant side; I11.0 Hypertensive heart disease with heart failure; R00.0 Tachycardia, unspecified; I45.89 Other specified conduction disorders; I42.9 Cardiomyopathy, unspecified; F17.210 Nicotine dependence, cigarettes, uncomplicated; R79.1 Abnormal coagulation profile; I48.0 Paroxysmal atrial fibrillation; I07.1 Rheumatic tricuspid insufficiency; F10.20 Alcohol dependence, uncomplicated; Z71.6 Tobacco abuse counseling; F41.9 Anxiety disorder, unspecified; I69.328 Other speech and language deficits following cerebral infarction; I25.2 Old myocardial infarction; I27.20 Pulmonary hypertension, unspecified; I45.4 Nonspecific intraventricular block; K21.9 Gastro-esophageal reflux disease without esophagitis; Z79.01 Long term (current) use of anticoagulants; Z79.51 Long term (current) use of inhaled steroids; Z79.82 Long term (current) use of aspirin; Z79.899 Other long term (current) drug therapy; Z95.1 Presence of aortocoronary bypass graft; Z95.2 Presence of prosthetic heart valve; Z88.0 Allergy status to penicillin; Z87.19 Personal history of other diseases of the digestive system
CPT/HCPCS: 71046; 80048; 80053; 80061; 83880; 84443; 84484; 85025; 85610; 85730; 92960; 93005; 93306; 93312; 93320; 93325; 94640; 94760; 96365; 96366; 96375; 99291

== ENCOUNTER 2022-07-04 14:58 | Inpatient (IN) | payer OTHER ==
[2022-07-04 15:29] LABS: Basophils # (A) 0.1 k/uL (0-0.2); Basophils % (A) 1 %; Eosinophils # (A) 0.1 k/uL (0-0.7); Eosinophils % (A) 1 %; HCT 48.7 % (39.0-53.0); HGB 16.4 gm/dL (13.0-17.5); Lymphocytes # (A) 1.5 k/uL (1.0-4.8); Lymphocytes % (A) 15 %; MCH 31.1 pg (25.0-35.0); MCHC 33.7 g/dL (31.0-37.0); MCV 92.3 fL (80.0-100.0); Mean Platelet Volume 8.6; Monocytes # (A) 0.4 k/uL (0-1.0); Monocytes % (A) 4 %; Neutrophils # (A) 8.1 k/uL (1.3-7.7); Neutrophils % (A) 79 %; Platelet Count 267 k/uL (150-450); RBC 5.28 m/uL (4.30-5.90); RDW 12.6 % (11.5-15.5); WBC 10.3 k/uL (3.8-10.6)
[2022-07-04] MEDS ORDERED: SODIUM CHLORIDE 0.9% 500 ML 500 ML IV STA (15:30)
[2022-07-04] MEDS ORDERED: SODIUM CHLORIDE 0.9% 1,000 ML IV STA (15:30)
[2022-07-04] MEDS ORDERED: ASPIRIN 81 MG PO STA (15:30)
[2022-07-04] MEDS ORDERED: DEXTROSE 5% IN WATER 100 ML with AMIODARONE 150 MG IV ONE (15:31)
--- NOTE | 2022-07-04 15:36 | ED ---
Arrhythmia/Palpitations HPI - General Chief Complaint: Arrhythmia/Palpitations Stated Complaint: tachycardia Time Seen by Provider: 07/04/22 15:24 Source: patient Mode of arrival: ambulatory Limitations: no limitations - History of Present Illness Initial Comments: This patient is 52-year-old man with history of previous LA and history of atrial fibrillation who states that he had been admitted in the hospital a couple weeks ago, being discharged one week ago. The patient states that since she was discharged she has been having episodes where his heart will be rapidly. He states that he had to go to [facility] last night because her heart rate was getting up to 160. He states he was given a medicine through the IV that slowed his heart and he was discharged. He states that symptoms returned a few hours ago. He is not having chest pain. He does occasionally have some nausea. He occasional has some shortness of breath associated. Patient states that they had started him on a number of medicines when he was discharged. He doesn't recall what they are. Patient states he has been compliant. MD Complaint: rapid heart beat -: days(s) Context: occurred during rest Arrhythmia History: atrial fibrillation, other Associated Symptoms: shortness of breath - Related Data Home Medications Medication Instructions Recorded Confirmed Albuterol Sulfate [Proair Hfa] 1 puff INHALATION RT-Q4H PRN 06/19/22 07/04/22 Atorvastatin [Lipitor] 40 mg PO DAILY 06/19/22 07/04/22 Fluticasone Propion/Salmeterol 1 puff INHALATION RT-BID 06/19/22 07/04/22 [Advair 250-50 Diskus] Nitroglycerin Sl Tabs [Nitrostat] 0.4 mg SL Q5M PRN 06/19/22 07/04/22 Sacubitril/Valsartan [Entresto 24 1 tab PO BID 07/04/22 07/04/22 mg-26 mg Tablet] Warfarin Sodium 4 mg PO HS@1800 07/04/22 07/04/22 Previous Rx's Medication Instructions Recorded Aspirin 81 mg PO DAILY chew 01/17/21 Amiodarone [Cordarone] 200 mg PO BID #60 tab 06/25/22 Dapagliflozin Propanediol [Farxiga] 10 mg PO DAILY #30 tab 06/25/22 Furosemide [Lasix] 20 mg PO BID #60 tab 06/25/22 Metoprolol Tartrate [Lopressor] 50 mg PO BID #60 tab 06/25/22 Nicotine 14Mg/24Hr Patch [Habitrol] 1 patch TRANSDERM DAILY #7 patch 06/25/22 Spironolactone [Aldactone] 25 mg PO DAILY #30 tab 06/25/22 Allergies Allergy/AdvReac Type Severity Reaction Status Date / Time Penicillins Allergy Severe Anaphylaxis Verified 07/04/22 17:08 Review of Systems ROS Statement: Those systems with pertinent positive or pertinent negative responses have been documented in the HPI. ROS Other: All systems not noted in ROS Statement are negative. Constitutional: Denies: fever, chills Respiratory: Reports: as per HPI, dyspnea. Denies: cough Cardiovascular: Reports: as per HPI, palpitations. Denies: chest pain, orthopn ea, edema, syncope Gastrointestinal: Reports: as per HPI, nausea. 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 Last Myocardial Infarction Date:: 2016 History of Any Multi-Drug Resistant Organisms: None Reported Past Surgical History: Adenoidectomy, Heart Catheterization, Tonsillectomy Additional Past Surgical History / Comment(s): 2016 cardiac cath, mitral valve replaced, colonoscopies with cancerous polypectomies Past Anesthesia/Blood Transfusion Reactions: No Reported Reaction Past Psychological History: No Psychological Hx Reported Smoking Status: Current every day smoker Past Alcohol Use History: Occasional Past Drug Use History: None Reported - Past Family History Father History Unknown: Yes Family Medical History: Unable to Obtain Additional Family Medical History / Comment(s): pt was adopted. Mother History Unknown: Yes Family Medical History: Unable to Obtain Additional Family Medical History / Comment(s): pt was adopted General Exam Limitations: no limitations General appearance: alert, in no apparent distress Head exam: Present: atraumatic, normocephalic Eye exam: Present: normal appearance. Absent: scleral icterus, conjunctival injection Neck exam: Present: normal inspection Respiratory exam: Present: normal lung sounds bilaterally. Absent: respiratory distress, wheezes, rales, rhonchi, stridor Cardiovascular Exam: Present: tachycardia, irregular rhythm, normal heart sounds. Absent: systolic murmur, diastolic murmur, rubs, gallop GI/Abdominal exam: Present: soft. Absent: distended, tenderness, guarding, rebound, rigid, mass Extremities exam: Present: normal inspection, normal capillary refill. Absent: pedal edema, calf tenderness Back exam: Present: normal inspection. Absent: CVA tenderness (R), CVA tenderness (L) Neurological exam: Present: alert Psychiatric exam: Present: anxious Skin exam: Present: warm, dry, intact, normal color. Absent: rash Course Vital Signs 07/04/22 07/04/22 07/04/22 15:04 15:28 15:51 Temperature 97.7 F Pulse Rate 112 H 172 H 128 H Respiratory 20 16 18 Rate Blood Pressure 114/77 117/86 107/93 O2 Sat by Pulse 99 92 L 100 Oximetry 07/04/22 07/04/22 07/04/22 16:08 17:09 18:00 Temperature Pulse Rate 142 H 141 H 142 H Respiratory 16 18 18 Rate Blood Pressure 120/82 110/84 118/82 O2 Sat by Pulse 97 100 Oximetry 07/04/22 07/04/22 07/04/22 20:15 21:33 23:38 Temperature Pulse Rate 140 H 147 H 122 H Respiratory 15 18 16 Rate Blood Pressure O2 Sat by Pulse 100 94 L Oximetry 07/05/22 07/05/22 07/05/22 01:36 03:20 03:21 Temperature Pulse Rate 141 H 140 H 110 H Respiratory 18 18 15 Rate Blood Pressure 93/64 110/55 O2 Sat by Pulse 97 100 Oximetry 07/05/22 07/05/22 07/05/22 04:58 06:56 08:40 Temperature Pulse Rate 78 108 H 112 H Respiratory 14 18 18 Rate Blood Pressure 91/63 97/77 O2 Sat by Pulse 99 97 Oximetry 07/05/22 07/05/22 07/05/22 12:36 12:50 15:47 Temperature Pulse Rate 68 70 Respiratory 18 20 Rate Blood Pressure 97/77 108/65 O2 Sat by Pulse 97 97 94 L Oximetry 07/05/22 21:37 Temperature Pulse Rate 113 H Respiratory 20 Rate Blood Pressure 98/73 O2 Sat by Pulse 96 Oximetry EKG Findings - EKG Results: EKG: interpreted by KATIE, normal axis - Dysrhythmias: Supraventricular dysrhythmia: atrial fibrillation (With rapid ventricular rate, 138 bpm) - Blocks, [place], Hypertrophy, ST Abn: QRS axis and voltage: indeterminate axis Medical Decision Making - Medical Decision Making Patient's 52-year-old man here with tachycardia and chest pain. The patient is discussed with cardiology and they would like him maintained on amiodarone drip and they state that if this does not resolve the problem they may have to resort to d/c cardioversion. - Lab Data Result diagrams: 07/08/22 09:42 07/08/22 09:42 Lab Results 07/04/22 07/04/22 07/04/22 Range/Units 15:09 15:09 15:09 WBC 10.3 (3.8-10.6) k/uL RBC 5.28 (4.30-5.90) m/uL Hgb 16.4 (13.0-17.5) gm/dL Hct 48.7 (39.0-53.0) % MCV 92.3 (80.0-100.0) fL MCH 31.1 (25.0-35.0) pg MCHC 33.7 (31.0-37.0) g/dL RDW 12.6 (11.5-15.5) % Plt Count 267 (150-450) k/uL MPV 8.6 Neutrophils % 79 % Lymphocytes % 15 % Monocytes % 4 % Eosinophils % 1 % Basophils % 1 % Neutrophils # 8.1 H (1.3-7.7) k/uL Lymphocytes # 1.5 (1.0-4.8) k/uL Monocytes # 0.4 (0-1.0) k/uL Eosinophils # 0.1 (0-0.7) k/uL Basophils # 0.1 (0-0.2) k/uL PT (9.0-12.0) sec INR (<1.2) APTT (22.0-30.0) sec Sodium 135 L (137-145) mmol/L Potassium 4.8 (3.5-5.1) mmol/L Chloride 103 (98-107) mmol/L Carbon Dioxide 20 L (22-30) mmol/L Anion Gap 12 mmol/L BUN 15 (9-20) mg/dL Creatinine 1.08 (0.66-1.25) mg/dL Est GFR (CKD-EPI)AfAm >90 (>60 ml/min/1.73 sqM) Est GFR (CKD-EPI)NonAf 79 (>60 ml/min/1.73 sqM) Glucose 77 (74-99) mg/dL Calcium 8.7 (8.4-10.2) mg/dL Magnesium 1.8 (1.6-2.3) mg/dL Total Bilirubin 1.8 H (0.2-1.3) mg/dL AST 111 H (17-59) U/L ALT 63 H (4-49) U/L Alkaline Phosphatase 72 (38-126) U/L Troponin I 0.055 H* (0.000-0.034) ng/mL NT-Pro-B Natriuret Pep pg/mL Total Protein 6.9 (6.3-8.2) g/dL Albumin 4.3 (3.5-5.0) g/dL Amylase 61 (30-110) U/L Lipase 179 (23-300) U/L 07/04/22 07/04/22 Range/Units 15:09 15:34 WBC (3.8-10.6) k/uL RBC (4.30-5.90) m/uL Hgb (13.0-17.5) gm/dL Hct (39.0-53.0) % MCV (80.0-100.0) fL MCH (25.0-35.0) pg MCHC (31.0-37.0) g/dL RDW (11.5-15.5) % Plt Count (150-450) k/uL MPV Neutrophils % % Lymphocytes % % Monocytes % % Eosinophils % % Basophils % % Neutrophils # (1.3-7.7) k/uL Lymphocytes # (1.0-4.8) k/uL Monocytes # (0-1.0) k/uL Eosinophils # (0-0.7) k/uL Basophils # (0-0.2) k/uL PT 26.4 H (9.0-12.0) sec INR 2.7 H (<1.2) APTT 32.6 H (22.0-30.0) sec Sodium (137-145) mmol/L Potassium (3.5-5.1) mmol/L Chloride (98-107) mmol/L Carbon Dioxide (22-30) mmol/L Anion Gap mmol/L BUN (9-20) mg/dL Creatinine (0.66-1.25) mg/dL Est GFR (CKD-EPI)AfAm (>60 ml/min/1.73 sqM) Est GFR (CKD-EPI)NonAf (>60 ml/min/1.73 sqM) Glucose (74-99) mg/dL Calcium (8.4-10.2) mg/dL Magnesium (1.6-2.3) mg/dL Total Bilirubin (0.2-1.3) mg/dL AST (17-59) U/L ALT (4-49) U/L Alkaline Phosphatase (38-126) U/L Troponin I (0.000-0.034) ng/mL NT-Pro-B Natriuret Pep 7000 pg/mL Total Protein (6.3-8.2) g/dL Albumin (3.5-5.0) g/dL Amylase (30-110) U/L Lipase (23-300) U/L Critical Care Time Critical Care Time: Yes (30 minutes) Disposition Clinical Impression: Atrial fibrillation with rapid ventricular response, Elevated troponin I level Disposition: ADMITTED IP TO THIS HOSP Condition: Fair Time of Disposition: 16:55
[2022-07-04 15:39] LABS: ALT 63 U/L (4-49); AST 111 U/L (17-59); African American GFR (CKD) >90 (>60 ml/min/1.73 sqM); Albumin 4.3 g/dL (3.5-5.0); Alkaline Phosphatase 72 U/L (38-126); Amylase 61 U/L (30-110); Anion Gap 12 mmol/L; Blood Urea Nitrogen 15 mg/dL (9-20); Calcium 8.7 mg/dL (8.4-10.2); Carbon Dioxide 20 mmol/L (22-30); Chloride 103 mmol/L (98-107); Glucose 77 mg/dL (74-99); Lipase 179 U/L (23-300); Magnesium 1.8 mg/dL (1.6-2.3); Non-African American GFR(CKD) 79 (>60 ml/min/1.73 sqM); Potassium 4.8 mmol/L (3.5-5.1); Sodium 135 mmol/L (137-145); Total Bilirubin 1.8 mg/dL (0.2-1.3); Total Protein 6.9 g/dL (6.3-8.2)
--- NOTE | 2022-07-04 15:44 | XR ---
EXAMINATION TYPE: XR chest 1V portable DATE OF EXAM: 07/04/2022 COMPARISON: 06/21/2022 INDICATION: Chest pain TECHNIQUE: Single frontal view of the chest is obtained. FINDINGS: The heart size is prominent. Sternotomy wires are present prior cardiac valve surgery. Loop recorder overlies left chest.. The pulmonary vasculature is normal. The lungs are clear. IMPRESSION: 1. No acute pulmonary process. 2. Mild cardiomegaly
[2022-07-04 15:57] LABS: INR 2.7 (<1.2); Partial Thromboplastin Time 32.6 sec (22.0-30.0); Prothrombin Time 26.4 sec (9.0-12.0)
[2022-07-04] MEDS ORDERED: NITROGLYCERIN SL TABS 0.4 MG TAB SUBLINGUAL PRN (16:58)
[2022-07-04] MEDS ORDERED: DEXTROSE 5% IN WATER 250 ML with AMIODARONE 300 MG IV ONE (17:11)
[2022-07-04] MEDS ORDERED: AMIODARONE 360 MG in DEXTROSE 5% IN WATER 200 ML IV ONE ×2 (19:10)
[2022-07-04] MEDS ORDERED: LORazepam 2 MG/ML INJ IV STA (19:48)
[2022-07-05] MEDS: AMIODARONE 450 MG in DEXTROSE 5% IN WATER 250 ML IV SCH ×4 (02:19→16:31)
--- NOTE | 2022-07-05 08:37 | CONS ---
CONSULTATION HISTORY OF PRESENT ILLNESS: This is a 52-year-old gentleman with a diagnosis of nonischemic cardiomyopathy who was recently discharged from the hospital about 2 weeks ago after transesophageal echo and electrical cardioversion for atrial flutter for which he was symptomatic. He comes back in to the hospital with shortness of breath, apparently went to [place], was found to be in atrial fib at a rapid rate, was given some medications and sent home. He came yesterday with shortness of breath, palpitations. He is in atrial fib, the rate is about 120. I initiated him on an amiodarone drip yesterday. He is still in atrial fib, the rate is somewhat better controlled. He has no chest pain or shortness of breath at rest. He is on multiple medications in the form of Entresto, Aldactone, Lopressor, Lasix, and Farxiga for his diabetes. I am suggesting that we will resume all his home medications. Continue amiodarone IV, additional bolus and drip and see how he does. We will refer him to electrophysiology and also consider a repeat cardioversion if he remains symptomatic and we are unable to achieve proper rate control. I am recommending that we resume most of his medications. At the time of my evaluation, he is resting comfortably without any chest pain, shortness of breath, or palpitations. Heart rate is about 120, irregularly irregular, and he is currently on amiodarone drip. Please refer to the recent consultation by Dr. Hernandez. PHYSICAL EXAMINATION: VITAL SIGNS: Revealed heart rate of about 110, irregular. NECK: JVD 1 cm, no carotid bruit. HEART: Reveals S1, S2 with irregular and rhythm. No significant murmurs. LUNGS: Reveal bilateral decent air entry. ABDOMEN: Soft, nontender. EXTREMITIES: Lower extremities reveal normal pulses. No edema. CENTRAL NERVOUS SYSTEM: Normal. EKG revealed atrial fib with a moderately rapid ventricular rate, nonspecific ST changes and mild IVCD. IMPRESSION: 1. Persistent atrial fibrillation with rapid ventricular rate. Patient previously had atrial flutter and on June 19 underwent electrical cardioversion after SHARAD. 2. Nonischemic cardiomyopathy, apparently had a prior cardiac cath within the last few years and had no obstructive CAD. RECOMMENDATIONS: Will continue the amiodarone drip. Resume home medications and see how he does. He is anticoagulated with Coumadin and INR is therapeutic. He also had a history of TIA with a speech disturbance with right upper extremity weakness in the past which has resolved completely. MMODL / IJN: [id number] /
[2022-07-05 08:41] LABS: INR 1.9 (<1.2); Prothrombin Time 18.4 sec (9.0-12.0)
[2022-07-05] MEDS: FUROSEMIDE 20 MG TAB PO SCH ×2 (08:41→16:31)
[2022-07-05] MEDS: METOPROLOL TARTRATE 50 MG TAB PO SCH ×2 (08:42→20:53)
[2022-07-05] MEDS: SACUBITRIL/VALSARTAN 24 MG-26 MG TABLET PO SCH ×2 (08:43→20:54)
[2022-07-05] MEDS: ATORVASTATIN 40 MG TAB PO SCH (08:43)
[2022-07-05] MEDS: NICOTINE 14MG/24HR PATCH TRANSDERM SCH (08:45)
[2022-07-05] MEDS: ASPIRIN 325 MG TAB PO SCH (09:15)
[2022-07-05] MEDS: DAPAGLIFLOZIN PROPANEDIOL 10 MG TABLET PO SCH (09:16)
[2022-07-05] MEDS ORDERED: MELATONIN 3 MG TABLET PO PRN (10:20)
[2022-07-05] MEDS ORDERED: ONDANSETRON 4 MG/2 ML VIAL IVP PRN (10:20)
[2022-07-05] MEDS ORDERED: NALOXONE 0.4 MG/ML 1 ML VIAL IVP PRN (10:20)
[2022-07-05] MEDS ORDERED: ACETAMINOPHEN TAB 325 MG TAB PO PRN (10:20)
--- NOTE | 2022-07-05 10:20 | P.HPIM ---
History of Present Illness H&P Date: 07/05/22 Patient is a 52-year-old male who was recently admitted here from 06/22 through 06/25 secondary to a letter with 2 to one conduction delay who underwent cardioversion with return to normal sinus rhythm, acute exacerbation of COPD, and mechanical mitral valve anticoagulated with Coumadin. Patient also has cardiomyopathy with ejection fraction 30-35%, prior CVA in February 2022, and C OPD. He presented to the ER on 07/04 secondary to frequent palpitations. In the ER he underwent an extensive evaluation. On arrival he was tachycardic with his initial heart rate at 112 then increasing to 172. Initial laboratory analysis was remarkable for INR 2.7, sodium 135, bilirubin 1.8, AST 111, ALT 63, troponin 0.055 and BNP is 7000. In the ER he was started on IV amiodarone infusion. His home metoprolol was reinitiated. Thorough record review was performed of patient's recent hospitalization on 06/19 through 06/25. Echocardiogram on 06/21/22 showed an ejection fraction of 30-35%, severely increased left atrial volume, severe right atrial dilation, and normal functioning prosthetic mitral valve. Of note we're alerted of this patient's admission at 7:30 on 07/[address] Durand's service. Patient seen and examined at bedside. He is very frustrated be back in the ER again with uncontrolled A. fib. He states he also had gone to [place] given him medications to bring down his rate and discharged home without being admitted. He feels as though things have some sort of surgical procedure permanent fix. We discussed that we typically attempt to control A. fib with medications if possible. He reports that when he first came in he was experiencing chest pain, nausea, shortness of breath, and palpitations. He states that his palpitations are some what better but he is still feeling some heaviness in his chest as well as intermittent shortness of breath. He states that his heart rate is controlled but now that in an hour it will be backup to 1:30. He reports that he was having right wrist without fevers at home. He just feels overall frustrated with the process and that even if his heart rate 60 which is the right back in the hospital. Pertinent positives and negatives as discussed in HPI, a complete review of systems was performed and all other systems are negative. Vital signs reviewed General: nontoxic, no distress, appears at stated age Derm: warm, dry, multiple tattoos Head: atraumatic, normocephalic, symmetric Eyes: EOMI, no lid lag, anicteric sclera, pupils equal round reactive to light ENT: Nose and ears atraumatic, no thrush, no pharyngeal erythema Neck: No thyromegaly, no cervical lymphadenopathy, trachea midline, supple Mouth: no lip lesion, mucus membranes moist Cardiovascular: S1S2 irreg, no murmur, positive posterior tibial pulse bilateral, no edema, capillary refill less than 2 seconds Lungs: Course bs bilateral, no rhonchi, no rales, no wheeze, no accessory muscle use Abdominal: soft, nontender to palpation, no guarding, no appreciable organomegaly, normal bowel sounds Ext: no gross muscle atrophy, muscle strength 5 out of 5 in all 4 extremities, no contractures Neuro: CN II-XII grossly intact, light touch intact all 4 extremities, finger to nose within normal limits, Psych: Alert, oriented, appropriate affect Assessment/Plan: Atrial fibrillation with rapid ventricular response, recurrent after cardioversion on 06/21 Prosthetic mitral valve - amio gtt - cardio recs - pharmacy to monitor coumadin for valve - tele - metoprolol - no need for repeat echo Acute exacerbation of systolic congestive heart failure with ejection fraction 30-35% -Very mild -IV Lasix 1 and then resume home oral Lasix -Cardiology recommendations appreciated. They have resumed his metoprolol, entreso, and farxiga - no spironolactone as elevated K+ last hospitalization Tobacco abuse - patient does not want nicotine replacement Hypertension History of CVA GERD The patient is admitted with an anticipated greater than 2 midnight stay for evaluation of atrial fibrillation with rapid ventricular response Surrogate decision-maker: Ex- CODE STATUS: full code DVT prophylaxis: coumadin Discussed with: patient, nursing Anticipated discharge date: pending clinical course Anticipated discharge place: pending clinical course A total of 75 minutes was spent on the care of this complex patient more than 50% of the time was spent in counseling and care coordination. 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 Last Myocardial Infarction Date:: 2016 History of Any Multi-Drug Resistant Organisms: None Reported Past Surgical History: Adenoidectomy, Heart Catheterization, Tonsillectomy Additional Past Surgical History / Comment(s): 2016 cardiac cath, mitral valve replaced, colonoscopies with cancerous polypectomies Past Anesthesia/Blood Transfusion Reactions: No Reported Reaction Past Psychological History: No Psychological Hx Reported Smoking Status: Current every day smoker Past Alcohol Use History: Occasional Past Drug Use History: None Reported - Past Family History Father History Unknown: Yes Family Medical History: Unable to Obtain Additional Family Medical History / Comment(s): pt was adopted. Mother History Unknown: Yes Family Medical History: Unable to Obtain Additional Family Medical History / Comment(s): pt was adopted Medications and Allergies Home Medications Medication Instructions Recorded Confirmed Type Aspirin 81 mg PO DAILY chew 01/17/21 07/04/22 Rx Albuterol Sulfate [Proair Hfa] 1 puff INHALATION RT-Q4H PRN 06/19/22 07/04/22 History Atorvastatin [Lipitor] 40 mg PO DAILY 06/19/22 07/04/22 History Fluticasone Propion/Salmeterol 1 puff INHALATION RT-BID 06/19/22 07/04/22 History [Advair 250-50 Diskus] Nitroglycerin Sl Tabs [Nitrostat] 0.4 mg SL Q5M PRN 06/19/22 07/04/22 History Amiodarone [Cordarone] 200 mg PO BID #60 tab 06/25/22 07/04/22 Rx Dapagliflozin Propanediol [Farxiga] 10 mg PO DAILY #30 tab 06/25/22 07/04/22 Rx Furosemide [Lasix] 20 mg PO BID #60 tab 06/25/22 07/04/22 Rx Metoprolol Tartrate [Lopressor] 50 mg PO BID #60 tab 06/25/22 07/04/22 Rx Nicotine 14Mg/24Hr Patch [Habitrol] 1 patch TRANSDERM DAILY #7 patch 06/25/22 07/04/22 Rx Spironolactone [Aldactone] 25 mg PO DAILY #30 tab 06/25/22 07/04/22 Rx Sacubitril/Valsartan [Entresto 24 1 tab PO BID 07/04/22 07/04/22 History mg-26 mg Tablet] Warfarin Sodium 4 mg PO HS@1800 07/04/22 07/04/22 History Allergies Allergy/AdvReac Type Severity Reaction Status Date / Time Penicillins Allergy Severe Anaphylaxis Verified 07/04/22 17:08 Physical Exam Osteopathic Statement: *. No significant issues noted on an osteopathic structural exam other than those noted in the History and Physical/Consult. Vitals: Vital Signs Temp Pulse Resp BP Pulse Ox 07/05/22 08:40 112 H 18 97/77 97 07/05/22 06:56 108 H 18 91/63 99 07/05/22 04:58 78 14 07/05/22 03:21 110 H 15 110/55 100 07/05/22 03:20 140 H 18 07/05/22 01:36 141 H 18 93/64 97 07/04/22 23:38 122 H 16 07/04/22 21:33 147 H 18 94 L 07/04/22 20:15 140 H 15 100 07/04/22 18:00 142 H 18 118/82 100 07/04/22 17:09 141 H 18 110/84 97 07/04/22 16:08 142 H 16 120/82 07/04/22 15:51 128 H 18 107/93 100 07/04/22 15:28 172 H 16 117/86 92 L 07/04/22 15:04 97.7 F 112 H 20 114/77 99 Intake and Output 07/04/22 07/05/22 07/05/22 22:59 06:59 14:59 Other: Weight 81.647 kg Results CBC & Chem 7: 07/04/22 15:09 07/04/22 15:09 Labs: Abnormal Lab Results - Last 24 Hours (Table) 07/04/22 07/04/22 07/04/22 Range/Units 15:09 15:09 15:09 Neutrophils # 8.1 H (1.3-7.7) k/uL PT (9.0-12.0) sec INR (<1.2) APTT (22.0-30.0) sec Sodium 135 L (137-145) mmol/L Carbon Dioxide 20 L (22-30) mmol/L Total Bilirubin 1.8 H (0.2-1.3) mg/dL AST 111 H (17-59) U/L ALT 63 H (4-49) U/L Troponin I 0.055 H* (0.000-0.034) ng/mL 07/04/22 07/04/22 07/04/22 Range/Units 15:34 18:15 20:33 Neutrophils # (1.3-7.7) k/uL PT 26.4 H (9.0-12.0) sec INR 2.7 H (<1.2) APTT 32.6 H (22.0-30.0) sec Sodium (137-145) mmol/L Carbon Dioxide (22-30) mmol/L Total Bilirubin (0.2-1.3) mg/dL AST (17-59) U/L ALT (4-49) U/L Troponin I 0.054 H* 0.054 H* (0.000-0.034) ng/mL 07/05/22 Range/Units 07:43 Neutrophils # (1.3-7.7) k/uL PT 18.4 H (9.0-12.0) sec INR 1.9 H (<1.2) APTT (22.0-30.0) sec Sodium (137-145) mmol/L Carbon Dioxide (22-30) mmol/L Total Bilirubin (0.2-1.3) mg/dL AST (17-59) U/L ALT (4-49) U/L Troponin I (0.000-0.034) ng/mL
[2022-07-05 10:24] LABS: HCT 40.8 % (39.0-53.0); HGB 13.5 gm/dL (13.0-17.5); Hypochromasia Slight; MCH 31.6 pg (25.0-35.0); MCHC 33.1 g/dL (31.0-37.0); MCV 95.4 fL (80.0-100.0); Mean Platelet Volume 9.9; Platelet Count 209 k/uL (150-450); RBC 4.27 m/uL (4.30-5.90); RDW 12.5 % (11.5-15.5); WBC 4.9 k/uL (3.8-10.6)
[2022-07-05 10:54] LABS: Chol/HDL Ratio 2.64 Ratio; LDL Cholesterol,Calculated 57.3 mg/dL (0.0-131.0)
[2022-07-05 13:00] LABS: Appearance,Urine Clear (Clear); Bacteria,Urine Rare /hpf; Bilirubin,Urine Negative (Negative); Blood,Urine Negative (Negative); Color,Urine Yellow; Glucose,Urine (UA) Negative (Negative); Hyaline Casts,Urine 16 /lpf (0-2); Ketones,Urine Trace (Negative); Leukocyte Esterase,Urine Negative (Negative); Mucus,Urine Few /hpf; Nitrite,Urine Negative (Negative); PH, Urine 5.5 (5.0-8.0); Protein,Urine 1+ (Negative); RBC,Urine <1 /hpf (0-5); Specific Gravity,Urine 1.028 (1.001-1.035); Squamous Epithelial Cell,Urine <1 /hpf (0-4); WBC,Urine 8 /hpf (0-5)
[2022-07-05 15:58] LABS: African American GFR (CKD) 80.7 (60.0-200.0); Anion Gap 13.8 mmol/L (10.00-18.00); Blood Urea Nitrogen 17.4 mg/dL (9.0-27.0); Calcium 7.9 mg/dL (8.7-10.3); Carbon Dioxide 19.2 mmol/L (20.0-27.5); Non-African American GFR(CKD) 69.6 (60.0-200.0); Potassium 4.6 mmol/L (3.5-5.5)
[2022-07-05] MEDS ORDERED: WARFARIN 2 MG TAB PO SCH (18:00)
[2022-07-05] MEDS ORDERED: ZOLPIDEM 5 MG TAB PO STA (18:55)
[2022-07-05] MEDS: HYDROcodone/APAP 5-325MG 1 EACH TAB PO PRN (21:20)
[2022-07-06 08:01] LABS: HCT 39.5 % (39.0-53.0); HGB 13.3 gm/dL (13.0-17.5); MCH 31.5 pg (25.0-35.0); MCHC 33.7 g/dL (31.0-37.0); MCV 93.4 fL (80.0-100.0); Mean Platelet Volume 9.1; Platelet Count 204 k/uL (150-450); RBC 4.23 m/uL (4.30-5.90); WBC 6.2 k/uL (3.8-10.6)
[2022-07-06 08:11] LABS: INR 1.6 (<1.2); Prothrombin Time 15.7 sec (9.0-12.0)
[2022-07-06 08:30] LABS: African American GFR (CKD) >90 (>60 ml/min/1.73 sqM); Anion Gap 2 mmol/L; Blood Urea Nitrogen 12 mg/dL (9-20); Calcium 7.3 mg/dL (8.4-10.2); Carbon Dioxide 24 mmol/L (22-30); Chloride 107 mmol/L (98-107); Glucose 95 mg/dL (74-99); Magnesium 1.6 mg/dL (1.6-2.3); Non-African American GFR(CKD) 87 (>60 ml/min/1.73 sqM); Potassium 3.9 mmol/L (3.5-5.1); Sodium 133 mmol/L (137-145)
[2022-07-06] MEDS: METOPROLOL TARTRATE 50 MG TAB PO SCH ×2 (09:05→20:59)
[2022-07-06] MEDS: ATORVASTATIN 40 MG TAB PO SCH (09:05)
[2022-07-06] MEDS: ASPIRIN 325 MG TAB PO SCH (09:05)
[2022-07-06] MEDS: FUROSEMIDE 10 MG/ML 4 ML VIAL IV SCH (09:06)
[2022-07-06] MEDS: NICOTINE 14MG/24HR PATCH TRANSDERM SCH (09:06)
[2022-07-06] MEDS ORDERED: ZOLPIDEM 5 MG TAB PO PRN (09:15)
[2022-07-06] MEDS ORDERED: AMIODARONE 200 MG TAB PO STA (09:15)
[2022-07-06] MEDS ORDERED: HEPARIN SODIUM 1,000 UN/ML (10ML VL) IV ONE (10:00)
[2022-07-06] MEDS ORDERED: HEPARIN SODIUM 1,000 UN/ML (10ML VL) IV PRN (10:00)
[2022-07-06 10:31] VITALS: BMI 25.4
[2022-07-06] MEDS: SACUBITRIL/VALSARTAN 24 MG-26 MG TABLET PO SCH ×2 (10:42→20:59)
[2022-07-06] MEDS: DAPAGLIFLOZIN PROPANEDIOL 10 MG TABLET PO SCH (10:42)
[2022-07-06] MEDS: HEPARIN SOD,PORK IN 0.45% NACL 25,000 UNIT in 0.45% NACL 1 250ML.BAG IV SCH (10:43)
[2022-07-06 10:57] LABS: INR 1.5 (<1.2); Partial Thromboplastin Time 26.4 sec (22.0-30.0); Prothrombin Time 15.2 sec (9.0-12.0)
--- NOTE | 2022-07-06 15:46 | CONS ---
CONSULTATION This is an addendum to the consultation I did on this patient on the . ADDENDUM: Mr. Yoshi Cortez is a 52-year-old gentleman, who has in the past undergone mitral valve replacement with a mechanical valve. Details of this surgery and the circumstances are unavailable. He does, therefore, have a mechanical mitral valve and known ischemic cardiomyopathy with recurrent persistent atrial fibrillation. MMODL / IJN: [id number] /
[2022-07-06] MEDS ORDERED: WARFARIN 3 MG TAB PO ONE (18:00)
--- NOTE | 2022-07-06 20:28 | P.PN ---
Subjective Progress Note Date: 07/06/22 (delayed charting seen at 0915) Patient is a 52-year-old male who was recently admitted here from 06/22 through 06/25 secondary to a letter with 2 to one conduction delay who underwent cardioversion with return to normal sinus rhythm, acute exacerbation of COPD, and mechanical mitral valve anticoagulated with Coumadin. Patient also has cardiomyopathy with ejection fraction 30-35%, prior CVA in February 2022, and COPD. He presented to the ER on 07/04 secondary to frequent palpitations. In the ER he underwent an extensive evaluation. On arrival he was tachycardic with his initial heart rate at 112 then increasing to 172. Initial laboratory analysis was remarkable for INR 2.7, sodium 135, bilirubin 1.8, AST 111, ALT 63, troponin 0.055 and BNP is 7000. In the ER he was started on IV amiodarone infusion. His home metoprolol was reinitiated. He was seen by cardiology who resumed home medications. Patient seen and examined at bedside. Still with chest heaviness and shorntess of breath, no dizzines. General: nontoxic, no distress, appears at stated age Derm: warm, dry Head: atraumatic, normocephalic, symmetric Eyes: EOMI, no lid lag, anicteric sclera Mouth: no lip lesion, mucus membranes moist Cardiovascular: S1S2 irreg, no murmur, positive posterior tibial pulse bilateral, Lungs: CTA decreased bs bilateral, no rhonchi, no rales , no accessory muscle use Abdominal: soft, nontender to palpation, no guarding, no appreciable organomegaly Ext: no gross muscle atrophy, no edema, no contractures Neuro: CN II-XI grossly intact, no focal neuro deficits Psych: Alert, oriented, appropriate affect Assessment/Plan: Atrial fibrillation with rapid ventricular response, recurrent after cardioversion on 06/21, Prosthetic mitral valve - amio gtt completed, Amio oral X 1 until seen by cardio - cardio recs - tele - metoprolol - no need for repeat echo Subtherapeutic coumadin - due to mechanical mitral valve will start heparin gtt - d/w pharmayc increased coumadin dosing. Acute exacerbation of systolic congestive heart failure with ejection fraction 30-35% - IV Lasix daily - Cardiology recommendations appreciated. They have resumed his metoprolol, entreso, and farxiga - no spironolactone as elevated K+ last hospitalization Tobacco abuse - patient does not want nicotine replacement History of CVA GERD Objective - Vital Signs Vital signs: Vital Signs Temp 98.1 F 07/06/22 16:06 Pulse 88 07/06/22 16:06 Resp 18 07/06/22 16:06 BP 114/76 07/06/22 16:06 Pulse Ox 100 07/06/22 16:06 FiO2 Intake & Output 07/06/22 07/06/22 07/07/22 06:59 18:59 06:59 Intake Total 885.375 Output Total 600 2200 Balance -600 -1314.625 Weight 80.4 kg 80.4 kg Intake: IV 10 Invasive Line 2 10 Intake, IV Titration 67.375 Amount Heparin Sod,Pork in 0.45% 67.375 NaCl 25,000 unit In 0.45 % NaCl 1 250ml.bag @ 12 UNITS/KG/HR 9.648 mls/hr IV .Q24H [facility] Rx#: [id number] Oral 808 Output: Urine 600 2200 Other: Voiding Method Toilet Toilet # Voids 1 4 - Labs CBC & Chem 7: 07/06/22 07:27 07/06/22 07:27 Labs: Abnormal Lab Results - Last 24 Hours (Table) 07/06/22 07/06/22 07/06/22 Range/Units 07:27 07:27 07:27 RBC 4.23 L (4.30-5.90) m/uL PT 15.7 H (9.0-12.0) sec INR 1.6 H (<1.2) APTT (22.0-30.0) sec Sodium 133 L (137-145) mmol/L Calcium 7.3 L (8.4-10.2) mg/dL 07/06/22 07/06/22 Range/Units 10:16 15:50 RBC (4.30-5.90) m/uL PT 15.2 H (9.0-12.0) sec INR 1.5 H (<1.2) APTT 36.0 H (22.0-30.0) sec Sodium (137-145) mmol/L Calcium (8.4-10.2) mg/dL
[2022-07-06] MEDS: AMIODARONE 200 MG TAB PO SCH (20:58)
--- NOTE | 2022-07-06 20:58 | PN ---
PROGRESS NOTE SUBJECTIVE: Mr. Cortez remains in atrial fibrillation, but the rate is much better controlled. This gentleman has nonischemic cardiomyopathy, mechanical mitral valve, and also decreased LV function. He underwent electrical cardioversion 2 weeks ago. I am suggesting that we will optimize rate control and refer him for Electrophysiology for further evaluation and possible ablation. OBJECTIVE: VITAL SIGNS: Stable. Blood pressure is 120/70. Pulse rate is about 100 to 110, much better. NECK: JVD 1 cm. No carotid bruit. HEART: S1 and S2 heard normally. Prosthetic valve clicks are audible. LUNGS: Reveal decent air entry. ABDOMEN: Soft and nontender. EXTREMITIES: Lower extremities reveal diminished pulses. CENTRAL NERVOUS SYSTEM: Normal. ASSESSMENT AND PLAN: Not realizing that he had a mechanical mitral valve, I considered switching to Eliquis, but instead, we will keep him on Coumadin, and INR is only 1.6. Therefore, he is on IV heparin. I am recommending that we will switch him to oral amiodarone 400 mg b.i.d., intravenous heparin, and Coumadin to bring up the PT/INR to 2.5 to 3.5. Otherwise, we will continue his other medications. Rate control has been better compared to yesterday, and we will refer him for Electrophysiology. MMODL / IJN: [id number] /
[2022-07-06] MEDS: HYDROcodone/APAP 5-325MG 1 EACH TAB PO PRN (20:59)
[2022-07-07] MEDS: NITROGLYCERIN SL TABS 0.4 MG TAB SUBLINGUAL PRN ×4 (03:41→07:15)
[2022-07-07] MEDS: HYDROcodone/APAP 5-325MG 1 EACH TAB PO PRN ×3 (04:03→13:52)
[2022-07-07] MEDS ORDERED: MORPHINE SULFATE 2 MG/ML SYRINGE IVP STA (04:57)
--- NOTE | 2022-07-07 06:40 | P.PN ---
Subjective Progress Note Date: 07/07/22 Principal diagnosis: Valvular heart disease The patient is a 52-year-old gentleman with a past medical history significant for valvular heart disease status post mitral valve replacement using mechanical valve as well as history of nonischemic cardiomyopathy and EF around 35% and also paroxysmal atrial fibrillation who was admitted to the hospital was Cristy saldivar with RVR. July 07 2022 The patient was seen this morning. He has been maintaining normal sinus mechanism. He was experiencing chest discomfort better was morphine. I did review the EKG from the morning and that showed sinus rhythm with nonspecific ST and T wave abnormalities and intraventricular conduction delay. I'm going to obtain serial cardiac enzymes. Currently he is on heparin IV. He is also on C oumadin for the mechanical valve in mitral position. We'll follow-up with INR and continue the Coumadin and keep the heparin to have a therapeutic INR. Follow-up with serial cardiac enzymes. Follow-up with the patient. Objective - Vital Signs Vital signs: Vital Signs Temp 97.1 F L 07/07/22 00:00 Pulse 63 07/07/22 04:00 Resp 18 07/07/22 04:00 BP 100/64 07/07/22 04:00 Pulse Ox 100 07/07/22 04:00 FiO2 Intake & Output 07/06/22 07/06/22 07/07/22 06:59 18:59 06:59 Intake Total 885.375 94.363 Output Total 600 2200 Balance -600 -1314.625 94.363 Weight 80.4 kg 80.4 kg 79.2 kg Intake: IV 10 Invasive Line 2 10 Intake, IV Titration 67.375 94.363 Amount Heparin Sod,Pork in 0.45% 67.375 94.363 NaCl 25,000 unit In 0.45 % NaCl 1 250ml.bag @ 12 UNITS/KG/HR 9.648 mls/hr IV .Q24H [facility] Rx#: [id number] Oral 808 Output: Urine 600 2200 Other: Voiding Method Toilet Toilet Toilet # Voids 1 4 1 - Constitutional General appearance: Present: no acute distress - Respiratory Respiratory: bilateral: CTA - Cardiovascular Rhythm: regular - Labs CBC & Chem 7: 07/06/22 07:27 07/06/22 07:27 Labs: Abnormal Lab Results - Last 24 Hours (Table) 07/06/22 07/06/22 07/06/22 Range/Units 07:27 07:27 07:27 RBC 4.23 L (4.30-5.90) m/uL PT 15.7 H (9.0-12.0) sec INR 1.6 H (<1.2) APTT (22.0-30.0) sec Sodium 133 L (137-145) mmol/L Calcium 7.3 L (8.4-10.2) mg/dL 07/06/22 07/06/22 07/07/22 Range/Units 10:16 15:50 00:23 RBC (4.30-5.90) m/uL PT 15.2 H (9.0-12.0) sec INR 1.5 H (<1.2) APTT 36.0 H 73.4 H (22.0-30.0) sec Sodium (137-145) mmol/L Calcium (8.4-10.2) mg/dL Assessment and Plan Assessment: Assessment Chest discomfort Valvular heart disease status post mitral valve replacement using mechanical valve Nonischemic cardiomyopathy Paroxysmal atrial fibrillation Plan Continue the current medical regimen Rule out acute coronary event by obtaining serial cardiac enzymes Continue heparin IV until we achieve therapeutic INR Follow-up with the patient
[2022-07-07 08:51] LABS: INR 2.1 (<1.2); Prothrombin Time 20.7 sec (9.0-12.0)
[2022-07-07 08:57] LABS: Calcium 8.1 mg/dL (8.4-10.2); Magnesium 1.7 mg/dL (1.6-2.3); Potassium 4.1 mmol/L (3.5-5.1); Total Bilirubin 0.6 mg/dL (0.2-1.3); Total Protein 5.2 g/dL (6.3-8.2)
[2022-07-07] MEDS: ASPIRIN 325 MG TAB PO SCH (10:23)
[2022-07-07] MEDS: AMIODARONE 200 MG TAB PO SCH ×2 (10:23→20:00)
[2022-07-07] MEDS: METOPROLOL TARTRATE 50 MG TAB PO SCH ×2 (10:23→19:59)
[2022-07-07] MEDS: ATORVASTATIN 40 MG TAB PO SCH (10:23)
[2022-07-07] MEDS: SACUBITRIL/VALSARTAN 24 MG-26 MG TABLET PO SCH ×2 (10:24→19:59)
[2022-07-07] MEDS: FUROSEMIDE 10 MG/ML 4 ML VIAL IV SCH (10:24)
[2022-07-07] MEDS: NICOTINE 14MG/24HR PATCH TRANSDERM SCH (10:24)
[2022-07-07] MEDS: DAPAGLIFLOZIN PROPANEDIOL 10 MG TABLET PO SCH (10:25)
[2022-07-07] MEDS: HEPARIN SOD,PORK IN 0.45% NACL 25,000 UNIT in 0.45% NACL 1 250ML.BAG IV SCH (10:44)
[2022-07-07] MEDS ORDERED: WARFARIN 5 MG TAB PO ONE (18:00)
[2022-07-07] MEDS: HYDROcodone/APAP 7.5-325MG 1 EACH TAB PO PRN (19:59)
--- NOTE | 2022-07-07 20:09 | P.PN ---
Subjective Progress Note Date: 07/07/22 (arias charting seen at 0930) Patient is a 52-year-old male who was recently admitted here from 06/22 through 06/25 secondary to a letter with 2 to one conduction delay who underwent cardioversion with return to normal sinus rhythm, acute exacerbation of COPD, and mechanical mitral valve anticoagulated with Coumadin. Patient also has cardiomyopathy with ejection fraction 30-35%, prior CVA in February 2022, and COPD. He presented to the ER on 07/04 secondary to frequent palpitations. In the ER he underwent an extensive evaluation. On arrival he was tachycardic with his initial heart rate at 112 then increasing to 172. Initial laboratory analysis was remarkable for INR 2.7, sodium 135, bilirubin 1.8, AST 111, ALT 63, troponin 0.055 and BNP is 7000. In the ER he was started on IV amiodarone infusion. His home metoprolol was reinitiated. He was seen by cardiology who resumed home medications. He is able to be transitioned off the IV amiodarone infusion was started on oral amiodarone. Patient converted to normal sinus rhythm on 07/06. He continues to complain of chest discomfort. Patient seen and examined at bedside. When I entered the room and asked the patient about his chest pain overnight he responded with "I'm exhausted and want to be left alone" with his eyes closed and him rolling over in bed. I asked if I could listen to his heart, he begrudgingly lowered his blanket. I told him I would be back to see him again tomorrow. General: nontoxic, no distress, appears at stated age Derm: warm, dry Head: atraumatic, normocephalic, symmetric Eyes: EOMI, no lid lag, anicteric sclera Mouth: no lip lesion, mucus membranes moist Cardiovascular: S1S2 irreg, no murmur Lungs: CTA decreased bs bilateral, no rhonchi, no rales , no accessory muscle use Psych: Alert, oriented, appropriate affect Assessment/Plan: Atrial fibrillation with rapid ventricular response now in NSR Prosthetic mitral valve - amio oral -recurrent after cardioversion on 06/21, - cardio recs - tele - metoprolol Chest pain Elevated Troponin, flat not consistent with ACS - norco and morphine as needed - cardio recs Subtherapeutic coumadin - due to mechanical mitral valve will start heparin gtt - d/w pharmayc increased coumadin dosing. Acute exacerbation of systolic congestive heart failure with ejection fraction 30-35% - IV lasix discontinued and patient transitioned to roal - Cardiology recommendations appreciated. - continue metoprolol, entreso, and farxiga - no spironolactone as elevated K+ last hospitalization Tobacco abuse - patient declined nicotine replacement History of CVA GERD home once cleared by cardiology. Objective - Vital Signs Vital signs: Vital Signs Temp 97.1 F L 07/07/22 00:00 Pulse 58 L 07/07/22 15:57 Resp 16 07/07/22 15:57 BP 94/59 07/07/22 15:57 Pulse Ox 97 07/07/22 15:58 FiO2 Intake & Output 07/07/22 07/07/22 07/08/22 06:59 18:59 06:59 Intake Total 94.363 263.056 Output Total 350 Balance 94.363 -86.944 Weight 79.2 kg Intake: Intake, IV Titration 94.363 83.056 Amount Heparin Sod,Pork in 0.45% 94.363 83.056 NaCl 25,000 unit In 0.45 % NaCl 1 250ml.bag @ 12 UNITS/KG/HR 9.648 mls/hr IV .Q24H [facility] Rx#: [id number] Oral 180 Output: Urine 350 Other: Voiding Method Toilet Toilet Urinal # Voids 1 1 - Labs CBC & Chem 7: 07/06/22 07:27 07/07/22 07:55 Labs: Abnormal Lab Results - Last 24 Hours (Table) 07/07/22 07/07/22 07/07/22 Range/Units 00:23 07:55 07:55 PT 20.7 H (9.0-12.0) sec INR 2.1 H (<1.2) APTT 73.4 H 68.0 H (22.0-30.0) sec Carbon Dioxide 32 H (22-30) mmol/L Glucose 111 H (74-99) mg/dL Calcium 8.1 L (8.4-10.2) mg/dL Troponin I (0.000-0.034) ng/mL Total Protein 5.2 L (6.3-8.2) g/dL Albumin 3.0 L (3.5-5.0) g/dL 07/07/22 07/07/22 07/07/22 Range/Units 07:55 10:47 16:48 PT (9.0-12.0) sec INR (<1.2) APTT 46.8 H (22.0-30.0) sec Carbon Dioxide (22-30) mmol/L Glucose (74-99) mg/dL Calcium (8.4-10.2) mg/dL Troponin I 0.039 H* 0.042 H* (0.000-0.034) ng/mL Total Protein (6.3-8.2) g/dL Albumin (3.5-5.0) g/dL
[2022-07-07] MEDS: ALBUTEROL NEBULIZED 2.5 MG/3 ML INHALATION PRN (22:16)
[2022-07-08] MEDS: HYDROcodone/APAP 7.5-325MG 1 EACH TAB PO PRN ×4 (01:40→20:53)
--- NOTE | 2022-07-08 09:18 | P.PN ---
Subjective Progress Note Date: 07/08/22 Principal diagnosis: Valvular heart disease The patient is a 52-year-old gentleman with a past medical history significant for valvular heart disease status post mitral valve replacement using mechanical valve as well as history of nonischemic cardiomyopathy and EF around 35% and also paroxysmal atrial fibrillation who was admitted to the hospital was Cristy saldivar with RVR. July 07 2022 The patient was seen this morning. He has been maintaining normal sinus mechanism. He was experiencing chest discomfort better was morphine. I did review the EKG from the morning and that showed sinus rhythm with nonspecific ST and T wave abnormalities and intraventricular conduction delay. I'm going to obtain serial cardiac enzymes. Currently he is on heparin IV. He is also on C oumadin for the mechanical valve in mitral position. We'll follow-up with INR and continue the Coumadin and keep the heparin to have a therapeutic INR. Follow-up with serial cardiac enzymes. Follow-up with the patient. 07/08/2022 The patient was seen and evaluated this morning. He is chest pain-free. He is stable from a cardiac vascular standpoint of view. He is on Coumadin. No INR as of yet. At this point I would continue the current medical regimen. Continue Coumadin. Follow-up with INR. Keep her down the dose of amiodarone as an outpatient. Objective - Vital Signs Vital signs: Vital Signs Temp 97.3 F L 07/08/22 04:00 Pulse 47 L 07/08/22 04:00 Resp 18 07/08/22 04:00 BP 94/65 07/08/22 04:00 Pulse Ox 99 07/08/22 04:00 FiO2 Intake & Output 07/07/22 07/08/22 07/08/22 18:59 06:59 18:59 Intake Total 263.056 Output Total 350 Balance -86.944 Weight 80.4 kg Intake: Intake, IV Titration 83.056 Amount Heparin Sod,Pork in 0.45% 83.056 NaCl 25,000 unit In 0.45 % NaCl 1 250ml.bag @ 12 UNITS/KG/HR 9.648 mls/hr IV .Q24H [facility] Rx#: [id number] Oral 180 Output: Urine 350 Other: Voiding Method Toilet Toilet Urinal Urinal # Voids 1 2 - Constitutional General appearance: Present: no acute distress - Respiratory Respiratory: bilateral: CTA - Cardiovascular Rhythm: regular - Labs CBC & Chem 7: 07/06/22 07:27 07/07/22 07:55 Labs: Abnormal Lab Results - Last 24 Hours (Table) 07/07/22 07/07/22 07/07/22 Range/Units 07:55 10:47 16:48 APTT 46.8 H (22.0-30.0) sec Troponin I 0.039 H* 0.042 H* (0.000-0.034) ng/mL Assessment and Plan Assessment: Assessment Chest discomfort Valvular heart disease status post mitral valve replacement using mechanical valve Nonischemic cardiomyopathy Paroxysmal atrial fibrillation Plan Continue the current medical regimen The chest discomfort has resolved completely Tapered down the dose of amiodarone as an outpatient
[2022-07-08] MEDS: SACUBITRIL/VALSARTAN 24 MG-26 MG TABLET PO SCH ×2 (09:58→19:59)
[2022-07-08] MEDS: METOPROLOL TARTRATE 50 MG TAB PO SCH ×2 (09:58→19:59)
[2022-07-08] MEDS: AMIODARONE 200 MG TAB PO SCH ×2 (09:58→19:59)
[2022-07-08] MEDS: NICOTINE 14MG/24HR PATCH TRANSDERM SCH (09:58)
[2022-07-08] MEDS: ATORVASTATIN 40 MG TAB PO SCH (09:58)
[2022-07-08] MEDS: ASPIRIN 325 MG TAB PO SCH (09:58)
[2022-07-08] MEDS: FUROSEMIDE 40 MG TAB PO SCH (09:58)
[2022-07-08] MEDS: DAPAGLIFLOZIN PROPANEDIOL 10 MG TABLET PO SCH (09:58)
[2022-07-08 10:16] LABS: INR 2.8 (<1.2); Prothrombin Time 27.1 sec (9.0-12.0)
[2022-07-08 10:21] LABS: Basophils # (A) 0.1 k/uL (0-0.2); Basophils % (A) 1 %; Eosinophils # (A) 0.1 k/uL (0-0.7); Eosinophils % (A) 2 %; HCT 43.7 % (39.0-53.0); HGB 14.3 gm/dL (13.0-17.5); Lymphocytes # (A) 2.1 k/uL (1.0-4.8); Lymphocytes % (A) 36 %; MCH 31.1 pg (25.0-35.0); MCHC 32.7 g/dL (31.0-37.0); MCV 95.2 fL (80.0-100.0); Mean Platelet Volume 9.3; Monocytes # (A) 0.3 k/uL (0-1.0); Monocytes % (A) 5 %; Neutrophils # (A) 3.1 k/uL (1.3-7.7); Neutrophils % (A) 52 %; Platelet Count 192 k/uL (150-450); RBC 4.59 m/uL (4.30-5.90); RDW 13.2 % (11.5-15.5); WBC 5.8 k/uL (3.8-10.6)
[2022-07-08 10:35] LABS: Albumin 3.1 g/dL (3.5-5.0); Magnesium 1.6 mg/dL (1.6-2.3); Potassium 4.6 mmol/L (3.5-5.1); Total Bilirubin 0.8 mg/dL (0.2-1.3); Total Protein 5.3 g/dL (6.3-8.2)
[2022-07-08] MEDS: ALBUTEROL NEBULIZED 2.5 MG/3 ML INHALATION PRN ×2 (11:00→16:32)
[2022-07-08] MEDS: HEPARIN SOD,PORK IN 0.45% NACL 25,000 UNIT in 0.45% NACL 1 250ML.BAG IV SCH (12:26)
--- NOTE | 2022-07-08 14:40 | P.PN ---
Subjective Progress Note Date: 07/08/22 (delayed charting seen at 1015) Patient is a 52-year-old male who was recently admitted here from 06/22 through 06/25 secondary to a letter with 2 to one conduction delay who underwent cardioversion with return to normal sinus rhythm, acute exacerbation of COPD, and mechanical mitral valve anticoagulated with Coumadin. Patient also has cardiomyopathy with ejection fraction 30-35%, prior CVA in February 2022, and COPD. He presented to the ER on 07/04 secondary to frequent palpitations. In the ER he underwent an extensive evaluation. On arrival he was tachycardic with his initial heart rate at 112 then increasing to 172. Initial laboratory analysis was remarkable for INR 2.7, sodium 135, bilirubin 1.8, AST 111, ALT 63, troponin 0.055 and BNP is 7000. In the ER he was started on IV amiodarone infusion. His home metoprolol was reinitiated. He was seen by cardiology who resumed home medications. He is able to be transitioned off the IV amiodarone infusion was started on oral amiodarone. Patient converted to normal sinus rhythm on 07/06. He continues to complain of chest discomfort. Patient seen and examined at bedside. He continues to have some chest tightness when up and ambulating. He also complains of shortness of breath with mild distances. We had a tamara long discussion about his systolic congestive heart failure. That he likely will continue to have exercise intolerance secondary to his weakened heart muscle. It is important for him to take all medications as prescribed. We talked about medical management of his atrial fibrillation and how it is important that he maintains his low heart rate as possible. He then shared with me that he has difficulty getting to appointments and having follow- up due to lack of transportation. He is also in the process of getting SSI and has not yet gotten Medicaid active. He would like home health care and telehelath if possible. General: nontoxic, no distress, appears at stated age Derm: warm, dry Head: atraumatic, normocephalic, symmetric Eyes: EOMI, no lid lag, anicteric sclera Mouth: no lip lesion, mucus membranes moist Cardiovascular: S1S2 irreg, no murmur Lungs: CTA bilateral, no rhonchi, no rales , no accessory muscle use Psych: Alert, oriented, appropriate affect Assessment/Plan: Atrial fibrillation with rapid ventricular response now in NSR Prosthetic mitral valve - amio oral - recurrent after cardioversion on 06/21, - cardio recs appreciated - tele - metoprolol - CM to arrange HH in AM and possible [facility], will need to be evaluated for medicaid given new Dx of systolic CHF. Chest pain Elevated Troponin, flat not consistent with ACS - norco and morphine as needed - cardio recs - given worsening EF starting February 2022 consider ischemic evaluation. Last stress with exercise stress in October 2020. Therapeutic coumadin - stop heparin gtt - coumadin with pharmacy dosing Acute exacerbation of systolic congestive heart failure with ejection fraction 3 0-35% - continue oral lasix - Cardiology recommendations appreciated. - continue metoprolol, entreso, and farxiga - no spironolactone as elevated K+ last hospitalization Tobacco abuse - patient declined nicotine replacement History of CVA GERD Anticipate home in AM once CM can arrange HH and referal for medicaid evaluation Active Medications Generic Name Dose Route Start Last Admin Trade Name Freq PRN Reason Stop Dose Admin Acetaminophen 650 mg 07/05/22 10:20 Acetaminophen Tab 325 Mg Tab PO Q6HR PRN Mild Pain or Fever > 100.5 Hydrocodone Bitart/Acetaminophen 1 each 07/07/22 14:06 07/08/22 09:57 Hydrocodone/Apap 7.5-325mg 1 Each Tab PO 1 each Q6HR PRN Administration Pain Albuterol Sulfate 2.5 mg 07/05/22 06:46 07/08/22 11:00 Albuterol Nebulized 2.5 Mg/3 Ml INHALATION 2.5 mg RT-Q4H PRN Administration Shortness Of Breath Amiodarone HCl 400 mg 07/06/22 21:00 07/08/22 09:58 Amiodarone 200 Mg Tab PO 400 mg BID XAVIER Administration Aspirin 325 mg 07/05/22 09:00 07/08/22 09:58 Aspirin 325 Mg Tab PO 325 mg DAILY XAVIER Administration Atorvastatin Calcium 40 mg 07/05/22 09:00 07/08/22 09:58 Atorvastatin 40 Mg Tab PO 40 mg DAILY XAVIER Administration Dapagliflozin 10 mg 07/05/22 09:00 07/08/22 09:58 Dapagliflozin Propanediol 10 Mg Tablet PO 10 mg DAILY XAVIER Administration Furosemide 40 mg 07/08/22 09:00 01/01/23 09:58 Furosemide 40 Mg Tab PO 40 mg DAILY XAVIER Administration Melatonin 3 mg 07/05/22 10:20 Melatonin 3 Mg Tablet PO HS PRN Insomnia Metoprolol Tartrate 50 mg 07/05/22 09:00 07/08/22 09:58 Metoprolol Tartrate 50 Mg Tab PO 50 mg BID XAVIER Administration Miscellaneous Information 1 each 07/05/22 06:48 Warfarin Per Pharmacy MISCELLANE DIRECTED PRN Per Protocol Protocol Naloxone HCl 0.2 mg 07/05/22 10:20 Naloxone 0.4 Mg/Ml 1 Ml Vial IVP Q2M PRN Opioid Reversal Nicotine 1 patch 07/05/22 09:00 07/08/22 09:58 Nicotine 14mg/24hr Patch TRANSDERM Not Given DAILY XAVIER Nitroglycerin 0.4 mg 07/05/22 06:46 07/07/22 07:15 Nitroglycerin Sl Tabs 0.4 Mg Tab SUBLINGUAL 0.4 mg Q5M PRN Administration Chest Pain Ondansetron HCl 4 mg 07/05/22 10:20 Ondansetron 4 Mg/2 Ml Vial IVP Q8HR PRN Nausea And Vomiting Sacubitril/Valsartan 1 each 07/05/22 09:00 07/08/22 09:58 Sacubitril/Valsartan 24 Mg-26 Mg Tablet PO 1 each BID XAVIER Administration Warfarin Sodium 3 mg 07/08/22 18:00 Warfarin 3 Mg Tab PO 07/08/22 18:01 ONCE@1800 ONE Zolpidem Tartrate 5 mg 07/06/22 09:15 07/06/22 22:15 Zolpidem 5 Mg Tab PO 5 mg HS PRN Administration Insomnia Objective - Vital Signs Vital signs: Vital Signs Temp 97.3 F L 07/08/22 04:00 Pulse 63 07/08/22 11:45 Resp 16 07/08/22 11:45 BP 103/62 07/08/22 11:45 Pulse Ox 100 07/08/22 11:45 FiO2 Intake & Output 07/07/22 07/08/22 07/08/22 18:59 06:59 18:59 Intake Total 263.056 736.426 Output Total 350 Balance -86.944 736.426 Weight 80.4 kg Intake: Intake, IV Titration 83.056 196.426 Amount Heparin Sod,Pork in 0.45% 83.056 196.426 NaCl 25,000 unit In 0.45 % NaCl 1 250ml.bag @ 12 UNITS/KG/HR 9.648 mls/hr IV .Q24H [facility] Rx#: [id number] Oral 180 540 Output: Urine 350 Other: Voiding Method Toilet Toilet Toilet Urinal Urinal # Voids 1 2 - Labs CBC & Chem 7: 07/08/22 09:42 07/08/22 09:42 Labs: Abnormal Lab Results - Last 24 Hours (Table) 07/07/22 07/08/22 07/08/22 Range/Units 16:48 09:42 09:42 PT 27.1 H (9.0-12.0) sec INR 2.8 H (<1.2) APTT 46.8 H (22.0-30.0) sec Sodium 135 L (137-145) mmol/L Calcium 8.0 L (8.4-10.2) mg/dL Total Protein 5.3 L (6.3-8.2) g/dL Albumin 3.1 L (3.5-5.0) g/dL 07/08/22 Range/Units 09:42 PT (9.0-12.0) sec INR (<1.2) APTT 44.2 H (22.0-30.0) sec Sodium (137-145) mmol/L Calcium (8.4-10.2) mg/dL Total Protein (6.3-8.2) g/dL Albumin (3.5-5.0) g/dL
[2022-07-08] MEDS ORDERED: WARFARIN 3 MG TAB PO ONE (18:00)
[2022-07-09] MEDS: HYDROcodone/APAP 7.5-325MG 1 EACH TAB PO PRN ×2 (03:38→09:56)
--- NOTE | 2022-07-09 07:30 | P.PN ---
Subjective Progress Note Date: 07/09/22 Principal diagnosis: Valvular heart disease The patient is a 52-year-old gentleman with a past medical history significant for valvular heart disease status post mitral valve replacement using mechanical valve as well as history of nonischemic cardiomyopathy and EF around 35% and also paroxysmal atrial fibrillation who was admitted to the hospital was Cristy saldivar with RVR. July 07 2022 The patient was seen this morning. He has been maintaining normal sinus mechanism. He was experiencing chest discomfort better was morphine. I did review the EKG from the morning and that showed sinus rhythm with nonspecific ST and T wave abnormalities and intraventricular conduction delay. I'm going to obtain serial cardiac enzymes. Currently he is on heparin IV. He is also on C oumadin for the mechanical valve in mitral position. We'll follow-up with INR and continue the Coumadin and keep the heparin to have a therapeutic INR. Follow-up with serial cardiac enzymes. Follow-up with the patient. 07/08/2022 The patient was seen and evaluated this morning. He is chest pain-free. He is stable from a cardiac vascular standpoint of view. He is on Coumadin. No INR as of yet. At this point I would continue the current medical regimen. Continue Coumadin. Follow-up with INR. Keep her down the dose of amiodarone as an outpatient. 07/09/2022 The patient was seen and evaluated this morning. He has a stable and he is asymptomatic. From a perivascular standpoint of view, the patient can be discharged home on Coumadin with bridging with Lovenox if the INR remains garcia btherapeutic. Objective - Vital Signs Vital signs: Vital Signs Temp 97.3 F L 07/08/22 20:00 Pulse 58 L 07/09/22 03:41 Resp 18 07/09/22 03:41 BP 98/53 07/09/22 03:41 Pulse Ox 95 07/09/22 03:41 FiO2 Intake & Output 07/08/22 07/09/22 07/09/22 18:59 06:59 18:59 Intake Total 736.426 Balance 736.426 Weight 79.5 kg Intake: Intake, IV Titration 196.426 Amount Heparin Sod,Pork in 0.45% 196.426 NaCl 25,000 unit In 0.45 % NaCl 1 250ml.bag @ 12 UNITS/KG/HR 9.648 mls/hr IV .Q24H [facility] Rx#: [id number] Oral 540 Other: Voiding Method Toilet Toilet # Voids 2 1 - Constitutional General appearance: Present: no acute distress - Respiratory Respiratory: bilateral: CTA - Cardiovascular Rhythm: regular - Labs CBC & Chem 7: 07/08/22 09:42 07/08/22 09:42 Labs: Abnormal Lab Results - Last 24 Hours (Table) 07/08/22 07/08/22 07/08/22 Range/Units 09:42 09:42 09:42 PT 27.1 H (9.0-12.0) sec INR 2.8 H (<1.2) APTT 44.2 H (22.0-30.0) sec Sodium 135 L (137-145) mmol/L Calcium 8.0 L (8.4-10.2) mg/dL Total Protein 5.3 L (6.3-8.2) g/dL Albumin 3.1 L (3.5-5.0) g/dL Assessment and Plan Assessment: Assessment Chest discomfort Valvular heart disease status post mitral valve replacement using mechanical valve Nonischemic cardiomyopathy Paroxysmal atrial fibrillation Plan Continue the current medical regimen The chest discomfort has resolved completely The patient can be discharged home with bridging with Lovenox if the INR is subtherapeutic
[2022-07-09 08:57] VITALS: RESP 17
[2022-07-09] MEDS: ASPIRIN 325 MG TAB PO SCH (09:43)
[2022-07-09] MEDS: METOPROLOL TARTRATE 50 MG TAB PO SCH (09:44)
[2022-07-09] MEDS: AMIODARONE 200 MG TAB PO SCH (09:44)
[2022-07-09] MEDS: FUROSEMIDE 40 MG TAB PO SCH (09:44)
[2022-07-09] MEDS: ATORVASTATIN 40 MG TAB PO SCH (09:44)
[2022-07-09] MEDS: NICOTINE 14MG/24HR PATCH TRANSDERM SCH (09:45)
[2022-07-09] MEDS: DAPAGLIFLOZIN PROPANEDIOL 10 MG TABLET PO SCH (09:46)
[2022-07-09] MEDS: SACUBITRIL/VALSARTAN 24 MG-26 MG TABLET PO SCH (09:48)
[2022-07-09 12:00] VITALS: BP 102/61; PULSE 59; TEMP 98
[2022-07-09] MEDS ORDERED: WARFARIN 3 MG TAB PO ONE (18:00)
--- NOTE | 2022-07-09 23:17 | P.DS ---
Providers Date of admission: 07/04/22 17:00 Expected date of discharge: 07/09/22 Attending physician: Anton Durand Consults: 07/04/22 16:58 Consult Physician Routine Consulting Provider: Jie Ramirez Consult Reason/Comments: Atrial fibrillation with rapid ventricular rate Do you want consulting provider notified?: Already Contacted Primary care physician: [facility] Course: Patient is a 52-year-old male who was recently admitted here from 06/22 through 06/25 secondary to a letter with 2 to one conduction delay who underwent cardioversion with return to normal sinus rhythm, acute exacerbation of COPD, and mechanical mitral valve anticoagulated with Coumadin. Patient also has cardiomyopathy with ejection fraction 30-35%, prior CVA in February 2022, and COPD. He presented to the ER on 07/04 secondary to frequent palpitations. In the ER he underwent an extensive evaluation. On arrival he was tachycardic with his initial heart rate at 112 then increasing to 172. Initial laboratory analysis was remarkable for INR 2.7, sodium 135, bilirubin 1.8, AST 111, ALT 63, troponin 0.055 and BNP is 7000. In the ER he was started on IV amiodarone infu eboni. His home metoprolol was reinitiated. He was seen by cardiology who resumed home medications. He is able to be transitioned off the IV amiodarone infusion was started on oral amiodarone. Patient converted to normal sinus rhythm on 07/06. He continues to complain of chest discomfort. Patient seen and examined at bedside. He continues to have some chest tightness when up and ambulating. He also complains of shortness of breath with mild distances. We had a tamara long discussion about his systolic congestive heart failure. That he likely will continue to have exercise intolerance secondary to his weakened heart muscle. It is important for him to take all medications as prescribed. We talked about medical management of his atrial fibrillation and how it is important that he maintains his low heart rate as possible. He then shared with me that he has difficulty getting to appointments and having follow- up due to lack of transportation. He is also in the process of getting SSI and has not yet gotten Medicaid active. He would like home health care and telehelath if possible. 07/09/2022: I assumed care of the patient today. INR therapeutic. Feeling well. Seen by cardiology. Being discharge. Questions answered. On examination: 98, 59, 17, 102/61, 99% room air Gen. appearance: Sitting up, comfortable Cardiovascular: Heart sounds normal, no edema Psychiatry: AO 3 with affect normal Assessment/Plan: Atrial fibrillation with rapid ventricular response now in NSR Prosthetic mitral valve - amio oral, recurrent after cardioversion on June 21, metoprolol dose increased Chest pain Elevated Troponin, flat not consistent with ACS - cardio recs - given worsening EF starting February 2022 consider ischemic evaluation. Last stress with exercise stress in October 2020. Therapeutic coumadin Follow INR Acute exacerbation of systolic congestive heart failure with ejection fraction 30-35% - continue oral lasix - continue metoprolol, entreso, and farxiga Tobacco abuse - patient declined nicotine replacement History of CVA GERD Disposition: Home Plan - Discharge Summary Discharge Rx Participant: No New Discharge Prescriptions: New Amiodarone [Cordarone] 400 mg PO BID #30 tab Furosemide [Lasix] 40 mg PO DAILY #30 tab Continue Atorvastatin [Lipitor] 40 mg PO DAILY Albuterol Sulfate [Proair Hfa] 1 puff INHALATION RT-Q4H PRN PRN Reason: Shortness Of Breath Fluticasone Propion/Salmeterol [Advair 250-50 Diskus] 1 puff INHALATION RT- BID Dapagliflozin Propanediol [Farxiga] 10 mg PO DAILY #30 tab Metoprolol Tartrate [Lopressor] 50 mg PO BID #60 tab Aspirin 81 mg PO DAILY chew Nitroglycerin Sl Tabs [Nitrostat] 0.4 mg SL Q5M PRN PRN Reason: Chest Pain Nicotine 14Mg/24Hr Patch [Habitrol] 1 patch TRANSDERM DAILY #7 patch Warfarin Sodium 4 mg PO HS@1800 Sacubitril/Valsartan [Entresto 24 mg-26 mg Tablet] 1 tab PO BID Changed Spironolactone [Aldactone] 12.5 mg PO DAILY #30 tab Discontinued Amiodarone [Cordarone] 200 mg PO BID #60 tab Furosemide [Lasix] 20 mg PO BID #60 tab Discharge Medication List Aspirin 81 mg PO DAILY chew 01/17/21 [Rx] Albuterol Sulfate [Proair Hfa] 1 puff INHALATION RT-Q4H PRN 06/19/22 [History] Atorvastatin [Lipitor] 40 mg PO DAILY 06/19/22 [History] Fluticasone Propion/Salmeterol [Advair 250-50 Diskus] 1 puff INHALATION RT-BID 06/19/22 [History] Nitroglycerin Sl Tabs [Nitrostat] 0.4 mg SL Q5M PRN 06/19/22 [History] Dapagliflozin Propanediol [Farxiga] 10 mg PO DAILY #30 tab 06/25/22 [Rx] Metoprolol Tartrate [Lopressor] 50 mg PO BID #60 tab 06/25/22 [Rx] Nicotine 14Mg/24Hr Patch [Habitrol] 1 patch TRANSDERM DAILY #7 patch 06/25/22 [Rx] Sacubitril/Valsartan [Entresto 24 mg-26 mg Tablet] 1 tab PO BID 07/04/22 [History] Warfarin Sodium 4 mg PO HS@1800 07/04/22 [History] Amiodarone [Cordarone] 400 mg PO BID #30 tab 07/09/22 [Rx] Furosemide [Lasix] 40 mg PO DAILY #30 tab 07/09/22 [Rx] Spironolactone [Aldactone] 12.5 mg PO DAILY #30 tab 07/09/22 [Rx] Follow up Appointment(s)/Referral(s): Joe Elizabeth MD [STAFF PHYSICIAN] - 1 Week Yoshi Fulton MD [Primary Care Provider] - 1-2 days Patient Instructions/Handouts: A-fib (Atrial Fibrillation) (DC) Activity/Diet/Wound Care/Special Instructions: INR/bmp - [address] elizabeth Discharge Disposition: HOME SELF-CARE
== END 2022-07-09 14:09 | disposition home or self-care (01) | DRG 308 ==
LOC: EC 14:58 → 3SCARD 17:00
PROVIDERS: ADMIT Hospitalist; ATTEND Hospitalist
DX: I48.19 Other persistent atrial fibrillation (principal); I50.23 Acute on chronic systolic (congestive) heart failure; I11.0 Hypertensive heart disease with heart failure; I25.2 Old myocardial infarction; Z95.2 Presence of prosthetic heart valve; E66.3 Overweight; E11.9 Type 2 diabetes mellitus without complications; G47.00 Insomnia, unspecified; I25.5 Ischemic cardiomyopathy; I45.9 Conduction disorder, unspecified; I48.92 Unspecified atrial flutter; R00.0 Tachycardia, unspecified; Z68.25 Body mass index [BMI] 25.0-25.9, adult; J44.9 Chronic obstructive pulmonary disease, unspecified; I42.8 Other cardiomyopathies; K21.9 Gastro-esophageal reflux disease without esophagitis; F17.210 Nicotine dependence, cigarettes, uncomplicated; Z88.0 Allergy status to penicillin; Z79.899 Other long term (current) drug therapy; Z79.82 Long term (current) use of aspirin; Z79.84 Long term (current) use of oral hypoglycemic drugs; Z79.01 Long term (current) use of anticoagulants; Z86.73 Personal history of transient ischemic attack (TIA), and cerebral infarction without residual deficits; Z86.010 Personal history of colon polyps; Z87.11 Personal history of peptic ulcer disease
CPT/HCPCS: 36415; 71045; 80048; 80053; 80061; 81001; 82150; 83690; 83735; 83880; 84484; 85025; 85027; 85610; 85730; 93005; 94640; 96361; 96365; 96366; 96375; 99291